=== PATIENT | male | born 1930 | race Caucasian/White ===

== ENCOUNTER 2020-08-16 17:26 | Inpatient (IN) | payer MEDICARE, BC, OTHER ==
[~2020-08-16] VITALS: Ht 172.7 cm; Wt 101.4 kg
[2020-08-16 22:30] VITALS: BP 116/69
[2020-08-16] MEDS ORDERED: ACETAMINOPHEN TAB 650MG DOSE (2X325MG) PO PRN (23:45)
[2020-08-17] VITALS (16 sets, daily range): BP systolic 84–126; BP diastolic 44–71; O2SAT 93–97
[2020-08-17] MEDS ORDERED: zolPIDEM TARTRATE 5 MG TAB PO ONE (00:15)
[2020-08-17] MEDS ORDERED: C 50TAB PO ×2 (00:34→17:00)
[2020-08-17] MEDS ORDERED: [UNRECOGNIZED DRUG - CODE] PO (00:34)
[2020-08-17] MEDS ORDERED: CLOP75TA2 PO (00:34)
[2020-08-17] MEDS ORDERED: ICAPTAB PO ×2 (00:34→17:00)
[2020-08-17] MEDS ORDERED: AMLO2.5T3 PO ×2 (00:34→17:00)
[2020-08-17] MEDS ORDERED: DOCU100C17 PO ×2 (00:34→17:00)
[2020-08-17] MEDS ORDERED: AVOD0.5C PO ×2 (00:34→17:00)
[2020-08-17] MEDS ORDERED: HYDR-4571 PO (00:34)
[2020-08-17] MEDS ORDERED: POTA10TA17 PO (00:34)
[2020-08-17] MEDS ORDERED: GABA600T4 PO ×2 (00:34→17:00)
[2020-08-17] MEDS ORDERED: GLUCTAB6 PO ×2 (00:34→17:00)
[2020-08-17] MEDS ORDERED: ASPI-161 PO ×2 (00:34→17:00)
[2020-08-17] MEDS ORDERED: FURO40TA2 PO ×2 (00:34→17:00)
[2020-08-17] MEDS ORDERED: NITR4TASL SL ×2 (00:34→17:00)
[2020-08-17] MEDS ORDERED: BUSP5TA PO ×2 (00:34→17:00)
[2020-08-17] MEDS ORDERED: SYNT75TA PO (00:34)
[2020-08-17] MEDS ORDERED: VITA100018 PO ×2 (00:34→17:00)
[2020-08-17] MEDS ORDERED: D31000TA2 PO ×2 (00:34→17:00)
[2020-08-17] MEDS ORDERED: ZYLO300T6 PO ×2 (00:34→17:00)
[2020-08-17] MEDS ORDERED: METO25TA4 PO (00:34)
[2020-08-17] MEDS ORDERED: MORP-69 PO ×2 (00:34→17:00)
[2020-08-17] MEDS ORDERED: ZOLP10TA2 PO (00:34)
[2020-08-17] MEDS ORDERED: MIRA1POW3 PO (00:34)
[2020-08-17] MEDS ORDERED: ATOR1TAB21 PO ×3 (00:34→18:42)
[2020-08-17] MEDS ORDERED: BISA10SU20 PR (00:34)
[2020-08-17] MEDS ORDERED: VITMTA PO ×2 (00:34→17:00)
[2020-08-17] MEDS ORDERED: TERA10CA3 PO ×2 (00:34→17:00)
[2020-08-17] MEDS ORDERED: PATIENT COMMENT (00:35)
[2020-08-17 01:06] LABS: HEMATOCRIT 31.1 % (42.0-52.0); MEAN CORPUSCULAR HEMOGLOBIN 33.1 pg (27.0-33.0); MEAN CORPUSCULAR HGB CONC 32.2 g/dl (32.0-36.5); PLATELET COUNT, AUTOMATED 219 10^3/uL (150-450); RED BLOOD COUNT 3.02 10^6/uL (4.30-6.10); WHITE BLOOD COUNT 8.7 10^3/uL (4.0-10.0)
[2020-08-17] MEDS: FUROSEMIDE 40MG/4ML VIAL (J1940) IV SCH ×3 (01:06→16:52)
[2020-08-17 01:08] LABS: RSV AMPLIFICATION NEGATIVE (NEGATIVE)
[2020-08-17 01:10] LABS: CK-MB VALUE MASS 2.3 NG/ML (<3.6); MB/CK RELATIVE INDEX 5.9 (< OR =4); TROPONIN I 1.21 NG/ML (< 0.10)
[2020-08-17 01:12] LABS: ALBUMIN 2.7 GM/DL (3.2-5.2); BILIRUBIN,TOTAL 0.6 MG/DL (0.2-1.0); CREATININE FOR GFR 1.27 MG/DL (0.70-1.30); MAGNESIUM LEVEL 2.1 MG/DL (1.8-2.4); POTASSIUM SERUM 3.8 MEQ/L (3.5-5.1); TOTAL PROTEIN 5.9 GM/DL (6.4-8.2)
--- NOTE | 2020-08-17 01:19 | REPVR ---
PROCEDURE INFORMATION: Exam: XR Chest, 1 View Exam date and time: 08/16/2020 11:44 PM Age: 89 years old Clinical indication: Other: Chf exacerbation TECHNIQUE: Imaging protocol: XR of the chest Views: 1 view. COMPARISON: No relevant prior studies available. FINDINGS: Lungs: Lungs are normally inflated. No evidence of pulmonary edema. Probable atelectasis at the lung bases. Subtle pneumonia not excluded. Pleural space: Blunted costophrenic angles suggest bilateral pleural effusions. No pneumothorax. Heart/Mediastinum: Cardiac silhouette is prominent in size. Bones/joints: Osseous structures show no concerning abnormality. Soft tissues: No asymmetry of the extrathoracic soft tissues. IMPRESSION: Small bilateral pleural effusions and either atelectasis or infiltrate at the lung bases. No evidence of active pulmonary edema Electronically signed by: Bertin Allen On 08/17/2020 01:19:22 AM
[2020-08-17] MEDS ORDERED: NORCO, ANEXSIA 5/325MG TABLET (HYDROcodone/ACETAMINOPHEN) PO PRN (02:00)
[2020-08-17] MEDS ORDERED: zolPIDEM TARTRATE 5 MG TAB PO PRN (02:00)
[2020-08-17 02:15] LABS: THYROID STIMULATING HORMONE 1.91 uIU/ML (0.358-3.740)
--- NOTE | 2020-08-17 02:32 | HPEPDOC ---
[facility] Medical History & Physical Date of Admission Aug 16, 2020 Date of Service: Aug 16, 2020 Attending Physician: RUIZ WOODALL MD History and Physical CHIEF COMPLAINT: transfer from [facility] HISTORY OF PRESENT ILLNESS: Jae John is a very pleasant 89 YO M with history of hypertension, CAD, CHF unspecified who presents as transfer from [facility]. Per transfer notes, in the last 2 days the patient has had shortness of breath and worsening swelling in his legs. He has required in creasing amounts of oxygen supplementation over the past day. On 08/16/2020 his BNP was measured to be over 20,000 (prior BNP in May 2020 was around 2000). A chest x-ray done at [facility] showed CHF with pulmonary vascular congestion and cardiomegaly. He is also found to have bibasilar airspace disease. In addition the patient had an FRANCES with creatinine of 1.36 and BUN 28 (creatinine 0.9-1.1 and BUN 13-15 in May 2020). On 2020 the patient's foreman/pile driving and erection Dr. Dimas recommended the patient be transferred to [facility] for further management of acute on chronic congestive heart failure exacerbation. The patient reports he is having increasing shortness of breath and dyspnea on exertion. He normally gets up and walks to the bathroom without issue but for the past few days he has been having labored breathing and had to stop and rest several times. He has been urinating several times a night. He denies any coughing. He has noticed his legs, left worse than right, with increasing swelling. He denies any recent illnesses, including any upper respiratory infections. He does report some right-sided chest pain several weeks ago which has since resolved. He has been taking all medication as prescribed. PAST MEDICAL HISTORY: Pretension CAD (ND about 40 years ago status post stent) CHF, unspecified Gout Degenerative joint disease Hypothyroidism BPH Chronic right hip pain Chronic back pain Spinal stenosis TIA PAST SURGICAL HISTORY: Cholecystectomy, [place] Multiple stent placement SOCIAL HISTORY: Former smoker, quit greater than 40 years ago Denies alcohol Denies illicit drugs Lives at [facility] FAMILY HISTORY: Reviewed and noncontributory ALLERGIES: Please see below. REVIEW OF SYSTEMS: Constitutional: No Weight Change, No Fever, No Chills, No Night Sweats, No Fatigue, No Malaise ENT/Mouth: No Hearing Changes, No Ear Pain, No Nasal Congestion, No Sinus Pain, No Hoarseness, No sore throat, No Rhinorrhea, No Swallowing Difficulty Eyes: No Eye Pain, No Swelling, No Redness, No Foreign Body, No Discharge, No Vision Changes Cardiovascular: Reports dyspnea on exertion, orthopnea, lower extremity edema Respiratory: No Cough, No Wheezing Gastrointestinal: No Nausea, No Vomiting, No Diarrhea, No Constipation, No Pain, No Heartburn, No Anorexia, No Dysphagia, No Hematochezia, No Melena, No Flatulence, No Jaundice Genitourinary: No Dysuria Musculoskeletal: No Arthralgias, No Myalgias, No Joint Swelling, No Joint Stiffness, No Back Pain, No Neck Pain Skin: No Skin Lesions, No Pruritis Neuro: No Weakness, No Numbness, No Paresthesias, No Loss of Consciousness, No Syncope, No Dizziness, No Headache, No Coordination Changes, No Recent Falls Psych: No Anxiety/Panic, No Depression, No Insomnia, No Personality Changes, No Delusions Heme/Lymph: No Bruising, No Bleeding, No Transfusions History, No Lymphadenopathy Endocrine: No Polyuria, No Polydipsia, No Temperature Intolerance HOME MEDICATIONS: Please see below. PHYSICAL EXAMINATION: VITAL SIGNS: see below GENERAL: Very pleasant, alert and oriented, in no apparent distress, conversant in full sentences. HEENT: PERRL, EOMI, Oral mucous membranes are moist without lesions. NECK: The patient has no noted JVD. No adenopathy is appreciated. No thyromegaly CHEST/LUNGS: There are some rales and scattered wheezing in all lung hollis bilaterally. There is no subcutaneous air appreciated. There is no tenderness to the chest wall. HEART: 3/6 systolic ejection murmur heard best in the right upper sternal border, 3/6 diastolic murmur heard best in the apex. Regular rate and rhythm, Distal pulses are 2+. No carotid bruits appreciated. ABDOMEN: Soft, slightly tender in the lower umbilicus with deep palpation, and nondistended. Bowel sounds are positive. No organomegaly is appreciated. No m asses are appreciated. There are no peritoneal signs. There is no [place] sign. EXTREMITIES: There is 2+ pitting edema up to the knees bilaterally. There is no focal long bone tenderness or deformity. SKIN: The patients skin is warm and dry, without rashes or lesions. PSYCHIATRIC: AAO x 3, normal mood/affect NEUROLOGIC: The patient has some word finding difficulty, and slurred speech. The patient has 5/5 strength to the upper and lower extremities bilaterally. Sensation is intact throughout. Deep tendon reflexes are 2+ in all four extremities. There are no deficits to the cranial nerves. LABORATORY DATA: See below. IMAGING: CXR: FINDINGS: Lungs: Lungs are normally inflated. No evidence of pulmonary edema. Probable atelectasis at the lung bases. Subtle pneumonia not excluded. Pleural space: Blunted costophrenic angles suggest bilateral pleural effusions. No pneumothorax. Heart/Mediastinum: Cardiac silhouette is prominent in size. Bones/joints: Osseous structures show no concerning abnormality. Soft tissues: No asymmetry of the extrathoracic soft tissues. IMPRESSION: Small bilateral pleural effusions and either atelectasis or infiltrate at the lung bases. No evidence of active pulmonary edema MICROBIOLOGY: Please see below. ASSESSMENT: This is a very pleasant 89-year-old male with history of hypertension, CAD, congestive heart failure unspecified who presents as transfer from [facility] found to have elevated BNP, increased oxygen requirement, and worsening lower extremity edema admitted to [facility] for management of suspected congestive heart failure exacerbation. PLAN: 1. Acute on chronic congestive heart failure, unspecified: -notes from [facility] state he was on 60mg Lasix PO in AM and Lasix 40mg IV x 1 dose + 1 dose of Metolazone 5mg with minimal response -BNP 17, 589 (was >20,[address] [facility]), last BNP on 06/09/20 was 2509 -CXR shows pleural effusions -Will start diuresis at this time, 40mg IV Lasix Q8H -Echo ordered and pending -EKG: Sinus rhythm, first degree AV block, frequent PVCs -Strict I/O -2g sodium diet with 1500cc/day fluid restriction -Daily weights 2. Elevated troponins, possibly NSTEMI: -Troponins found to be elevated at 1.21, last known troponins measured at [facility] on 08/12 were 0.96 -No ST changes on EKG -Start ASA, Plavix, Zetia, Atorvastatin, Lovenox 1mg/kg Q12H -Will recheck troponins in 6h -Continuous telemetry -Findings discussed with patient, who elected for conservative medical management, as he does not wish to be transferred for possible cath -ESTEFANY score 5 pts, with 26% risk at 14 days of new or recurrent [place] -ELIS score 181 points: 40% probability of within 6 mos -Patient requested day team to contact his foreman/pile driving and erection, Dr. Cortez, to discuss his case in AM 3. History of CAD ([place] + stent >40 years ago): -Patient is on Plavix (unknown reason). Will continue for reasons explained above -Continue ASA/Statin, added Zetia 4. History of Hypertension: -Continue Amlodipine -Holding beta blockers for now 5. Hypothyroidism: -TSH WNL at 1.910 -Continue home levothyroxine 6. Anemia: hemoglobin found to be 10.0 -MCV 103 -Pending B12/folate 7. History of chronic back pain: -Continue Gabapentin, [place] as needed 8. BPH: -Continue Avodart DVT ppx:on Lovenox DISPO: Pending diuresis, clinical improvement, trending troponins Allergies Coded Allergies: No Known Allergies (Unverified , 08/17/20) A-FIB/CHADSVASC A-FIB History Current/History of A-Fib/PAF?: No Current PO Anticoag Therapy: No GME ATTESTATION GME ATTESTATION My faculty preceptor for this patient encounter was physically present during the encounter and was fully available. All aspects of the patient interview, examination, medical decision making process, and medical care plan development were reviewed and approved by the faculty preceptor. The faculty preceptor is aware and concurs with the plan as stated in the body of this note and will attest to such by his/her cosignature. ATTENDING NOTE TIME OF SERVICE 1155PM is an 89 yr old w a hx of unspecified type of CHF, TIA, Afib, HTN, hypothyroidism and gout who developed hypoxemic respiratory failure while at [facility] that was presumed to be 2/2 acute on chronic CHF; he was transferred to [facility] for a higher level of care. His physical exam was remarkable for generalized palor and BLE edema upto the knees. #Acute hypoxemic respiratory failure possibly 2/2 fluid overload #Acute unspecified type of CHF #NSTEMI (ESTEFANY score = 4= moderate risk) EKG didnt show acute ST changes. Per d/w one of the RNs at [facility] the last troponin on Aug 12 was 0.196. #Chronic CAD #Macrocytic anemia Plan: called to discuss medical management of NSTEMI / telemetry / c/w O2 /continuous pulse ox / f/u VBG / trend trops / f/u EKG / c/ w Lasix / f/u Echo & Mg Rest per H&P RENU TA MD Aug 17, 2020 00:06 RUIZ WOODALL MD Aug 17, 2020 03:49
[2020-08-17] MEDS: EZETIMIBE 10 MG TAB (ZETIA) PO SCH ×2 (03:26→09:31)
[2020-08-17] MEDS: CLOPIDOGREL 75 MG TAB PO SCH ×2 (03:26→09:32)
[2020-08-17] MEDS: ATORVASTATIN 20 MG TAB PO SCH ×2 (03:27→21:12)
[2020-08-17] MEDS: ASPIRIN 81 MG ENTERIC TAB PO SCH ×2 (03:27→09:31)
[2020-08-17] MEDS: ENOXAPARIN 100MG/1ML SYRINGE (J1650 PER 10MG) SC SCH ×2 (03:27→14:09)
[2020-08-17] MEDS ORDERED: LEVOTHYROXINE 75MCG TABLET (0.075MG) PO SCH (06:00)
[2020-08-17 06:23] LABS: VENOUS BASE EXCESS 5.3 (-2.0-2.0); VENOUS HCO3 31.8 MEQ/L (23.0-27.0); VENOUS O2 SATURATION 90.6 % (60.0-80.0); VENOUS PARTIAL PRESSURE CO2 56.9 mmHg (38.0-50.0); VENOUS PARTIAL PRESSURE O2 65.8 mmHg (30.0-50.0); VENOUS PH 7.365 UNITS (7.330-7.430); VENOUS STANDARD HCO3 29.1 MEQ/L; VENOUS TOTAL CO2 33.5 MEQ/L (24.0-28.0)
[2020-08-17 06:32] LABS: HEMATOCRIT 29.7 % (42.0-52.0); HEMOGLOBIN 9.5 g/dl (13.5-17.5); MEAN CORPUSCULAR HEMOGLOBIN 32.9 pg (27.0-33.0); MEAN CORPUSCULAR VOLUME 102.8 fl (80.0-96.0); PLATELET COUNT, AUTOMATED 203 10^3/uL (150-450); RED BLOOD COUNT 2.89 10^6/uL (4.30-6.10); WHITE BLOOD COUNT 7.1 10^3/uL (4.0-10.0)
[2020-08-17 07:09] LABS: BLOOD UREA NITROGEN 39 MG/DL (7-18); CALCIUM LEVEL 9.1 MG/DL (8.8-10.2); CARBON DIOXIDE LEVEL 35 MEQ/L (21-32); CHLORIDE LEVEL 100 MEQ/L (98-107); CK-MB VALUE MASS 2.6 NG/ML (<3.6); CPK CREATINE PHOSPHOKINASE 31 U/L (39-308); CREATININE FOR GFR 1.15 MG/DL (0.70-1.30); GLOMERULAR FILTRATION RATE > 60.0 (>35); GLUCOSE, FASTING 98 MG/DL (70-100); MB/CK RELATIVE INDEX 8.39 (< OR =4); POTASSIUM SERUM 3.3 MEQ/L (3.5-5.1); SODIUM LEVEL 138 MEQ/L (136-145); TROPONIN I 1.25 NG/ML (< 0.10)
--- NOTE | 2020-08-17 08:18 | ECGEPIP ---
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
[2020-08-17] MEDS ORDERED: ENOXAPARIN 40MG/0.4ML SYRINGE (J1650 PER 10MG) SC SCH (09:00)
[2020-08-17] MEDS ORDERED: allopurinoL 300 MG TAB PO SCH (09:00)
[2020-08-17] MEDS: DOCUSATE SODIUM 100MG CAPSULE PO SCH ×2 (09:31→21:00)
[2020-08-17] MEDS: GABAPENTIN 300 MG CAP PO SCH ×3 (09:31→21:12)
[2020-08-17] MEDS: busPIRone 5 MG TAB PO SCH ×2 (11:34→21:12)
[2020-08-17] MEDS ORDERED: POTASSIUM CHLORIDE 10 MEQ SR TABLET PO ONE (12:00)
--- NOTE | 2020-08-17 14:34 | IPNPDOC ---
Text Note Date of Service The patient was seen on 08/17/20. NOTE SUBJECTIVE: -Very pleasant, feels better, no chest pain, palpitations, comfortably sitting up in bed, watching the inauguration. -Per extensive discussion would like to rescind his DNR/DNI status to FULL CODE. Is open to transfer to [place] for potential LHC and advanced studies and therapies. We agreed for me to reach out to Dr. Wang (his automotive sales associate) and I also spoke with Balaji Aly his HCP and plan is now to transfer him to [place] tomorrow morning. OBJECTIVE: VITAL SIGNS: see below GENERAL: Very pleasant, alert and oriented, in no apparent distress, conversant in full sentences. HEENT: PERRL, EOMI, Oral mucous membranes are moist without lesions. NECK: The patient has no noted JVD. No adenopathy is appreciated. No thyromegaly CHEST/LUNGS: There are some rales and scattered wheezing in all lung hollis bilaterally. There is no subcutaneous air appreciated. There is no tenderness to the chest wall. HEART: 3/6 systolic ejection murmur heard best in the right upper sternal border, 3/6 systolic murmur heard best in the apex. Regular rate and rhythm, Distal pulses are 2+. No carotid bruits appreciated. ABDOMEN: Soft, slightly tender in the lower umbilicus with deep palpation, and nondistended. Bowel sounds are positive. No organomegaly is appreciated. No mas ses are appreciated. There are no peritoneal signs. There is no [place] sign. EXTREMITIES: There is 2+ pitting edema up to the knees bilaterally. There is no focal long bone tenderness or deformity. SKIN: The patients skin is warm and dry, without rashes or lesions. PSYCHIATRIC: AAO x 3, normal mood/affect NEUROLOGIC: The patient has some word finding difficulty, and slurred speech. The patient has 5/5 strength to the upper and lower extremities bilaterally. Sensation is intact throughout. Deep tendon reflexes are 2+ in all four extremities. There are no deficits to the cranial nerves. LABORATORY DATA: Reviewed K 3.3 (repleted) Cr 1.15 IMAGING: CXR: FINDINGS: Lungs: Lungs are normally inflated. No evidence of pulmonary edema. Probable atelectasis at the lung bases. Subtle pneumonia not excluded. Pleural space: Blunted costophrenic angles suggest bilateral pleural effusions. No pneumothorax. Heart/Mediastinum: Cardiac silhouette is prominent in size. Bones/joints: Osseous structures show no concerning abnormality. Soft tissues: No asymmetry of the extrathoracic soft tissues. IMPRESSION: Small bilateral pleural effusions and either atelectasis or infiltrate at the lung bases. No evidence of active pulmonary edema MICROBIOLOGY: Please see below. ASSESSMENT: This is a very pleasant 89-year-old male with history of hypertension, CAD, congestive heart failure unspecified who presents as transfer from [facility] found to have elevated BNP, increased oxygen requirement, and worsening lower extremity edema admitted to [facility] for management of suspected congestive heart failure exacerbation. PLAN: 1. Acute on chronic congestive heart failure, unspecified: -notes from [facility] state he was on 60mg Lasix PO in AM and Lasix 40mg IV x 1 dose + 1 dose of Metolazone 5mg with minimal response -BNP 17, 589 (was >20,000 at [facility]), last BNP on 06/09/20 was 2509 -CXR shows pleural effusions -Lasix 40mg IV Lasix Q8H as hemodynamics allow -Echo ordered and read pending -EKG: Sinus rhythm, first degree AV block, frequent PVCs -Strict I/O -2g sodium diet with 1500cc/day fluid restriction -Daily weights -Spoke with his [place] automotive sales associate --> has significant and MR as well as reduced EF 30-45% from prior echo--> plan is to transfer him to [place] tomorrow morning. For now will continue volume optimization. -Patient articulated desire to rescind DNR/DNI and now FULLCODE 2. Elevated troponins, type 2 NSTEMI: -Troponins found to be elevated at 1.21--> 1.25 -No ST changes on EKG -continue ASA, Plavix, Zetia, Atorvastatin -for now will continue Lovenox 1mg/kg Q12H -Will recheck troponins in 6h -Continuous telemetry -ESTEFANY score 5 pts, with 26% risk at 14 days of new or recurrent [place] -ELIS score 181 points: 40% probability of within 6 mos -Spoke with his [place] automotive sales associate --> has significant and MR as well as reduced EF 30-45% from prior echo--> plan is to transfer him to [place] tomorrow morning. For now will continue volume optimization. 3. History of CAD ([place] + stent >40 years ago): -Patient is on Plavix (unknown reason). Will continue for reasons explained above -Continue ASA/Statin, added Zetia 4. History of Hypertension: -Continue Amlodipine -Holding beta blockers for now 5. Hypothyroidism: -TSH WNL at 1.910 -Continue home levothyroxine 6. Anemia: hemoglobin found to be 10.0 -MCV 103 -Pending B12/folate 7. History of chronic back pain: -Continue Gabapentin, [place] as needed 8. BPH: -Continue Avodart DVT ppx:on Lovenox DISPO: Continue diuresis, with plan for [facility] transfer tomorrow AM VS,Kumar, I+O VS, Kumar, I+O Laboratory Tests 08/17/20 00:24 08/17/20 06:08 Vital Signs Date Time Temp Pulse Resp B/P (MAP) Pulse Ox O2 Delivery O2 Flow Rate FiO2 08/17/20 12:00 4.0 08/17/20 09:08 97.9 88 22 119/71 (87) 92 Nasal Cannula I&O- Last 24 Hours up to 6 AM 08/17/20 06:00 Intake Total 60 ml Output Total 1575 ml Balance -1515 ml NAT DE LA VEGA MD Aug 17, 2020 14:34
--- NOTE | 2020-08-17 16:33 | DS.PDOC ---
Discharge Summary General Date of Admission Aug 16, 2020 at 22:37 Date of Discharge 08/18/2020 Attending Physician: NAT DE LA VEGA MD Discharge Summary PROCEDURES PERFORMED DURING STAY: [None]. ADMITTING DIAGNOSES: CHF exacerbation DISCHARGE DIAGNOSIS: HFrEF exacerbation NSTEMI CAD Hypertension CAD (first [place] about 40 years ago status post stents) CHF, history of HFrEF Gout Degenerative joint disease Hypothyroidism BPH Chronic right hip pain Chronic back pain Spinal stenosis TIA Hypoxemic respiratory failure COMPLICATIONS/CHIEF COMPLAINT: CHF. HISTORY OF PRESENT ILLNESS: Jae John is a very pleasant 89 YO M with history of hypertension, CAD, CHF unspecified at presentation who presented as a transfer from [facility]. Per transfer notes, in the 2 days prior to transfer the patient had shortness of breath and worsening swelling in his legs despite daily loop diuretic therapy. He has required increasing amounts of oxygen supplementation over the past day. On 08/16/2020 his BNP was measured to be over 20,000 (prior BNP in May 2020 was around 2000). A chest x-ray done at [facility] showed CHF with pulmonary vascular congestion and cardiomegaly. He is also found to have bibasilar airspace disease. In addition t he patient had an FRANCES with creatinine of 1.36 and BUN 28 (creatinine 0.9-1.1 and BUN 13-15 in May 2020). On 08/16 2020 the patient's marketing effectiveness manager Dr. Santos recommended the patient be transferred to [facility] for further management of acute on chronic congestive heart failure exacerbation, c/w appropriate management for CHF exacerbatiion. HOSPITAL COURSE: He arrived HDS, afebrile on 4L NC. He was started on lasix 40 IV Q8H that he responded to very well but was also c/b episodic hypotension and could not diurese as hemodynamics allowed. His Frances improved with Cr back to 1.15 with a BUN of 38. He however had a troponin leak to 1.24 --> 1.25 with a stable non ischemic EKG in NSR with first degree HB. So he was kept on his plavix, started on full dose lovenox and kept on telemetry. On day 2 morning, he expressed that he really desired to have all interventions and rescinded his DNR/DNI which I confirmed with his HCP and discussed with Dr. Santos who let me know that his EF at baseline was 35-45% and he had significant and MR and he was not sure that his CHF decompensation was precipitated by ischemia but could valvular disease and would require more investigation and potential could end up requiring a C. Given that he wanted full investigations and interventions, we agreed to have be transferred to [place] for full evaluation and management beyond volume optimization. He is therefore now being transferred to [place] cardiology service. DISCHARGE MEDICATIONS: Please see below. ALLERGIES: Please see below. PHYSICAL EXAMINATION ON DISCHARGE: VITAL SIGNS: see below GENERAL: Very pleasant, alert and oriented, in no apparent distress, conversant in full sentences. HEENT: PERRL, EOMI, Oral mucous membranes are moist without lesions. CHEST/LUNGS: There are some rales and scattered wheezing in all lung hollis bilaterally. There is no subcutaneous air appreciated. There is no tenderness to the chest wall. HEART: 3/6 systolic ejection murmur heard best in the right upper sternal border, 3/6 systolic murmur heard best in the apex. Regular rate and rhythm, Distal pulses are 2+. No carotid bruits appreciated. ABDOMEN: Normoactive bowel sounds, soft, obese, NTND EXTREMITIES: There is 2+ pitting edema up to the knees bilaterally. There is no focal long bone tenderness or deformity. SKIN: The patients skin is warm and dry, without rashes or lesions. PSYCHIATRIC: AAO x 3, normal mood/affect NEUROLOGIC: Clear speech. The patient has 5/5 strength to the upper and lower ex tremities bilaterally. Sensation is intact throughout. There are no deficits to the cranial nerves. LABORATORY DATA: Please see below. IMAGING: CXR: FINDINGS: Lungs: Lungs are normally inflated. No evidence of pulmonary edema. Probable atelectasis at the lung bases. Subtle pneumonia not excluded. Pleural space: Blunted costophrenic angles suggest bilateral pleural effusions. No pneumothorax. Heart/Mediastinum: Cardiac silhouette is prominent in size. Bones/joints: Osseous structures show no concerning abnormality. Soft tissues: No asymmetry of the extrathoracic soft tissues. IMPRESSION: Small bilateral pleural effusions and either atelectasis or infiltrate at the lung bases. No evidence of active pulmonary edema PROGNOSIS: Good ACTIVITY: As tolerated DIET: consistent carb, 2g sodium, 1.8L/24h fluids DISCHARGE PLAN: Transfer to [place] [facility] DISPOSITION: Transfer to [place] [facility] DISCHARGE INSTRUCTIONS: Transfer to [place] [facility] ITEMS TO FOLLOWUP ON ON OUTPATIENT: CHF NSTEMI PCP follow up DISCHARGE CONDITION: Stable. TIME SPENT ON DISCHARGE: 51 minutes. Vital Signs/I&Os Vital Signs Date Time Temp Pulse Resp B/P (MAP) Pulse Ox O2 Delivery O2 Flow Rate FiO2 08/17/20 15:58 97.9 91 22 126/61 (82) 93 Nasal Cannula 4.0 I&O- Last 24 Hours up to 6 AM 08/17/20 06:00 Intake Total 60 ml Output Total 1575 ml Balance -1515 ml Laboratory Data Labs 24H Laboratory Tests 2 08/17/20 00:17: Coronavirus (COVID-19)(PCR) NEGATIVE, Influenza Type A (RT-PCR) NEGATIVE, Influenza Type B (RT-PCR) NEGATIVE, Respiratory Syncytial Virus (PCR) NEGATIVE 08/17/20 00:24: Nucleated Red Blood Cells % (auto) 0.0, Anion Gap 5L, Glomerular Filtration Rate 57.0, Calcium Level 9.0, Magnesium Level 2.1, Total Bilirubin 0.6, Aspartate Amino Transf (AST/SGOT) 26, Alanine Aminotransferase (ALT/SGPT) 29, Alkaline Phosphatase 104, Total Creatine Kinase 39, Creatine Kinase MB 2.3, Creatine Kinase MB Relative Index 5.90H, Troponin I 1.21H, PV-Luo-S-Type Natriuretic Peptide 92439B, Total Protein 5.9L, Albumin 2.7L, Albumin/Globulin Ratio 0.8, Thyroid Stimulating Hormone (TSH) 1.910 08/17/20 06:08: Nucleated Red Blood Cells % (auto) 0.0, Anion Gap 3L, Glomerular Filtration Rate > 60.0, Calcium Level 9.1, Total Creatine Kinase 31L, Creatine Kinase MB 2.6, Creatine Kinase MB Relative Index 8.39H, Troponin I 1.25H, Blood Gas Bicarbonate Standard 29.1, Venous Blood pH 7.365, Venous Blood Partial Pressure CO2 56.9H, Venous Blood Partial Pressure O2 65.8H, Venous Blood Total Carbon Dioxide 33.5H, Venous Blood HCO3 31.8H, Venous Blood Oxygen Saturation 90.6H, Venous Blood Base Excess 5.3H 08/17/20 12:21: Troponin I 0.78#H CBC/BMP Laboratory Tests 08/17/20 00:24 08/17/20 06:08 Allergies Coded Allergies: No Known Allergies (Unverified , 08/17/20) NAT DE LA VEGA MD Aug 17, 2020 16:33
[2020-08-17] MEDS ORDERED: LEVO75TA34 PO (17:00)
[2020-08-17] MEDS ORDERED: PLAV1TAB2 PO (17:00)
[2020-08-17] MEDS ORDERED: AMBI10TA PO (17:00)
[2020-08-17] MEDS ORDERED: HYDR-3713 PO (17:00)
[2020-08-17] MEDS ORDERED: BISA10SU PR (17:00)
[2020-08-17] MEDS ORDERED: POTA10TA67 PO (17:00)
[2020-08-17] MEDS ORDERED: [UNRECOGNIZED DRUG - CODE] MT (17:00)
[2020-08-17] MEDS ORDERED: MIRA3350 PO (17:00)
[2020-08-17] MEDS ORDERED: METO1TAB87 PO (17:00)
[2020-08-17] MEDS ORDERED: TERAZOSIN 5 MG CAP PO SCH (21:00)
[2020-08-17] MEDS ORDERED: DUTASTERIDE 0.5 MG CAP (AVODART) PO SCH (21:00)
[2020-08-18] VITALS: BP 100/51
[2020-08-18] MEDS: FUROSEMIDE 40MG/4ML VIAL (J1940) IV SCH (01:40)
[2020-08-18] MEDS: ENOXAPARIN 100MG/1ML SYRINGE (J1650 PER 10MG) SC SCH (03:36)
[2020-08-18 04:00] VITALS: BP 113/62
[2020-08-18 06:43] LABS: HEMATOCRIT 30.1 % (42.0-52.0); HEMOGLOBIN 9.8 g/dl (13.5-17.5); MEAN CORPUSCULAR HEMOGLOBIN 33.4 pg (27.0-33.0); MEAN CORPUSCULAR HGB CONC 32.6 g/dl (32.0-36.5); MEAN CORPUSCULAR VOLUME 102.7 fl (80.0-96.0); PLATELET COUNT, AUTOMATED 213 10^3/uL (150-450); RED BLOOD COUNT 2.93 10^6/uL (4.30-6.10); WHITE BLOOD COUNT 6.3 10^3/uL (4.0-10.0)
[2020-08-18 07:11] LABS: BLOOD UREA NITROGEN 29 MG/DL (7-18); CALCIUM LEVEL 9.1 MG/DL (8.8-10.2); CARBON DIOXIDE LEVEL 36 MEQ/L (21-32); CHLORIDE LEVEL 98 MEQ/L (98-107); CREATININE FOR GFR 0.97 MG/DL (0.70-1.30); FERRITIN 213 NG/ML (26-388); GLOMERULAR FILTRATION RATE > 60.0 (>35); GLUCOSE, FASTING 100 MG/DL (70-100); IRON (FE) 33 UG/DL (65-175); PERCENT SATURATION 17.6 % (19.7-50.0); SODIUM LEVEL 141 MEQ/L (136-145); TOTAL IRON BINDING CAPACITY 187 UG/DL (250-450)
[2020-08-18 11:22] LABS: VITAMIN B12 LEVEL 728 PG/ML (247-911)
[2020-08-18 11:23] LABS: FOLATE 21.7 NG/ML (>5.4)
--- NOTE | 2020-08-19 12:04 | ECHO ---
DATE OF PROCEDURE: 08/17/2020 Age: 89 Gender: Male REFERRING PHYSICIAN: Anne Becker MD PATIENT LOCATION: Room 4215. REASON FOR STUDY: Heart failure. 2D MEASUREMENTS: IVS 1.1 cm LV 6.5 cm LVPW 1.1 cm LA 5.4 cm Aorta 3.0 cm RV 4.4 cm DOPPLER MEASUREMENT Peak velocity across the aortic valve 3.69 m/s Peak velocity across the LVOT 0.9 m/s Peak gradient across the aortic valve 54 mmHg Mean gradient across the aortic valve 35 mmHg Mitral E 1.4 Mitral A 0.8 with a ratio of 1.8 Maximum tricuspid valve velocity 3.5 m/s 2D COMMENTS: 1. Normal left ventricular wall thickness with a mildly enlarged left ventricle and a low normal global left ventricular systolic function. The estimated left ventricular systolic ejection fraction is 50% to 55%. 2. Moderately enlarged left atrium. The right atrium appeared to be mildly enlarged. The right ventricle appeared to be mildly enlarged in limited views. 3. The atrial septum appeared to be normal without evidence of defect or shunt. 4. Normal aortic root. 5. A small pericardial effusion was noted. No evidence of cardiac tamponade. 6. Moderately calcified aortic valve with restricted leaflet motion. Moderately calcified mitral annulus with normal anterior mitral valve leaflet motion. Normal tricuspid valve. The pulmonic valve and proximal pulmonary artery branches were not well visualized. 7. The inferior vena cava was dilated at 2.6 cm, central venous pressure might be elevated. DOPPLER: It detects trace aortic regurgitation, moderate mitral regurgitation, and moderate to severe tricuspid regurgitation. The calculated pulmonary artery systolic pressure varies between 50 to 60 mmHg. Assessment of the left ventricular diastolic function appeared to be normal. IMPRESSION: 1. Low normal global left ventricular systolic function. 2. Aortic valve sclerosis with moderate aortic stenosis and trace aortic regurgitation. 3. Mitral annular calcification with moderate mitral regurgitation and moderately enlarged left atrium. 4. Zlwoobhe-uo-stsdli tricuspid regurgitation with ajmbcfaz-du-zkrumn pulmonary hypertension. The right heart chambers appeared to be mildly enlarged in limited views. 5. There are some features of elevated central venous pressure, the inferior vena cava was mildly enlarged. MTDD
== END 2020-08-18 07:11 | disposition short-term general hospital (02) | DRG 280 ==
LOC: M ED INP 22:37 → M MSPAV 22:55 → M PCU 08-17 09:00
PROVIDERS: ADMIT Internal Medicine; ATTEND Internal Medicine
DX: I21.4 Non-ST elevation (NSTEMI) myocardial infarction (principal); I50.23 Acute on chronic systolic (congestive) heart failure; I11.0 Hypertensive heart disease with heart failure; I25.10 Atherosclerotic heart disease of native coronary artery without angina pectoris; N40.0 Benign prostatic hyperplasia without lower urinary tract symptoms; M10.9 Gout, unspecified; D53.9 Nutritional anemia, unspecified; E03.9 Hypothyroidism, unspecified; Z86.73 Personal history of transient ischemic attack (TIA), and cerebral infarction without residual deficits; Z90.49 Acquired absence of other specified parts of digestive tract; Z87.891 Personal history of nicotine dependence; Z79.899 Other long term (current) drug therapy; Z79.02 Long term (current) use of antithrombotics/antiplatelets; Z11.52 Encounter for screening for COVID-19

== ENCOUNTER 2020-09-02 11:14 | Inpatient (IN) | payer MEDICARE, BC, OTHER ==
[~2020-09-02] VITALS: Ht 177.8 cm; Wt 90.0 kg
[~2020-09-02 11:14] MED LIST: AMBI10TA PO; AMLO2.5T3 PO; ASPI-161 PO; ATOR1TAB21 PO; AVOD0.5C PO; BISA10SU PR; BISA10SU20 PR; BUSP5TA PO; C 50TAB PO; CLOP75TA2 PO; D31000TA2 PO; DOCU100C17 PO; FURO40TA2 PO; GABA600T4 PO; GLUCTAB6 PO; HYDR-3713 PO; HYDR-4571 PO; ICAPTAB PO; LEVO75TA34 PO; METO1TAB87 PO; METO25TA4 PO; MIRA1POW3 PO; MIRA3350 PO; MORP-69 PO; NITR4TASL SL; PATIENT COMMENT; PLAV1TAB2 PO; POTA10TA17 PO; POTA10TA67 PO; SYNT75TA PO; TERA10CA3 PO; VITA100018 PO; VITMTA PO; ZOLP10TA2 PO; ZYLO300T6 PO; [UNRECOGNIZED DRUG - CODE] MT; [UNRECOGNIZED DRUG - CODE] PO
[2020-09-02] MEDS ORDERED: DOBUTamine HCL 500,000 MCG in IV 1 EA IV SCH (12:00)
--- NOTE | 2020-09-02 12:02 | REP ---
INDICATION: DYSPNEA/COUGH. COMPARISON: Comparison study 17 August 2020. TECHNIQUE: Portable upright AP chest radiograph. FINDINGS: Moderate to marked cardiomegaly is observed unchanged from the prior study. Pulmonary vasculature is cephalized and congested. There is no evidence of randal pleural effusion. No focal infiltrate is seen. Monitoring electrodes are noted. There is diffuse osteopenia.. IMPRESSION: CHF pattern with cardiomegaly and vascular congestion and cephalization. No pulmonary edema or pleural effusion seen. No focal infiltrate noted.. <Electronically signed by Greyson Holt > 09/02/20 0504
[2020-09-02 12:15] LABS: VENOUS O2 SATURATION 99.1 % (60.0-80.0); VENOUS PARTIAL PRESSURE CO2 48.1 mmHg (38.0-50.0); VENOUS PARTIAL PRESSURE O2 155.9 mmHg (30.0-50.0); VENOUS PH 7.351 UNITS (7.330-7.430); VENOUS STANDARD HCO3 24.5 MEQ/L; VENOUS TOTAL CO2 27.5 MEQ/L (24.0-28.0)
[2020-09-02 12:20] LABS: HEMATOCRIT 32.6 % (42.0-52.0); HEMOGLOBIN 10.6 g/dl (13.5-17.5); MEAN CORPUSCULAR HEMOGLOBIN 32.8 pg (27.0-33.0); MEAN CORPUSCULAR HGB CONC 32.5 g/dl (32.0-36.5); MEAN CORPUSCULAR VOLUME 100.9 fl (80.0-96.0); PLATELET COUNT, AUTOMATED 177 10^3/uL (150-450); RED BLOOD COUNT 3.23 10^6/uL (4.30-6.10)
[2020-09-02 12:21] LABS: WHITE BLOOD COUNT 9.2 10^3/uL (4.0-10.0)
[2020-09-02 12:30] LABS: INR 1.12; PROTHROMBIN TIME 14.6 SECONDS (12.5-14.3)
[2020-09-02] MEDS ORDERED: DOPamine 400 MG/500 ML BAG IN D5W (800MCG/ML) (J1265) As Ordered ONE (12:33)
[2020-09-02 12:40] LABS: ATYPICAL LYMPH 5 % (0-5); LYMPHOCYTES 4 % (16-44); MONOCYTES 12 % (0-5); NEUTROPHILS 67 % (28-66)
[2020-09-02 12:42] LABS: PLATELET ESTIMATE NORMAL (NORMAL)
[2020-09-02] MEDS ORDERED: DOPamine HCL 400 MG in IV 1 EA IV SCH (12:45)
[2020-09-02] MEDS ORDERED: NS 500 ML IV ONE ×2 (12:45→13:30)
[2020-09-02 12:57] LABS: ALBUMIN 2.7 GM/DL (3.2-5.2); BILIRUBIN,DIRECT 0.3 MG/DL (0.0-0.2); BILIRUBIN,TOTAL 0.7 MG/DL (0.2-1.0); CALCIUM LEVEL 9.2 MG/DL (8.8-10.2); CK-MB VALUE MASS 29.4 NG/ML (<3.6); CREATININE FOR GFR 2.63 MG/DL (0.70-1.30); GLOMERULAR FILTRATION RATE 24.6 (>35); MB/CK RELATIVE INDEX 15.81 (< OR =4); POTASSIUM SERUM 4.5 MEQ/L (3.5-5.1); THYROID STIMULATING HORMONE 3.05 uIU/ML (0.358-3.740); THYROXINE (T4) 6.6 UG/DL (4.5-12.0); TOTAL PROTEIN 5.9 GM/DL (6.4-8.2); TROPONIN I 8.99 NG/ML (< 0.10)
[2020-09-02 13:12] LABS: RSV AMPLIFICATION NEGATIVE (NEGATIVE)
[2020-09-02] MEDS ORDERED: SCOPOLAMINE 1MG TRANSDERMAL PATCH TOP PRN (17:15)
[2020-09-02] MEDS ORDERED: MORPHINE 10MG/0.5ML ORAL CONCENTRATE SOLUTION U/D SL PRN (17:15)
[2020-09-02] MEDS ORDERED: ONDANSETRON 4MG/2ML VIAL IV PRN (17:15)
[2020-09-02] MEDS ORDERED: ACETAMINOPHEN 650 MG SUPP PR PRN (17:15)
[2020-09-02] MEDS ORDERED: FURO40TA2 PO (17:21)
[2020-09-02] MEDS ORDERED: MAGN400T2 PO (17:21)
[2020-09-02] MEDS ORDERED: LOVE1INJ SC (17:21)
[2020-09-02] MEDS ORDERED: METO25TA PO (17:21)
[2020-09-02] MEDS ORDERED: SPIR50TA4 PO (17:21)
[2020-09-02] MEDS ORDERED: GABA-282 PO (17:21)
[2020-09-02] MEDS ORDERED: ATOR1TAB21 PO (17:21)
--- OUTSIDE RECORDS SUMMARY | 2020-09-02 17:39 | CCD | Continuity of Care Document ---
Author Jae Franco Organization Unknown Address [address] [place] [address] Phone [phone] Care Team Providers Care Powerhouse Tender Name Role Phone [facility] AUTM [phone] Problems Active Problems Provider Date Coronary arteriosclerosis Adolfo Santos MD Onset: 009 Hyperlipidemia Adolfo Santos MD Onset: 01/25/2009 Essential hypertension Adolfo Santos MD Onset: 01/25/2009 Social History Type Date Description Comments Sex Unknown Tobacco Use Start: Unknown End: Unknown Patient is a former smoker Allergies, Adverse Reactions, Alerts Description No Known Drug Allergies Medications Active Medications SIG Qnty Indications Ordering Provide r Date Furosemide 40mg Tablets 1 by mouth every day 90tabs Adolfo Santos MD 12/26/2017 Amlodipine Besylate 2.5mg Tablets 1 by mouth every day 90tabs Adolfo Santos MD 12/26/2017 Clopidogrel Bisulfate 75mg Tablets 1 by mouth every day 90tabs Adolfo Santos MD 12/26/2017 Potassium Chloride Megan ER 10Meq Tablets ER 1 by mouth every day 90tabs Adolfo Santos MD 12/26/2017 Allopurinol 300mg Tablets 1 by mouth every day 90tabs Adolfo Santos MD 12/26/2017 Morphine Sulfate 15mg Tablets 1 tablet twice daily needed Unknown Magnesium Oxide 200 MG Daily Unknown 000 Icaps Areds Formula Tablets one by mouth twice a day Unknown Hydrocodone Bitartrate/Acetaminophen 5-325mg Tablets take one tab every 8 hours needed for pain Unknown Naloxone HCL 2mg/0.4 ML Solution Auto-Inject Directed Unknown Levothyroxine Sodium 75mcg Tablets 1 by mouth every day Unknown Gabapentin 600mg Tablets 1 by mouth three times a day Unknown Ambien 10mg Tablets take 1 tablet (10mg) by oral route every day AT bedtime needed Unk nown Glucosamine Chondroitin Complex C apsules 1 by mouth four times a day Unknown Vitamin B-12 500mcg Tablets Sub 1 by mouth every day Unknown Selenium 200mcg Tablets 1 by mouth every day Unknown Multivitamin Adult Tablets 1 by mouth every day Unknown Grape Seed Capsules 1 tab by mouth every day Unknown Terazosin HCL 10mg Capsules 1 by mouth every day Unknown Avodart 0.5mg Capsules 1 by mouth every day Unknown Nitrostat 0.4mg Tablets Sub 1 s.l. every 5 minutes x 3 needed for chest pain if no relief call 911 or md Unknown Aspirin Adult Low Dose 81mg Tablet s DR 1 by mouth every day Unknown Vitamin D High Potency 1000Unit Ca psules 1 by mouth every day Unknown Vitamin C ER 500mg Tablets ER 1 tab PO daily Unknown Lipitor 20mg Tablets 1 by mouth every day Unknown Immunizations Description No Information Available Vital Signs Date Vital Result Comment 06/13/2020 3:02pm Height 67.50 inches 5'7.50" Weight 199.56 lb BMI (Body Mass Index) 30.8 kg/m2 05/12/2020 9:12am Height 67.5 inches 5'7.50" Weight 203.12 lb BMI (Body Mass Index) 31.3 kg/m2 BP Systolic Left Arm 118 mmHg BP Diastolic Left Arm 64 mmHg Heart Rate 76 /min O2 % BldC Oximetry 95 % Results Test Acquired Date Facility Test Result H/L Range Note Cbcadp 05/12/2020 [facility] [address] [address] [phone] WBC. 6.95 x10E3/uL 4.2-12.0 RBC 3.61 x10E6/uL Low 4.4-6.0 1 HGB 12.3 g/dL Low 13.8-18.0 HCT 38.6 % Low 39-52 MCV 106.9 fL High 80-98 MCH 33.9 pg High 27-33 MCHC 31.7 g/dL Low 32-36 RDW 15.0 % 11.2-15.2 PLT 255 x10E3/uL 135-420 MPV 7.4 fL 7.0-12.3 % [place] 68.0 % 41.0-80.0 %Lym 21.7 % 10.0-45.2 %[place] 7.7 % 2.0-13.0 %Eos 2.3 % 0.0-8.0 %Baso 0.3 % 0.0-3.0 Neut 4.7 x10E3/uL 2.0-8.1 Lymp 1.5 x10E3/uL 0.6-3.1 [place] 0.5 x10E3/uL 0.0-1.0 Eos 0.2 x10E3/uL 0.0-0.6 Baso 0.0 x10E3/uL 0.0-0.2 BMP-Male 05/12/2020 [facility] [address] [place], [place] [id number] [phone] Glucose 116 mg/dL High 74-106 2 BUN 29 mg/dL High 6-20 Creatinine 1.1 mg/dL 0.5-1.3 Sodium 140 mmol/L 136-145 Potassium 4.4 mmol/L 3.5-5.3 Chloride 103 mmol/L 98-107 Co2 28 mEq/L 20-31 Anion Gap 9 mmol/L 7-16 eGFR-male 63 mL/m/1.73m - eGFR-Aa male 77 mL/m/1.73m - 3 Calcium 9.5 mg/dL 8.9-10.5 Laboratory test finding 05/12/2020 [facility] [address] [place] [address] [phone] BNP 304.4 pg/mL High 0-100 4 Venipuncture DONE - 5 1 Final result labprinted and transmitted 05.12.2020 12:07pm bab Prelim labprinted 05.12.2020 10:25am bab 1+ Macrocytosis 1+ Ovalocytes Rare Tear Drop Cells 2 Labprint and transmitted at 1133 05/12/20 [place] [employer] (ADA) Recommended Range is 65-99 mg/dL 3 Normal Kidney Function or Mi ld Disease GFR >59 mL/min/1.73m2 Chronic Kidney Disease GFR 15-59 mL/min/1.73m2 Renal Failure GFR <15 mL/min/1.73m2 4 STAT Draw Completed at 0847. 5 STAT Draw Completed at 0847. Procedures Date Code Description Status 06/13/2020 46409 Echocardiography, Tranthoracic R eal-Time Image Documentation Completed 06/13/2020 41576 Echocardiography, Tranthoracic R eal-Time Image Documentation Completed 06/13/2020 86206 Cardiovascular Stress Test Inter pretation & Report Only Completed 06/13/2020 54784 Cardiovascular Stress Test Physi heydi Supervision Only Completed 06/13/2020 38443 Myocardial Perfusion Imaging Tomographic (Spect) Multiple Studies Completed 05/12/2020 19701 Electrocardiogram Complete Compl eted Medical Devices Description No Information Available Encounters Type Date Location Provider Dx Diagnosis Office Visit 06/13/2020 3:15p CMP Cardiology AT [place] Adolfo sands MD I50.23 Acute on chronic systolic (congestive) h eart failure I25.10 Athscl heart disease of [place] coronary artery w/o ang pctrs E78.5 Hyperlipidemia, unspecified I10 Essential (primary) hyperten alek Office Visit 05/12/2020 9:45a CMP Cardiology AT [facility] Tiara squires NP I25.10 Athscl heart disease of [place] coronary artery w/o ang pctrs I35.0 Nonrheumatic aortic (valve) stenosis R06.02 Shortness of breath 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 I50.23 Acute on chronic systolic (c ongestive) heart failure Assessments Date Code Description Provider 06/13/2020 I35.0 Nonrheumatic aortic (valve) sten osis Testing 06/13/2020 I35.0 Nonrheumatic aortic (valve) sten osis Adolfo Santos MD 06/13/2020 R06.02 Shortness of breath Testing 06/13/2020 I50.23 Acute on chronic systolic heart failure Adolfo Santos MD 06/13/2020 I25.10 Atherosclerotic hear t disease of [place] coronary artery without angina pectoris Testing 06/13/2020 I25.10 Atherosclerotic hear t disease of [place] coronary artery without angina pectoris Adolfo Santos MD 06/13/2020 I25.5 Ischemic cardiomyopathy Testing 06/13/2020 E78.5 Hyperlipidemia, unspecified Will maxine Santos MD 06/13/2020 I45.10 Unspecified right bundle-branch block Testing 06/13/2020 I10 Essential (primary) hypertension Adolfo Santos MD 06/13/2020 R94.39 Abnormal result of other cardiov ascular function study Testing 06/13/2020 R06.02 Shortness of breath Adolfo torres MD 06/13/2020 I10 Essential (primary) hypertension Testing 06/13/2020 I25.10 Atherosclerotic hear t disease of [place] coronary artery without angina pectoris Adolfo Santos MD 06/13/2020 E78.00 Pure hypercholesterolemia, unspe cified Testing 06/13/2020 I35.0 Nonrheumatic aortic (valve) sten osis Adolfo Santos MD 06/13/2020 R06.00 Dyspnea, unspecified Testing 06/13/2020 I25.5 Ischemic cardiomyopathy Adolfo Santos MD 06/13/2020 R06.02 Shortness of breath Adolfo torres MD 06/13/2020 I45.10 Unspecified right bundle-branch block Adolfo Santos MD 06/13/2020 I25.10 Atherosclerotic hear t disease of [place] coronary artery without angina pectoris Adolfo Santos MD 06/13/2020 R94.39 Abnormal result of other cardiov ascular function study Adolfo Santos MD 06/13/2020 I25.5 Ischemic cardiomyopathy Adolfo Santos MD 06/13/2020 I10 Essential (primary) hypertension Adolfo Santos MD 06/13/2020 I45.10 Unspecified right bundle-branch block Adolfo Santos MD 06/13/2020 E78.00 Pure hypercholesterolemia, unspe cified Adolfo Santos MD 06/13/2020 R94.39 Abnormal result of other cardiov ascular function study Adolfo Santos MD 06/13/2020 I10 Essential (primary) hypertension Adolfo Santos MD 06/13/2020 E78.00 Pure hypercholesterolemia, unspe cified Adolfo Santos MD 06/13/2020 I35.0 Nonrheumatic aortic (valve) sten anni Santiago MD 06/13/2020 R06.02 Shortness of breath Sharri martinez MD 06/13/2020 I25.10 Atherosclerotic hear t disease of [place] coronary artery without angina pectoris Sharri Santiago MD 06/13/2020 I25.5 Ischemic cardiomyopathy Sharri coleman MD 06/13/2020 I45.10 Unspecified right bundle-branch block Sharri Santiago MD 06/13/2020 R94.39 Abnormal result of other cardiov ascular function study Sharri Santiago MD 06/13/2020 I10 Essential (primary) hypertension Sharri Santiago MD 06/13/2020 E78.00 Pure hypercholesterolemia, unspe cified Sharri Santiago MD 05/12/2020 I25.10 Atherosclerotic hear t disease of [place] coronary artery without angina pectoris Tiara Nolen NP 05/12/2020 I35.0 Nonrheumatic aortic (valve) sten osis Tiara Nolen NP 05/12/2020 I10 Essential (primary) hypertension Adolfo Santos MD 05/12/2020 R06.02 Dyspnea Tiara Nolen NP 05/12/2020 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 failure Tiara Nolen NP 05/12/2020 I50.23 Acute on chronic systolic heart failure Tiara Nolen NP 05/12/2020 I10 Essential (primary[facility] 05/12/2020 I50.9 Heart failure, [facility] 05/12/2020 I10 Essential (primary) [facility] 05/12/2020 I50.9 Heart failure, unspecified [facility] Plan of Treatment Future Appointment(s):* 06/13/2021 1:15 pm - Adolfo Santos MD at [facility] Card[facility] [place] 05/12/2020 - Tiara Nolen NP* I25.10 Atherosclerotic heart disease of [place] coronary artery without angina pectoris* Comments:* He will follow-up in one month with a Lexiscan and echo prior. He will call sooner if questions or concerns. * I35.0 Nonrheumatic aortic (valve) stenosis* Comments:* He will follow-up in one month with a Lexiscan and echo prior. He will call sooner if questions or concerns. * R06.02 Dyspnea* Comments:* He will follow-up in one month with a Lexiscan and echo prior. He will call sooner if questions or concerns. * 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 failure* Comments:* He will follow-up in one month with a Lexiscan and echo prior. He will call sooner if questions or concerns. * I50.23 Acute on chronic systolic heart failure* Comments:* He will follow-up in one month with a Lexiscan and echo prior. He will call sooner if questions or concerns. Functional Status Description No Information Available Mental Status Description No Information Available Referrals Description No Information Available
--- OUTSIDE RECORDS SUMMARY | 2020-09-02 17:39 | CCD | Continuity of Care Document ---
Author Jae Franco Organization Unknown Address [address] [place] [address] Phone [phone] Care Team Providers Care Whittling Room Operator Name Role Phone [facility] AUTM [phone] Problems Active Problems Provider Date Coronary arteriosclerosis [...] 90tabs Adolfo Santos MD 12/26/2017 Potassium Chloride Megna ER 10Meq Tablets ER 1 by mouth [...] Test Result H/L Range Note Cbcadp 05/12/2020 [facility] [address] [address] [phone] WBC. 6.95 x10E3/uL 4.2-12.0 RBC 3.61 x10E6/uL Low 4.4-6.0 1 HGB 12.3 g/dL Low 13.8-18.0 HCT 38.6 % Low 39-52 MCV 106.9 fL High 80-98 MCH 33.9 pg High 27-33 MCHC 31.7 g/dL Low 32-36 RDW 15.0 % 11.2-15.2 PLT 255 x10E3/uL 135-420 MPV 7.4 fL 7.0-12.3 % [place] 68.0 % 41.0-80.0 %Lym 21.7 % 10.0-45.2 %[place] 7.7 % 2.0-13.0 %Eos 2.3 % 0.0-8.0 %Baso 0.3 % 0.0-3.0 Neut 4.7 x10E3/uL 2.0-8.1 Lymp 1.5 x10E3/uL 0.6-3.1 [place] 0.5 x10E3/uL 0.0-1.0 Eos 0.2 x10E3/uL 0.0-0.6 Baso 0.0 x10E3/uL 0.0-0.2 BMP-Male 05/12/2020 [facility] [address] [place], [place] [id number] [phone] Glucose 116 mg/dL High 74-106 2 BUN 29 mg/dL High 6-20 Creatinine 1.1 mg/dL 0.5-1.3 Sodium 140 mmol/L 136-145 Potassium 4.4 mmol/L 3.5-5.3 Chloride 103 mmol/L 98-107 Co2 28 mEq/L 20-31 Anion Gap 9 mmol/L 7-16 eGFR-male 63 mL/m/1.73m - eGFR-Aa male 77 mL/m/1.73m - 3 Calcium 9.5 mg/dL 8.9-10.5 Laboratory test finding 05/12/2020 [facility] [address] [place] [address] [phone] BNP 304.4 pg/mL High 0-100 4 Venipuncture DONE - 5 1 Final result labprinted and transmitted 05.12.2020 12:07pm bab Prelim labprinted 05.12.2020 10:25am bab 1+ Macrocytosis 1+ Ovalocytes Rare Tear Drop Cells 2 Labprint and transmitted at 1133 05/12/20 [place] [employer] (ADA) Recommended Range is 65-99 mg/dL 3 Normal Kidney Function or Mi ld Disease GFR >59 mL/min/1.73m2 Chronic Kidney Disease GFR 15-59 mL/min/1.73m2 Renal Failure GFR <15 mL/min/1.73m2 4 STAT Draw Completed at 0847. 5 STAT Draw Completed at 0847. Procedures Date Code Description Status 06/13/2020 36992 Echocardiography, Tranthoracic R eal-Time Image Documentation Completed 06/13/2020 50377 Echocardiography, Tranthoracic R eal-Time Image Documentation Completed 06/13/2020 52321 Cardiovascular Stress Test Inter pretation & Report Only Completed 06/13/2020 21973 Cardiovascular Stress Test Physi heydi Supervision Only Completed 06/13/2020 02831 Myocardial Perfusion Imaging Tomographic (Spect) Multiple Studies Completed 05/12/2020 27371 Electrocardiogram Complete Compl eted Medical Devices Description No Information Available Encounters Type Date Location Provider Dx Diagnosis Office Visit 06/13/2020 3:15p CMP Cardiology AT [facility] Adolfo sands MD I50.23 Acute on chronic systolic (congestive) h eart failure I25.10 Athscl heart disease of [place] coronary artery w/o ang pctrs E78.5 Hyperlipidemia, unspecified I10 Essential (primary) hyperten alek Office Visit 05/12/2020 9:45a CMP Cardiology AT [place] Tiara squires NP I25.10 Athscl heart disease of [place] coronary artery w/o ang pctrs I35.0 Nonrheumatic [...] 06/13/2020 I25.10 Atherosclerotic hear t disease of [place] coronary artery without angina pectoris Testing 06/13/2020 I25.10 Atherosclerotic hear t disease of [place] coronary artery without angina pectoris Adolfo Santos [...] 06/13/2020 I25.10 Atherosclerotic hear t disease of [place] coronary artery without angina pectoris Adolfo Santos MD 06/13/2020 E78.00 Pure hypercholesterolemia, unspe cified Testing 06/13/2020 I35.0 Nonrheumatic aortic (valve) sten osis Adolfo Santos MD 06/13/2020 R06.00 Dyspnea, unspecified Testing 06/13/2020 I25.5 Ischemic cardiomyopathy Adolfo Santos MD 06/13/2020 R06.02 Shortness of breath Adolfo torres MD 06/13/2020 I45.10 Unspecified right bundle-branch block Adolfo Santos MD 06/13/2020 I25.10 Atherosclerotic hear t disease of [place] coronary artery without angina pectoris Adolfo Santos [...] 06/13/2020 I25.10 Atherosclerotic hear t disease of [place] coronary artery without angina pectoris Sharri Santiago MD 06/13/2020 I25.5 Ischemic cardiomyopathy Sharri coleman MD 06/13/2020 I45.10 Unspecified right bundle-branch block Sharri Santiago MD 06/13/2020 R94.39 Abnormal result of other cardiov ascular function study Sharri Santiago MD 06/13/2020 I10 Essential (primary) hypertension Sharri Santiago MD 06/13/2020 E78.00 Pure hypercholesterolemia, unspe cified Sharri Santiago MD 05/12/2020 I25.10 Atherosclerotic hear t disease of [place] coronary artery without angina pectoris Tiara Nolen NP 05/12/2020 I35.0 Nonrheumatic aortic (valve) sten osis Tiara Nolen NP 05/12/2020 I10 Essential (primary) hypertension Adolfo Santos MD 05/12/2020 R06.02 Dyspnea Tiara Nolen NP 05/12/2020 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 failure Tiara Nolen NP 05/12/2020 I50.23 Acute on chronic systolic heart failure Tiara Nolen NP 05/12/2020 I10 Essential (primary) [facility] 05/12/2020 I50.9 Heart failure, [facility] 05/12/2020 I10 Essential (primary) [facility] 05/12/2020 I50.9 Heart failure, unspecified [facility] Plan of Treatment Future Appointment(s):* 06/13/2021 1:15 pm - Adolfo Santos MD at [facility] [place] 05/12/2020 - Tiara Nolen NP* I25.10 Atherosclerotic heart disease of [place] coronary artery without angina pectoris* Comments:* He [...]
--- OUTSIDE RECORDS SUMMARY | 2020-09-02 17:39 | CCD | Continuity of Care Document ---
Author Author Jae SANTIAGO MD Organization Unknown Address [address] [facility] [address] [place] [address] Phone [phone] Care Team Providers Care Commercial Loan Processor Name Role Phone [facility] AUTM [phone] Problems Active Problems Provider Date Coronary arteriosclerosis [...] Unknown Magnesium Oxide 200 MG Daily Unknown 0 000 Icaps Areds Formula Tablets one by [...] Test Result H/L Range Note Cbcadp 05/12/2020 [facility] [address] [place] [address] [phone] WBC. 6.95 x10E3/uL 4.2-12.0 RBC 3.61 x10E6/uL Low 4.4-6.0 1 HGB 12.3 g/dL Low 13.8-18.0 HCT 38.6 % Low 39-52 MCV 106.9 fL High 80-98 MCH 33.9 pg High 27-33 MCHC 31.7 g/dL Low 32-36 RDW 15.0 % 11.2-15.2 PLT 255 x10E3/uL 135-420 MPV 7.4 fL 7.0-12.3 % Marcella 68.0 % 41.0-80.0 %Lym 21.7 % 10.0-45.2 %Barry 7.7 % 2.0-13.0 %Eos 2.3 % 0.0-8.0 %Baso 0.3 % 0.0-3.0 Neut 4.7 x10E3/uL 2.0-8.1 Lymp 1.5 x10E3/uL 0.6-3.1 Barry 0.5 x10E3/uL 0.0-1.0 Eos 0.2 x10E3/uL 0.0-0.6 Baso 0.0 x10E3/uL 0.0-0.2 BMP-Male 05/12/2020 [facility] [address] [place], [place] [id number] [phone] Glucose 116 mg/dL High 74-106 2 BUN 29 mg/dL High 6-20 Creatinine 1.1 mg/dL 0.5-1.3 Sodium 140 mmol/L 136-145 Potassium 4.4 mmol/L 3.5-5.3 Chloride 103 mmol/L 98-107 Co2 28 mEq/L 20-31 Anion Gap 9 mmol/L 7-16 eGFR-male 63 mL/m/1.73m - eGFR-Aa male 77 mL/m/1.73m - 3 Calcium 9.5 mg/dL 8.9-10.5 Laboratory test finding 05/12/2020 [facility] [address] [place], [place] [address] [phone] BNP 304.4 pg/mL High 0-100 4 Venipuncture DONE - 5 1 Final result labprinted and transmitted 05.12.2020 12:07pm bab Prelim labprinted 05.12.2020 10:25am bab 1+ Macrocytosis 1+ Ovalocytes Rare Tear Drop Cells 2 Labprint and transmitted at 1133 05/12/20 [place] Diabetes [employer] (ADA) Recommended Range is 65-99 mg/dL 3 Normal Kidney Function or Mi ld Disease GFR >59 mL/min/1.73m2 Chronic Kidney Disease GFR 15-59 mL/min/1.73m2 Renal Failure GFR <15 mL/min/1.73m2 4 STAT Draw Completed at 0847. 5 STAT Draw Completed at 0847. Procedures Date Code Description Status 06/13/2020 11362 Echocardiography, Tranthoracic R eal-Time Image Documentation Completed 06/13/2020 91488 Cardiovascular Stress Test Inter pretation & Report Only Completed 06/13/2020 62038 Cardiovascular Stress Test Physi heydi Supervision Only Completed 06/13/2020 68768 Myocardial Perfusion Imaging Tomographic (Spect) Multiple Studies Completed 05/12/2020 20238 Electrocardiogram Complete Compl eted Medical Devices Description No Information Available Encounters Type Date Location Provider Dx Diagnosis Office Visit 06/13/2020 3:15p CMP Cardiology AT [place] Adolfo sands MD I50.23 Acute on chronic systolic (congestive) h eart failure I25.10 Athscl heart disease of [place] coronary artery w/o ang pctrs Office Visit 05/12/2020 9:45a CMP Cardiology AT [place] Tiara squires NP I25.10 Athscl heart disease of [place] coronary artery w/o ang pctrs I35.0 Nonrheumatic aortic (valve) stenosis R06.02 Shortness of breath 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 I50.23 Acute on chronic systolic (c ongestive) heart failure Assessments Date Code Description Provider 06/13/2020 I35.0 Nonrheumatic aortic (valve) sten osis Adolfo Santos MD 06/13/2020 I50.23 Acute on chronic systolic heart failure Adolfo Santos MD 06/13/2020 R06.02 Shortness of breath Adolfo torres MD 06/13/2020 I25.10 Atherosclerotic hear t disease of [place] coronary artery without angina pectoris Adolfo Santos MD 06/13/2020 I25.10 Atherosclerotic hear t disease of [place] coronary artery without angina pectoris Adolfo Santos MD 06/13/2020 I35.0 Nonrheumatic aortic (valve) sten osis Adolfo Santos MD 06/13/2020 I25.5 Ischemic cardiomyopathy Adolfo Santos MD 06/13/2020 R06.02 Shortness of breath Adolfo torres MD 06/13/2020 I45.10 Unspecified right bundle-branch block Adolfo Santos MD 06/13/2020 I25.10 Athscl heart disease of [place] c oronary artery w/o ang pctrs Adolfo Santos MD 06/13/2020 R94.39 Abnormal result [...] MD 06/13/2020 I35.0 Nonrheumatic aortic (valve) sten osis Sharri Santiago MD 06/13/2020 R06.02 Shortness of breath Sharri martinez MD 06/13/2020 I25.10 Athscl heart disease of [place] c oronary artery w/o ang latesha Santiago MD 06/13/2020 I25.5 Ischemic cardiomyopathy Sharri coleman MD 06/13/2020 I45.10 Unspecified right bundle-branch block Sharri Santiago MD 06/13/2020 R94.39 Abnormal result of other cardiov ascular function study Sharri Santiago MD 06/13/2020 I10 Essential (primary) hypertension Sharri Santiago MD 06/13/2020 E78.00 Pure hypercholesterolemia, unspe cified Sharri Santiago MD 05/12/2020 I25.10 Atherosclerotic hear t disease of [place] coronary artery without angina pectoris Tiara Nolen NP 05/12/2020 I35.0 Nonrheumatic aortic (valve) sten osis Tiara Nolen NP 05/12/2020 I10 Essential (primary) hypertension Adolfo Santos MD 05/12/2020 R06.02 Dyspnea Tiara Nolen NP 05/12/2020 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 Tiara Nolen NP 05/12/2020 I50.23 Acute on chronic systolic heart failure Tiara Nolen NP 05/12/2020 I10 Essential (primary) hypertension [facility] 05/12/2020 I50.9 Heart failure, unspecified [facility] 05/12/2020 I10 Essential (primary) hypertension [facility] 05/12/2020 I50.9 Heart failure, unspecified [facility] Plan of Treatment Future Appointment(s):* 06/13/2021 1:15 pm - Adolfo Santos MD at [facility] Cardiology AT [place] 05/12/2020 - Tiara Nolen NP* I25.10 Atherosclerotic heart disease of [place] coronary artery without angina pectoris* Comments:* He [...]
--- OUTSIDE RECORDS SUMMARY | 2020-09-02 17:39 | CCD | Continuity of Care Document ---
Author Author Jae MULLIGAN MD Organization Unknown Address [address] [facility] [address] [place] [address] Phone [phone] Care Team Providers Care Medical Anthropology Director Name Role Phone [facility] AUTM [phone] Problems Active Problems Provider Date Coronary arteriosclerosis Adolfo Mulligan MD Onset: 009 Hyperlipidemia Adolfo Mulligan MD Onset: 01/25/2009 Essential hypertension Adolfo Mulligan MD Onset: 01/25/2009 Social History Type Date Description Comments Sex Unknown Tobacco Use Start: Unknown End: Unknown Patient is a former smoker Allergies, Adverse Reactions, Alerts Description No Known Drug Allergies Medications Active Medications SIG Qnty Indications Ordering Provide r Date Furosemide 40mg Tablets 1 by mouth every day 90tabs Adolfo Mulligan MD 12/26/2017 Amlodipine Besylate 2.5mg Tablets 1 by mouth every day 90tabs Adolfo Mulligan MD 12/26/2017 Clopidogrel Bisulfate 75mg Tablets 1 by mouth every day 90tabs Adolfo Mulligan MD 12/26/2017 Potassium Chloride Megan ER 10Meq Tablets ER 1 by mouth every day 90tabs Adolfo Mulligan MD 12/26/2017 Allopurinol 300mg Tablets 1 by mouth every day 90tabs Adolfo Mulligan MD 12/26/2017 Morphine Sulfate 15mg Tablets 1 [...] Test Result H/L Range Note Cbcadp 05/12/2020 [facility] [address] [place] [address] [phone] WBC. 6.95 x10E3/uL 4.2-12.0 RBC 3.61 x10E6/uL Low 4.4-6.0 1 HGB 12.3 g/dL Low 13.8-18.0 HCT 38.6 % Low 39-52 MCV 106.9 fL High 80-98 MCH 33.9 pg High 27-33 MCHC 31.7 g/dL Low 32-36 RDW 15.0 % 11.2-15.2 PLT 255 x10E3/uL 135-420 MPV 7.4 fL 7.0-12.3 % Marcella 68.0 % 41.0-80.0 %Lym 21.7 % 10.0-45.2 %[place] 7.7 % 2.0-13.0 %Eos 2.3 % 0.0-8.0 %Baso 0.3 % 0.0-3.0 Neut 4.7 x10E3/uL 2.0-8.1 Lymp 1.5 x10E3/uL 0.6-3.1 [place] 0.5 x10E3/uL 0.0-1.0 Eos 0.2 x10E3/uL 0.0-0.6 Baso 0.0 x10E3/uL 0.0-0.2 BMP-Male 05/12/2020 [facility] [address], [place] [address] [phone] Glucose 116 mg/dL High 74-106 2 BUN 29 mg/dL High 6-20 Creatinine 1.1 mg/dL 0.5-1.3 Sodium 140 mmol/L 136-145 Potassium 4.4 mmol/L 3.5-5.3 Chloride 103 mmol/L 98-107 Co2 28 mEq/L 20-31 Anion Gap 9 mmol/L 7-16 eGFR-male 63 mL/m/1.73m - eGFR-Aa male 77 mL/m/1.73m - 3 Calcium 9.5 mg/dL 8.9-10.5 Laboratory test finding 05/12/2020 [facility] [address] [place], [place] [address] [phone] BNP 304.4 pg/mL High 0-100 4 Venipuncture DONE - 5 1 Final result labprinted and transmitted 05.12.2020 12:07pm bab Prelim labprinted 05.12.2020 10:25am bab 1+ Macrocytosis 1+ Ovalocytes Rare Tear Drop Cells 2 Labprint and transmitted at 1133 05/12/20 [place] Diabetes Association (ADA) Recommended Range is 65-99 mg/dL 3 Normal Kidney Function or Mi ld Disease GFR >59 mL/min/1.73m2 Chronic Kidney Disease GFR 15-59 mL/min/1.73m2 Renal Failure GFR <15 mL/min/1.73m2 4 STAT Draw Completed at 0847. 5 STAT Draw Completed at 0847. Procedures Date Code Description Status 06/13/2020 91502 Echocardiography, Tranthoracic R eal-Time Image Documentation Completed 06/13/2020 23626 Cardiovascular Stress Test Inter pretation & Report Only Completed 06/13/2020 17405 Cardiovascular Stress Test Physi heydi Supervision Only Completed 06/13/2020 92376 Myocardial Perfusion Imaging Tomographic (Spect) Multiple Studies Completed 05/12/2020 44585 Electrocardiogram Complete Compl eted Medical Devices Description No Information Available Encounters Type Date Location Provider Dx Diagnosis Office Visit 06/13/2020 3:15p CMP Cardiology AT [place] Adolfo sands MD I50.23 Acute on chronic systolic (congestive) h eart failure I25.10 Athscl heart disease of [place] coronary artery w/o ang pctrs E78.5 Hyperlipidemia, unspecified I10 Essential (primary) hyperten alek Office Visit 05/12/2020 9:45a CMP Cardiology AT [place] Tiara squires NP I25.10 Athscl heart disease of [place] coronary artery w/o ang pctrs I35.0 Nonrheumatic aortic (valve) stenosis R06.02 Shortness of breath 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 I50.23 Acute on chronic systolic (c ongestive) heart failure Assessments Date Code Description Provider 06/13/2020 I35.0 Nonrheumatic aortic (valve) sten osis Adolfo Mulligan MD 06/13/2020 I50.23 Acute on chronic systolic heart failure Adolfo Mulligan MD 06/13/2020 I25.10 Atherosclerotic hear t disease of [place] coronary artery without angina pectoris Adolfo Mulligan MD 06/13/2020 E78.5 Hyperlipidemia, unspecified Will maxine Mulligan MD 06/13/2020 I10 Essential (primary) hypertension Adolfo Mulligan MD 06/13/2020 R06.02 Shortness of breath Adolfo torres MD 06/13/2020 I25.10 Atherosclerotic hear t disease of [place] coronary artery without angina pectoris Adolfo Mulligan MD 06/13/2020 I35.0 Nonrheumatic aortic (valve) sten osis Adolfo Mulligan MD 06/13/2020 I25.5 Ischemic cardiomyopathy Adolfo Mulligan MD 06/13/2020 R06.02 Shortness of breath Adolfo torres MD 06/13/2020 I45.10 Unspecified right bundle-branch block Adolfo Mulligan MD 06/13/2020 I25.10 Atherosclerotic hear t disease of [place] coronary artery without angina pectoris Adolfo Mulligan MD 06/13/2020 R94.39 Abnormal result of other cardiov ascular function study Adolfo Mulligan MD 06/13/2020 I25.5 Ischemic cardiomyopathy Adolfo Mulligan MD 06/13/2020 I10 Essential (primary) hypertension Adolfo Mulligan MD 06/13/2020 I45.10 Unspecified right bundle-branch block Adolfo Mulligan MD 06/13/2020 E78.00 Pure hypercholesterolemia, unspe cified Adolfo Mulligan MD 06/13/2020 R94.39 Abnormal result of other cardiov ascular function study Adolfo Mulligan MD 06/13/2020 I10 Essential (primary) hypertension Adolfo Mulligan MD 06/13/2020 E78.00 Pure hypercholesterolemia, unspe cified Adolfo Mulligan MD 06/13/2020 I35.0 Nonrheumatic aortic (valve) sten anni Santiago MD 06/13/2020 R06.02 Shortness of breath Sharri martinez MD 06/13/2020 I25.10 Atherosclerotic hear t disease of [place] coronary artery without angina pectoris Sharri Santiago MD 06/13/2020 I25.5 Ischemic cardiomyopathy Sharri coleman MD 06/13/2020 I45.10 Unspecified right bundle-branch block Sharri Santiago MD 06/13/2020 R94.39 Abnormal result of other cardiov ascular function study Sharri Santiago MD 06/13/2020 I10 Essential (primary) hypertension Sharri Santiago MD 06/13/2020 E78.00 Pure hypercholesterolemia, unspe cified Sharri Georgeu, MD 05/12/2020 I25.10 Atherosclerotic hear t disease of [place] coronary artery without angina pectoris Tiara Nolen NP 05/12/2020 I35.0 Nonrheumatic aortic (valve) sten osis Tiara Nolen NP 05/12/2020 I10 Essential (primary) hypertension Adolfo Mulligan MD 05/12/2020 R06.02 Dyspnea Tiara Nolen NP 05/12/2020 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 Tiara Nolen NP 05/12/2020 I50.23 Acute on chronic systolic heart failure Tiara Nolen NP 05/12/2020 I10 [facility] 05/12/2020 I50.9 Heart failure, unspecified [facility] 05/12/2020 I10 Essential (primary) hypertension [facility] 05/12/2020 I50.9 Heart failure, unspecified [facility] Plan of Treatment Future Appointment(s):* 06/13/2021 1:15 pm - Adolfo Mulligan MD at [facility] Cardiology AT [place] 05/12/2020 - Tiara Nolen NP* I25.10 Atherosclerotic heart disease of [place] coronary artery without angina pectoris* Comments:* He [...]
--- OUTSIDE RECORDS SUMMARY | 2020-09-02 17:39 | CCD | Continuity of Care Document ---
Author Author Jae MULLIGAN MD Organization Unknown Address [address] [facility] [address] [place] [address] Phone [phone] Care Team Providers Care Circuit Court Judge Name Role Phone [facility] AUTM [phone] Problems Active Problems Provider Date Coronary arteriosclerosis [...] Test Result H/L Range Note Cbcadp 05/12/2020 [facility] [address] [place] [address] [phone] WBC. 6.95 x10E3/uL 4.2-12.0 RBC 3.61 x10E6/uL Low 4.4-6.0 1 HGB 12.3 g/dL Low 13.8-18.0 HCT 38.6 % Low 39-52 MCV 106.9 fL High 80-98 MCH 33.9 pg High 27-33 MCHC 31.7 g/dL Low 32-36 RDW 15.0 % 11.2-15.2 PLT 255 x10E3/uL 135-420 MPV 7.4 fL 7.0-12.3 % Marcella 68.0 % 41.0-80.0 %Lym 21.7 % 10.0-45.2 %[place] 7.7 % 2.0-13.0 %Eos 2.3 % 0.0-8.0 %Baso 0.3 % 0.0-3.0 Neut 4.7 x10E3/uL 2.0-8.1 Lymp 1.5 x10E3/uL 0.6-3.1 [place] 0.5 x10E3/uL 0.0-1.0 Eos 0.2 x10E3/uL 0.0-0.6 Baso 0.0 x10E3/uL 0.0-0.2 BMP-Male 05/12/2020 [facility] [address] [place], [place] [address] [phone] Glucose 116 mg/dL High 74-106 2 BUN 29 mg/dL High 6-20 Creatinine 1.1 mg/dL 0.5-1.3 Sodium 140 mmol/L 136-145 Potassium 4.4 mmol/L 3.5-5.3 Chloride 103 mmol/L 98-107 Co2 28 mEq/L 20-31 Anion Gap 9 mmol/L 7-16 eGFR-male 63 mL/m/1.73m - eGFR-Aa male 77 mL/m/1.73m - 3 Calcium 9.5 mg/dL 8.9-10.5 Laboratory test finding 05/12/2020 [facility] [address] [place], [place] [address] [phone] BNP 304.4 pg/mL High 0-100 4 Venipuncture DONE - 5 1 Final result labprinted and transmitted 05.12.2020 12:07pm bab Prelim labprinted 05.12.2020 10:25am bab 1+ Macrocytosis 1+ Ovalocytes Rare Tear Drop Cells 2 Labprint and transmitted at 1133 05/12/20 kk [place] Diabetes Association (ADA) Recommended Range is 65-99 mg/dL 3 Normal Kidney Function or Mi ld Disease GFR >59 mL/min/1.73m2 Chronic Kidney Disease GFR 15-59 mL/min/1.73m2 Renal Failure GFR <15 mL/min/1.73m2 4 STAT Draw Completed at 0847. 5 STAT Draw Completed at 0847. Procedures Date Code Description Status 06/13/2020 78201 Echocardiography, Tranthoracic R eal-Time Image Documentation Completed 06/13/2020 65289 Echocardiography, Tranthoracic R eal-Time Image Documentation Completed 06/13/2020 30207 Cardiovascular Stress Test Inter pretation & Report Only Completed 06/13/2020 70193 Cardiovascular Stress Test Physi heydi Supervision Only Completed 06/13/2020 09968 Myocardial Perfusion Imaging Tomographic (Spect) Multiple Studies Completed 05/12/2020 64438 Electrocardiogram Complete Compl eted Medical Devices Description No Information Available Encounters Type Date Location Provider Dx Diagnosis Office Visit 06/13/2020 3:15p CMP Cardiology AT [place] Adolfo sands MD I50.23 Acute on chronic systolic (congestive) h eart failure I25.10 Athscl heart disease of [place] coronary artery w/o ang pctrs E78.5 Hyperlipidemia, unspecified I10 Essential (primary) hyperten alek Office Visit 05/12/2020 9:45a CMP Cardiology AT [place] Tiara squires NP I25.10 Athscl heart disease of [place] coronary artery w/o ang pctrs I35.0 Nonrheumatic aortic (valve) stenosis R06.02 Shortness of breath 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 I50.23 Acute on chronic systolic (c ongestive) heart failure Assessments Date Code Description Provider 06/13/2020 I35.0 Nonrheumatic aortic (valve) sten osis Testing 06/13/2020 I35.0 Nonrheumatic aortic (valve) sten osis Adolfo Mulligan MD 06/13/2020 R06.02 Shortness of breath Testing 06/13/2020 I50.23 Acute on chronic systolic heart failure Adolfo Mulligan MD 06/13/2020 I25.10 Atherosclerotic hear t disease of [place] coronary artery without angina pectoris Testing 06/13/2020 I25.10 Atherosclerotic hear t disease of [place] coronary artery without angina pectoris Adolfo Mulligan MD 06/13/2020 I25.5 Ischemic cardiomyopathy Testing 06/13/2020 E78.5 Hyperlipidemia, unspecified Will maxine Mulligan MD 06/13/2020 I45.10 Unspecified right bundle-branch block Testing 06/13/2020 I10 Essential (primary) hypertension Adolfo Mulligan MD 06/13/2020 R94.39 Abnormal result of other cardiov ascular function study Testing 06/13/2020 R06.02 Shortness of breath Adolfo torres MD 06/13/2020 I10 Essential (primary) hypertension Testing 06/13/2020 I25.10 Atherosclerotic hear t disease of [place] coronary artery without angina pectoris Adolfo Mulligan MD 06/13/2020 E78.00 Pure hypercholesterolemia, unspe cified Testing 06/13/2020 I35.0 Nonrheumatic aortic (valve) sten osis Adolfo Mulligan MD 06/13/2020 R06.00 Dyspnea, unspecified Testing 06/13/2020 I25.5 Ischemic cardiomyopathy Adolfo Mulligan MD 06/13/2020 R06.02 Shortness of breath Adolfo torres MD 06/13/2020 I45.10 Unspecified right bundle-branch block Adolfo Mulligan MD 06/13/2020 I25.10 Atherosclerotic hear t disease of [place] coronary artery without angina pectoris Adolfo Mulligan [...] MD 06/13/2020 I35.0 Nonrheumatic aortic (valve) sten osmarquita Santiago MD 06/13/2020 R06.02 Shortness of breath Sharri martinez MD 06/13/2020 I25.10 Atherosclerotic hear t disease of [place] coronary artery without angina pectoris Sharri Santiago MD 06/13/2020 I25.5 Ischemic cardiomyopathy Sharri coleman MD 06/13/2020 I45.10 Unspecified right bundle-branch block Sharri Santiago MD 06/13/2020 R94.39 Abnormal result of other cardiov ascular function study Sharri Santiago MD 06/13/2020 I10 Essential (primary) hypertension Sharri Santiago MD 06/13/2020 E78.00 Pure hypercholesterolemia, unspe cified Sharri Santiago MD 05/12/2020 I25.10 Atherosclerotic hear t disease of [place] coronary artery without angina pectoris Tiara Nolen NP 05/12/2020 I35.0 Nonrheumatic aortic (valve) sten osis Tiara Nolen NP 05/12/2020 I10 Essential (primary) hypertension Adolfo Mulligan MD 05/12/2020 R06.02 Dyspnea Tiara Nolen NP 05/12/2020 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 Tiara Nolen NP 05/12/2020 I50.23 Acute on chronic systolic heart failure Tiara Nolen NP 05/12/2020 I10 Essential (primary) hypertension [facility] 05/12/2020 I50.9 Heart failure, unspecified [facility] 05/12/2020 I10 Essential (primary) hypertension [facility] 05/12/2020 I50.9 Heart failure, unspecified [facility] Plan of Treatment Future Appointment(s):* 06/13/2021 1:15 pm - Adolfo Mulligan MD at [facility] Cardiology AT [place] 05/12/2020 - Tiara Nolen NP* I25.10 Atherosclerotic heart disease of [place] coronary artery without angina pectoris* Comments:* He [...]
--- OUTSIDE RECORDS SUMMARY | 2020-09-02 17:39 | CCD | Continuity of Care Document ---
Author Author Jae MULLIGAN MD Organization Unknown Address [address] [facility] [address] [place] [address] Phone [phone] Care Team Providers Care Mailing Jogger Name Role Phone [facility] AUTM [phone] Problems Active Problems Provider Date Coronary arteriosclerosis [...] 1 by mouth every day 90tabs Adolfo Mulligna MD 12/26/2017 Potassium Chloride Megan ER 10Meq [...] Test Result H/L Range Note Cbcadp 05/12/2020 [facility] [address] [place] [address] [phone] WBC. 6.95 x10E3/uL 4.2-12.0 RBC 3.61 x10E6/uL Low 4.4-6.0 1 HGB 12.3 g/dL Low 13.8-18.0 HCT 38.6 % Low 39-52 MCV 106.9 fL High 80-98 MCH 33.9 pg High 27-33 MCHC 31.7 g/dL Low 32-36 RDW 15.0 % 11.2-15.2 PLT 255 x10E3/uL 135-420 MPV 7.4 fL 7.0-12.3 % [place] 68.0 % 41.0-80.0 %Lym 21.7 % 10.0-45.2 %[place] 7.7 % 2.0-13.0 %Eos 2.3 % 0.0-8.0 %Baso 0.3 % 0.0-3.0 Neut 4.7 x10E3/uL 2.0-8.1 Lymp 1.5 x10E3/uL 0.6-3.1 [place] 0.5 x10E3/uL 0.0-1.0 Eos 0.2 x10E3/uL 0.0-0.6 Baso 0.0 x10E3/uL 0.0-0.2 BMP-Male 05/12/2020 [facility] [address], [place] [id number] [phone] Glucose 116 mg/dL High 74-106 2 BUN 29 mg/dL High 6-20 Creatinine 1.1 mg/dL 0.5-1.3 Sodium 140 mmol/L 136-145 Potassium 4.4 mmol/L 3.5-5.3 Chloride 103 mmol/L 98-107 Co2 28 mEq/L 20-31 Anion Gap 9 mmol/L 7-16 eGFR-male 63 mL/m/1.73m - eGFR-Aa male 77 mL/m/1.73m - 3 Calcium 9.5 mg/dL 8.9-10.5 Laboratory test finding 05/12/2020 [facility] [address] [place], [place] [id number] [phone] BNP 304.4 pg/mL High 0-100 4 Venipuncture DONE - 5 1 Final result labprinted and transmitted 05.12.2020 12:07pm bab Prelim labprinted 05.12.2020 10:25am bab 1+ Macrocytosis 1+ Ovalocytes Rare Tear Drop Cells 2 Labprint and transmitted at 1133 05/12/20 kk [place] [employer] (ADA) Recommended Range is 65-99 mg/dL 3 Normal Kidney Function or Mi ld Disease GFR >59 mL/min/1.73m2 Chronic Kidney Disease GFR 15-59 mL/min/1.73m2 Renal Failure GFR <15 mL/min/1.73m2 4 STAT Draw Completed at 0847. 5 STAT Draw Completed at 0847. Procedures Date Code Description Status 05/12/2020 61091 Electrocardiogram Complete Compl eted Medical Devices Description No Information Available Encounters Type Date Location Provider Dx Diagnosis Office Visit 06/13/2020 3:15p [facility] [place] Adolfo sands MD I50.23 Acute on chronic systolic (congestive) h eart failure I25.10 Athscl heart disease of [place] coronary artery w/o ang pctrs Office Visit 05/12/2020 9:45a [facility] [place] Tiara squires NP I25.10 Athscl heart disease of [place] coronary artery w/o ang pctrs I35.0 Nonrheumatic aortic (valve) stenosis R06.02 Shortness of breath 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 I50.23 Acute on chronic systolic (c ongestive) heart failure Assessments Date Code Description Provider 06/13/2020 I50.23 Acute on chronic systolic heart failure Adolfo Mulligan MD 06/13/2020 I25.10 Atherosclerotic hear t disease of [place] coronary artery without angina pectoris Adolfo Mulligan MD 05/12/2020 I25.10 Atherosclerotic hear t disease of [place] coronary artery without angina pectoris Tiara Nolen [...] Clinical Labs 05/12/2020 I10 Essential (primary) hypertension [facility] Clinical Labs 05/12/2020 I50.9 Heart failure, unspecified [facility] Clinical Labs Plan of Treatment Future Appointment(s):* 06/13/2021 1:15 pm - Adolfo Mulligan MD at [facility] Cardiology AT [place] 05/12/2020 - Tiara Nolen NP* I25.10 Atherosclerotic heart disease of [place] coronary artery without angina pectoris* Comments:* He will follow-up in one month with a Lexiscan and echo prior. He will call sooner if questions or concerns. * I35.0 Nonrheumatic aortic (valve) stenosis* New Xrays:* Echocardiogram, Scheduled: 06/13/20 * Comments:* He will follow-up in one month with a Lexiscan and echo prior. He will call sooner if questions or concerns. * R06.02 Dyspnea* New Xrays:* Echocardiogram, Scheduled: 06/13/20 * Comments:* He will follow-up in one month [...]
--- OUTSIDE RECORDS SUMMARY | 2020-09-02 17:43 | CCD ---
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 Unavailable Unavailable Rosalino MESSINA M.D. Unavailable Unavailable Rosalino MESSINA M.D. Unavailable Unavailable Rosalino MESSINA M.D. Unavailable Unavailable Rosalino MESSINA M.D. Unavailable Unavailable Rosalino MESSINA M.D. Unavailable Unavailable Rosalino MESSINA M.D. Unavailable Unavailable Rosalino MESSINA M.D. Unavailable Unavailable DEVANTE DAVON PA Unavailable Unavailable DEVANTE DAVON PA Unavailable Unavailable DEVANTE DAVON PA Unavailable Unavailable DEVANTE, DAVON PA Unavailable Unavailable DEVANTE, DAVON PA Unavailable Unavailable DEVANTE, DAVON PA Unavailable Unavailable Debbie Mckenzie MD Unavailable Unavailable Debbie Mckenzie MD Unavailable Unavailable Debbie Mckenzie MD Unavailable Unavailable Debbie Mckenzie MD Unavailable Unavailable Debbie Mckenzie MD Unavailable Unavailable Debbie Mckenzie MD Unavailable Unavailable Debbie Mckenzie MD Unavailable Unavailable Debbie Mckenzie MD Unavailable Unavailable Debbie Mckenzie MD Unavailable Unavailable Debbie Mckenzie MD Unavailable Unavailable Debbie Mckenzie MD Unavailable Unavailable Debbie Mckenzie MD Unavailable Unavailable Debbie Mckenzie MD Unavailable Unavailable Debbie Mckenzie MD Unavailable Unavailable Debbie Mckenzie MD Unavailable Unavailable Garcia, Idalia Vivian PA PA Unavailable [phone] Garica, E Vivian PA PA Unavailable [phone] Garcia, E Vivian PA PA Unavailable [phone] Garcia, E Vivian PA PA Unavailable [phone] JL, MARGARET PA Unavailable Unavailable JL, MARGARET PA Unavailable Unavailable JL, MARGARET PA Unavailable Unavailable JL, MARGARET PA Unavailable Unavailable JL, MARGARET PA Unavailable Unavailable JL, MARGARET PA Unavailable Unavailable JL, MARGARET PA Unavailable Unavailable JL, MARGARET PA Unavailable Unavailable JL, MARGARET PA Unavailable Unavailable JL, MARGARET PA Unavailable Unavailable JL, MARGARET PA Unavailable Unavailable JL, MARGARET PA Unavailable Unavailable JL, MARGARET PA Unavailable Unavailable Win Munroe MD Unavailable Unavailable Sorge, Keith Dimas MD Unavailable Unavailable Sorge, Keith Dimas MD Unavailable Unavailable Sorge, C Wing MD Unavailable Unavailable Sorge, Keith Dimas MD Unavailable Unavailable Sorge, Keith Dimas MD Unavailable Unavailable Sorge, Keith Dimas MD Unavailable Unavailable Sorge, Keith Dimas MD Unavailable Unavailable Sorge, C Wing MARRERO Unavailable Unavailable Sorge, C Wing MARRERO Unavailable Unavailable Sorge, C Wing MARRERO Unavailable Unavailable Sorge, Keith Dimas MD Unavailable Unavailable Sorge, C Wing MD Unavailable Unavailable Sorge, Keith Dimas MD Unavailable Unavailable Sorge, C Wing MD Unavailable Unavailable Sorge, C Wing MD Unavailable Unavailable Sorge, C Wing MD Unavailable Unavailable Sorge, C Wing MD Unavailable Unavailable Sorge, C Wing MD Unavailable Unavailable Sorge, C Wing MD Unavailable Unavailable Sorge, C Wing MD Unavailable Unavailable Sorge, C Wing MD Unavailable Unavailable Ross, H Clari JALOUSIE INSTALLER Unavailable [phone] Ross, H Clari JALOUSIE INSTALLER Unavailable [phone] Ross, H Clari JALOUSIE INSTALLER Unavailable [phone] Ross, H Clari JALOUSIE INSTALLER Unavailable [phone] Julito Holland JALOUSIE INSTALLER Unavailable [phone] Julito Holland JALOUSIE INSTALLER Unavailable [phone] Julito Holland JALOUSIE INSTALLER Unavailable [phone] Julito Holland JALOUSIE INSTALLER Unavailable [phone] FLINT, GIO PA Unavailable Unavailable FLINT, GIO PA Unavailable Unavailable FLINT, GIO PA Unavailable Unavailable FLINT, GIO PA Unavailable Unavailable FLINT, GIO PA Unavailable Unavailable FLINT, GIO PA Unavailable Unavailable FLINT, GIO PA Unavailable Unavailable FLINT, GIO PA Unavailable Unavailable FLINT, GIO PA Unavailable Unavailable FLINT, GIO PA Unavailable Unavailable FLINT, GIO PA Unavailable Unavailable FLINT, GIO PA Unavailable Unavailable FLINT, GIO PA Unavailable Unavailable FLINT, GIO PA Unavailable Unavailable FLINT, GIO PA Unavailable Unavailable FLINT, GIO PA Unavailable Unavailable FLINT, GIO PA Unavailable Unavailable FLINT, GIO PA Unavailable Unavailable FLINT, GIO PA Unavailable Unavailable FLINT, GIO PA Unavailable Unavailable FLINT, GIO PA Unavailable Unavailable FLINT, GIO PA Unavailable Unavailable FLINT, GIO PA Unavailable Unavailable FLINT, GIO PA Unavailable Unavailable FLINT, GIO PA Unavailable Unavailable FLINT, GIO PA Unavailable Unavailable FLINT, GIO PA Unavailable Unavailable FLINT, GIO PA Unavailable Unavailable FLINT, GIO PA Unavailable Unavailable FLINT, GIO PA Unavailable Unavailable FLINT, GIO PA Unavailable Unavailable FLINT, GIO PA Unavailable Unavailable FLINT, GIO PA Unavailable Unavailable FLINT, GIO PA Unavailable Unavailable FLINT, GIO PA Unavailable Unavailable FLINT, GIO PA Unavailable Unavailable GUTIÉRREZ, K ORLANDO PA Unavailable Unavailable GUTIÉRREZ, K ORLANDO PA Unavailable Unavailable GUTIÉRREZ, K ORLANDO PA Unavailable Unavailable GUTIÉRREZ, K ORLANDO PA Unavailable Unavailable GUTIÉRREZ, K ORLANDO PA Unavailable Unavailable GUTIÉRREZ, K ORLANDO PA Unavailable Unavailable GUTIÉRREZ, K ORLANDO PA Unavailable Unavailable GUTIÉRREZ, K ORLANDO PA Unavailable Unavailable GUTIÉRREZ, K ORLANDO PA Unavailable Unavailable GUTIÉRREZ, K ORLANDO PA Unavailable Unavailable GUTIÉRREZ, K ORLANDO PA Unavailable Unavailable GUTIÉRREZ, K ORLANDO PA Unavailable Unavailable GUTIÉRREZ, K ORLANDO PA Unavailable Unavailable GUTIÉRREZ, K ORLANDO PA Unavailable Unavailable GUTIÉRREZ, K ORLANDO PA Unavailable Unavailable GUTIÉRREZ, K ORLANDO PA Unavailable Unavailable GUTIÉRREZ, K ORLANDO PA Unavailable Unavailable GUTIÉRREZ, K ORLANDO PA Unavailable Unavailable GUTIÉRREZ, K ORLANDO PA Unavailable Unavailable GUTIÉRREZ, K ORLANDO PA Unavailable Unavailable GUTIÉRREZ, K ORLANDO PA Unavailable Unavailable GUTIÉRREZ, K ORLANDO PA Unavailable Unavailable GUTIÉRREZ, K ORLANDO PA Unavailable Unavailable GUTIÉRREZ, K ORLANDO PA Unavailable Unavailable GUTIÉRREZ, K ORLANDO PA Unavailable Unavailable GUTIÉRREZ, K ORLANDO PA Unavailable Unavailable GUTIÉRREZ, K ORLANDO PA Unavailable Unavailable GUTIÉRREZ, K ORLANDO PA Unavailable Unavailable GUTIÉRREZ, K ORLANDO PA Unavailable Unavailable GUTIÉRREZ, K ORLANDO PA Unavailable Unavailable GUTIÉRREZ, K ORLANDO PA Unavailable Unavailable GUTIÉRREZ, K ORLANDO PA Unavailable Unavailable GUTIÉRREZ, K ORLANDO PA Unavailable Unavailable GUTIÉRREZ, K ORLANDO PA Unavailable Unavailable GUTIÉRREZ, K ORLANDO PA Unavailable Unavailable GUTIÉRREZ, K ORLANDO PA Unavailable Unavailable GUTIÉRREZ, K ORLANDO PA Unavailable Unavailable GUTIÉRREZ, K ORLANDO PA Unavailable Unavailable GUTIÉRREZ, K ORLANDO PA Unavailable Unavailable GUTIÉRREZ, K ORLANDO PA Unavailable Unavailable GUTIÉRREZ, K ORLANDO PA Unavailable Unavailable GUTIÉRREZ, K ORLANDO PA Unavailable Unavailable GUTIÉRREZ, K ORLANDO PA Unavailable Unavailable GUTIÉRREZ, K ORLANDO PA Unavailable Unavailable GUTIÉRREZ, K ORLANDO PA Unavailable Unavailable GUTIÉRREZ, K ORLANDO PA Unavailable Unavailable GUTIÉRREZ, K ORLANDO PA Unavailable Unavailable GUTIÉRREZ, K ORLANDO PA Unavailable Unavailable GUTIÉRREZ, K ORLANDO PA Unavailable Unavailable GUTIÉRREZ, K ORLANDO PA Unavailable Unavailable GUTIÉRREZ, K ORLANDO PA Unavailable Unavailable Win Munroe MD Unavailable [phone] Win Munroe MD Unavailable [phone] Win Munroe MD Unavailable [phone] Win Munroe MD Unavailable [phone] Win Munroe MD Unavailable [phone] Win Munroe MD Unavailable [phone] Rawls, M Ophelia CLINICAL REHABILITATION COORDINATOR Unavailable Rawls, M Ophelia CLINICAL REHABILITATION COORDINATOR Unavailable Rawls, M Ophelia CLINICAL REHABILITATION COORDINATOR Unavailable Rawls, M Ophelia CLINICAL REHABILITATION COORDINATOR Unavailable Rawls, M Ophelia CLINICAL REHABILITATION COORDINATOR Unavailable Rawls, M Ophelia CLINICAL REHABILITATION COORDINATOR Unavailable Rawls, M Ophelia CLINICAL REHABILITATION COORDINATOR Unavailable Rawls, M Ophelia CLINICAL REHABILITATION COORDINATOR Unavailable Amber SANTOS MD Unavailable Unavailable Amber SANTOS MD Unavailable Unavailable Amber SANTOS MD Unavailable Unavailable Amber SANTOS MD Unavailable Unavailable Amber SANTOS MD Unavailable Unavailable Amber SANTOS MD Unavailable Unavailable BERAmber CHRISTY MD Unavailable Unavailable Amber SANTOS MD Unavailable Unavailable BERAmber CHRISTY MD Unavailable Unavailable BERAmber CHRISTY MD Unavailable Unavailable BERKERAmber Olmstead MD Unavailable Unavailable BERKERAmber Olmstead MD Unavailable Unavailable Amber SANTOS MD Unavailable Unavailable BERAmber CHRISTY MD Unavailable Unavailable BERAmber CHRISTY MD Unavailable Unavailable BERKERAmber Olmstead MD Unavailable Unavailable BERKERAmber Olmstead MD Unavailable Unavailable BERKERAmber Olmstead MD Unavailable Unavailable BERKERAmber Olmstead MD Unavailable Unavailable BERAmber CHRISTY MD Unavailable Unavailable BERKERAmber Olmstead MD Unavailable Unavailable BERKERAmber Olmstead MD Unavailable Unavailable BERKERAmber Olmstead MD Unavailable Unavailable BERKERAmber Olmstead MD Unavailable Unavailable BERKERAmber Olmstead MD Unavailable Unavailable BERKERAmber Olmstead MD Unavailable Unavailable BERKERAmber Olmstead MD Unavailable Unavailable Amber SANTOS MD Unavailable Unavailable BERAmber CHRISTY MD Unavailable Unavailable BERAmber CHRISTY MD Unavailable Unavailable BERAmber CHRISTY MD Unavailable Unavailable BERKERAmber Olmstead MD Unavailable Unavailable BERKERAmber Olmstead MD Unavailable Unavailable BERKERYAmber MD Unavailable Unavailable BERKERYAmber MD Unavailable Unavailable BERKERYAmber MD Unavailable Unavailable BERKERYAmber MD Unavailable Unavailable BERKERYAmber MD Unavailable Unavailable BERKERYAmber MD Unavailable Unavailable BERKERYAmber MD Unavailable Unavailable BERKERYAmber MD Unavailable Unavailable BERKERYAmber MD Unavailable Unavailable BERKERY, Amber ZHENG MD Unavailable Unavailable BERKERYAmber MD Unavailable Unavailable BERKERYAmber MD Unavailable Unavailable BERKERYAmber MD Unavailable Unavailable BERKERYAmber MD Unavailable Unavailable BERKERYAmber MD Unavailable Unavailable BERKERYAmber MD Unavailable Unavailable BERKERYAmber MD Unavailable Unavailable BERKERYAmber MD Unavailable Unavailable BERKERYAmber MD Unavailable Unavailable BERKERYAmber MD Unavailable Unavailable BERKERYAmber MD Unavailable Unavailable BERKERYAmber MD Unavailable Unavailable BERKERYAmber MD Unavailable Unavailable BERKERYAmber MD Unavailable Unavailable BERKERYAmber MD Unavailable Unavailable BERKERYAmber MD Unavailable Unavailable BERKERYAmber MD Unavailable Unavailable BERKERYAmber MD Unavailable Unavailable BERKERYAmber MD Unavailable Unavailable BERKERYAmber MD Unavailable Unavailable BERKERYAmber MD Unavailable Unavailable BERKERYAmber MD Unavailable Unavailable BERKERYAmber MD Unavailable Unavailable BERKERYAmber MD Unavailable Unavailable BERKERYAmber MD Unavailable Unavailable BERKERYAmber MD Unavailable Unavailable BERKERYAmber MD Unavailable Unavailable BERKERYAmber MD Unavailable Unavailable BERKERYAmber MD Unavailable Unavailable BERKERYAmber MD Unavailable Unavailable BERKERYAmber MD Unavailable Unavailable BERKERYAmber MD Unavailable Unavailable BERKERYAmber MD Unavailable Unavailable BERKERYAmber MD Unavailable Unavailable BERKERYAmber MD Unavailable Unavailable BERKERYAmber MD Unavailable Unavailable BERKERYAmber MD Unavailable Unavailable BERKERYAmber MD Unavailable Unavailable BERKERYAmber MD Unavailable Unavailable BERKERYAmber MD Unavailable Unavailable BERKERYAmber MD Unavailable Unavailable BERKERYAmber MD Unavailable Unavailable BERKERYAmber MD Unavailable Unavailable BERKERYAmber MD Unavailable Unavailable BERKERYAmber MD Unavailable Unavailable BERKERY, Amber ZHENG MD Unavailable Unavailable BERKERY, Amber ZHENG MD Unavailable Unavailable BERKERY, Amber ZHENG MD Unavailable Unavailable BERKERY, Amber ZHENG MD Unavailable Unavailable BERKERY, Amber ZHENG MD Unavailable Unavailable BERKERY, Amber ZHENG MD Unavailable Unavailable BERKERY, Amber ZHENG MD Unavailable Unavailable BERKERY, Amber ZHENG MD Unavailable Unavailable BERKERY, Amber ZHENG MD Unavailable Unavailable BERKERY, Amber ZHENG MD Unavailable Unavailable Derrek, Tony Couch CLINICAL REHABILITATION COORDINATOR Unavailable Unavailable Derrek, Tony Couch CLINICAL REHABILITATION COORDINATOR Unavailable Unavailable Derrek, Tony Couch CLINICAL REHABILITATION COORDINATOR Unavailable Unavailable Derrek, Tony Couch CLINICAL REHABILITATION COORDINATOR Unavailable Unavailable Derrek, Tony Couch CLINICAL REHABILITATION COORDINATOR Unavailable Unavailable Derrek, Tony Couch CLINICAL REHABILITATION COORDINATOR Unavailable Unavailable Derrek, Tony Couch CLINICAL REHABILITATION COORDINATOR Unavailable Unavailable Derrek, Tony Couch CLINICAL REHABILITATION COORDINATOR Unavailable Unavailable Derrek, Tony Couch CLINICAL REHABILITATION COORDINATOR Unavailable Unavailable Derrek, Tony Couch CLINICAL REHABILITATION COORDINATOR Unavailable Unavailable Derrek, Tony Couch CLINICAL REHABILITATION COORDINATOR Unavailable Unavailable Derrek, Tony Couch CLINICAL REHABILITATION COORDINATOR Unavailable Unavailable Derrek, Tony Couch CLINICAL REHABILITATION COORDINATOR Unavailable Unavailable Derrek, Tony Couch CLINICAL REHABILITATION COORDINATOR Unavailable Unavailable Derrek, Tony Couch CLINICAL REHABILITATION COORDINATOR Unavailable Unavailable Derrek, Tony Couch CLINICAL REHABILITATION COORDINATOR Unavailable Unavailable Derrek, Tony Couch CLINICAL REHABILITATION COORDINATOR Unavailable Unavailable Derrek, Tony Couch CLINICAL REHABILITATION COORDINATOR Unavailable Unavailable Derrek, Tony Couch CLINICAL REHABILITATION COORDINATOR Unavailable Unavailable Derrek, Tony Couch CLINICAL REHABILITATION COORDINATOR Unavailable Unavailable Derrek, Tony Couch CLINICAL REHABILITATION COORDINATOR Unavailable Unavailable Derrek, Tony Couch CLINICAL REHABILITATION COORDINATOR Unavailable Unavailable Derrek, Tony Couch CLINICAL REHABILITATION COORDINATOR Unavailable Unavailable Derrek, Tony Couch CLINICAL REHABILITATION COORDINATOR Unavailable Unavailable Derrek, Tony Couch CLINICAL REHABILITATION COORDINATOR Unavailable Unavailable Derrek, Tony Couch CLINICAL REHABILITATION COORDINATOR Unavailable Unavailable Derrek, Tony Couch CLINICAL REHABILITATION COORDINATOR Unavailable Unavailable Derrek, Tony Couch CLINICAL REHABILITATION COORDINATOR Unavailable Unavailable Derrek, Tony Couch CLINICAL REHABILITATION COORDINATOR Unavailable Unavailable Derrek, Tony Couch CLINICAL REHABILITATION COORDINATOR Unavailable Unavailable Derrek, Tony Couch CLINICAL REHABILITATION COORDINATOR Unavailable Unavailable Derrek, Tony Couch CLINICAL REHABILITATION COORDINATOR Unavailable Unavailable Derrek, Tony Couch CLINICAL REHABILITATION COORDINATOR Unavailable Unavailable Derrek, Tony Couch CLINICAL REHABILITATION COORDINATOR Unavailable Unavailable Derrek, Tony Couch CLINICAL REHABILITATION COORDINATOR Unavailable Unavailable Derrek, Tony Couch CLINICAL REHABILITATION COORDINATOR Unavailable Unavailable Derrek, Tony Couch CLINICAL REHABILITATION COORDINATOR Unavailable Unavailable Kimberly Michaels MD Unavailable Unavailable BROUGHAL, Keith SPAULDING Unavailable Unavailable BROUGHAL, Keith SPAULDING Unavailable Unavailable BROUGHAL, C SANTOS PA Unavailable Unavailable BROUGHAL, C SANTOS PA Unavailable Unavailable BROUGHAL, C SANTOS PA Unavailable Unavailable BROUGHAL, C SANTOS PA Unavailable Unavailable Kimberly Castañeda MD Unavailable Unavailable MaddyKimberly blair MD Unavailable Unavailable MaddyKimberly mendoza MD Unavailable Unavailable ALEX, JHONNY MAYS MD Unavailable Unavailable ALEX, JHONNY MAYS MD Unavailable Unavailable ALEX, JHONNY MAYS MD Unavailable Unavailable ALEX, JHONNY MAYS MD Unavailable Unavailable ALEX, JHONNY MAYS MD Unavailable Unavailable ALEX, JHONNY MAYS MD Unavailable Unavailable ALEX, JHONNY MAYS MD Unavailable Unavailable ALEX, JHONNY MAYS MD Unavailable Unavailable ALEX, JHONNY MAYS MD Unavailable Unavailable ALEX, JHONNY MAYS MD Unavailable Unavailable ALEX, JHONNY MAYS MD Unavailable Unavailable ALEX, JHONNY MAYS MD Unavailable Unavailable ALEX, JHONNY MAYS MD Unavailable Unavailable ALEX, JHONNY MAYS MD Unavailable Unavailable ALEX, JHONNY MAYS MD Unavailable Unavailable ALEX, JHONNY MAYS MD Unavailable Unavailable ALEX, JHONNY MAYS MD Unavailable Unavailable ALEX, JHONNY MAYS MD Unavailable Unavailable ALEX, JHONNY MAYS MD Unavailable Unavailable ALEX, JHONNY MAYS MD Unavailable Unavailable ALEX, JHONNY MAYS MD Unavailable Unavailable ALEX, JHONNY MAYS MD Unavailable Unavailable ALEX, JHONNY MAYS MD Unavailable Unavailable Angie MARRERO, Physician Idalia Mcginnis Unavailable Unavail able Amber SANTOS MD Unavailable Unavailable Amber SANTOS MD Unavailable Unavailable Amber SANTOS MD Unavailable Unavailable Amber SANTOS MD Unavailable Unavailable Amber SANTOS MD Unavailable Unavailable Amber SANTOS MD Unavailable Unavailable Amber SANTOS MD Unavailable Unavailable Amber SANTOS MD Unavailable Unavailable Amber SANTOS MD Unavailable Unavailable Amber SANTOS MD Unavailable Unavailable Amber SANTOS MD Unavailable Unavailable Amber SANTOS MD Unavailable Unavailable Amber SANTOS MD Unavailable Unavailable Amber SANTOS MD Unavailable Unavailable Amber SANTOS MD Unavailable Unavailable Amber SANTOS MD Unavailable Unavailable Amber SANTOS MD Unavailable Unavailable Amber SANTOS MD Unavailable Unavailable Amber SANTOS MD Unavailable Unavailable Amber SANTOS MD Unavailable Unavailable Amber SANTOS MD Unavailable Unavailable Amber SANTOS MD Unavailable Unavailable Amber SANTOS MD Unavailable Unavailable Amber SANTOS MD Unavailable Unavailable BERKERYAmber MD Unavailable Unavailable BERKERYAmber MD Unavailable Unavailable BERKERYAmber MD Unavailable Unavailable BERKERYAmber MD Unavailable Unavailable BERKERYAmber MD Unavailable Unavailable BERKERYAmber MD Unavailable Unavailable BERKERYAmber MD Unavailable Unavailable BERKERYAmber MD Unavailable Unavailable BERKERYAmber MD Unavailable Unavailable BERKERY, Amber ZHENG MD Unavailable Unavailable BERKERYAmber MD Unavailable Unavailable BERKERYAmber MD Unavailable Unavailable BERKERYAmber MD Unavailable Unavailable BERKERYAmber MD Unavailable Unavailable BERKERYAmber MD Unavailable Unavailable BERKERYAmber MD Unavailable Unavailable BERKERYAmber MD Unavailable Unavailable BERKERYAmber MD Unavailable Unavailable BERKERYAmber MD Unavailable Unavailable BERKERYAmber MD Unavailable Unavailable BERKERYAmber MD Unavailable Unavailable BERKERYAmber MD Unavailable Unavailable BERKERYAmber MD Unavailable Unavailable BERKERYAmber MD Unavailable Unavailable BERKERYAmber MD Unavailable Unavailable BERKERYAmber MD Unavailable Unavailable BERKERYAmber MD Unavailable Unavailable BERKERYAmber MD Unavailable Unavailable BERKERYAmber MD Unavailable Unavailable BERKERYAmber MD Unavailable Unavailable BERKERYAmber MD Unavailable Unavailable BERKERYAmber MD Unavailable Unavailable BERKERYAmber MD Unavailable Unavailable BERKERYAmber MD Unavailable Unavailable BERKERYAmber MD Unavailable Unavailable BERKERYAmber MD Unavailable Unavailable BERKERYAmber MD Unavailable Unavailable BERKERYAmber MD Unavailable Unavailable BERKERYAmber MD Unavailable Unavailable BERKERYAmber MD Unavailable Unavailable BERKERYAmber MD Unavailable Unavailable BERKERYAmber MD Unavailable Unavailable BERKERYAmber MD Unavailable Unavailable BERKERYAmber MD Unavailable Unavailable BERKERYAmber MD Unavailable Unavailable BERKERYAmber MD Unavailable Unavailable BERKERYAmber MD Unavailable Unavailable BERKERYAmber MD Unavailable Unavailable BERKERYAmber MD Unavailable Unavailable BERKERYAmber MD Unavailable Unavailable BERKERYAmber MD Unavailable Unavailable BERKERYAmber MD Unavailable Unavailable BERKERYAmber MD Unavailable Unavailable BERKERYAmber MD Unavailable Unavailable BERKERYAmber MD Unavailable Unavailable BERKERY, P ADOLFO MD Unavailable Unavailable BERKERY, P ADOLFO MD Unavailable Unavailable BERKERY, P ADOLFO MD Unavailable Unavailable BERKERY, P ADOLFO MD Unavailable Unavailable BERKERY, P ADOLFO MD Unavailable Unavailable BERKERY, P ADOLFO MD Unavailable Unavailable BERKERY, P ADOLFO MD Unavailable Unavailable BERKERY, P ADOLFO MD Unavailable Unavailable BERKERY, P ADOLFO MD Unavailable Unavailable BERKERY, P ADOLFO MD Unavailable Unavailable BERKERY, P ADOLFO MD Unavailable Unavailable BERKERY, P ADOLFO MD Unavailable Unavailable BERKERY, P ADOLFO MD Unavailable Unavailable BERKERY, P ADOLFO MD Unavailable Unavailable BERKERY, P ADOLFO MD Unavailable Unavailable BERKERY, P ADOLFO MD Unavailable Unavailable BERKERY, P ADOLFO MD Unavailable Unavailable BERKERY, P ADOLFO MD Unavailable Unavailable BERKERY, P ADOLFO MD Unavailable Unavailable Travon, E Gorge DO Unavailable Unavailable Travon, E Gorge DO Unavailable Unavailable Travon, E Gorge DO Unavailable Unavailable Travon, E Gorge DO Unavailable Unavailable Travon, E Gorge DO Unavailable Unavailable Travon, E Gorge DO Unavailable Unavailable Travon, E Gorge DO Unavailable Unavailable Travon, E Gorge DO Unavailable Unavailable Travon, E Gorge DO Unavailable Unavailable Travon, E Gorge DO Unavailable Unavailable Travon, E Gorge DO Unavailable Unavailable Travon, E Gorge DO Unavailable Unavailable Travon, E Gorge DO Unavailable Unavailable Travon, E Gorge DO Unavailable Unavailable Travon, E Gorge DO Unavailable Unavailable Travon, E Gorge DO Unavailable Unavailable Travon, E Gorge DO Unavailable Unavailable Travon, E Gorge DO Unavailable Unavailable Travon, E Gorge DO Unavailable Unavailable Travon, E Gorge DO Unavailable Unavailable Travon, E Gorge DO Unavailable Unavailable Travon, E Gorge DO Unavailable Unavailable Travon, E Gorge DO Unavailable Unavailable Travon, E Gorge DO Unavailable Unavailable Snicer, Kimberly Zhou MD Unavailable Unavailable Snicer, Kimberly Zhou MD Unavailable Unavailable Snicer, Kimberly Zhou MD Unavailable Unavailable Snicer, Kimberly Zhou MD Unavailable Unavailable Snicer, Kimberly Zhou MD Unavailable Unavailable Snicer, Kimberly Zhou MD Unavailable Unavailable Snicer, Kimberly Zhou MD Unavailable Unavailable Snicer, Kimberly Zhou MD Unavailable Unavailable Snicer, Kimberly Zhou MD Unavailable Unavailable Snicer, Kimberly Zhou MD Unavailable Unavailable Snicer, Kimberly Zhou MD Unavailable Unavailable Snicer, Kimberly Zhou MD Unavailable Unavailable Kimberly Michaels MD Unavailable Unavailable Kimberly Michaels MD Unavailable Unavailable Wil BOLANOS, Physician Guadalupe Johnson Unavailable Unavailabl e Bahamonde, E Tiara PHOTOENGRAVING PROOFER APPRENTICE Unavailable Unavailable Bahamonde, E Tiara PHOTOENGRAVING PROOFER APPRENTICE Unavailable Unavailable Bahamonde, E Tiara PHOTOENGRAVING PROOFER APPRENTICE Unavailable Unavailable Bahamonde, E Tiara PHOTOENGRAVING PROOFER APPRENTICE Unavailable Unavailable Bahamonde, E Tiara PHOTOENGRAVING PROOFER APPRENTICE Unavailable Unavailable Bahamonde, E Tiara PHOTOENGRAVING PROOFER APPRENTICE Unavailable Unavailable Bahamonde, E Tiara PHOTOENGRAVING PROOFER APPRENTICE Unavailable Unavailable Bahamonde, E Tiara PHOTOENGRAVING PROOFER APPRENTICE Unavailable Unavailable Bahamonde, E Tiara PHOTOENGRAVING PROOFER APPRENTICE Unavailable Unavailable Bahamonde, E Tiara PHOTOENGRAVING PROOFER APPRENTICE Unavailable Unavailable Bahamonde, E Tiara PHOTOENGRAVING PROOFER APPRENTICE Unavailable Unavailable Bahamonde, E Tiara PHOTOENGRAVING PROOFER APPRENTICE Unavailable Unavailable Bahamonde, E Tiara PHOTOENGRAVING PROOFER APPRENTICE Unavailable Unavailable Bahamonde, E Tiara PHOTOENGRAVING PROOFER APPRENTICE Unavailable Unavailable Bahamonde, E Tiara PHOTOENGRAVING PROOFER APPRENTICE Unavailable Unavailable Bahamonde, E Tiara PHOTOENGRAVING PROOFER APPRENTICE Unavailable Unavailable Bahamonde, E Tiara PHOTOENGRAVING PROOFER APPRENTICE Unavailable Unavailable Bahamonde, E Tiara PHOTOENGRAVING PROOFER APPRENTICE Unavailable Unavailable Bahamonde, E Tiaar PHOTOENGRAVING PROOFER APPRENTICE Unavailable Unavailable Bahamonde, E Tiara PHOTOENGRAVING PROOFER APPRENTICE Unavailable Unavailable Bahamonde, E Tiara PHOTOENGRAVING PROOFER APPRENTICE Unavailable Unavailable DR JANES DE LA O CANH Unavailable Unavailable Jaylyn Canh Unavailable Unavailable Matthew Messina MD Unavailable Unavailable VANWAGNER, GIRISH DO Unavailable Unavailable VANWAGNER, GIRISH DO Unavailable Unavailable VANWAGNER, GIRISH DO Unavailable Unavailable VANWAGNER, GIRISH DO Unavailable Unavailable VANWAGNER, GIRISH DO Unavailable Unavailable VANWAGNER, GIRISH DO Unavailable Unavailable VANWAGNER, GIRISH DO Unavailable Unavailable VANWAGNER, GIRISH DO Unavailable Unavailable VANWAGNER, GIRISH DO Unavailable Unavailable VANWAGNER, GIRISH DO Unavailable Unavailable VANWAGNER, GIRISH DO Unavailable Unavailable VANWAGNER, GIRISH DO Unavailable Unavailable VANWAGNER, GIRISH DO Unavailable Unavailable VANWAGNER, GIRISH DO Unavailable Unavailable VANWAGNER, GIRISH DO Unavailable Unavailable ER, Mendez Augusta Unavailable ER, Mendez Darvin Unavailable ER, Mendez Augusta Unavailable ER, Mendez Augusta Unavailable ER, Mendez Augusta Unavailable ER, Mendez Darvin Unavailable ER, Vanessa Echevarrialand Unavailable Wilbert OH CLINICAL REHABILITATION COORDINATOR Unavailable Unavailable ZEGIL D EMMA CLINICAL REHABILITATION COORDINATOR Unavailable Unavailable ZEGIL, D EMMA CLINICAL REHABILITATION COORDINATOR Unavailable Unavailable Amber URIAS MD Unavailable Unavailable Amber URIAS MD Unavailable Unavailable JAGANATISA, Amber BARGER MD Unavailable Unavailable JAGANATISA, Amber BARGER MD Unavailable Unavailable JAGANATISA, Amber BARGER MD Unavailable Unavailable JAGANATISA, Amber BARGER MD Unavailable Unavailable Malek, Rell Nickerson MD Unavailable [phone] Malek, Rell Nickerson MD Unavailable [phone] Malek, Rell Nickerson MD Unavailable [phone] Malek, Rell Nickerson MD Unavailable [phone] Malek, Rell Nickerson MD Unavailable [phone] Malek, Rell Nickerson MD Unavailable [phone] Malek, Rell Nickerson MD Unavailable [phone] Malek, Rell Nickerson MD Unavailable [phone] Malek, Rell Nickerson MD Unavailable [phone] Malek, Rell Nickerson MD Unavailable [phone] Malek, Rell Nickerson MD Unavailable [phone] Malek, Rell Nickerson MD Unavailable [phone] Malek, Rell Nickerson MD Unavailable [phone] Malek, Rell Nickerson MD Unavailable Unavailable Amber SANTOS MD Unavailable Unavailable Amber SANTOS MD Unavailable Unavailable Amber SANTOS MD Unavailable Unavailable Amber SANTOS MD Unavailable Unavailable Amber SANTOS MD Unavailable Unavailable Amber SANTOS MD Unavailable Unavailable Amber SANTOS MD Unavailable Unavailable Amber SANTOS MD Unavailable Unavailable Amber SANTOS MD Unavailable Unavailable Amber SANTOS MD Unavailable Unavailable Amber SANTOS MD Unavailable Unavailable Amber SANTOS MD Unavailable Unavailable Amber SANTOS MD Unavailable Unavailable Amber SANTOS MD Unavailable Unavailable Amber SANTOS MD Unavailable Unavailable BERKERYAmber MD Unavailable Unavailable BERKERYAmber MD Unavailable Unavailable BERKERYAmber MD Unavailable Unavailable BERKERYAmber MD Unavailable Unavailable BERKERYAmber MD Unavailable Unavailable BERKERYAmber MD Unavailable Unavailable BERKERYAmber MD Unavailable Unavailable BERKERYAmber MD Unavailable Unavailable BERKERYAmber MD Unavailable Unavailable BERKERY, Amber ZHENG MD Unavailable Unavailable BERKERYAmber MD Unavailable Unavailable BERKERYAmber MD Unavailable Unavailable BERKERYAmber MD Unavailable Unavailable BERKERYAmber MD Unavailable Unavailable BERKERYAmber MD Unavailable Unavailable BERKERYAmber MD Unavailable Unavailable BERKERYAmber MD Unavailable Unavailable BERKERYAmber MD Unavailable Unavailable BERKERYAmber MD Unavailable Unavailable BERKERYAmber MD Unavailable Unavailable BERKERYAmber MD Unavailable Unavailable BERKERYAmber MD Unavailable Unavailable BERKERYAmber MD Unavailable Unavailable BERKERYAmber MD Unavailable Unavailable BERKERYAmber MD Unavailable Unavailable BERKERYAmber MD Unavailable Unavailable BERKERYAmber MD Unavailable Unavailable BERKERYAmber MD Unavailable Unavailable BERKERYAmber MD Unavailable Unavailable BERKERYAmber MD Unavailable Unavailable BERKERYAmber MD Unavailable Unavailable BERKERYAmber MD Unavailable Unavailable BERKERYAmber MD Unavailable Unavailable BERKERYAmber MD Unavailable Unavailable BERKERYAmber MD Unavailable Unavailable BERKERYAmber MD Unavailable Unavailable BERKERYAmber MD Unavailable Unavailable BERKERYAmber MD Unavailable Unavailable BERKERYAmber MD Unavailable Unavailable BERKERYAmber MD Unavailable Unavailable BERKERYAmber MD Unavailable Unavailable BERKERYAmber MD Unavailable Unavailable BERKERYAmber MD Unavailable Unavailable BERKERYAmber MD Unavailable Unavailable BERKERYAmber MD Unavailable Unavailable BERKERYAmber MD Unavailable Unavailable BERKERYAmber MD Unavailable Unavailable BERKERYAmber MD Unavailable Unavailable BERKERYAmber MD Unavailable Unavailable BERKERYAmber MD Unavailable Unavailable BERKERYAmber MD Unavailable Unavailable BERKERYAmber MD Unavailable Unavailable BERKERYAmber MD Unavailable Unavailable BERKERYAmber MD Unavailable Unavailable BERKERYAmber MD Unavailable Unavailable BERKERYAmber MD Unavailable Unavailable BERKERY, P ADOLFO MD Unavailable Unavailable BERKERAmber Olmstead MD Unavailable Unavailable BERKERAmber Olmstead MD Unavailable Unavailable BERKERAmber Olmstead MD Unavailable Unavailable BERKERAmber Olmstead MD Unavailable Unavailable BERKERAmber Olmstead MD Unavailable Unavailable BERKERAmber Olmstead MD Unavailable Unavailable BERKERAmber Olmstead MD Unavailable Unavailable BERKERAmber Olmstead MD Unavailable Unavailable BERKERAmber Olmstead MD Unavailable Unavailable BERKERAmber Olmstead MD Unavailable Unavailable BERKERAmber Olmstead MD Unavailable Unavailable BERKERAmber Olmstead MD Unavailable Unavailable BERKERAmber Olmstead MD Unavailable Unavailable BERKERAmber Olmstead MD Unavailable Unavailable BERKERAmber Olmstead MD Unavailable Unavailable BERKERAmber Olmstead MD Unavailable Unavailable BERKERAmber Olmstead MD Unavailable Unavailable BERKERAmber Olmstead MD Unavailable Unavailable BERKERAmber Olmstead MD Unavailable Unavailable KIANKERAmber Olmstead MD Unavailable Unavailable Amber SANTOS MD Unavailable Unavailable BERKERAmber Olmstead MD Unavailable Unavailable BERAmber CHRISTY MD Unavailable Unavailable BERAmber CHRISTY MD Unavailable Unavailable Amber SANTOS MD Unavailable Unavailable Amber SANTOS MD Unavailable Unavailable DR MD CHIP LAUGHLIN Unavailable Unavailable O'ABBY, SANKET OD Unavailable Unavailable O'ABBY, SANKET OD Unavailable Unavailable O'ABBY, SANKET OD Unavailable Unavailable O'ABBY, SANKET OD Unavailable Unavailable O'ABBY, SANKET OD Unavailable Unavailable O'ABBY, SANKET OD Unavailable Unavailable Amber SANTOS MD Unavailable Unavailable Amber SANTOS MD Unavailable Unavailable Amber SANTOS MD Unavailable Unavailable Amber SANTOS MD Unavailable Unavailable BERAmber CHRISTY MD Unavailable Unavailable BERAmber CHRISTY MD Unavailable Unavailable Amber SANTOS MD Unavailable Unavailable Amber SANTOS MD Unavailable Unavailable Amber SANTOS MD Unavailable Unavailable Amber SANTOS MD Unavailable Unavailable Amber SANTOS MD Unavailable Unavailable Amber SANTOS MD Unavailable Unavailable Amber SANTOS MD Unavailable Unavailable Amber SANTOS MD Unavailable Unavailable Amber SANTOS MD Unavailable Unavailable Amber SANTOS MD Unavailable Unavailable Amber SANTOS MD Unavailable Unavailable Amber SANTOS MD Unavailable Unavailable Amber SANTOS MD Unavailable Unavailable Amber SANTOS MD Unavailable Unavailable Amber SANTOS MD Unavailable Unavailable BERKERYAmber MD Unavailable Unavailable BERKERYAmber MD Unavailable Unavailable BERKERYAmber MD Unavailable Unavailable BERKERYAmber MD Unavailable Unavailable BERKERYAmber MD Unavailable Unavailable BERKERYAmber MD Unavailable Unavailable BERKERYAmber MD Unavailable Unavailable BERKERYAmber MD Unavailable Unavailable BERKERYAmber MD Unavailable Unavailable BERKERYAmber MD Unavailable Unavailable BERKERYAmber MD Unavailable Unavailable BERKERYAmber MD Unavailable Unavailable BERKERYAmber MD Unavailable Unavailable BERKERY, Amber ZHENG MD Unavailable Unavailable BERKERYAmber MD Unavailable Unavailable BERKERYAmber MD Unavailable Unavailable BERKERYAmber MD Unavailable Unavailable BERKERYAmber MD Unavailable Unavailable BERKERYAmber MD Unavailable Unavailable BERKERYAmber MD Unavailable Unavailable BERKERYAmber MD Unavailable Unavailable BERKERYAmber MD Unavailable Unavailable BERKERYAmber MD Unavailable Unavailable BERKERYAmber MD Unavailable Unavailable BERKERYAmber MD Unavailable Unavailable BERKERYAmber MD Unavailable Unavailable BERKERYAmber MD Unavailable Unavailable BERKERYAmber MD Unavailable Unavailable BERKERYAmber MD Unavailable Unavailable BERKERYAmber MD Unavailable Unavailable BERKERYAmber MD Unavailable Unavailable BERKERYAmber MD Unavailable Unavailable BERKERYAmber MD Unavailable Unavailable BERKERYAmber MD Unavailable Unavailable BERKERYAmber MD Unavailable Unavailable BERKERYAmber MD Unavailable Unavailable BERKERYAmber MD Unavailable Unavailable BERKERYAmber MD Unavailable Unavailable BERKERYAmber MD Unavailable Unavailable BERKERYAmber MD Unavailable Unavailable BERKERYAmber MD Unavailable Unavailable BERKERYAmber MD Unavailable Unavailable BERKERYAmber MD Unavailable Unavailable BERKERYAmber MD Unavailable Unavailable BERKERYAmber MD Unavailable Unavailable BERKERYAmber MD Unavailable Unavailable BERKERYAmber MD Unavailable Unavailable BERKERYAmber MD Unavailable Unavailable BERKERYAmber MD Unavailable Unavailable BERKERYAmber MD Unavailable Unavailable BERKERYAmber MD Unavailable Unavailable BERKERYAmber MD Unavailable Unavailable BERKERYAmber MD Unavailable Unavailable BERKERYAmber MD Unavailable Unavailable BERKERYAmber MD Unavailable Unavailable BERKERYAmber MD Unavailable Unavailable BERKERY, P ADOLFO MD Unavailable Unavailable Amber SANTOS MD Unavailable Unavailable Amber SANTOS MD Unavailable Unavailable Amber SANTOS MD Unavailable Unavailable Amber SANTOS MD Unavailable Unavailable Amber SANTOS MD Unavailable Unavailable BERAmber CHRISTY MD Unavailable Unavailable Amber SANTOS MD Unavailable Unavailable BERAmber CHRISTY MD Unavailable Unavailable Amber SANTOS MD Unavailable Unavailable Amber SANTOS MD Unavailable Unavailable Amber SANTOS MD Unavailable Unavailable Amber SANTOS MD Unavailable Unavailable Amber SANTOS MD Unavailable Unavailable Amber SANOTS MD Unavailable Unavailable Amber SANTOS MD Unavailable Unavailable Amber SANTOS MD Unavailable Unavailable Amber SANTOS MD Unavailable Unavailable Amber SANTOS MD Unavailable Unavailable Amber SANTOS MD Unavailable Unavailable Amber SANTOS MD Unavailable Unavailable Bahamonde, E Tiara PHOTOENGRAVING PROOFER APPRENTICE Unavailable Unavailable Bahamonde, E Tiara PHOTOENGRAVING PROOFER APPRENTICE Unavailable Unavailable Bahamonde, E Tiara PHOTOENGRAVING PROOFER APPRENTICE Unavailable Unavailable Bahamonde, E Tiara PHOTOENGRAVING PROOFER APPRENTICE Unavailable Unavailable Bahamonde, E Tiara PHOTOENGRAVING PROOFER APPRENTICE Unavailable Unavailable Bahamonde, E Tiara PHOTOENGRAVING PROOFER APPRENTICE Unavailable Unavailable Bahamonde, E Tiara PHOTOENGRAVING PROOFER APPRENTICE Unavailable Unavailable Bahamonde, E Tiara PHOTOENGRAVING PROOFER APPRENTICE Unavailable Unavailable Bahamonde, E Tiara PHOTOENGRAVING PROOFER APPRENTICE Unavailable Unavailable Bahamonde, E Tiara PHOTOENGRAVING PROOFER APPRENTICE Unavailable Unavailable Bahamonde, E Tiara PHOTOENGRAVING PROOFER APPRENTICE Unavailable Unavailable Bahamonde, E Tiara PHOTOENGRAVING PROOFER APPRENTICE Unavailable Unavailable Bahamonde, E Tiara PHOTOENGRAVING PROOFER APPRENTICE Unavailable Unavailable Bahamonde, E Tiara PHOTOENGRAVING PROOFER APPRENTICE Unavailable Unavailable Bahamonde, E Tiara PHOTOENGRAVING PROOFER APPRENTICE Unavailable Unavailable Bahamonde, E Tiara PHOTOENGRAVING PROOFER APPRENTICE Unavailable Unavailable Bahamonde, E Tiara PHOTOENGRAVING PROOFER APPRENTICE Unavailable Unavailable Bahamonde, E Tiara PHOTOENGRAVING PROOFER APPRENTICE Unavailable Unavailable Bahamonde, E Tiara PHOTOENGRAVING PROOFER APPRENTICE Unavailable Unavailable Bahamonde, E Tiara PHOTOENGRAVING PROOFER APPRENTICE Unavailable Unavailable Bahamonde, E Tiara PHOTOENGRAVING PROOFER APPRENTICE Unavailable Unavailable Idalia Cool DO Unavailable Unavailable Idalia Cool DO Unavailable Unavailable Idalia Cool DO Unavailable Unavailable Idalia Cool DO Unavailable Unavailable Idalia Cool DO Unavailable Unavailable Idalia Cool DO Unavailable Unavailable Idalia Cool DO Unavailable Unavailable Idalia Cool DO Unavailable Unavailable Idalia Cool DO Unavailable Unavailable Travon, E Gorge DO Unavailable Unavailable Travon, E Gorge DO Unavailable Unavailable Travon, E Gorge DO Unavailable Unavailable Rtavon, E Gorge DO Unavailable Unavailable Travon, E Gorge DO Unavailable Unavailable Travon, E Gorge DO Unavailable Unavailable Travon, E Gorge DO Unavailable Unavailable Travon, E Gorge DO Unavailable Unavailable Travon, E Gorge DO Unavailable Unavailable Travon, E Gorge DO Unavailable Unavailable Travon, E Gorge DO Unavailable Unavailable Travon, E Gorge DO Unavailable Unavailable Travon, E Gorge DO Unavailable Unavailable Travon, E Gorge DO Unavailable Unavailable Travon, E Gorge DO Unavailable Unavailable Davon Wolf Unavailable Unavailable Re-disclosure Warning The records that you are about to access may contain information from federally-assisted alcohol or drug abuse programs. If such information is present, then the following federally mandated warning applies: This information has been disclosed to you from records protected by federal confidentiality rules (42 CFR part 2). The federal rules prohibit you from making any further disclosure of this information unless further disclosure is expressly permitted by the written consent of the person to whom it pertains or as otherwise permitted by 42 CFR part 2. A general authorization for the release of medical or other information is NOT sufficient for this purpose. The Federal rules restrict any use of the information to criminally investigate or prosecute any alcohol or drug abuse patient.The records that you are about to access may contain highly sensitive health information, the redisclosure of which is protected by Article 27-F of the [facility] Public Health law. If you continue you may have access to information: Regarding HIV / AIDS; Provided by facilities licensed or operated by the [facility] Office of Mental Health; or Provided by the [facility] Office for People With Developmental Disabilities. If such information is present, then the following [facility] mandated warning applies: This information has been disclosed to you from confidential records which are protected by state law. State law prohibits you from making any further disclosure of this information without the specific written consent of the person to whom it pertains, or as otherwise permitted by law. Any unauthorized further disclosure in violation of state law may result in a fine or long-term sentence or both. A general authorization for the release of medical or other information is NOT sufficient authorization for further disc losure. Allergies and Adverse Reactions Type Description Substance Reaction Status Data Source(s ) Miscellaneous allergy No Known Drug Allergies No Known Drug Allergies [facility] Miscellaneous allergy No Known Environmental Allergies No Kn own Environmental Allergies [facility] Miscellaneous allergy No Known Food Allergies No Known Food Allergies [facility] Drug allergy No Known Medication Allergies No Known Medication Allerg [facility] Drug allergy No Known Medication Allergies No Known Medication Allerg [facility] Drug allergy Drug allergy No Known Drug Allergies Unknown Reaction [facility] Encounters Encounter Providers Location Date Indications Data Source(s ) Inpatient Attender: DR RANJIT Gonzalez er: DR RANJIT DE LA OReferrer: DR RANJIT DE LA OConsultant: Wnig Jin MD [id number] 08/29/2020 03:52:00 P M EST - 09/02/2020 10:05:00 AM EST SWING BED [facility] SWING BED Patient discharged. Inpatient Attender: ADOLFO SANTOS MD 08/19/2020 07:43:2 4 AM EST [facility] ( in Healthcare facility) Attender: LEONIDAS SANTOS MDAdmitter: ADOLFO SANTOS MDConsultant: Ranjit De La O 08/18/2020 08 :39:00 AM EST - 08/29/2020 01:22:00 PM [facility] D Attender: ADOLFO SANTOS MD 08:39:00 AM EST - 08/29/2020 01:22:00 PM [facility] Inpatient Attender: ADOLFO SANTOS MDAdmitter: ADOLFO NAJERA MD 08/18/2020 08:39:00 AM EST - 08/29/2020 01:22:00 PM EST CONGESTIVE HEART FAILURE NSTEMI [facility] CONGESTIVE HEART FAILURE NSTEMI Patient discharged. Outpatient Attender: DR RANJIT Gonzalez er: DR RANJIT DE LA OConsultant: Wing Jin MD 08/16/2020 11:41:00 AM EST - 08/16/2020 11:42:00 AM EST SOB [facility] SOB Outpatient Attender: Wing Carlson mitter: Wing Jin MDConsultant: Wing Jin MD 08/12/2020 11:32:00 AM EST - 08/15/2020 11:32:0 0 AM EST [facility] Patient discharged. Outpatient Attender: Wing Jin MDAd mitter: Wing Jin MDConsultant: Wing Jin MD 08/12/2020 10:44:00 AM EST - 08/12/2020 10:44:00 AM EST LA BS [facility] Outpatient Attender: Physician Rahel Adams MD 1 09/15/2019 09:30:00 AM EST [facility] Primary Care Admission cancelled. Disregard status an d admitted date. Outpatient Attender: Physician Rahel Adams MD 1 09/15/2019 09:30:00 AM EST [facility] Primary Care Admission cancelled. Disregard status an d admitted date. Outpatient Attender: DR RANJIT Gonzalez er: DR RANJIT Husultant: Wing Jin MD 07/06/2020 03:00:00 PM EST - 07/28/2020 12:21:00 PM EST Physical therapy [facility] Physical therapy Patient discharged. Inpatient Attender: DR RANJIT Gonzalez er: DR BOSTON TRANReferrer: CHARBEL URIAS MDConsultant: Wing Jin MD [id number] 07/06/2020 11:56:00 AM EST - 08/17/2020 08:03:00 AM EST Need for assistance at home and no other [facility] Need for assistance at home and no other Patient discharged. Preadmit Attender: MATTHEW MESSINA M.D. CPSCAORT-SDCLOC 07/06/2020 11 :00:00 AM EST RIGHT HIP PAIN / TEAR OF GLUTUES MEDUIS TENDON [facility] RIGHT HIP PAIN / TEAR OF GLUTUES MEDUIS TENDON Inpatient Attender: MARGARET CHAVARRIA dmitter: MARGARET PARIKH PAReferrer: DR RANJIT DE LA OConsultant: Wing Jin MD [id number] 07/05/2020 01:56 :00 PM EST - 07/06/2020 01:35:00 PM EST Chronic pain [facility] Chronic pain Patient discharged. Emergency Attender: MARGARET CHAVARRIA dmitter: MARGARET PARIKH PAConsultant: Wing Jin MD [id number] 07/05/2020 09:35:00 AM EST - 07/05/2020 02:00:00 PM EST Pain in right hip [facility] Pain in right hip Patient discharged. Outpatient Attender: DR RANJIT Gonzalez er: DR BOSTON TRANReferrer: DR BOSTON TRANConsultant: Wing Jin MD 07/04/2020 05:05:00 P M EST - 07/04/2020 05:40:00 PM EST Panic attack [facility] Panic attack Patient discharged. Outpatient Attender: SANTOS SPAULDING CPSCAORT-LABCOVWAR 1 09/01/2019 09:10:00 AM EST - 07/01/2020 09:11:00 AM EST PRE-OP COVID TEST [facility] PRE-OP COVID TEST Patient discharged. Emergency Attender: Vanessa Boston * ERAttender: Physician Alex De La Torre DOAdmitter: Physician Alex De La Torre DO 06/16/2020 10:5 6:45 AM EST - 06/16/2020 02:52:00 PM EST [facility] Patient discharged. Outpatient Attender: ADOLFO SANTOS MD [facility] [place] 06/13/2020 02:15:00 PM EST [facility] ([facility] Outpatient Attender: Tiara Nolen NP 06/13/2020 10 :57:00 AM EST [facility] [address] [address] [address] [facility] [address] [address] [address] Inpatient Attender: CHARBEL Butcher DAdmitter: CHARBEL URIAS MDReferrer: DR BOSTON TRANConsultant: Wing Jin MD 06/10/2020 09:31 :00 AM EST - 06/14/2020 03:20:00 PM EST HALF-WAY CARE AWAITING PLACEMENT [facility] HALF-WAY CARE AWAITING PLACEMENT Patient discharged. Outpatient Attender: ORLANDO GUTIÉRREZ PAAd mitter: ORLANDO GUTIÉRREZ PAReferrer: CHARBEL URIAS MDConsultant: Wing Jin MD [id number] 06/09/2020 0 8:16:00 AM EST - 06/10/2020 09:30:00 AM EST Chest pain [facility] Chest pain Patient discharged. Outpatient Attender: Clari ACEVES CPSCAORT-CPSOMP 05/29 01:47:00 PM EST - 2020 01:48:00 PM EST [facility] Patient discharged. Outpatient Attender: Wing Jin MDAd mitter: Wing Jin MDConsultant: Wing Jin MD 06/05/2020 10:34:00 AM EST - 06/05/2020 10:35:0 0 AM EST LABS [facility] LABS Inpatient Attender: DR RANJIT Gonzalez er: DR BOSTON TRANReferrer: CHARBEL URIAS MDConsultant: Wing Jin MD [id number] 06/04/2020 04:51:00 PM EST - 06/06/2020 01:00:00 PM EST Shortness of breath [facility] Shortness of breath Patient discharged. Emergency Attender: EMMA HUANG dmitter: EMMA EPPERSONPConsultant: Wing Jin MD 06/04/2020 04:16:34 PM EST Breathing abnormal [facility] Breathing abnormal Admission cancelled. Disregard status an d admitted date. Emergency Attender: EMMA HUANG dmitter: EMMA EPPERSONPReferrer: EMMA EPPERSONPConsultant: Wing Jin MD 06/04/20 20 12:53:00 PM EST - 06/04/2020 02:20:00 PM EST Pain in left toe [facility] Pain in left toe Patient discharged. Outpatient Attender: GIRISH SCANLON DO CPSCAORT-CPSLAOPT 01:11:00 PM EDT - 05/13/2020 01:12:00 PM EDT [facility] Patient discharged. Outpatient Attender: Tiara Nolen NP [facility] [place] 05/12/2020 09:45:00 AM EDT [facility] ([facility]) Outpatient Attender: DR RANJIT Gonzalez er: DR BOSTON TRANConsultant: Wing Jin MD 008 05/09/2020 01:48:00 PM EDT - 05/09/2020 01:48:00 PM EDT Radiological examination [facility] Radiological examination Outpatient Attender: DR RANJIT Gonzalez er: DR BOSTON TRANReferrer: DR BOSTON TRANDbsultant: Wing Jin MD 05/05/2020 10:33:00 A M EDT - 05/05/2020 10:50:00 AM EDT Flu vaccination [facility] Flu vaccination Patient discharged. Outpatient Attender: MATTHEW DAMONCAKELIN-SDCLOC 020 01:10:00 PM EDT - 05/04/2020 02:57:00 PM EDT RIGHTR HIP PAIN [facility] RIGHTR HIP PAIN Patient discharged. Outpatient Attender: Wing Carlson mitter: Wing Jin MDConsultant: Wing Jin MD 05/04/2020 10:12:00 AM EDT - 05/04/2020 10:12:0 0 AM EDT LABS [facility] LABS Inpatient Attender: DR RANJIT Randle er: Wing Jin MDAdmitter: DR BOSTON TRANReferrer: DR BOSTON TRANConsultant: Wing Jin MD [id number] 05/03/2020 04:38:00 PM EDT - 05/08/2020 12:15:00 PM EDT No other household member able to render [facility] No other household member able to render Patient discharged. Outpatient Attender: DR CHIP Barkley: ORLANDO GUTIÉRREZ PAAdmitter: DR CHIP DAVIDSONeferrer: DR CHIP LOPEZSConsultant: Wing Jin MD [id number] 05/01/2020 10:30:00 PM EDT - 05/03/2020 06:12:00 PM EDT CHES T PAIN, SOB [facility] CHEST PAIN, SOB Patient discharged. Outpatient Attender: Matthew Saldaña er: MATTHEW MESSINA M.D.Referrer: SANTOS SPAULDING CPSCAORT-LABCOVLAW 04/29/2020 10:48:00 AM EDT - 04/29/2020 10:49:00 AM EDT PREOP [facility] PREOP Patient discharged. Outpatient Attender: DR RANJIT Gonzalez er: DR BOSTON TRANReferrer: DR RANJIT Husultant: Wing Jin MD 04/25/2020 02:36:00 P M EDT - 04/25/2020 03:40:00 PM EDT Health check up [facility] Health check up Patient discharged. Outpatient Attender: GIRISH SCANLON DO CPSCAORT-CPSLAOPT 01:41:00 PM EDT - 04/15/2020 01:42:00 PM EDT [facility] Patient discharged. Outpatient Attender: Clari ACEVES CPSCAORT-CPSOMPMC 09/2019 01:46:00 PM EDT - 03/31/2020 01:47:00 PM EDT [facility] Patient discharged. Inpatient Attender: Shari Michaels MD Attender: Shari Michaels MDAttender: Ja Castañeda MDAdmitter: Shari Michaels MDConsultant: Khoa Anglin CLINICAL REHABILITATION COORDINATOR CPSCAORT-MSU2 03/17/2020 09:20:00 PM EDT - 03/20/2020 04:02:00 PM ED T INTRACTABLE HIP PAIN [facility] INTRACTABLE HIP PAIN Patient discharged. Outpatient Attender: GIRISH SCANLON DO CPSCAORT-CPSLAOPT 10:01:00 AM EDT - 03/10/2020 10:02:00 [facility]. Outpatient Attender: MATTHEW JIMENEZ-SDCLOC 020 09:58:00 AM EDT - 02/22/2020 11:09:00 AM EDT RIGHT HIP PAIN [facility] RIGHT HIP PAIN Patient discharged. Outpatient Attender: Matthew Saldaña er: MATTHEW MESSINA M.D.Referrer: SANTOS SPAULDING CPSCAORT-LABPNP 02/17/2020 09:49:00 AM EDT - 02/17/2020 09:50:00 AM EDT COVID 19 PRE-OP [facility] COVID 19 PRE-OP Patient discharged. Outpatient Attender: Clari ACEVES [facility]OMPMC 01/27 11:02:00 AM EDT - 02/16/2020 11:03:00 AM EDT [facility] Patient discharged. Outpatient Attender: GIRISH SCANLON DO CPSCAORT-CPSLAOPT 07:49:00 AM EDT - 02/04/2020 07:50:00 AM EDT [facility] Patient discharged. Outpatient Attender: Clari Holland KETAN CPSCAORT-CPSOMPMC 07/2019 02:27:00 PM EDT - 01/27/2020 02:28:00 PM EDT [facility] Patient discharged. Outpatient Attender: SANKET CIFUENTES OD CPSCAORT-CPSLAOPT 09:59:00 AM EDT - 01/27/2020 10:00:00 AM EDT [facility] Patient discharged. Outpatient Attender: DR RANJIT Gonzalez er: DR BOSTON TRANReferrer: DR BOSTON TRANConsultant: Wing Jin MD 01/26/2020 01:25:00 P M EDT - 01/26/2020 02:10:00 PM EDT Health check up [facility] Health check up Patient discharged. Outpatient Attender: DR RANJIT Gonzalez er: DR BOSTON TRANDbsultant: DR BOSTON TRANConsultant: Wing Jin MD 008 01/12/2020 08:18:00 A M EDT - 01/12/2020 08:18:00 AM EDT Lab test [facility] Lab test Outpatient Attender: DR RANJIT Gonzalez er: DR BOSTON TRANReferrer: DR BOSTON TRANDbsultant: Wing Jin MD 01/11/2020 10:57:00 A M EDT - 01/11/2020 11:30:00 AM EDT Health check up [facility] Health check up Patient discharged. Outpatient Attender: Win Munroe MD CPSCAORT-SDCLOC 12/28 01:21:00 PM EDT - 12/29/2019 02:38:00 PM EDT DEGENERATIVE LUMBAR SPINAL STENOSIS [facility] DEGENERATIVE LUMBAR SPINAL STENOSIS Patient discharged. Outpatient Attender: Win Munroe MDAt tender: Win Munroe MDReferrer: Vivian SPAULDING CPSCAORT-LABPNP 12/26/2019 09:45:00 AM EDT - 12/26/2019 09:46:00 AM EDT PREOP COVID 19 - CHEBES [facility] PREOP COVID 19 - [place]BES Patient discharged. Outpatient Attender: Win Munroe MD [facility]OMPMC 01:45:00 PM EDT - 11/26/2019 01:46:00 PM [facility]T [facility]. Outpatient Attender: DR RANJIT Gonzalez er: DR BOSTON TRANReferrer: DR BOSTON TRANConsultant: Wing Jin MD 11/16/2019 01:29:00 P M EDT - 11/16/2019 02:00:00 PM EDT Current use of medication [facility] Current use of medication Patient discharged. Preadmit Attender: Win Munroe MD CPSCAORT-SDCLOC 10/20/2019 01:15:00 PM EDT DEGENERATIVE DISC DISEASE, LUMBAR [facility] DEGENERATIVE DISC DISEASE, LUMBAR Emergency Attender: Abelardo Carlson mitter: Abelardo Simons MDReferrer: Abelardo Simons MDConsultant: Wing Jin MD 10/17/2019 07:57 :00 AM EDT - 10/17/2019 10:35:00 AM EDT Pain in back [facility] Pain in back Patient discharged. Emergency Attender: Abelardo Simons MDAt tender: Wing Jin MDAdmitter: Abelardo Simons MDReferrer: bAelardo Simons MDConsultant: Wing Jin MD 10/15/2019 07:55:00 AM EDT - 10/15/2019 11:42:00 AM EDT [facility] Patient discharged. Inpatient Attender: DR CHIP LOPEZ SAdmitter: DR CHIP LOPEZSReferrer: DR CHIP LOPEZSConsultant: Wing Jin MD [phone] 05:23:00 PM EDT - 10/08/2019 05:59:00 PM EDT Dizziness [facility] Dizziness Patient discharged. Outpatient 10/05/2019 06:54:00 AM EDT constipat ion, rectal bleed, [facility] constipation, rectal bleed, [facility] Emergency Attender: Gregorio Mckenzie MD Admitter: Gregorio Mckenzie MDReferrer: Gregorio Mckenzie MDConsultant: Wing Jin MD [phone] 09:32:00 PM EST - 10/03/2019 10:30:00 PM EST Dizziness [facility] Dizziness Patient discharged. Emergency Attender: Gregorio Mckenzie MD Admitter: Gregorio Jonah MDReferrer: Gregorio Mckenzie MDConsultant: Wing Jin MD [phone] 07:47:00 AM EST - 10/03/2019 11:05:00 AM EST Rectal bleed [facility] Rectal bleed Patient discharged. Outpatient Attender: Gorge Vazquez mitter: Gorge Cool DOConsultant: Wing Jin MD 008 10/02/2019 01:18:00 PM EST - 10/02/2019 01:18:00 PM EST Lab test [facility] Lab test Outpatient Att[facility]: [facility] 11/2019 11:33:00 AM EST - 10/01/2019 11:34:00 AM EST [facility] Patient discharged. Outpatient Attender: Wing Carlson mitter: Wing Jin MDConsultant: Wing Jin MD 09/28/2019 11:58:00 AM EST Physical therapy [facility] Physical therapy Emergency Attender: Abelardo Carlson mitter: Abelardo Simons MDReferrer: Abelardo Simons MDConsultant: Wing Jin MD 09/20/2019 02:33 :00 PM EST - 09/20/2019 04:20:00 PM EST Hip pain [facility] Hip pain Patient discharged. Outpatient Attender: [facility] Munroe [facility] 02:34:00 PM EST - 09/11/2019 02:35:00 PM EST [facility] Patient discharged. Outpatient Attender: Gorge Vazquez mitter: Gorge STUBBSeferrer: Gorge MCHUGHonsultant: Wing Jin MD 09/03/2019 11:24 :00 AM EST - 09/03/2019 12:00:00 PM EST Pain in back [facility] Pain in back Patient discharged. Outpatient Attender: Win Munroe MD CPSCAORT-SDCL 09/01 01:23:00 PM EST - 09/01/2019 02:40:00 PM EST GREATER TROCHANTERIC PAIN SYNDROME [facility] GREATER TROCHANTERIC PAIN SYNDROME Patient discharged. Outpatient Attender: Gorge Vazquez mitter: Gorge MCHUGHonsultant: Wing Jin MD 08/31/2019 04:28:14 PM EST - 09/26/2019 11:57:00 AM EST Physical therapy [facility] Physical therapy Patient discharged. Outpatient Attender: Gorge Vazquez mitter: Gorge Mcfaddener: Gorge Espinosaultant: Wing Jin MD 08/19/2019 01:14 :00 PM EST - 08/19/2019 02:20:00 PM EST Current use of medication [facility] Current use of medication Patient discharged. Outpatient Attender: Win Munroe MD CPSCAORT-CPSOMP 11:27:00 AM EST - 08/13/2019 11:28:00 AM EST M25.551 [facility] Patient discharged. Outpatient Attender: Gorge Cool DO CPSCAORT-IMAPD 08/10 01:50:00 PM EST - 08/10/2019 01:51:00 PM EST COMPRESSION INJURY OF L1 [facility] COMPRESSION INJURY OF L1 Patient discharged. Outpatient Attender: Gorge Vazquez mitter: Gorge Mcfaddener: Gorge Cool DOConsultant: GIO ELIZONDO PA 08/03/2019 01:53: 00 PM EST - 08/03/2019 03:20:00 PM EST Health check up [facility] Health check up Patient discharged. Outpatient Attender: Gorge Vazquez mitter: Gorge MCHUGHonsultant: GIO SPAULDING 07/30/2019 09:43:08 AM EST - 08/28/2019 04:27:00 PM EST Physical therapy [facility] Physical therapy Patient discharged. Outpatient Attender: Gorge Vazquez mitter: Gorge Espinosaultant: GIO ELIZONDO PA 07/15/2019 01:04:52 PM EST - 07/28/2019 09:41:00 AM EST Physical therapy [facility] Physical therapy Patient discharged. Inpatient Attender: Abelardo Carlson mitter: Abelardo Simons MDReferrer: Abelardo Simons MDConsultant: GIO MIKHAIL SPAULDING [phone] 06/19/2019 11:30: 00 AM EST - 07/09/2019 03:15:00 PM EST Cerebrovascular accident [facility] Cerebrovascular accident Patient discharged. Outpatient Attender: DAVON WOLF PAReferrer: GAIL SANTOS MD CPSCAORT-CARPD 06/12/2019 02:16:00 PM EST - 06/12/2019 02:17:00 PM EST STRO KE [facility] STROKE Patient discharged. Inpatient Attender: DAVON JOHNSON MD Admitter: DAVON JOHNSON MDConsultant: Davon Wolf PAConsultant: DAVON WOLF PAConsultant: Liya Lyles MDConsultant: Liya Lyles MD CPSCAORT-OBSERV 06/09/2019 01:47:00 PM ES T - 06/12/2019 02:00:00 PM EST TIA; STROKE; CVA [facility] TIA; STROKE; CVA Patient discharged. Outpatient Att[facility]: [facility] 07/29/2018 10:01:00 AM EDT - 05/29/2019 10:02:00 AM EDT [facility]. Immunizations Vaccine Date Status Description Data Source(s) Influenza, high dose seasonal 05/05/2020 12:00:00 AM EDT complet ed Influenza, high dose seasonal Influenza, high dose seasonal 05/05/2020 Completed 135 [facility] Pneumococcal conjugate PCV 13 05/05/2020 12:00:00 AM EDT complet ed Pneumococcal conjugate PCV 13 Pneumococcal conjugate PCV 13 05/05/2020 Completed 13 3 [facility] Influenza, high dose seasonal 05/05/2020 12:00:00 AM EDT complet ed Influenza, high dose seasonal Influenza, high dose seasonal 05/05/2020 Completed 135 [facility] Pneumococcal conjugate PCV 13 05/05/2020 12:00:00 AM EDT complet ed Pneumococcal conjugate PCV 13 Pneumococcal conjugate PCV 13 05/05/2020 Completed 13 3 [facility] New in 2011. IIV4 08/03/2019 12:00:00 AM EST completed in fluenza, injectable, quadrivalent, preservative free influenza, injectable, quadrivalent, preservative free 08/03/2019 Completed 150 [facility] New in 2011. IIV4 08/03/2019 12:00:00 AM EST completed in fluenza, injectable, quadrivalent, preservative free influenza, injectable, quadrivalent, preservative free 08/03/2019 Completed 150 [facility] New in 2011. IIV4 08/03/2019 12:00:00 AM EST completed in fluenza, injectable, quadrivalent, preservative free influenza, injectable, quadrivalent, preservative free 08/03/2019 Completed 150 [facility] New in 2011. IIV4 08/03/2019 12:00:00 AM EST completed in fluenza, injectable, quadrivalent, preservative free influenza, injectable, quadrivalent, preservative free 08/03/[address] [facility] in 2011. IIV4 08/03/2019 12:00:00 AM EST completed in fluenza, injectable, quadrivalent, preservative free influenza, injectable, quadrivalent, preservative free 08/03/2019 Completed 150 [facility] New in 2011. IIV4 08/03/2019 12:00:00 AM EST completed in fluenza, injectable, quadrivalent, preservative free influenza, injectable, quadrivalent, preservative free 08/03/2019 Completed 150 [facility] New in 2011. IIV4 08/03/2019 12:00:00 AM EST completed in fluenza, injectable, quadrivalent, preservative free influenza, injectable, quadrivalent, preservative free 08/03/2019 Completed 150 [facility] New in 2011. IIV4 08/03/2019 12:00:00 AM EST completed in fluenza, injectable, quadrivalent, preservative free influenza, injectable, quadrivalent, preservative free 08/03/2019 Completed 150 [facility] Medications Medication Brand Name Start Date Product Form Dose Route Admi nistrative Instructions Pharmacy Instructions Status Indications Reaction Description Data Source(s) gabapentin 600 MG Oral Tablet Gabapentin 600MG Oral Ta blet Gabapentin 600MG Oral Tablet 04/19/2020 12:00:00 AM EDT 1 TABLET BY MOUTH active Gabapentin 600MG Oral Tablet 04/19/2020 Unknown BY MOUTH THREE TIMES A DAY 1 TABLET 310 433 [facility] Morphine Sulfate 15 MG Oral Tablet Morphine Sulfate 15 MG Oral Tablet Morphine Sulfate 15MG Oral Tablet 04/19/2020 12:00:00 AM EDT 1 TABLET BY MOUTH active Morphine Sulfate 15MG Oral Tablet 04/19/2020 Unkno wn BY MOUTH NEEDED BID 1 TABLET [id number] [facility] Evzio 2MG/0.4ML Injection Solution 03/28/2020 12:00:00 AM EDT 1 INJECTION INTRAMUSCULAR active Evzio 2MG/0.4ML Injection Solution 03/28/2020 Unknown INTRAMUSCULAR NEEDED Q2-3 MINUTES 1 INJECTION [id number] [facility] Acetaminophen 325 MG / Hydrocodone Molly trate 5 MG Oral Tablet HYDROcodone bitartrate-acetaminophen 5MG-325MG Oral Tablet HYDROcodone bitartrate- acetaminophen 5MG-325MG Oral Tablet 03/28/2020 12:00:00 AM EDT 1 TABLET BY MOUTH active HYDROcodone bi tartrate-acetaminophen 5MG-325MG Oral Tablet 03/28/2020 Unknown BY MOUTH NEEDED EVERY 6 HR 1 TABLET [id number] [facility] Allopurinol 300 MG Oral Tablet Allopurinol 300MG Oral Tablet Allopurinol 300MG Oral Tablet 03/21/2020 12:00:00 AM EDT 1 TABLET BY MOUTH ac tive Allopurinol 300MG Oral Tablet 03/21/2020 Unknown BY MOUTH DAILY 1 TABLET [id number] [facility] 600 mg 03/20/2020 12:00:00 AM EDT tablet 90 TAKE ONE TABLET BY MOUTH THREE TIMES A DAY TAKE ONE TABLET BY MOUTH THREE TIMES A DAY SOLD: 03/20/2020 [facility] 5-325 mg 03/20/2020 12:00:00 AM EDT tablet 30 TAKE TWO TABLETS BY MOUTH EVERY 4 HOURS NEEDED FOR HIP/BACK PAIN MAXIMUM DAILY DOSE = EIGHT TABLETS TAKE TWO TABLETS BY MOUTH EVERY 4 HOURS NEEDED FOR HIP/BACK PAIN MAXIMUM DAILY DOSE = EIGHT TABLETS SOLD: 03/20/2020 [facility] 15 mg 03/20/2020 12:00:00 AM EDT tablet 60 TAKE ONE TABLET BY MOUTH TWICE A DAY MAXIMUM DAILY DOSE = 2 (UNLESS OTHERWISE DIRECTED BY PAIN CLINIC) TAKE ONE TABLET BY MOUTH TWICE A DAY MAXIMUM DAILY DOSE = 2 (UNLESS OTHERWISE DIRECTED BY PAIN CLINIC) SOLD: 03/20/2020 [facility] Zolpidem tartrate 10 MG Oral Tablet [Ambien] Ambien 10 MG Oral Tablet Ambien 10MG Oral Tablet 03/16/2020 12:00:00 AM EDT 1 TABLET BY MOUTH a ctive Ambien 10MG Oral Tablet 03/16/2020 Unknown BY MOUTH as needed at night 1 TA BLET [id number] [facility] Magnesium Oxide 200MG Oral Tablet 01/11/2020 12:00:00 AM E DT 1 TABLET BY MOUTH active Magnesium Oxide 200MG Oral Table t 01/11/2020 Unknown BY MOUTH DAILY 1 TABLET [facility] pregabalin 50 MG Oral Capsule [Lyrica] Lyrica 50MG Ora l Capsule Lyrica 50MG Oral Capsule 10/08/2019 12:00:00 AM EDT 1 CAPSULE BY MOUTH acti ve Lyrica 50MG Oral Capsule 10/08/2019 Unknown BY MOUTH DAILY 1 CAPSULE [id number] [facility] Escitalopram 5 MG Oral Tablet [Lexapro] Lexapro 5MG Or al Tablet Lexapro 5MG Oral Tablet 10/08/2019 12:00:00 AM EDT 1 TABLET BY MOUTH active Lexapro 5MG Oral Tablet 10/08/2019 Unknown BY MOUTH DAILY 1 TABLET [id number] [facility] pregabalin 50 MG Oral Capsule [Lyrica] Lyrica 50MG Ora l Capsule Lyrica 50MG Oral Capsule 10/08/2019 12:00:00 AM EDT 1 CAPSULE BY MOUTH acti ve Lyrica 50MG Oral Capsule 10/08/2019 Unknown BY MOUTH DAILY 1 CAPSULE [id number] [facility] tramadol hydrochloride 50 MG Oral Tablet traMADol HCl 50MG Oral Tablet traMADol HCl 50MG Oral Tablet 10/07/2019 12:00:00 AM EDT 50 MILLIGRAM BY MOUTH active traMADol HCl 50MG Oral Tablet 10/07/2019 Unknown BY MOUTH NEEDED EVERY 8HR 50 MILLIGRAM [id number] [facility] Nitroglycerin 0.4 MG Sublingual Tablet Nitroglycerin 0 .4MG Sublingual Tablet Nitroglycerin 0.4MG Sublingual Tablet 10/07/2019 12:00:00 AM EDT 0.4 MILLIGRAMS SUBLINGUAL active Nitroglycerin 0.4M G Sublingual Tablet 10/07/2019 Unknown SUBLINGUAL 0.4 MILLIGRAMS [id number] [facility] Lidocaine 5% Topical application Patch, Extended Release 10/07/2019 12:00:00 AM EDT 1 U TOPICAL active Lidocain e 5% Topical application Patch, Extended Release 10/07/2019 Unknown TOPICAL NEEDED DAILY 1 PATCH [id number] 1 [facility] Nitroglycerin 0.4 MG Sublingual Tablet Nitroglycerin 0 .4MG Sublingual Tablet Nitroglycerin 0.4MG Sublingual Tablet 10/07/2019 12:00:00 AM EDT 0.4 MILLIGRAMS SUBLINGUAL active Nitroglycerin 0.4M G Sublingual Tablet 10/07/2019 Unknown SUBLINGUAL 0.4 MILLIGRAMS [id number] [facility] Lidocaine 5% Topical application Patch, Extended Release 10/07/2019 12:00:00 AM EDT 1 U TOPICAL active Lidocain e 5% Topical application Patch, Extended Release 10/07/2019 Unknown TOPICAL NEEDED DAILY 1 PATCH [id number] 1 [facility] Nitroglycerin 0.4 MG Sublingual Tablet Nitroglycerin 0 .4MG Sublingual Tablet Nitroglycerin 0.4MG Sublingual Tablet 10/07/2019 12:00:00 AM EDT 0.4 MILLIGRAMS SUBLINGUAL active Nitroglycerin 0.4M G Sublingual Tablet 10/07/2019 Unknown SUBLINGUAL 0.4 MILLIGRAMS [id number] [facility] Metamucil Oral Powder for Suspension 10/03/2019 12:00:00 A M EST 2 TEASPOON BY MOUTH active Metamucil Oral Powder for Suspe nsion 10/03/2019 Unknown BY MOUTH DAILY [address] [facility] Metamucil Oral Powder for Suspension 10/03/2019 12:00:00 A M EST 2 TEASPOON BY MOUTH active Metamucil Oral Powder for Suspe nsion 10/03/2019 Unknown BY MOUTH DAILY [address] [facility] gabapentin 400 MG Oral Capsule Gabapentin 400MG Oral C apsule Gabapentin 400MG Oral Capsule 09/03/2019 12:00:00 AM EST 1 CAPSULE BY MOUTH active Gabapentin 400MG Oral Capsule 09/03/2019 Unknown BY MOUTH THREE TIMES A DAY 1 CAPSULE [id number] [facility] Acetaminophen 300 MG / Codeine Phosphate 30 MG Oral Tablet [Tylenol with Codeine] Tylenol with Codeine No. 3 300MG-30MG Oral Tablet Tylenol with Codeine No. 3 300MG-30MG Oral Tablet 09/03/2019 12:00:00 AM EST 1 TABLET BY M OUT active Tylenol with Codeine No. 3 300MG-30MG Ora l Tablet 09/03/2019 Unknown BY MOUTH NEEDED EVERY 12HR 1 TABLET 117420 [facility] gabapentin 400 MG Oral Capsule Gabapentin 400MG Oral C apsule Gabapentin 400MG Oral Capsule 09/03/2019 12:00:00 AM EST 1 CAPSULE BY MOUTH active Gabapentin 400MG Oral Capsule 09/03/2019 Unknown BY MOUTH THREE TIMES A DAY 1 CAPSULE [id number] [facility] gabapentin 400 MG Oral Capsule Gabapentin 400MG Oral C apsule Gabapentin 400MG Oral Capsule 09/03/2019 12:00:00 AM EST 1 CAPSULE BY MOUTH active Gabapentin 400MG Oral Capsule 09/03/2019 Unknown BY MOUTH THREE TIMES A DAY 1 CAPSULE [id number] [facility] gabapentin 400 MG Oral Capsule Gabapentin 400MG Oral C apsule Gabapentin 400MG Oral Capsule 09/03/2019 12:00:00 AM EST 1 CAPSULE BY MOUTH active Gabapentin 400MG Oral Capsule 09/03/2019 Unknown BY MOUTH THREE TIMES A DAY 1 CAPSULE [id number] [facility] Diclofenac Sodium 50 MG Delayed Release Oral Tablet Diclofenac Sodium 50MG Oral Tablet, Enteric Coated Diclofenac Sodium 50MG Oral Tablet, Enteric Coated 08/24/2019 12:00:00 AM EST 1 TABLET BY MOUTH active Diclofenac Sodium 50MG Oral Tablet, Enteric Coated 08/24/2019 Unknown BY MOUTH NEEDED EVERY 12HR 1 TABLET 002435 [facility] Zolpidem tartrate 10 MG Oral Tablet [Ambien] Ambien 10 MG Oral Tablet Ambien 10MG Oral Tablet 08/19/2019 12:00:00 AM EST 1 TABLET BY MOUTH a ctive Ambien 10MG Oral Tablet 08/19/2019 Unknown BY MOUTH AT BEDTIME 1 TABLET 8548 75 [facility] Zolpidem tartrate 10 MG Oral Tablet [Ambien] Ambien 10 MG Oral Tablet Ambien 10MG Oral Tablet 08/19/2019 12:00:00 AM EST 1 TABLET BY MOUTH a ctive Ambien 10MG Oral Tablet 08/19/2019 Unknown BY MOUTH AT BEDTIME 1 TABLET 8548 75 [facility] Zolpidem tartrate 10 MG Oral Tablet [Ambien] Ambien 10 MG Oral Tablet Ambien 10MG Oral Tablet 08/19/2019 12:00:00 AM EST 1 TABLET BY MOUTH a ctive Ambien 10MG Oral Tablet 08/19/2019 Unknown BY MOUTH AT BEDTIME 1 TABLET 8548 75 [facility] Ramipril 2.5 MG Oral Capsule Ramipril 2.5MG Oral Capsu le Ramipril 2.5MG Oral Capsule 08/19/2019 12:00:00 AM EST 2.5 MILLIGRAMS ORAL ac tive Ramipril 2.5MG Oral Capsule 08/19/2019 Unknown ORAL DAILY 2.5 MILLIGR AMS 945663 [facility] Zolpidem tartrate 10 MG Oral Tablet [Ambien] Ambien 10 MG Oral Tablet Ambien 10MG Oral Tablet 08/19/2019 12:00:00 AM EST 1 TABLET BY MOUTH a ctive Ambien 10MG Oral Tablet 08/19/2019 Unknown BY MOUTH AT BEDTIME 1 TABLET 8548 75 [facility] Potassium Chloride 10 MEQ Extended Relea se Oral Capsule Potassium Chloride 10MEQ Oral Capsule, Extended Release Potassium Chloride 10MEQ Oral Capsule, E xtended Release 08/17/2019 12:00:00 AM EST 10 meq ORAL active Potassium Chloride 10MEQ Oral Capsule, Extended Release 08/17/2019 Unknown ORAL DAILY 10 MEQ 010904 [facility] Furosemide 40 MG Oral Tablet Furosemide 40MG Oral Tabl et Furosemide 40MG Oral Tablet 08/17/2019 12:00:00 AM EST 1 TABLET BY MOUTH active Furosemide 40MG Oral Tablet 08/17/2019 Unknown BY MOUTH DAILY 1 TABLET 777313 [facility] atorvastatin 20 MG Oral Tablet Atorvastatin Calcium 20 MG Oral Tablet Atorvastatin Calcium 20MG Oral Tablet 08/17/2019 12:00:00 AM EST 1 TABLET BY MOUTH active Atorvastatin Calcium 20MG Oral T ablet 08/17/2019 Unknown BY MOUTH 1 TABLET 928422 [facility] atorvastatin 20 MG Oral Tablet [Lipitor] Lipitor 20MG Oral Tablet Lipitor 20MG Oral Tablet 08/17/2019 12:00:00 AM EST 20 MILLIGRAMS ORAL active Lipitor 20MG Oral Tablet 08/17/2019 Unknown ORAL AT BEDTIME 20 MILLIGRA MS [id number] [facility] atorvastatin 20 MG Oral Tablet Atorvastatin Calcium 20 MG Oral Tablet Atorvastatin Calcium 20MG Oral Tablet 08/17/2019 12:00:00 AM EST 1 TABLET BY MOUTH active Atorvastatin Calcium 20MG Oral T ablet 08/17/2019 Unknown BY MOUTH 1 TABLET 953204 [facility] Allopurinol 300 MG Oral Tablet Allopurinol 300MG Oral Tablet Allopurinol 300MG Oral Tablet 08/17/2019 12:00:00 AM EST 1 TABLET BY MOUTH ac tive Allopurinol 300MG Oral Tablet 08/17/2019 Unknown BY MOUTH DAILY 1 TABLET 859039 [facility] atorvastatin 20 MG Oral Tablet [Lipitor] Lipitor 20MG Oral Tablet Lipitor 20MG Oral Tablet 08/17/2019 12:00:00 AM EST 20 MILLIGRAMS ORAL active Lipitor 20MG Oral Tablet 08/17/2019 Unknown ORAL AT BEDTIME 20 MILLIGRA MS [id number] [facility] Levothyroxine Sodium 0.1 MG Oral Tablet Levothyroxine 100MCG Oral Tablet Levothyroxine 100MCG Oral Tablet 08/17/2019 12:00:00 AM EST 1 TABLE T BY MOUTH active Levothyroxine 100MCG Oral Tablet 020 Unknown BY MOUTH DAILY 1 TABLET 763362 [facility] Potassium Chloride 10 MEQ Extended Relea se Oral Capsule Potassium Chloride 10MEQ Oral Capsule, Extended Release Potassium Chloride 10MEQ Oral Capsule, E xtended Release 08/17/2019 12:00:00 AM EST 10 meq ORAL active Potassium Chloride 10MEQ Oral Capsule, Extended Release 08/17/2019 Unknown ORAL DAILY 10 MEQ 574880 [facility] p[facility] Levothyroxine Sodium 0.1 MG Oral Tablet Levothyroxine 100MCG Oral Tablet Levothyroxine 100MCG Oral Tablet 08/17/2019 12:00:00 AM EST 1 TABLE T BY MOUTH active Levothyroxine 100MCG Oral Tablet 020 Unknown BY MOUTH DAILY 1 TABLET 948718 [facility] atorvastatin 20 MG Oral Tablet [Lipitor] Lipitor 20MG Oral Tablet Lipitor 20MG Oral Tablet 08/17/2019 12:00:00 AM EST 20 MILLIGRAMS ORAL active Lipitor 20MG Oral Tablet 08/17/2019 Unknown ORAL AT BEDTIME 20 MILLIGRA MS 977432 [facility] All[facility] 300 MG Oral Tablet Allopurinol 300MG Oral Tablet Allopurinol 300MG Oral Tablet 08/17/2019 12:00:00 AM EST 1 TABLET BY MOUTH ac tive Allopurinol 300MG Oral Tablet 08/17/2019 Unknown BY MOUTH DAILY 1 TABLET 348162 [facility] atorvastatin 20 MG Oral Tablet Atorvastatin Calcium 20 MG Oral Tablet Atorvastatin Calcium 20MG Oral Tablet 08/17/2019 12:00:00 AM EST 1 TABLET BY MOUTH active Atorvastatin Calcium 20MG Oral T ablet 08/17/2019 Unknown BY MOUTH 1 TABLET 407680 [facility] Furosemide 40 MG Oral Tablet Furosemide 40MG Oral Tabl et Furosemide 40MG Oral Tablet 08/17/2019 12:00:00 AM EST 1 TABLET BY MOUTH active Furosemide 40MG Oral Tablet 08/17/2019 Unknown BY MOUTH DAILY 1 TABLET 162104 [facility] atorvastatin 20 MG Oral Tablet Atorvastatin Calcium 20 MG Oral Tablet Atorvastatin Calcium 20MG Oral Tablet 08/17/2019 12:00:00 AM EST 1 TABLET BY MOUTH active Atorvastatin Calcium 20MG Oral T ablet 08/17/2019 Unknown BY MOUTH 1 TABLET 425810 [facility] Allopurinol 300 MG Oral Tablet Allopurinol 300MG Oral Tablet Allopurinol 300MG Oral Tablet 08/17/2019 12:00:00 AM EST 1 TABLET BY MOUTH ac tive Allopurinol 300MG Oral Tablet 08/17/2019 Unknown BY MOUTH DAILY 1 TABLET [facility] Levothyroxine Sodium 0.1 MG Oral Tablet Levothyroxine 100MCG Oral Tablet Levothyroxine 100MCG Oral Tablet 08/17/2019 12:00:00 AM EST 1 TABLE T BY MOUTH active Levothyroxine 100MCG Oral Tablet 020 Unknown BY MOUTH DAILY 1 TABLET [id number] [facility] Levothyroxine Sodium 0.1 MG Oral Tablet Levothyroxine 100MCG Oral Tablet Levothyroxine 100MCG Oral Tablet 08/17/2019 12:00:00 AM EST 1 TABLE T BY MOUTH active Levothyroxine 100MCG Oral Tablet 020 Unknown BY MOUTH DAILY 1 TABLET [id number] [facility] Furosemide 40 MG Oral Tablet Furosemide 40MG Oral Tabl et Furosemide 40MG Oral Tablet 08/17/2019 12:00:00 AM EST 1 TABLET BY MOUTH active Furosemide 40MG Oral Tablet 08/17/2019 Unknown BY MOUTH DAILY 1 TABLET [id number] [facility] Potassium Chloride 10 MEQ Extended Relea se Oral Capsule Potassium Chloride 10MEQ Oral Capsule, Extended Release Potassium Chloride 10MEQ Oral Capsule, E xtended Release 08/17/2019 12:00:00 AM EST 10 meq ORAL active Potassium Chloride 10MEQ Oral Capsule, Extended Release 08/17/2019 Unknown ORAL DAILY 10 MEQ [id number] [facility] pital Levothyroxine Sodium 0.1 MG Oral Tablet Levothyroxine 100MCG Oral Tablet Levothyroxine 100MCG Oral Tablet 08/17/2019 12:00:00 AM EST 1 TABLE T BY MOUTH active Levothyroxine 100MCG Oral Tablet 020 Unknown BY MOUTH DAILY 1 TABLET [id number] [facility] Allopurinol 300 MG Oral Tablet Allopurinol 300MG Oral Tablet Allopurinol 300MG Oral Tablet 08/17/2019 12:00:00 AM EST 1 TABLET BY MOUTH ac tive Allopurinol 300MG Oral Tablet 08/17/2019 Unknown BY MOUTH DAILY 1 TABLET [id number] [facility] Potassium Chloride 10 MEQ Extended Relea se Oral Capsule Potassium Chloride 10MEQ Oral Capsule, Extended Release Potassium Chloride 10MEQ Oral Capsule, E xtended Release 08/17/2019 12:00:00 AM EST 10 meq ORAL active Potassium Chloride 10MEQ Oral Capsule, Extended Release 08/17/2019 Unknown ORAL DAILY 10 MEQ [id number] [facility] pital atorvastatin 20 MG Oral Tablet [Lipitor] Lipitor 20MG Oral Tablet Lipitor 20MG Oral Tablet 08/17/2019 12:00:00 AM EST 20 MILLIGRAMS ORAL active Lipitor 20MG Oral Tablet 08/17/2019 Unknown ORAL AT BEDTIME 20 MILLIGRA MS [id number] [facility] Furosemide 40 MG Oral Tablet Furosemide 40MG Oral Tabl et Furosemide 40MG Oral Tablet 08/17/2019 12:00:00 AM EST 1 TABLET BY MOUTH active Furosemide 40MG Oral Tablet 08/17/2019 Unknown BY MOUTH DAILY 1 TABLET [id number] [facility] Potassium Chloride 10 MEQ Extended Relea se Oral Capsule Potassium Chloride 10MEQ Oral Capsule, Extended Release Potassium Chloride 10MEQ Oral Capsule, E xtended Release 08/17/2019 12:00:00 AM EST 10 meq ORAL active Potassium Chloride 10MEQ Oral Capsule, Extended Release 08/17/2019 Unknown ORAL DAILY 10 MEQ [id number] [facility] pital Furosemide 40 MG Oral Tablet Furosemide 40MG Oral Tabl et Furosemide 40MG Oral Tablet 08/17/2019 12:00:00 AM EST 1 TABLET BY MOUTH active Furosemide 40MG Oral Tablet 08/17/2019 Unknown BY MOUTH DAILY 1 TABLET [id number] [facility] Lidocaine Hydrochloride 0.05 MG/MG Trans dermal Patch [Lidoderm] Lidoderm 5% Topical application Patch, Extended Release Lidoderm 5% Topical application Patch, Extended Release 08/05/2019 12:00:00 AM EST 1 U TOPICAL active Lidoderm 5% Topical application Patch, Extended Release 08/05/19 20 Unknown TOPICAL NEEDED EVERY 12HR 1 PATCH [id number] [facility] ZTlido 1.8% Topical application Patch, Extended Release 08/05/2019 12:00:00 AM EST 1 U TOPICAL active ZTlido 1 .8% Topical application Patch, Extended Release 08/05/2019 Unknown TOPICAL NEEDED EVERY 12HR 1 PATCH [id number] [facility] gabapentin 400 MG Oral Capsule Gabapentin 400MG Oral C apsule Gabapentin 400MG Oral Capsule 08/03/2019 12:00:00 AM EST 1 CAPSULE BY MOUTH active Gabapentin 400MG Oral Capsule 08/03/2019 Unknown BY MOUTH THREE TIMES A DAY 1 CAPSULE [id number] [facility] pital Fexofenadine hydrochloride 60 MG Oral Tablet Fexofenad ine 60MG Oral Tablet Fexofenadine 60MG Oral Tablet 07/09/2019 12:00:00 AM EST 90 MILLIGRAM S ORAL active Fexofenadine 60MG Oral Tablet 07/09/2019 Unknown ORAL DAILY 90 MILLIGRAMS [id number] [facility] Meclizine Hydrochloride 25 MG Oral Tablet Meclizine HC l 25MG Oral Tablet Meclizine HCl 25MG Oral Tablet 07/09/2019 12:00:00 AM EST 25 MIL LIGRAM BY MOUTH active Meclizine HCl 25MG Oral Tablet 1 09/09/2018 Unknown BY MOUTH PRNTID 25 MILLIGRAM [id number] [facility] Terazosin 10 MG Oral Capsule Terazosin HCl 10MG Oral C apsule Terazosin HCl 10MG Oral Capsule 07/09/2019 12:00:00 AM EST 10 MILLIGRAMS ORAL active Terazosin HCl 10MG Oral Capsule 07/09/2019 Unknown ORAL AT BEDTIM E 10 MILLIGRAMS [id number] [facility] Ramipril 2.5 MG Oral Capsule Ramipril 2.5MG Oral Capsu le Ramipril 2.5MG Oral Capsule 07/09/2019 12:00:00 AM EST 2.5 MILLIGRAMS ORAL ac tive Ramipril 2.5MG Oral Capsule 07/09/2019 Unknown ORAL DAILY 2.5 MILLIGR AMS [id number] [facility] Fexofenadine hydrochloride 60 MG Oral Tablet Fexofenad ine 60MG Oral Tablet Fexofenadine 60MG Oral Tablet 07/09/2019 12:00:00 AM EST 90 MILLIGRAM S ORAL active Fexofenadine 60MG Oral Tablet 07/09/2019 Unknown ORAL DAILY 90 MILLIGRAMS [id number] [facility] Terazosin 10 MG Oral Capsule Terazosin HCl 10MG Oral C apsule Terazosin HCl 10MG Oral Capsule 07/09/2019 12:00:00 AM EST 10 MILLIGRAMS ORAL active Terazosin HCl 10MG Oral Capsule 07/09/2019 Unknown ORAL AT BEDTIM E 10 MILLIGRAMS [id number] [facility] ICaps Areds Oral Capsule, Liquid Filled 07/09/2019 12:00:0 0 AM EST 1 EACH ORAL active ICaps Areds Oral Capsule, Liquid Filled 07/09/2019 Unknown ORAL TWICE A DAY 1 unit(s) [facility] sennosides, RETIREMENT 8.6 MG Oral Tablet Senna Concentrate 8 .6MG Oral Tablet Senna Concentrate 8.6MG Oral Tablet 07/09/2019 12:00:00 AM EST 8.6 MIL LIGRAM BY MOUTH active Senna Concentrate 8.6MG Oral Tab let 07/09/2019 Unknown BY MOUTH AT BEDTIME 8.6 MILLIGRAM [id number] [facility] Terazosin 10 MG Oral Capsule Terazosin HCl 10MG Oral C apsule Terazosin HCl 10MG Oral Capsule 07/09/2019 12:00:00 AM EST 10 MILLIGRAMS ORAL active Terazosin HCl 10MG Oral Capsule 07/09/2019 Unknown ORAL AT BEDTIM E 10 MILLIGRAMS [id number] [facility] pital Meclizine Hydrochloride 25 MG Oral Tablet Meclizine HC l 25MG Oral Tablet Meclizine HCl 25MG Oral Tablet 07/09/2019 12:00:00 AM EST 25 MIL LIGRAM BY MOUTH active Meclizine HCl 25MG Oral Tablet 1 09/09/2018 Unknown BY MOUTH PRNTID 25 MILLIGRAM [id number] [facility] Meclizine Hydrochloride 25 MG Oral Tablet Meclizine HC l 25MG Oral Tablet Meclizine HCl 25MG Oral Tablet 07/09/2019 12:00:00 AM EST 25 MIL LIGRAM BY MOUTH active Meclizine HCl 25MG Oral Tablet 1 09/09/2018 Unknown BY MOUTH PRNTID 25 MILLIGRAM [id number] [facility] sennosides, RETIREMENT 8.6 MG Oral Tablet Senna Concentrate 8 .6MG Oral Tablet Senna Concentrate 8.6MG Oral Tablet 07/09/2019 12:00:00 AM EST 8.6 MIL LIGRAM BY MOUTH active Senna Concentrate 8.6MG Oral Tab let 07/09/2019 Unknown BY MOUTH AT BEDTIME 8.6 MILLIGRAM [id number] [facility] ICaps Areds Oral Capsule, Liquid Filled 07/09/2019 12:00:0 0 AM EST 1 EACH ORAL active ICaps Areds Oral Capsule, Liquid Filled 07/09/2019 Unknown ORAL TWICE A DAY 1 unit(s) [facility] Levothyroxine Sodium 0.075 MG Oral Tablet Levothyroxin e 75MCG Oral Tablet Levothyroxine 75MCG Oral Tablet 07/09/2019 12:00:00 AM EST 75 ug O RAL active Levothyroxine 75MCG Oral Tablet 07/09/2019 Unknown ORAL DAILY 75 MCG [id number] [facility], Liquid Filled 07/09/2019 12:00:0 0 AM EST 1 EACH ORAL active ICaps Areds Oral Capsule, Liquid Filled 07/09/2019 Unknown ORAL TWICE A DAY 1 unit(s) [facility] Terazosin 10 MG Oral Capsule Terazosin HCl 10MG Oral C apsule Terazosin HCl 10MG Oral Capsule 07/09/2019 12:00:00 AM EST 10 MILLIGRAMS ORAL active Terazosin HCl 10MG Oral Capsule 07/09/2019 Unknown ORAL AT BEDTIM E 10 MILLIGRAMS [id number] [facility] Meclizine Hydrochloride 25 MG Oral Tablet Meclizine HC l 25MG Oral Tablet Meclizine HCl 25MG Oral Tablet 07/09/2019 12:00:00 AM EST 25 MIL LIGRAM BY MOUTH active Meclizine HCl 25MG Oral Tablet 1 09/09/2018 Unknown BY MOUTH PRNTID 25 MILLIGRAM [id number] [facility] ICaps Areds Oral Capsule, Liquid Filled 07/09/2019 12:00:0 0 AM EST 1 EACH ORAL active ICaps Areds Oral Capsule, Liquid Filled 07/09/2019 Unknown ORAL TWICE A DAY 1 unit(s) [facility] Terazosin 10 MG Oral Capsule Terazosin HCl 10MG Oral C apsule Terazosin HCl 10MG Oral Capsule 07/09/2019 12:00:00 AM EST 10 MILLIGRAMS ORAL active Terazosin HCl 10MG Oral Capsule 07/09/2019 Unknown ORAL AT BEDTIM E 10 MILLIGRAMS [id number] [facility] MG Oral Capsule Terazosin HCl 10MG Oral C apsule Terazosin HCl 10MG Oral Capsule 07/09/2019 12:00:00 AM EST 10 MILLIGRAMS ORAL active Terazosin HCl 10MG Oral Capsule 07/09/2019 Unknown ORAL AT BEDTIM E 10 MILLIGRAMS [id number] [facility], Liquid Filled 07/09/2019 12:00:0 0 AM EST 1 EACH ORAL active ICaps Areds Oral Capsule, Liquid Filled 07/09/2019 Unknown ORAL TWICE A DAY 1 unit(s) [facility] Zolpidem tartrate 10 MG Oral Tablet [Ambien] Ambien 10 MG Oral Tablet Ambien 10MG Oral Tablet 07/09/2019 12:00:00 AM EST 1 TABLET BY MOUTH a ctive Ambien 10MG Oral Tablet 07/09/2019 Unknown BY MOUTH AT BEDTIME 1 TABLET [id number] [facility] ICaps Areds Oral Capsule, Liquid Filled 07/09/2019 12:00:0 0 AM EST 1 EACH ORAL active ICaps Areds Oral Capsule, Liquid Filled 07/09/2019 Unknown ORAL TWICE A DAY 1 unit(s) [facility] Insurance Providers Payer name Policy type / Coverage type Policy ID Covered constitution party ID Covered constitution party's relationship to varela Policy Varela Plan Information BCBS EMPIRE JUSTIN DIV [id number] SP [id number] [facility] [id number] SP [id number] MEDICARE [id number] SP [id number] BCBS EMPIRE JUSTIN DIV [id number] SP [id number] [facility] [id number] SP [id number] BCBS EMPIRE JUSTIN DIV [id number] SP [id number] EMPIRE BLUE CROSS BLUE SHIELD-IP [id number] unde fined [id number] MEDICARE -SWING BED [id number] undefined [id number] [employer] O [id number] S [id number] MEDICARE C [id number] S [id number] MEDICARE-IP [id number] undefined [id number] [employer] EMPIRE [id number] Retired [id number] MEDICARE [id number] Retired [id number] MEDICARE-OP [id number] undefined [id number] EMPIRE BLUE CROSS BLUE SHIELD-OP [id number] unde fined [id number] EXCELLUS BLUE CROSS BLUE SHIELD HEA [id number] S [id number] MEDICARE MCA [id number] S [id number] MEDICARE MCA [id number] S [id number] MEDICARE -RECURRING [id number] undefined [id number] BLUE CROSS -RECURRING [id number] undefined [id number] SELF PAY ONLY [id number] SP [id number] COMM [id number] Self [id number] MCARE [id number] Self [id number] MEDICARE-CLINIC [id number] undefined [id number] [facility] [id number] und efined [id number] COMM [id number] Self [id number] MCARE [id number] Self [id number] COMM [id number] Self [id number] MCARE [id number] Self [id number] MEDICARE [id number] 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 Problem 08/25/2020 1 2:00:00 AM [facility] I2510 Atherosclerotic heart diseas e of [place] coronary artery without angina pectoris Atherosclerotic heart disease of [place] coronary artery without angina pectoris Diagnosis 08/16/2020 11:41:00 AM [facility] R079 Chest pain, unspecified Chest pain, unspecified Diagno sis 08/16/2020 11:41:00 AM [facility] R0602 Shortness of breath Shortness of breath Diagnosis 0 08/16/2020 11:41:00 AM [facility] M6281 Muscle weakness (generalized) Muscle weakness (general ized) Diagnosis 07/06/2020 03:00:00 PM [facility] R54 Age-related physical debility Age-related physical mayra ility Diagnosis 07/06/2020 03:00:00 PM [facility] Z5189 Encounter for other specified aftercare Encounter for other specified aftercare Diagnosis 07/06/2020 03:00:00 PM [facility] [id number] Chronic gout, unspecified, without tophu s (tophi) Chronic gout, unspecified, without tophus (tophi) Diagnosis 07/05/2020 01:56:[address] [facility] N400 Benign prostatic hyperplasia without low er urinary tract symptoms Benign prostatic hyperplasia without lower urinary tract symptoms Diagnosis 07/05/2020 01:56:00 PM [facility] E039 Hypothyroidism, unspecified Hypothyroidism, unspecifie d Diagnosis 07/05/2020 01:56:00 PM [facility] E785 Hyperlipidemia, unspecified Hyperlipidemia, unspecifie d Diagnosis 07/05/2020 01:56:00 PM [facility] I10 Essential (primary) hypertension Essential (primary) h ypertension Diagnosis 07/05/2020 01:56:00 PM [facility] 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 Old myocardial infarction Di agnosis 07/05/2020 01:56:00 PM [facility] M4807 Spinal stenosis, lumbosacral region Spinal steno sis, lumbosacral region Diagnosis 07/05/2020 01:56:00 PM [facility] G8929 Other chronic pain Other chronic pain Diagnosis 02/2020 01:56:00 PM [facility] [id number] Other osteoporosis with curr ent pathological fracture, vertebra(e), sequela Other osteoporosis with current patholog ical fracture, vertebra(e), sequela Diagnosis 07/05/2020 01:56:00 PM [facility] G87767 Pain in right hip Pain in right hip Diagnosis 07/05/2020 01:56:00 PM [facility] F410 Panic disorder [episodic paroxysmal anxi ety] Panic disorder [episodic paroxysmal anxiety] Diagnosis 07/05/2020 09:35:00 AM [facility] 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 Diagnosis 07/05/2020 09:35:00 AM [facility] M5441 Lumbago with sciatica, right side Lumbago with s ciatica, right side Diagnosis 07/05/2020 09:35:00 AM [facility] Z711 Person with feared health complaint in w aries no diagnosis is made Person with feared health complaint in whom no diagnosis is made Diagnosis 07/04/2020 05:05:00 PM [facility] Z602 Problems related to living alone Problems relate d to living alone Diagnosis 06/10/2020 09:31:00 AM [facility] F411 Generalized anxiety disorder Generalized anxiety disor vel Diagnosis 06/10/2020 09:31:00 AM [facility] Z751 Person awaiting admission to adequate fa cility elsewhere Person awaiting admission to adequate facility elsewhere Diagnosis 06/10/2020 09:31:00 AM [facility] I509 Heart failure, unspecified Heart failure, unspecified Diagnosis 06/09/2020 08:16:00 AM [facility] R0600 Dyspnea, unspecified Dyspnea, unspecified Diagnosis 06/09/2020 08:16:00 AM [facility] Z91.14 Patient's other noncompliance with medic ation regimen PATIENT'S OTHER NONCOMPLIANCE WITH MEDICATION REGIMEN Diagnosis 2020 01:47:00 PM [facility] M70.61 Trochanteric bursitis, right hip TROCHANTERIC BU RSITIS, RIGHT HIP Diagnosis 2020 01:47:00 PM [facility] M25.551 Pain in right hip PAIN IN RIGHT HIP Diagnosis 06/07 01:47:00 PM [facility] M48.061 Spinal stenosis, lumbar region without n eurogenic claudication SPINAL STENOSIS, LUMBAR REGION WITHOUT NEUROGENIC NIA Diagnosis 06/07 01:47:00 PM [facility] C85386 Pain in right toe(s) Pain in right toe(s) Diagnosis 06/04/2020 12:53:00 PM [facility] Z96.1 Presence of intraocular lens PRESENCE OF INTRAOCULAR L ENS Diagnosis 05/13/2020 01:11:00 PM EDT [facility] H01.001 Unspecified blepharitis right upper eyel id UNSPECIFIED BLEPHARITIS RIGHT UPPER EYELID Diagnosis 05/13/2020 01:11:00 PM EDT [facility] H43.813 Vitreous degeneration, bilateral VITREOUS DEGENE RATION, BILATERAL Diagnosis 05/13/2020 01:11:00 PM EDT [facility] H16.223 Keratoconjunctivitis sicca, not specifie d as Sjogren's, bilateral KERATOCONJUNCT SICCA, NOT SPECIFIED SJOGREN'S, BILATERAL Diagnosis 05/13/2020 01:11:00 PM EDT [facility] 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, left eye, with active choroidal neovascularization EXDTVE AGE-REL MCLR DEGN, LEFT EYE, WITH ACTV CHRDL NEOVAS Diagnosis 05/13/2020 01:11:00 PM EDT [facility] H35.3212 Exudative age-related macula r degeneration, right eye, with inactive choroidal neovascularization EXDTVE AGE-REL MCLR DEGN, RIGHT EYE, WIT H INACT CHRDL NEOVAS Diagnosis 05/13/2020 01:11:00 PM EDT [facility] R600 Localized edema Localized edema Diagnosis 05/09/2020 01:4 8:00 PM EDT [facility] K30424 Pain in left lower leg Pain in left lower leg Diagnosi s 05/09/2020 01:48:00 PM EDT [facility] Z23 Encounter for immunization Encounter for immunization Diagnosis 05/05/2020 10:33:00 AM EDT [facility] G57.01 Lesion of sciatic nerve, right lower sol[place] b LESION OF SCIATIC NERVE, RIGHT LOWER LIMB Diagnosis 05/04/2020 01:10:00 PM EDT [facility] Z750 Medical services not available in home M edical services not available in home Diagnosis 05/03/2020 04:38:00 PM EDT [facility] I249 I249 Diagnosis 04/30/2020 07:40:00 PM ED T [facility] R609 Edema, unspecified Edema, unspecified Diagnosis 0 07:40:00 PM EDT [facility] E876 Hypokalemia Hypokalemia Diagnosis 04/30/2020 07:40:00 PM EDT [facility] [id number] Pathological fracture, other site, se[place] Pathological fracture, other site, sequela Diagnosis 04/30/2020 07:40:00 PM EDT [facility] I249 Acute ischemic heart disease, unspecifie d Acute ischemic heart disease, unspecified Diagnosis 04/30/2020 07:40:00 PM EDT [facility] R2681 Unsteadiness on feet Unsteadiness on feet Diagnosis 04/25/2020 02:36:00 PM EDT [facility] M545 Low back pain Low back pain Diagnosis 04/25/2020 02:36:00 PM EDT [facility] [id number] 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891 Personal history of nicotine dependence PERSONAL HISTORY OF NICOTINE DEPENDENCE Diagnosis 03/17/2020 09:20:00 PM EDT [facility] 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, lumbar region INTERVERTEBRAL DISC DISORDERS W RADICULOPATHY, LUMBAR REGION Diagnosis 03/17/2020 09:20:00 PM EDT [facility] X58.XXXD Exposure to other specified factors, sub sequent encounter EXPOSURE TO OTHER SPECIFIED FACTORS, SUBSEQUENT ENCOUNTER Diagnosis 03/17/20 20 09:20:00 PM EDT [facility] S32.010D Wedge compression fracture o f first lumbar vertebra, subsequent encounter for fracture with routine healing WEDGE COMPRSN FX FIRST LUM VERT, SUBS FOR FX W ROUTN HEAL Diagnosis 03/17/2020 09:20:00 PM EDT [facility] E78.5 Hyperlipidemia, unspecified HYPERLIPIDEMIA, UNSPECIFIE D Diagnosis 03/17/2020 09:20:00 PM [facility] G47.00 Insomnia, unspecified INSOMNIA, UNSPECIFIED Diagnosis 03/17/2020 09:20:00 PM [facility] I10 Essential (primary) hypertension ESSENTIAL (PRIMARY) H YPERTENSION Diagnosis 03/17/2020 09:20:00 PM [facility] E83.42 Hypomagnesemia HYPOMAGNESEMIA Diagnosis 03/17/2020 09:20: 00 PM [facility] M10.9 Gout, unspecified GOUT, UNSPECIFIED Diagnosis 03/17/2020 09:20:00 PM [facility] E03.9 Hypothyroidism, unspecified HYPOTHYROIDISM, UNSPECIFIE D Diagnosis 03/17/2020 09:20:00 PM [facility] N40.0 Benign prostatic hyperplasia without low er urinary tract symptoms BENIGN PROSTATIC HYPERPLASIA WITHOUT LOWER URINRY TRACT SYMP Diagnosis 03/17/2020 09:20:00 PM [facility] G89.29 Other chronic pain OTHER CHRONIC PAIN Diagnosis 09:20:00 PM [facility] M76.01 Gluteal tendinitis, right hip GLUTEAL TENDINITIS, RIGH T HIP Diagnosis 02/22/2020 09:58:00 AM [facility] H35.3223 Exudative age-related macula r degeneration, left eye, with inactive scar EXUDATIVE AGE-REL MCLR DEGN, LEFT EYE, WITH INACTIVE SCAR Di agnosis 01/27/2020 09:59:00 AM [facility] G4700 Insomnia, unspecified Insomnia, unspecified Diagnosis 01/26/2020 01:25:00 PM [facility] R739 Hyperglycemia, unspecified Hyperglycemia, unspecified Diagnosis 01/12/2020 08:18:00 AM [facility] E8342 Hypomagnesemia Hypomagnesemia Diagnosis 01/12/2020 08:18: 00 AM [facility] [id number] Collapsed vertebra, not else where classified, lumbar region, sequela of fracture Collapsed vertebra, not elsewhere classi fied, lumbar region, sequela of fracture Diagnosis 01/11/2020 10:57:00 AM EDT [facility] M5416 Radiculopathy, lumbar region Radiculopathy, lumbar reg ion Diagnosis 01/11/2020 10:57:00 AM EDT [facility] M47.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, joey mbar region OTHER SPONDYLOSIS WITH RADICULOPATHY, LUMBAR REGION Diagnosis 12/29/2019 01:21:00 PM EDT [facility] Z01.818 Encounter for other preprocedural examin ation ENCOUNTER FOR OTHER PREPROCEDURAL EXAMINATION Diagnosis 12/26/2019 09:45:00 AM EDT [facility] M549 Dorsalgia, unspecified Dorsalgia, unspecified Diagnosi s 11/16/2019 01:29:00 PM EDT [facility] M5442 Lumbago with sciatica, left side Lumbago with sc iatica, left side Diagnosis 10/17/2019 07:57:00 AM EDT [facility] constipation, rectal bleed, VTach constipation, rectal bleed, VTach Diagnosis 10/05/2019 06:54:00 AM EDT [facility] [id number] Adverse effect of other opioids, initial encounter Adverse effect of other opioids, initial encounter Diagnosis 10/03/2019 10:31:00 PM [facility] K5903 Drug induced constipation Drug induced constipation Di agnosis 10/03/2019 10:31:00 PM [facility] I499 Cardiac arrhythmia, unspecified Cardiac arrhythmia, un specified Diagnosis 10/03/2019 10:31:00 PM [facility] K625 Hemorrhage of anus and rectum Hemorrhage of anus and r ectum Diagnosis 10/03/2019 10:31:00 PM [facility] K5900 Constipation, unspecified Constipation, unspecified Di agnosis 10/03/2019 09:32:00 PM [facility] R42 Dizziness and giddiness Dizziness and giddiness Diagno sis 10/03/2019 09:32:00 PM [facility] K649 Unspecified hemorrhoids Unspecified hemorrhoids Diagno sis 10/03/2019 07:47:00 AM [facility] R197 Diarrhea, unspecified Diarrhea, unspecified Diagnosis 10/02/2019 01:18:00 PM [facility] Z79.891 [facility] (current) use of opiate analge sic [employer] (CURRENT) USE OF OPIATE ANALGESIC Diagnosis 10/01/2019 11:33:00 AM [facility] S32.000S Wedge compression fracture of unspecifie d lumbar vertebra, sequela WEDGE COMPRESSION FRACTURE OF UNSP LUMBAR VERTEBRA, SEQUELA Diagnosis 10/01/2019 11:33:00 AM [facility] Z51.81 Encounter for therapeutic drug level mon itoring ENCOUNTER FOR THERAPEUTIC DRUG LEVEL MONITORING Diagnosis 09/11/2019 02:34:00 PM [facility] Y99.9 Unspecified external cause status UNSPECIFIED EX TERNAL CAUSE STATUS Diagnosis 08/13/2019 11:27:00 AM [facility] Y93.9 Activity, unspecified ACTIVITY, UNSPECIFIED Diagnosis 08/13/2019 11:27:00 AM [facility] M48.07 Spinal stenosis, lumbosacral region SPINAL STENO SIS, LUMBOSACRAL REGION Diagnosis 08/10/2019 01:50:00 PM [facility] S32.010A Wedge compression fracture o f first lumbar vertebra, initial encounter for closed fracture WEDGE COMPRESSION FRACTURE OF FIRST LUMBAR VERTEBRA, I NIT Diagnosis 08/10/2019 01:50:00 PM [facility] [id number] Pain in left hip Pain in left hip Diagnosis 08/03/2019 01 :53:00 PM [facility] Surgeries/Procedures Procedure Description Date Indications Data Source(s) Myocardial Perfusion Imaging Tomographic (Spect) Multiple [facility] 06/13/2020 12:00:00 AM EST [facility] Cardiovascular Stress Test Physician Supervision Only 06/13/2020 12:00:00 AM EST [facility] ([facility]) Cardiovascular Stress Test Interpretation & Report Only 06/13/2020 12:00:00 AM EST [facility] ([facility]) Echocardiography, Tranthoracic Real-Time Image Documentation 06/13/2020 12:00:00 AM EST [facility] ([facility]) Echocardiography, Tranthoracic Real-Time Image Documentation 06/13/2020 12:00:00 AM EST [facility] ([facility]) [facility] outpatient clinic visit for assessment and ma merle of a patient Hospital Outpatient Clinic Visit 2020 12:00:00 AM EST [facility] COMPUTERIZED OPHTHALMIC IMAGING RETINA CPTR OPHTH DX IMG POS T SEGMT 05/13/2020 12:00:00 AM [facility] Electrocardiogram Complete 05/12/2020 12:00:00 AM [facility] ([facility]) Low osmolar contrast material, 300-399 mg/ml iodine co ncentration, per ml Locm 300-399mg/ml iodine,1ml Long 05/04/2020 12:00:00 AM [facility] Unclassified drugs 05/04/2020 12:00:00 AM [facility] Injection, methylprednisolone acetate, 40 mg 0 12:00:00 AM [facility] INJECTION SINGLE TENDON ORIGIN/INSERTION INJ TENDON ORIGIN/I NSERTION 05/04/2020 12:00:00 AM [facility] ARTHROCENTESIS ASPIR&/INJECTION MAJOR JT/BURSA DRAIN/INJ TIM NT/BURSA W/O US 05/04/2020 12:00:00 AM [facility] Introduction of Anti-inflammatory into Joints, Percuta neous Approach INTRODUCTION OF ANTI-INFLAMMATORY INTO JOINTS, PERC APPROACH 05/04/2020 12:00:00 AM [facility] Introduction of Anesthetic Agent into Joints, Percutan eous Approach INTRODUCTION OF ANESTHETIC AGENT INTO JOINTS, PERC APPROACH 05/04/2020 12:00:00 AM [facility] INTRAVITREAL NJX PHARMACOLOGIC AGT SPX INJECTION EYE DRUG 0 04/15/2020 12:00:00 AM [facility] Injection, bevacizumab, 0.25 mg 04/15/2020 12:00:00 AM [facility] CT HEAD/BRAIN W/O CONTRAST MATERIAL CT HEAD/BRAIN W/O DYE 12:00:00 AM [facility] URNLS DIP STICK/TABLET RGNT AUTO W/O MICROSCOPY URINALYSIS A UTO W/O SCOPE 03/19/2020 12:00:00 AM [facility] THER PROPH/DX NJX EA SEQL IV PUSH SBST/DRUG FAC TX/PRO/DX IN J SAME DRUG 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 03/19/2020 12:00:00 AM [facility] BASIC METABOLIC PANEL CALCIUM TOTAL METABOLIC PANEL TOTAL CA 03/18/2020 12:00:00 AM [facility] Injection, hydromorphone, up to 4 mg 03/18/2020 12:00: 00 AM [facility] THERAPEUTIC INJECTION IV PUSH EACH NEW DRUG TX/PRO/DX INJ NE W DRUG ADDON 03/18/2020 12:00:00 AM [facility] [address] X-RAY EXAM HIP UNI 2-3 VIEWS 03/17/2020 12:00:00 AM ED [facility] ECG ROUTINE ECG W/LEAST 12 LDS TRCG ONLY W/O I&R ELECTROCARD IOGRAM TRACING 03/17/2020 12:00:00 AM [facility] BLOOD COUNT COMPLETE AUTO&AUTO DIFRNTL WBC COUNT COMPLETE CB C W/AUTO DIFF WBC 03/17/2020 12:00:00 AM [facility] TROPONIN QUANTITATIVE ASSAY OF TROPONIN QUANT 03/17/2020 12:00:00 A M [facility] C-REACTIVE PROTEIN C-REACTIVE PROTEIN 03/17/2020 12:00:00 AM [facility] COMPREHENSIVE METABOLIC PANEL COMPREHEN METABOLIC PANEL 02/27 12:00:00 AM [facility] Injection, acetaminophen, 10 mg 03/17/2020 12:00:00 AM [facility] Non-covered item or service NON-COVERED ITEM OR SERVICE 02/27 12:00:00 AM [facility] Injection, morphine sulfate, up to 10 mg 03/17/2020 12 :00:00 AM [facility] Injection, ketorolac tromethamine, per 15 mg 0 12:00:00 AM [facility] Injection, enoxaparin sodium, 10 mg 03/17/2020 12:00:0 0 AM [facility] COLLECTION VENOUS BLOOD VENIPUNCTURE ROUTINE VENIPUNCTURE 12:00:00 AM [facility] THER PROPH/DX NJX IV PUSH SINGLE/1ST SBST/DRUG THER/PROPH/DI AG INJ IV PUSH 03/17/2020 12:00:00 AM [facility] EMERGENCY DEPT VISIT HIGH SEVERITY&THREAT FUNCJ EMERGENCY DE PT VISIT 03/17/2020 12:00:00 AM [facility] THERAPEUTIC PROPHYLACTIC/DX INJECTION SUBQ/IM THER/PROPH/MEG G INJ SC/IM 03/17/2020 12:00:00 AM [facility] observation service, per hour 03/17/2020 12:0 0:00 AM [facility] Fluoroscopy of Right Hip FLUOROSCOPY OF RIGHT HIP 02/22/2020 12:00: 00 AM [facility] Injection, lidocaine hcl for intravenous infusion, 10 mg 12/29/2019 12:00:00 AM [facility] Injection, fentanyl citrate, 0.1 mg 12/29/2019 12:00:0 0 AM [facility] Injection, midazolam hydrochloride, per 1 mg 0 12:00:00 AM [facility] Injection, methylprednisolone acetate, 80 mg 0 12:00:00 AM [facility] [address] NJX INTERLAMINAR LMBR/SAC 12/29/2019 12:00:00 AM [facility] Fluoroscopy of Spinal Cord FLUOROSCOPY OF SPINAL CORD 2019 12:00:00 AM [facility] Introduction of Anesthetic Agent into Spinal Canal, Pe rcutaneous Approach INTRODUCTION OF ANESTHETIC INTO SPINAL CANAL, PERC APPROACH 12/29/2019 12:00:00 AM [facility] Introduction of Anti-inflammatory into Spinal Canal, P ercutaneous Approach INTRODUCTION OF ANTI-INFLAM INTO SPINAL CANAL, PERC APPROACH 12/29/2019 12:00:00 AM [facility] Home Management Treatment using Assistiv e, Adaptive, Supportive or Protective Equipment Home Management Treatment using Assistiv e, Adaptive, Supportive or Protective Equipment 10/04/2019 12:00:00 AM [facility] Injection, ropivacaine hydrochloride, 1 mg 09/01/2019 12:00:00 AM [facility] Injection, gadobenate dimeglumine (multihance), per ml 08/10/2019 12:00:00 AM [facility] MRI SPINAL CANAL LUMBAR W/O &W/CONTR MATRL MRI LUMBAR SPINE W/O & W/DYE 08/10/2019 12:00:00 AM EST [facility] Results ID Date Data Source [id number] 09/02/2020 10:50:52 AM EST [facility] Name Value Range Interpretation Code Description Data Bridget rce(s) Supporting Document(s) Provider Note [facility] BJCNEu8pAdVFDvvjhA6ZDWMqNL2fzwd8YZxkJ2ErGOGpdkYlMTWuT6tvEGOQWXJQGSWfbE6dKSQySxrL vYm uNBWvWGSFbAcXaJeZsU0ypgiv7uLJ2YWVhUybwDE2ZvNt3CQIzD7DtFBDbRXHfl1WbIm7+HxY2evPdbR k3tB9MO2QEBQiQ78qcCe4tSCNlhRwegMJy4eQOxohZs6VomjsOLWZdOPOONSyRQELUH01NRDLEWuDCQT lqpr6rz6QwMq8kRtgQ42/ZrfmxtVVb+2f7/Wsug9AE cKVvg4e6sifQyKnmxtHVZPsQeQLG2bp24aMRyzGYnKdGU3hHEYtEGq3QTjI77vBNfhFkSS+S06CNBiux 6wjWc8+Haydee+8Kltf5Z3/Haiecvf6/1koDoVCuxYbWhJwYrHMiiPa10wIUmDIgwQIsf1CZCKXYl7lQq3 [file] e1YAht0mVz6giCp9+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/Ku95xrQUHRdBBcePD5899Nbv/z/dC+7ltn5h5jPZkgVfOysab4KRcqlbVLjC [file] 4+GrA0IVA7hHHzHoezOlHiQNgaWGFGEin= ID Date Data Source [id number] 09/02/2020 06:50:00 AM EST [facility] Name Value Range Interpretation Code Description Data Bridget rce(s) Supporting Document(s) BASIC METABOLIC PANEL [facility] BASIC METABOLIC PANEL Sodium [Moles/volume] in Serum or Plasma 136 mEq/L 136 - 145 [facility] Potassium [Moles/volume] in Serum or Plasma 4.3 mEq/L 3.5 - 5.1 [facility] Chloride [Moles/volume] in Serum or Plasma 95 mEq/L 98 - 107 Belo w low normal [facility] Carbon dioxide, total [Moles/volume] in Serum or Plasma 28.9 mEq /L 21.0 - 32.0 [facility] Glucose [Mass/volume] in Serum or Plasma 99 mg/dL 70 - 100 [facility] Urea nitrogen [Mass/volume] in Serum or Plasma 74 mg/dL 7 - 18 Above upper panic limits [facility] READ BACK YES [facility] CREATININE SERUM 2.59 mg/dL 0.70 - 1.30 Above high normal [facility] AGE 89 yrs [facility] HEIGHT 65.00 INCHES [facility] eGFR NON-AFR AMR 24 [facility] eGFR AFR AMR 29 [facility] BUN/CREAT 29 6 - 25 Above high normal [facility] Calcium [Mass/volume] in Serum or Plasma 8.3 mg/dL 8.8 - 10.2 Below low normal [facility] ANION GAP 12 7 - 15 [facility] Estimated GFR reference r andi: > 60 mL/min/1.73m >18 years: Calculated using IDMS traceable MDRD Study Equation <18 years: Calculated using IDMS traceable Bedside Rodriguez Equation ID Date Data Source [id number] 09/02/2020 06:50:00 AM EST [facility] Name Value Range Interpretation Code Description Data Bridget rce(s) Supporting Document(s) LIVER PROFILE [facility] pital HEPATIC PANEL Protein [Mass/volume] in Serum or Plasma 5.7 g/dL 6.0 - 8.3 Below low normal [facility] Albumin [Mass/volume] in Serum or Plasma 2.6 g/dL 3.8 - 5.4 Below low normal [facility] GLOBULIN 3.1 g/dL 2.0 - 4.0 [facility] A/G RATIO 0.8 0.8 - 2.0 [facility] Bilirubin.total [Mass/volume] in Serum or Plasma 0.9 mg/dL 0.2 - 1.0 [facility] Bilirubin.direct [Mass/volume] in Serum or Plasma 0.3 mg/dL 0.0 - 0.2 Above high normal [facility] INDIRECT BILI 0.6 mg/dL 0.0 - 1.1 [facility] pital ALK PHOSPHATASE 72 U/L 40 - 129 [facility] ospital Aspartate aminotransferase [Enzymatic ac tivity/volume] in Serum or Plasma by With P-5'-P 25 IU/L 7 - 37 [facility] Alanine aminotransferase [Enzymatic acti vity/volume] in Serum or Plasma by With P-5'-P 17 IU/L 12 [facility] ID Date Data Source [id number] 09/01/2020 01:33:04 PM EST [facility] Name Value Range Interpretation Code Description Data Bridget rce(s) Supporting Document(s) Provider Note [facility] pital MEGOGj6uApTQQqwjyO6IQVItAU4egay9AMxaO5CcSMOurwIrVOMcP7ofTQWWDMOOESCahU7lOHSoBnfA vYm hOPTmLMJWjTuApPdQeQ9fqihq1zIV1BUDrGbkhCV8SjLo0STLdK1XsZSQbLJKup8YfHd3+NsB7ikQprL o0lO9LZ0EZCNfV57vsZx0eZCRtqRkngSZt9bNFfqiGb5GyvwhPLJLhGESWORsSKBADO22KXXSDPfAGMB zqbv5yx4QxNk3tMtkC82/ZrfmxtVVb+2f7/Voct9MW iASbn7y9vftAfAsbbcMJGCkWyVCS5lz47aWVneMFkQqDO3pNQHuJGd6OUgW91dNXilNvDU+Q96RHRbeu 6wjWc8+Haydee+7Oyro2Q5/Haiecvf6/5pqEgJXmhXsIkKfQnCQqeXk79gLIkYNaoPGlr6KJFHHMk3dAf6 [file] r7HEww0gWb6yjYn4+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/Sn31anOTNLyZTxyTO4447Khy/z/dC+7tix2j3xUXcrEaCimtz4IBqyimHDjF [file] NQolJUVPRgo= ID Date Data Source [id number] 09/01/2020 07:10:00 AM EST [facility] Name Value Range Interpretation Code Description Data Bridget rce(s) Supporting Document(s) URINALYSIS ROUTINE wMICROSCOPIC [facility] URINALYSIS REFERENCE RANGES SOURCE Clean Catch [facility] COLOR Yellow Colorless-Moraima [facility] CLARITY SL CLOUD Normal: Clear Abnormal (applies to non-numeric results) [facility] LEUK EST 1+ Negative - Trace Abnormal (applies to non-numer ic results) [facility] NITRITE Negative Normal: Negative [facility] UROBILINOGEN Negative Negative - Trace [facility] PROTEIN Negative Negative - Trace [facility] pH 5.5 5.0 - 8.0 [facility] BLOOD Negative Negative - Trace [facility] SPEC GRAVITY 1.020 1.000 - 1.030 [facility] KETONE Negative Negative - Trace [facility] BILIRUBIN Negative Normal: Negative [facility] GLUCOSE Negative Normal: Negative [facility] MICROSCOPIC See Below [facility] WBC >100 None Seen - 5/hpf Abnormal (applies to non-nume reji results) [facility] { URINE CULTURE INDICATED. RES ULTS TO FOLLOW. RBC 5 - 10 None Seen - 5/hpf Abnormal (applies to non-nume reji results) [facility] EPITHELIAL See Below NORMAL: None Seen [facility] SQUAMOUS EPI FEW/hpf NORMAL: None Seen [facility] TRANS EPI NONE SEEN NORMAL: None Seen [facility] RENAL EPI NONE SEEN NORMAL: None Seen [facility] BACTERIA 1+/hpf NORMAL: None Seen Abnormal (applies to non-nume reji results) [facility] MUCOUS NONE SEEN NORMAL: None Seen [facility] CASTS Not Indicated [facility]ital CRYSTALS Not Indicated [facility] pital ID Date Data Source [id number] 09/01/2020 06:50:00 AM EST [facility] Name Value Range Interpretation Code Description Data Bridget rce(s) Supporting Document(s) Magnesium [Mass/volume] in Serum or Plasma 2.0 mg/dL 1.8 - 2.4 [facility] ID Date Data Source [id number] 09/01/2020 06:50:00 AM EST [facility] Name Value Range Interpretation Code Description Data Bridget rce(s) Supporting Document(s) Phosphate [Mass/volume] in Serum or Plasma 4.6 mg/dL 2.5 - 4.9 [facility] ID Date Data Source [id number] 09/01/2020 06:50:00 AM EST [facility] Name Value Range Interpretation Code Description Data Bridget rce(s) Supporting Document(s) Natriuretic peptide B [Mass/volume] in Serum or Plasma 8458 PG/M L 0 - 450 Above high normal [facility] Testing methodology changed t o chemiluminscent immunoassay based on Vidable technology. Effective 03/04/18. ID Date Data Source [id number] 09/01/2020 06:50:00 AM EST [facility] Name Value Range Interpretation Code Description Data Bridget e(s) Supporting Document(s) BASIC METABOLIC PANEL [facility] BASIC METABOLIC PANEL Sodium [Moles/volume] in Serum or Plasma 135 mEq/L 136 - 145 Below low normal [facility] Potassium [Moles/volume] in Serum or Plasma 4.4 mEq/L 3.5 - 5.1 [facility] Chloride [Moles/volume] in Serum or Plasma 93 mEq/L 98 - 107 [place] w low normal [facility] Carbon dioxide, total [Moles/volume] in Serum or Plasma 28.8 mEq /L 21.0 - 32.0 [facility] Glucose [Mass/volume] in Serum or Plasma 117 mg/dL 70 - 100 Above high normal [facility] Urea nitrogen [Mass/volume] in Serum or Plasma 58 mg/dL 7 - 18 Above upper panic limits [facility]: [facility] READ BACK YES [facility] CREATININE SERUM 2.17 mg/dL 0.70 - 1.30 Above high normal [facility] AGE 89 yrs [facility] HEIGHT 65.00 INCHES [facility] ital eGFR NON-AFR AMR 29 [facility] eGFR AFR AMR 35 [facility] ital BUN/CREAT 27 6 - 25 Above high normal [facility] Calcium [Mass/volume] in Serum or Plasma 9.4 mg/dL 8.8 - 10.2 [facility] ANION GAP 13 7 - 15 [facility] Estimated GFR reference r andi: > 60 mL/min/1.73m >18 years: Calculated using IDMS traceable MDRD Study Equation <18 years: Calculated using IDMS traceable Bedside Rodriguez Equation ID Date Data Source [id number] 09/01/2020 06:50:00 AM EST [facility] Name Value Range Interpretation Code Description Data Bridget rce(s) Supporting Document(s) CBC [facility] COMPLETE BLO[facility] COUNT Leukocytes [#/volume] in Blood by Automated count 9.5 K/uL 4.0 - 10 .0 [facility] Erythrocytes [#/volume] in Blood by Automated count 3.31 M/uL 4.30 - 6.10 Below low normal [facility] Hemoglobin [Mass/volume] in Blood 11.1 g/dL 13.5 - 17.5 Below low no rmal [facility] Hematocrit [Volume Fraction] of Blood by Automated count 33.1 % 39.0 - 50.0 Below low normal [facility] Erythrocyte mean corpuscular volume [Entitic volume] b y Automated count 100.0 fL 80.0 - 96.0 Above high normal [facility] Erythrocyte mean corpuscular hemoglobin [Entitic mass] by Automated count 33.5 pg 26.0 - 34.0 [facility] Erythrocyte mean corpuscular hemoglobin concentration [Mass/volume] by Automated count 33.5 g/dL 32.0 - 36.0 [facility] Erythrocyte distribution width [Ratio] by Automated count 14.5 % 11.6 - 14.8 [facility] Platelets [#/volume] in Blood by Automated count 222 K/uL 150 - 450 [facility] Platelet mean volume [Entitic volume] in Blood by Automated count 9.9 fL 7.1 - 10.4 [facility] Neutrophils [#/volume] in Blood by Automated count 7.56 K/uL 1.70 - 7.70 [facility] Lymphocytes [#/volume] in Blood by Automated count 0.29 K/uL 1.50 - 6.00 Below low normal [facility] Monocytes [#/volume] in Blood by Automated count 1.62 K/uL 0.00 - 1.00 Above high normal [facility] Eosinophils [#/volume] in Blood by Automated count 0.01 K/uL 0.00 - 0.30 [facility] Basophils [#/volume] in Blood by Automated count 0.02 K/uL 0.00 - 0. 10 [facility] 0.03 Urinalysis macro (dipstick) panel - Urine 0.000 10^3/uL 0.000 - 0.012 [facility] Neutrophils/100 leukocytes in Blood by Automated count 79.4 % 42.2 - 75.2 Above high normal [facility] Lymphocytes/100 leukocytes in Blood by Automated count 3.0 % 15.0 - 41.0 Below low normal [facility] Monocytes/100 leukocytes in Blood by Automated count 17.0 % 0.0 - 12.0 Above high normal [facility] Eosinophils/100 leukocytes in Blood by Automated count 0.1 % 0.0 - 7.0 [facility] 0.20.30 NRBC 0.0 % [facility] MANUAL DIFF NOT INDICATED [facility] RBC MORPH NOT INDICATED [facility] pital ID Date Data Source [id number] 09/01/2020 01:47:40 AM EST [facility] Name Value Range Interpretation Code Description Data Bridget rce(s) Supporting Document(s) Provider Note [facility] pital OQCDUd8nElUMWmpqoL2MSMNiDJ5hvcd6LUueO9TjKPSxmzNaVBGxK3fcFIBZQAKFMQIsgB5lSKSeXxjG vYm xLSGxLSXYgCoRaHyFtM3zgjhh1bDY7YTNuQifySS8WcKt9SJVgQ9UuOCRsBGQjn0KjLw8+VeI0qcFcdX i7yV3KJ6HOLNbA31qdIl7kBFSvyCixeGUy7iEFtyfDg9UgqdsZNDHxVCHWUZcOYWFWZ01ZMAYVPfCKNO cmsu0yn9ZfOq1tBtmT05/ZrfmxtVVb+2f7/Kuwz2UG fQQoc7u0wvpRmJsxylTDKMcKhRDM7vu79uFCotOEoOxPI1eLQBsHFz5OZyG20gXPboLaJD+U28UYQaqj 6wjWc8+Haydee+2Qwnz8P0/Haiecvf6/7ioQgFDzfIlIwVvBfGAcjIi97iBUjPCnrBEeu6GMVKRPf5iXu0 [file] t8SUli2eUe4siPh5+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/Eb34qvLPZNnMUoxOS6132Upq/z/dC+6iav1d4uXIoeYgIbnnm9FHrcavPTrU [file] Rg5Yy3NfsiT5lzAfJuP7ZEYzCvUjSF4QRn== ID Date Data Source [id number] 08/31/2020 06:27:58 PM EST [facility] Name Value Range Interpretation Code Description Data Bridget rce(s) Supporting Document(s) Provider Note [facility] TFFTEw7sWwCLUyfmwV4IFMYiIK8rgbw9SMawA5JySNYgijKlBUCrG3hrZVRXRQLGDMVxsF2dNDDzXrjQ vYm cICXvGUSVeCbGjNfDiE3tkrcj4nHI0FPKhDaytNA2KgOp2GJIvZ3VwBVYjDHNoz6EiRu3+AeS1ryZwzT z7nC5SQ7AGGAjL22dnVk9eBEJraTlvcEWr8sWLrzgOz0RvakcZQKKeWFNPAXuNMEIBN95JMRAIMcMJXT pnie8xe7OkPo0oEgoB91/ZrfmxtVVb+2f7/Nrqw1RQ sJHug6o3jvsQyLxuowHANIrKzQYP7xd17dLAkmICwZxJX6bELAbPKa9SKzU05tINioScLG+E95WPUxzr 6wjWc8+Haydee+4Qbme6O5/Haiecvf6/6ugCjLJcgHmVtHrHyPBixZs34bMVbSZegXUtd2RUCUYGo7eYq2 [file] v3UKiy3fZl9knNr1+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/Dz89zgRBVFnNVqjPR6251Vut/z/dC+1dbm8h9iWXgjXvPdjwl5WRxvwkOZiA [file] X1ENZnUAoZXMTLKdY8B3IxOX1eHmEnY2IjbqXjZwNJFp9Rg6IifcT1mcKfDlU3NjJfIzKaQO7HCe== ID Date Data Source [id number] 08/31/2020 04:38:00 PM EST [facility] Value Range Interpretation Code Description Data Bridget rce(s) Supporting Document(s) Amylase [Enzymatic activity/volume] in Serum or Plasma 55 IU/L 25 - 115 [facility] ID Date Data Source [id number] 08/31/2020 04:38:00 PM EST [facility] Value Range Interpretation Code Description Data Bridget rce(s) Supporting Document(s) Lipase [Enzymatic activity/volume] in Serum or Plasma 56 IU/L 73 - 393 Below low normal [facility] ID Date Data Source [id number] 08/31/2020 04:38:00 PM EST [facility] Name Value Range Interpretation Code Description Data Bridget rce(s) Supporting Document(s) Troponin I.cardiac [Mass/volume] in Serum or Plasma 0.020 ng/mL 0. 017 - 0.060 [facility] \\BLDo\\TROPONIN I I NTERPRETATION:\\BLDx\\ < 0.06 ng/mL NOT SUSPICIOUS FOR AN AMI 0.06 - 0.59 ng/mL MAIER ZONE FOR AN AMI, SERIAL MONITORING RECOMMENDED 0.6 - 1.5 ng/mL SUSPICIOUS FOR AN AMI Reference range updated for new chemiluminescent immunoassay method based on Vidable technology. Effective 03/10/18. ID Date Data Source [id number] 08/31/2020 04:38:00 PM EST [facility] Name Value Range Interpretation Code Description Data Bridget rce(s) Supporting Document(s) Natriuretic peptide B [Mass/volume] in Serum or Plasma 4207 PG/M L 0 - 450 Above high normal [facility] Testing methodology changed t o chemiluminscent immunoassay based on Vidable technology. Effective 03/04/18. ID Date Data Source [id number] 08/31/2020 04:38:00 PM EST [facility] Name Value Range Interpretation Code Description Data Bridget rce(s) Supporting Document(s) LIVER PROFILE [facility] pital HEPATIC PANEL Protein [Mass/volume] in Serum or Plasma 6.8 g/dL 6.0 - 8.3 [facility] Albumin [Mass/volume] in Serum or Plasma 3.1 g/dL 3.8 - 5.4 Below low normal [facility] GLOBULIN 3.7 g/dL 2.0 - 4.0 [facility] A/G RATIO 0.8 0.8 - 2.0 [facility] Bilirubin.total [Mass/volume] in Serum or Plasma 1.1 mg/dL 0.2 - 1.0 Above high normal [facility] Bilirubin.direct [Mass/volume] in Serum or Plasma 0.3 mg/dL 0.0 - 0.2 Above high normal [facility] INDIRECT BILI 0.8 mg/dL 0.0 - 1.1 [facility] pital ALK PHOSPHATASE 88 U/L 40 - 129 [facility] ospital Aspartate aminotransferase [Enzymatic ac tivity/volume] in Serum or Plasma by With P-5'-P 17 IU/L 7 - 37 [facility] Alanine aminotransferase [Enzymatic acti vity/volume] in Serum or Plasma by With P-5'-P 15 IU/L 12 - 78 [facility] ID Date Data Source [id number] 08/31/2020 04:38:00 PM EST [facility] Name Value Range Interpretation Code Description Data Bridget rce(s) Supporting Document(s) BASIC METABOLIC PANEL [facility] BASIC METABOLIC PANEL Sodium [Moles/volume] in Serum or Plasma 132 mEq/L 136 - 145 Below low normal [facility] Potassium [Moles/volume] in Serum or Plasma 4.4 mEq/L 3.5 - 5.1 [facility] Chloride [Moles/volume] in Serum or Plasma 92 mEq/L 98 - 107 [place] w low normal [facility] Carbon dioxide, total [Moles/volume] in Serum or Plasma 31.4 mEq /L 21.0 - 32.0 [facility] Glucose [Mass/volume] in Serum or Plasma 107 mg/dL 70 - 100 Above high normal [facility] Urea nitrogen [Mass/volume] in Serum or Plasma 46 mg/dL 7 - 18 Above high normal [facility] CREATININE SERUM 1.88 mg/dL 0.70 - 1.30 Above high normal [facility] AGE 89 yrs [facility] l HEIGHT 65.00 INCHES [facility] ital eGFR NON-AFR AMR 34 [facility] eGFR AFR AMR 41 [facility] ital BUN/CREAT 24 6 - 25 [facility] Calcium [Mass/volume] in Serum or Plasma 10.1 mg/dL 8.8 - 10.2 [facility] ANION GAP 9 7 - 15 [facility] Estimated GFR reference r andi: > 60 mL/min/1.73m >18 years: Calculated using IDMS traceable MDRD Study Equation <18 years: Calculated using IDMS traceable Bedside Rodriguez Equation ID Date Data Source [id number] 08/31/2020 04:38:00 PM EST [facility] Name Value Range Interpretation Code Description Data Bridget rce(s) Supporting Document(s) [facility]LO[facility] Leukocytes [#/volume] in Blood by Automated count 11.9 K/uL 4.0 - 10.0 Above high normal [facility] Erythrocytes [#/volume] in Blood by Automated count 3.46 M/uL 4.30 - 6.10 Below low normal [facility] Hemoglobin [Mass/volume] in Blood 11.7 g/dL 13.5 - 17.5 Below low no rmal [facility] Hematocrit [Volume Fraction] of Blood by Automated count 34.9 % 39.0 - 50.0 Below low normal [facility] Erythrocyte mean corpuscular volume [Entitic volume] b y Automated count 100.9 fL 80.0 - 96.0 Above high normal [facility] Erythrocyte mean corpuscular hemoglobin [Entitic mass] by Automated count 33.8 pg 26.0 - 34.0 [facility] Erythrocyte mean corpuscular hemoglobin concentration [Mass/volume] by Automated count 33.5 g/dL 32.0 - 36.0 [facility] Erythrocyte distribution width [Ratio] by Automated count 14.3 % 11.6 - 14.8 [facility] Platelets [#/volume] in Blood by Automated count 238 K/uL 150 - 450 [facility] Platelet mean volume [Entitic volume] in Blood by Automated count 9.2 fL 7.1 - 10.4 [facility] Neutrophils [#/volume] in Blood by Automated count 10.34 K/uL 1.70 - 7.70 Above high normal [facility] Lymphocytes [#/volume] in Blood by Automated count 0.49 K/uL 1.50 - 6.00 Below low normal [facility] Monocytes [#/volume] in Blood by Automated count 0.89 K/uL 0.00 - 1. 00 [facility] Eosinophils [#/volume] in Blood by Automated count 0.08 K/uL 0.00 - 0.30 [facility] Basophils [#/volume] in Blood by Automated count 0.04 K/uL 0.00 - 0. 10 [facility] 0.02 Urinalysis macro (dipstick) panel - Urine 0.000 10^3/uL 0.000 - 0.012 [facility] Neutrophils/100 leukocytes in Blood by Automated count 87.2 % 42.2 - 75.2 Above high normal [facility] Lymphocytes/100 leukocytes in Blood by Automated count 4.1 % 15.0 - 41.0 Below low normal [facility] Monocytes/100 leukocytes in Blood by Automated count 7.5 % 0.0 - 12.0 [facility] Eosinophils/100 leukocytes in Blood by Automated count 0.7 % 0.0 - 7.0 [facility] 0.30.20 NRBC 0.0 % [facility] MANUAL DIFF NOT INDICATED [facility] RBC MORPH NOT INDICATED [facility] ID Date Data Source [id number] 08/31/2020 04:36:00 PM EST [facility] Name Value Range Interpretation Code Description Data Bridget rce(s) Supporting Document(s) SARS RAPID AG [facility] SARS RAPID Ag [facility] [id number] NEGATIVE NORMAL: NEGATIVE [facility] REPORT TO DEPARTMENT OF HEAL TH \\BLDo\\IF CLINICALLY INDICATED, IT IS RECOMMENDED THAT NEGATIVE SARS Ag TESTS BE CONFIRMED BY PCR.\\BLDx\\ LIMITATIONS: 1. Positive test results do not rule out co-infections with other pathogens, or differentiate between SARS-CoV and SARS-CoV-2. If differentiation is needed, consult with local public health dept. 2. Negative test results are not intended to rule in other non-SARS viral or bacterial infections. 3. Negative results, from patients with symptom onset beyond five days, should be treated as presumptive and confirmation with a molecular assay, if necessary for patient management may be performed. 4. This test has not been FDA cleared or approved; the test has been authorized by the FDA under an Emergency Use Authorization (EUA) for use by laboratories certified by CLIA that meet the requirements to perform moderate, high or waived complexity tests, This test is authorized for use at the Point of Care (POC), i.e., in patient care settings under a CLIA Certificate of Waiver, Certificate of Compliance, or Certificate of Accredidation. 5. This test has been authorized only for the detection of proteins from SARS-Co-2, not for any other viruses or pathogens. 6. This test is only authorized for the duration of the declaration that circumstances exist justifying the authorization of emergency use of in vitro diagnostic tests for detection and/or diagnosis of COVID-19 under Section 564(b)(1) of the Act, 21 U.S.C. ? 360bbb-3(b unless the authorization is terminated or revoked sooner. ID Date Data Source [id number] 08/30/2020 06:19:57 PM EST [facility] Name Value Range Interpretation Code Description Data Bridget rce(s) Supporting Document(s) Progress Note [facility] pital SAZNCc7jWkJGJdpfvN1LYXSqIV3wvjh9DPxuV9CpEZDwlbViASVnN7pxOZTEYJDAGAYybA6bAHKtSanK vYm qSZTiEJQXgEhFlXqPsM5gmulr9nAD1XHFbIoqhAH1IhSi4FUXuB1SaJVGzPQOeo7RwCg0+JtD3gfUjvU o0eR6ZJ0SHWKwA27ctGt2kFLQslDltyHAi6cWMzyyHh1LhbfsQEWYeOWVZSOpEVIXJA14MTHQWBlQVAA ixtp4vj4BcTg9oGhtR82/ZrfmxtVVb+2f7/Ylme3ZF qTJed4h8heuNiDonhhHPORtStHHF9oh57sZDwnSZxLjSI2wVJCnRVe1NVfQ83oRLqiDnGF+F46LPIgno 6wjWc8+Haydee+5Ahbk8M7/Haiecvf6/9ejKoTKktDaFlEvIhNFqtHa65mZKwGWzhHFwh7LTAWYEl3mBw8 [file] g9XCme6eZf0ekUt0+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/Ug34hiZYRQeSNqsRF4331Azv/z/dC+3tiq6j3lQZlxIrDktwq6YYsfgrWWsG [file] MDAwMDAxNDUgMDAwMDAgbiAKMDAwMDAwMjcwMiAwMD BuUSKpHWdiZTPrHDCoXaDuZZUsGYJmME5tItRnDOIfIWU2SKBbKJZpDPNqpiCIDALgWTAlHwmmMWQqRU ZmYNYbGRflYTAnJZFmQej4MKSpQJKoJI4xEwXgIEIpJrF2HzQnHFPhPBKabmKKHQJnTLMzSxstDDPgZU ChCTGtLFzhPMAjUVAhNHhmYSYxGCYrRQ5xJjMeUATy RTX4NIrlZTGiTFZtviETYJQcUCAcXUK3LBLpIWUjQZQcPLufWVFpNKRqBritHHQdDZCtFX2eEpBfKRZv JqN0OwmgSDQoNJXwhcGGOTUoLWBhNKFrXKOyKOUiJWWrCIhmRWBbMHQkMSvqSUWlKXAoOV6eMqVwPFDn VvLaAQyzSDOoHSDzmgCATTGjATLyZVV7SVMpFUPhJG IiTWphDPUgHIZ3PvCfNWFdPZZfLC9iIdMyYFBoMfoiSoYyIRXoYIZubwHMNQTlOYIqKRVfOPIoLEBhQC RgQAijQMFuYWA3SbE7TOXmREBcDD7fOlJmHKQxTyIkAFhaOCIkKMXhhjINTDVcPUFhCnU3FRHpLGTuRY MqAFmpPBXcKOBfZaYmEYDmMPZzQE5eShYhZSOkJsDj UMEiOKLdAEQgavEVXNCzVMUtOwO6MmXuLIIzIBEeMIqmWOZvLVXjQaCoEGKtNYIhBV3yDxGfJUFmBsY8 JjPnRVJcDFYgwbNYbIShqIuvbse2OYzwHU7Gu159RDKtZIBJAnLeR3qaPu6oLFRkLYIZHTWpPNVbRauZ NMAZPcC2WdV0E2EROWq0TXKIG5HURTR4NEwtEeY6PN 8xDQJ0PXISGwUbFvjxCRZjJqc7IVU0YcCPLMu6ECMYAOhYZk8KDGFvW0i5CNSrCmg+PgpzdGFydHhyZW SLYyFzQaPVKFMOW4IR ID Date Data Source [id number] 08/30/2020 09:08:00 AM EST [facility] Name Value Range Interpretation Code Description Data Bridget rce(s) Supporting Document(s) BASIC METABOLIC PANEL [facility] BASIC METABOLIC PANEL Sodium [Moles/volume] in Serum or Plasma 135 mEq/L 136 - 145 Below low normal [facility] Potassium [Moles/volume] in Serum or Plasma 3.7 mEq/L 3.5 - 5.1 [facility] Chloride [Moles/volume] in Serum or Plasma 93 mEq/L 98 - 107 [place] w low normal [facility] Carbon dioxide, total [Moles/volume] in Serum or Plasma 33.6 mEq /L 21.0 - 32.0 Above high normal [facility] Glucose [Mass/volume] in Serum or Plasma 129 mg/dL 70 - 100 Above high normal [facility] Urea nitrogen [Mass/volume] in Serum or Plasma 32 mg/dL 7 - 18 Above high normal [facility] CREATININE SERUM 1.48 mg/dL 0.70 - 1.30 Above high normal [facility] AGE 89 yrs [facility] HEIGHT 65.00 INCHES [facility] ital eGFR NON-AFR AMR 45 [facility] eGFR AFR AMR 54 [facility] ital BUN/CREAT 22 6 - 25 [facility] Calcium [Mass/volume] in Serum or Plasma 9.4 mg/dL 8.8 - 10.2 [facility] ANION GAP 8 7 - 15 [facility] Estimated GFR reference r andi: > 60 mL/min/1.73m >18 years: Calculated using IDMS traceable MDRD Study Equation <18 years: Calculated using IDMS traceable Bedside Rodriguez Equation ID Date Data Source [id number] 08/30/2020 09:08:00 AM EST [facility] Name Value Range Interpretation Code Description Data Bridget rce(s) Supporting Document(s) CBC [facility] COMPLETE BLOOD COUNT Leukocytes [#/volume] in Blood by Automated count 9.2 K/uL 4.0 - 10 .0 [facility] Erythrocytes [#/volume] in Blood by Automated count 3.26 M/uL 4.30 - 6.10 Below low normal [facility] Hemoglobin [Mass/volume] in Blood 10.9 g/dL 13.5 - 17.5 Below low no rmal [facility] Hematocrit [Volume Fraction] of Blood by Automated count 33.1 % 39.0 - 50.0 Below low normal [facility] Erythrocyte mean corpuscular volume [Entitic volume] b y Automated count 101.5 fL 80.0 - 96.0 Above high normal [facility] Erythrocyte mean corpuscular hemoglobin [Entitic mass] by Automated count 33.4 pg 26.0 - 34.0 [facility] Erythrocyte mean corpuscular hemoglobin concentration [Mass/volume] by Automated count 32.9 g/dL 32.0 - 36.0 [facility] Erythrocyte distribution width [Ratio] by Automated count 14.2 % 11.6 - 14.8 [facility] Platelets [#/volume] in Blood by Automated count 213 K/uL 150 - 450 [facility] Platelet mean volume [Entitic volume] in Blood by Automated count 9.3 fL 7.1 - 10.4 [facility] Neutrophils [#/volume] in Blood by Automated count 6.82 K/uL 1.70 - 7.70 [facility] Lymphocytes [#/volume] in Blood by Automated count 1.14 K/uL 1.50 - 6.00 Below low normal [facility] Monocytes [#/volume] in Blood by Automated count 0.94 K/uL 0.00 - 1. 00 [facility] Eosinophils [#/volume] in Blood by Automated count 0.18 K/uL 0.00 - 0.30 [facility] Basophils [#/volume] in Blood by Automated count 0.04 K/uL 0.00 - 0. 10 [facility] 0.03 Urinalysis macro (dipstick) panel - Urine 0.000 10^3/uL 0.000 - 0.012 [facility] Neutrophils/100 leukocytes in Blood by Automated count 74.5 % 42. 2 - 75.2 [facility] Lymphocytes/100 leukocytes in Blood by Automated count 12.5 % 15.0 - 41.0 Below low normal [facility] Monocytes/100 leukocytes in Blood by Automated count 10.3 % 0.0 - 12.0 [facility] Eosinophils/100 leukocytes in Blood by Automated count 2.0 % 0.0 - 7.0 [facility] 0.40.30 NRBC 0.0 % [facility] MANUAL DIFF NOT INDICATED [facility] RBC MORPH NOT INDICATED [facility] pital ID Date Data Source [id number] 08/29/2020 07:31:05 PM EST [facility] Name Value Range Interpretation Code Description Data Bridget rce(s) Supporting Document(s) Admission Note [facility] spital BWONEu9ySmTBTbgqmP4ZVUJwQS5wlmg9AEopI2OeRBSrouDxYAGnI5taRLSKPXUFWGRofN5hBEOsYnxH vYm eVSHmSHPKpJoQdNeDnI1frafi4gMA7MOWfRccgGR6AvCj4OXEqZ3IiVOQsAOKgu1VcLf8+QsU2ufRipY f8fZ9LV0PZXUgX28maCm7qFDGhsDyzsQLb2xKGgczJs0HftfvUPSSlALJSUQaEJGUAQ22OWEYHUyRRBZ vfdw8jj6XgGt5oMapA25/ZrfmxtVVb+2f7/Yklr1HQ cVDdl3w5sthVgUrkfhHTZDuLrJCE6ds97fNLcsVKfPyCV9iLTCrGOe3NQpI72oUBbwEvTH+F12JSQdid 6wjWc8+Haydee+7Ttdq9T4/Haiecvf6/8bxXpFKenVgXuLjHaRKzfBe93lDUbQNlsZYbp2UKIEGOd6dBj6 [file] g6BVnb1hIr0qyPo1+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 ID Date Data Source [id number] 08/29/2020 11:23:04 AM EST [facility] Name Value Range Interpretation Code Description Data Bridget rce(s) Supporting Document(s) SPECIMEN DESCRIPTION Lab [facility] INFLUENZA A (NEG) [facility] INFLUENZA B (NEG) [facility] RSV (NEG) [facility] COMMENT [facility] THE U.S. FDA HAS MADE THIS TEST AVAILABL EUNDER AN EMERGENCY USE AUTHORIZATION(EUA) FOR THE DETECTION AND/OR DIAGNOSISOF THE VIRUS THAT CAUSES COVID-19.[facility]FORMED [facility] [address] [facility] [address] COVID19 RESULT (NDET) [facility] THIS ASSAY AMPLIFIES AND DETECTSTHE TARG ET RNA USING REAL-TIME PCR.TESTING PERFORMED ON [employer] GENEXPERTNEGATIVE 2019_NCOV RT-PCR RESULTS DONOT PRECLUDE 2019_NCOV INFECTION ANDSHOULD NOT BE USED THE SOLE BASISFOR PATIENT MANAGEMENT DECISIONS. 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 He has known ischemic cardiomyopathy andvalvular heart disease. He has an EF of approximately 35 percent. He hashad severe mitral regurgitation and low-flow, low-gradient aortic stenosis.He was placed on intravenous diuretics. Initially, his N-terminal proBNPwas 13,190, fell to 6250. He developed acute kidney injury with diuresis. BUN rising from 1.24 to 1.43. Still had some small residual effusions. Hewas catheterized while he was here and had a tight stenosis in thecircumflex which was stented. He has had previous stenting of thecircumflex and right coronary arteries. He has had in 11/2001,posterolateral wall RI, had stenting of the second marginal with a 3 x 13Velocity stent; 12/2001, stenting of the right with a 3.5 x 13; 2002,in-stent restenosis in the circumflex, treated with brachytherapy and acutting balloon angioplasty for the stenting. He has had a mean gradientof 32 across the aortic valve with longer cycles and post PVC a little bithigher. He was found to have a 95 percent stenosis in the circumflexproximal to the previously placed stent. He received a 3.5 x 12 Synergystent. He had disease approaching 50 percent in the LAD and a 60 percentin the distal LAD. There was a 50 percent lesion in the second marginal. The patient had congestive failure here requiring high doses of diuretictherapy. We were going to do a VIKRAM. By the day of procedure, he was inpulmonary edema requiring IV nitroglycerin and diuresis with metolazone,Lasix and spironolactone. On long cycles, he had a peak velocity of 4.1meter per second, peak gradient of 69, mean of 39. Post PVC on a longcycle got the velocity up to 4.5 meters per second, peak gradient of 82,mean of 53. He has mildly severe mitral valve regurgitation, mild TR and aPAP of 45. His EF is about 35 percent. Multisegment dysfunction of theinferior posterolateral carrasquillo. He is going to be [facility] coming [facility] to seewhether he is a consideration for TAVR. I realize he may require mitralE-clip at a later date. At age 89, he has been fairly adamant that he doesnot want to be considered for conventional surgery.He will be discharged on furosemide 40 mg b.i.d.; Zaroxolyn 2.5 mg Saturdayand Saturday, i.e., two days of the week; spirolactone 50 mg daily, vitamin D1000 units a day, terazosin 10 mg q.h.s., atorvastatin 20 mg a day, Ocuvite1 tablet b.i.d., magnesium oxide 200 mg a day, levothyroxine 75 mcg a day,vitamin B12 500 mcg a day, ascorbic acid 50 mg a day, aspirin 81 mg a day,clopidogrel 75 mg a day, allopurinol 300 mg a day, Avodart 0.5 mg a day,lidocaine patch once each day, gabapentin 600 mg b.i.d., melatonin 3 mg atnight p.r.n. for insomnia, lorazepam 1 mg at night p.r.n. for sleep. Hehas chronic pain in the back and pelvis which he has been maintained onhydrocodone/acetaminophen 5/325 daily 8 hours p.r.n. He also has qndqpkxu63 mg extended release, takes 1 tablet every 12 hours p.r.n.The patient was fairly adamant that [place] and he is going to be presented to the valve committee. We gave himthe option remaining in the hospital with a transfer to [facility] the procedure could be performed. Right now, he said he is just notprepared mentally to go through the procedure. [place] If he changes his mind, we can takehim back and transfer at a sooner date.DISCHARGE DIAGNOSES:1. Ischemic cardiomyopathy with acute upon chronic exacerbation of congestive heart failure due to systolic function and associated valvular heart disease including low-flow, low- gradient severe , mildly severe mitral valve regurgitation.2. CAD, status post recent stenting of the body of the circumflex with a 3.5 Synergy drug-eluting stent. He has a history of stenting of the circumflex and RCA as outlined.3. Hypothyroidism, on replacement therapy.4. Hyperlipidemia.5. Hypertension.6. Chronic kidney disease stage III with acute rise in creatinine due to diuretic therapy.7. History of hyperuricemia and gout.8. Chronic opioid dependency for chronic pain.Prognosis is most guarded.DICTATED BY: Adolfo Santos MDDictated: 08/29/2020 9:43DT: 08/29/2020 9:51Job #: [id number] NOTE: [facility] computer generated reports are notconfirmed or authenticated unless they are signed by the providerElectronically Authenticated by:ADOLFO SANTOS MD On 09/01/2020 05:18 PM EST Name Value Range Interpretation Code Description Data Bridget rce(s) Supporting Document(s) ID Date Data Source [id number] 08/29/2020 05:22:00 PM [facility]: 08/29/2020XAMINATION:Ches t Radiograph. One view. CLINICAL INFORMATION:CONGESTIVE HEART FAILURE COMPARISON:08/28/2020 FINDINGS: Lungs and pleura: Increased prominence of the interstitial lung markings and pulmonary vasculature. There are subtle patchy bilateral airspace opacities which demonstrate a perihilar and gravity dependent distribution.. No definite pleural effusion. No pneumothorax. Heart and mediastinum: Atherosclerotic calcifications are seen in the aorta. Moderate cardiomegaly. Other: Degenerative changes affect the visualized spine. No acute osseous abnormality. IMPRESSION:1.Moderate cardiomegaly.2.Findings suggestive of vascular congestion and interstitial pulmonary edema3.Subtle patchy bibasilar and perihilar airspace opacities may represent mild alveolar edema.4.No definite pleural effusion. Professional interpretation performed at [facility] .End of diagnostic report for accession: [id number] Interpreted: Emma Lam MDTranscribed: 08/29/2020 05:20 PMSigned: 08/29/2020 05:22 PM Emma Lam MD [facility] # [id number] BILL # [id number] Name Value Range Interpretation Code Description Data Bridget rce(s) Supporting Document(s) ID Date Data Source [id number] 08/29/2020 07:26:19 AM EST [facility] Name Value Range Interpretation Code Description Data Bridget rce(s) Supporting Document(s) SODIUM 135 mmol/L (136-145) L [facility] POTASSIUM 4.4 mmol/L (3.6-5.2) [facility] CHLORIDE 92 mmol/L (100-108) L [facility] CO2 35 mmol/L (22-31) H [facility] ANION GAP 8 mmol/L (7-16) [facility] UREA NITROGEN 26 mg/dL (7-24) H [facility] CREATININE 1.43 mg/dL (0.80-1.30) H [facility] BUN/CREAT RATIO 18.2 RATIO (10.0-20.0) [facility] GLUCOSE 87 mg/dL (70-99) [facility] CALCIUM 9.3 mg/dL (8.4-10.2) [facility] GFR 47 ml/min/1.73m2 (>59) L [facility] GFR ( AMER) 56 ml/min/1.73m2 (>59) L [facility] GFR INTERPRETATION [facility] --NORMAL KIDNEY FUNCTION OR MILD DISEASE - GFR >OR= 60CHRONIC KIDNEY DISEASE - GFR 15 - 59RENAL FAILURE - GFR <15 Est. GFR calculation based on the MDRDstudy equation, which assumes a steadystate for creatinine. Est. GFR should notbe used for medication dosing. ID Date Data Source [id number] 08/28/2020 08:29:02 AM EST [facility] Name Value Range Interpretation Code Description Data Bridget rce(s) Supporting Document(s) SODIUM 135 mmol/L (136-145) L [facility] POTASSIUM 4.2 mmol/L (3.6-5.2) [facility] CHLORIDE 93 mmol/L (100-108) L [facility] CO2 36 mmol/L (22-31) H [facility] ANION GAP 6 mmol/L (7-16) L [facility] UREA NITROGEN 18 mg/dL (7-24) [facility] CREATININE 1.24 mg/dL (0.80-1.30) [facility] BUN/CREAT RATIO 14.5 RATIO (10.0-20.0) [facility] GLUCOSE 79 mg/dL (70-99) [facility] CALCIUM 9.1 mg/dL (8.4-10.2) [facility] GFR 55 ml/min/1.73m2 (>59) L [facility] GFR ( AMER) >60 ml/min/1.73m2 (>59) [facility] GFR INTERPRETATION [facility] --NORMAL KIDNEY FUNCTION OR MILD DISEASE - GFR >OR= 60CHRONIC KIDNEY DISEASE - GFR 15 - 59RENAL FAILURE - GFR <15 Est. GFR calculation based on the MDRDstudy equation, which assumes a steadystate for creatinine. Est. GFR should notbe used for medication dosing. ID Date Data Source [id number] 08/28/2020 10:31:00 AM EST [facility] DATE OF EXAM: 08/28/2020XAM: Chest 1V I NDICATION: PLEURAL EFFUSION TECHNIQUE: Single AP view of the chest was obtained. COMPARISON: Chest x-ray dated 08/24/2020. FINDINGS: Cardiomediastinal contours are unchanged. Aortic atherosclerosis. Unchanged substantial vascular congestion, diffuse increased interstitial prominence and small bilateral pleural effusions suggestive of acute CHF. Bibasilar opacities related to edema, atelectasis, and/or pneumonia are also similar to prior. Slight improved aeration in the lung bases. Bones are demineralized. IMPRESSION: Slight improved aeration in the lung bases; otherwise, no significant change of diffuse increased interstitial prominence and pulmonary effusions suggestive of acute CHF but superimposed pneumonia particularly in the left lower lobe may be present. Professional interpretation performed at [facility] .End of diagnostic report for accession: [id number] Interpreted: Myra Ash MDTranscribed: 08/28/2020 1 0:24 AMSigned: 08/28/2020 10:31 AM Myra Ash MD [facility] # [id number] BILL # [id number] Name Value Range Interpretation Code Description Data Bridget rce(s) Supporting Document(s) ID Date Data Source [id number] 08/27/2020 07:50:18 AM EST [facility] Name Value Range Interpretation Code Description Data [facility](s) Supporting Document(s) SODIUM 137 mmol/L (136-145) [facility] POTASSIUM 4.3 mmol/L (3.6-5.2) [facility] CHLORIDE 95 mmol/L (100-108) L [facility] CO2 35 mmol/L (22-31) H [facility] ANION GAP 7 mmol/L (7-16) [facility] UREA NITROGEN 16 mg/dL (7-24) [facility] CREATININE 1.08 mg/dL (0.80-1.30) [facility] BUN/CREAT RATIO 14.8 RATIO (10.0-20.0) [facility] GLUCOSE 88 mg/dL (70-99) [facility] CALCIUM 8.6 mg/dL (8.4-10.2) [facility] GFR >60 ml/min/1.73m2 (>59) [facility] GFR ( AMER) >60 ml/min/1.73m2 (>59) [facility] GFR INTERPRETATION [facility] --NORMAL KIDNEY FUNCTION OR MILD DISEASE - GFR >OR= 60CHRONIC KIDNEY DISEASE - GFR 15 - 59RENAL FAILURE - GFR <15 Est. GFR calculation based on the MDRDstudy equation, which assumes a steadystate for creatinine. Est. GFR should notbe used for medication dosing. ID Date Data Source [id number] 08/26/2020 09:17:00 AM [facility]: 08/26/2020XAM:Chest 1V Po rtable CLINICAL INDICATION: CONGESTIVE HEART FAILURE TECHNIQUE: Single chest x-ray. COMPARISON: Chest x-ray dated 08/23/2020. FINDINGS: Small bilateral pleural effusions.Persistent increased interstitial markings.Mildly improved airspace disease.Limited evaluation of the cardiac silhouette.Unremarkable osseous structures. IMPRESSION: 1. Improving pulmonary edema with persistent pulmonary vascular congestion and bilateral pleural effusions. Professional interpretation performed at [facility] .End of diagnostic report for accession: [id number] Interpreted: Emma Holley MDTranscribed: 08/26/2020 09:16 AMSigned: 08/26/2020 09:17 AM Emma Holley MD [facility] # [id number] BILL # [id number] Name Value Range Interpretation Code Description Data Bridget rce(s) Supporting Document(s) ID Date Data Source [id number] 08/26/2020 12:03:21 PM EST [facility] Name Value Range Interpretation Code Description Data Bridget rce(s) Supporting Document(s) IRON,TOTAL @ 44 ug/dL (35-150) [facility] [place] UIBC @ 160 ug/dL (130-375) [facility] TIBC @ 204 ug/dL (250-450) L [facility] % SATURATION 22 % (12-50) [facility] [place] ID Date Data Source [id number] 08/26/2020 12:03:21 PM EST [facility] Name Value Range Interpretation Code Description Data Bridget rce(s) Supporting Document(s) FERRITIN @ 145 ng/mL (26-388) [facility] ID Date Data Source [id number] 08/26/2020 12:03:21 PM EST [facility] Name Value Range Interpretation Code Description Data Bridget rce(s) Supporting Document(s) VITAMIN B12 @ 901 pg/mL (193-986) [facility] ID Date Data Source [id number] 08/26/2020 08:14:55 AM EST [facility] Name Value Range Interpretation Code Description Data Bridget rce(s) Supporting Document(s) NT PRO BNP 6250 pg/mL (0-450) H [facility] ID Date Data Source [id number] 08/26/2020 08:14:55 AM EST [facility] Name Value Range Interpretation Code Description Data Bridget rce(s) Supporting Document(s) SODIUM 137 mmol/L (136-145) [facility] POTASSIUM 3.3 mmol/L (3.6-5.2) L [facility] CHLORIDE 94 mmol/L (100-108) L [facility] CO2 37 mmol/L (22-31) H [facility] ANION GAP 6 mmol/L (7-16) L [facility] UREA NITROGEN 19 mg/dL (7-24) [facility] CREATININE 1.07 mg/dL (0.80-1.30) [facility] BUN/CREAT RATIO 17.8 RATIO (10.0-20.0) [facility] GLUCOSE 112 mg/dL (70-99) H [facility] CALCIUM 8.8 mg/dL (8.4-10.2) [facility] GFR >60 ml/min/1.73m2 (>59) [facility] GFR ( AMER) >60 ml/min/1.73m2 (>59) [facility] GFR INTERPRETATION [facility] --NORMAL KIDNEY FUNCTION OR MILD DISEASE - GFR >OR= 60CHRONIC KIDNEY DISEASE - GFR 15 - 59RENAL FAILURE - GFR <15 Est. GFR calculation based on the MDRDstudy equation, which assumes a steadystate for creatinine. Est. GFR should notbe used for medication dosing. ID Date Data Source [id number] 08/25/2020 05:30:00 PM EST [facility] Name Value Range Interpretation Code Description Data Bridget [facility](s) Supporting Document(s) SARS coronavirus 2 RNA [Presence] in Res piratory specimen by ALIX with probe detection NOT DETECTED [facility] This lab was reported by [facility] [employer] [facility]. ID Date Data Source [id number] 08/25/2020 10:59:34 PM EST [facility] Name Value Range Interpretation Code Description Data Bridget rce(s) Supporting Document(s) SPECIMEN DESCRIPTION [facility] COVID19 RESULT (NDET) [facility] THIS ASSAY AMPLIFIES AND DETECTSTHE TARG ET RNA USING REAL-TIME PCR.TESTING PERFORMED ON Bi[employer] GENEXPERTNEGATIVE 2019_NCOV RT-PCR RESULTS DONOT PRECLUDE 2019_NCOV INFECTION ANDSHOULD NOT BE USED THE SOLE BASISFOR PATIENT MANAGEMENT DECISIONS. COMMENT [facility] APPROVED B Y THE [place]OH. THE [place] FOODAND DRUG ADMINISTRATION HAS NOT APPROVEDTHIS TEST. NEGATIVE RESULTS DO NOT RTLGJPHFUOWL-SPO-6 INFECTION AND SHOULD NOT BEUSED THE SOLE BASIS FOR CLINICALDIAGNOSIS OR PATIENT MANAGEMENT DECISIONS. FIRST TEST [facility] [employer] [facility] SYMPTOMATIC [facility] [place] DATE OF SYMPT ONSET [facility] HOSP[facility] [place] [facility] CONGREGATE CARE SET [facility] ID Date Data Source [id number] 08/25/2020 07:12:03 AM EST [facility] Name Value Range Interpretation Code Description Data Bridget rce(s) Supporting Document(s) SODIUM 138 mmol/L (136-145) [facility] POTASSIUM 3.8 mmol/L (3.6-5.2) [facility] CHLORIDE 94 mmol/L (100-108) L [facility] CO2 37 mmol/L (22-31) H [facility] ANION GAP 7 mmol/L (7-16) [facility] UREA NITROGEN 20 mg/dL (7-24) [facility] CREATININE 1.05 mg/dL (0.80-1.30) [facility] BUN/CREAT RATIO 19.0 RATIO (10.0-20.0) [facility] GLUCOSE 87 mg/dL (70-99) [facility] CALCIUM 9.0 mg/dL (8.4-10.2) [facility] GFR >60 ml/min/1.73m2 (>59) [facility] GFR ( AMER) >60 ml/min/1.73m2 (>59) [facility] GFR INTERPRETATION [facility] --NORMAL KIDNEY FUNCTION OR MILD DISEASE - GFR >OR= 60CHRONIC KIDNEY DISEASE - GFR 15 - 59RENAL FAILURE - GFR <15 Est. GFR calculation based on the MDRDstudy equation, which assumes a steadystate for creatinine. Est. GFR should notbe used for medication dosing. ID Date Data Source [id number] 08/24/2020 07:42:15 AM EST [facility] Name Value Range Interpretation Code Description Data Bridget rce(s) Supporting Document(s) SODIUM 138 mmol/L (136-145) [facility] POTASSIUM 4.2 mmol/L (3.6-5.2) [facility] CHLORIDE 96 mmol/L (100-108) L [facility] CO2 38 mmol/L (22-31) H [facility] ANION GAP 4 mmol/L (7-16) L [facility] UREA NITROGEN 19 mg/dL (7-24) [facility] CREATININE 1.02 mg/dL (0.80-1.30) [facility] BUN/CREAT RATIO 18.6 RATIO (10.0-20.0) [facility] GLUCOSE 93 mg/dL (70-99) [facility] CALCIUM 8.7 mg/dL (8.4-10.2) [facility] GFR >60 ml/min/1.73m2 (>59) [facility] GFR ( AMER) >60 ml/min/1.73m2 (>59) [facility] GFR INTERPRETATION [facility] --NORMAL KIDNEY FUNCTION OR MILD DISEASE - GFR >OR= 60CHRONIC KIDNEY DISEASE - GFR 15 - 59RENAL FAILURE - GFR <15 Est. GFR calculation based on the MDRDstudy equation, which assumes a steadystate for creatinine. Est. GFR should notbe used for medication dosing. ID Date Data Source [id number] 08/24/2020 07:05:59 AM EST [facility] Name Value Range Interpretation Code Description Data Bridget rce(s) Supporting Document(s) WBC 5.6 10*3/uL (4.1-11.0) [facility] [place] RBC 2.90 10*6/uL (4.60-6.10) L [facility] HGB 10.0 g/dL (13.5-18.0) L [facility] HCT 29.3 % (41.0-53.0) L [facility] MCV 100.8 fL (80.0-95.0) H [facility] MCH 34.4 pg (27.0-32.0) H [facility] MCHC 34.1 g/dL (32.0-36.0) [facility] RDW 13.9 % (10.5-14.5) [facility] PLT 191 10*3/uL (150-450) [facility] MPV 7.5 fL (7.1-10.7) [facility] ID Date Data Source [id number] 08/23/2020 09:20:00 AM EST [facility] DATE OF EXAM: 08/23/2020XAMINATION:Ches t Radiograph. One view. CLINICAL INFORMATION:CONGESTIVE HEART FAILURE COMPARISON:08/18/2020 FINDINGS: Lungs and pleura: Prominence in interstitial lung markings as well as more confluent and patchy airspace opacities at the lung bases. Small left pleural effusion. The right costophrenic angle is incompletely included on the ehjny-ww-utyy. The presence of a small right pleural effusion is difficult to exclude given the examination limitations. Heart and mediastinum: Moderate cardiomegaly. Atherosclerotic calcifications are identified within the aortic arch. Other: Degenerative changes affect the visualized spine. No acute osseous abnormality. IMPRESSION:1.Prominent interstitial lung markings as well as more confluent airspace opacities within the lung bases. Suggestive of pulmonary edema. The presence of superimposed pneumonia is not entirely excluded.2.Small left pleural effusion. The right costophrenic angle is incompletely included on the f giva-rs-vruc. The presence of a trace/small right pleural effusion is difficult to exclude given the examination limitations.3.Moderate cardiomegaly. Professional interpretation performed at [facility] [phone].End of diagnostic report for accession: [id number] Interpreted: Emma Lam MDTranscribed: 08/23/2020 09:16 AMSigned: 08/23/2020 09:20 AM Emma Lam MD -- N: [id number] [facility] # [id number] [facility] # [id number] Name Value Range Interpretation Code Description Data Bridget [facility](s) Supporting Document(s) ID Date Data Source [id number] 08/23/2020 09:28:01 AM EST [facility] Name Value Range Interpretation Code Description Data Bridget [facility](s) Supporting Document(s) CHOLESTEROL @ 109 mg/dL (0-200) [facility] TRIGLYCERIDE @ 48 mg/dL (30-200) [facility] HDL CHOLESTEROL @ 60 mg/dL (>40) [facility] PER NCEP ATP III GUIDELINES:RESULTS LOWE R THAN 40 MG/DL ARE SUGGESTIVEOF INCREASED RISK FOR CORONARY ARTERYDISEASE. RESULTS > OR = TO 60 MG/DL ARECONSIDERED A NEGATIVE RISK FACTOR. CHOL/HDL RATIO 1.8 RATIO [facility] INTERPRETATION OF CHOL-HDL RATIO CHD RISK FEMALE MALEVERY HIGH >8.3 >14.3HIGH 5.6- 8.3 6.7- 14.3AVERAGE 3.7- 5.6 4.0- 6.7BELOW AVERAGE 2.5- 3.7 2.7- 4.0PROTECTED <2.5 <2.7 LDL CHOL (CALC) 39 mg/dL (<130) [facility] PER NCEP ATP III GUIDELINES: OPTIMAL < 100 NEAR OPTIMAL 100 - 129BORDERLINE HIGH 130 - 159 HIGH 160 - 189 VERY HIGH > 189 ID Date Data Source [id number] 08/23/2020 08:41:14 AM EST [facility] Name Value Range Interpretation Code Description Data Bridget rce(s) Supporting Document(s) TROPONIN I 0.31 ng/mL (<0.05) H [facility] Less than 0.05: Myocardial injury unlike lyGreater than or equal to 0.05: Highly suggestive of myocardial injuryCorrelation with rise and/or fall ofserial troponins, clinical symptomsand ECG changes is necessary. ID Date Data Source [id number] 08/23/2020 06:56:39 AM EST [facility] Name Value Range Interpretation Code Description Data Bridget rce(s) Supporting Document(s) SODIUM 140 mmol/L (136-145) [facility] POTASSIUM 4.2 mmol/L (3.6-5.2) [facility] CHLORIDE 100 mmol/L (100-108) [facility] CO2 36 mmol/L (22-31) H [facility] ANION GAP 4 mmol/L (7-16) L [facility] UREA NITROGEN 15 mg/dL (7-24) [facility] CREATININE 0.79 mg/dL (0.80-1.30) L [facility] BUN/CREAT RATIO 19.0 RATIO (10.0-20.0) [facility] GLUCOSE 83 mg/dL (70-99) [facility] CALCIUM 9.1 mg/dL (8.4-10.2) [facility] TOTAL PROTEIN 5.3 g/dL (6.4-8.2) L [facility] ALBUMIN 2.6 g/dL (3.2-4.5) L [facility] GLOBULIN 2.7 g/dL (2.7-4.3) [facility] ALB/GLOB RATIO 1.0 RATIO [facility] ALKALINE PHOSPHATASE 81 U/L (45-117) [facility] BILIRUBIN,TOTAL 0.5 mg/dL (0.0-1.0) [facility] PLEASE NOTE:Total bilirubin results may be falselyelevated in patients taking Eltrombopag. AST (SGOT) 17 U/L (11-39) [facility] ALT (SGPT) 20 U/L (12-78) [facility] GFR >60 ml/min/1.73m2 (>59) [facility] GFR ( AMER) >60 ml/min/1.73m2 (>59) [facility] GFR INTERPRETATION [facility] --NORMAL KIDNEY FUNCTION OR MILD DISEASE - GFR >OR= 60CHRONIC KIDNEY DISEASE - GFR 15 - 59RENAL FAILURE - GFR <15 Est. GFR calculation based on the MDRDstudy equation, which assumes a steadystate for creatinine. Est. GFR should notbe used for medication dosing. ID Date Data Source [id number] 08/23/2020 06:26:28 AM EST [facility] Name Value Range Interpretation Code Description Data Bridget rce(s) Supporting Document(s) WBC 6.7 10*3/uL (4.1-11.0) [facility] [place] RBC 3.14 10*6/uL (4.60-6.10) L [facility] HGB 10.5 g/dL (13.5-18.0) L [facility] HCT 31.8 % (41.0-53.0) L [facility] MCV 101.2 fL (80.0-95.0) H [facility] MCH 33.4 pg (27.0-32.0) H [facility] MCHC 33.0 g/dL (32.0-36.0) [facility] RDW 14.0 % (10.5-14.5) [facility] PLT 199 10*3/uL (150-450) [facility] MPV 7.4 fL (7.1-10.7) [facility] ID Date Data Source [id number] 08/22/2020 07:51:35 AM EST [facility] Name Value Range Interpretation Code Description Data Bridget rce(s) Supporting Document(s) MUSE EKG PDF encoded [facility] RGRPJu1pRfGUUrSdg9NiVvBaPHAvTI8vmou5G6Q8yUYjF6RmsCIld0faO0QxG8SyYDLgUBHHTA4HxQWw jb2 [file] IQ/V46uqBVHfnWOcVT0dTNdm/XinJBEKjtZN6t1ueiTCx+NUEW11z9Zw7Bn2fFankQlJc8ero+Gz/actuary clerk [file] I0nx1WxekvVdhVgRALKIG+BYbh/pjA8wAmHBjwx/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 [file] CjEwMzQzNAolJUVPRg== ID Date Data Source [id number] 08/22/2020 07:51:35 AM EST [facility] Name Value Range Interpretation Code Description Data Bridget rce(s) Supporting Document(s) MUSE EKG PDF encoded [facility] NVYQEe0tZgTMWpXjv9PdWeKcIOLgHL1gqay0V0M8dDYmZ4UcjSDva2dzP0WiV0IcBMTlLBILSO8JwRCn jb2 [file] zLHSPHMBmZiZn45iH2GACMrEnEfJGJPXMG0jbr4U7x 8Xwkz3MqaSzJaGYDiAjCxFhVy6LnseBkjJeB4uj3mu1G+ZhzoBiJzBwnoPo4RTGISjmao9mbWvpFwWks 41K8TEBbwSl56q8G1a/jiuy41vwflm2vC0/Y+Ox2Aw0aN+s9DK5mRR1PZaSIWB4rlsEDLpWB7eoZzy7I HBt8MySyZDsDnYJMYBOj+DhyNcINSOoSKTW6ZA6N1Y WgiIv5ZbMNYxitfrEuygn6xIPR5sEXyF1RuOzB7RASJLqSwH79yW9GMEHVtbxDAaGZZ2J7hnKqduqi6d khb5+vSN2xmu8fiiEMLGH3W6p9tvmOc8BE41bZgHqm9TrOU4dwgOToaGPUDu7nhiM63ge9PMu8BEmjj0 zjtXCjD9fMfN43Pyjqwar9aIX+lpLSOh/LRwChnGiU Bp3hbkEKoTax4WKIEYFHTQFwoBZHMmty074g3cWvLPXBOhevxQihlJFkH2btcbvht34ddWfhQ0/xRj8W 1igBqYWnxecvqdgaa6Yvl0DhsKuM7LLG2vampnrIoDNgcX39H2nuF7tKT2yjOiRwt8SXEXcxXrFKE34a Mmd9bY9HoFmCBZ9E7nwhXm86nc3HVfXtNIRma3YSgt PxYAIUI5McF+rnafYtiX3jCnXNml0Bp3JuIsCdgzQ02L3T6NCOdWlk08/g/Bec/2CzR6a37NmU838Jmy ITJSd+MIJfZhVPO8S+yRPiszQCX1wNf/Vgzk5S1sB8UXxsyhvU5jYgKPNQEWopFq/HyomDBY2KIQKblb w3xBqfRiM/iRW4Y7V3ND3l2wY6a2hCsIMCFUGkytX0 /gggBzoUK3/hr3KeJJGA+TvbS+C5RE1Oh+PgcF04/RqD4pU6J4mT18eufR4Xu9Sl/G8J5VgcX8hbMqGq 2iwdds9GGOIKofX/5Fo4f9WGtMAvI3cPfKweJ2+lL2k9jEgd3lhDNhM//et//Gfw35oiu10g//O///3f /uu//v3f//2f//Pv//jli48wys1n6//3r+vjcsv/91 /XxWXKw/8JkD/dfZV//Kyy/CkFYyYkIf06nsd37xW/rV+Ep1tf6nnuT/MyU6M9Xar/0w5k9cdpb3/Ftx /fi28/xamjX0GDX/AD/N40konX/+HPd8qMT9D/CYtTBl/AF/AVfAV/gb/A3/Aqeye53fSGi7YWi2AhWJ /Av+3NLtuUD/hn+Yo4PMCadFgy2q1S2s08o6N6x8Ki nUfQwTVt9T6m02F4F8k54U8V3i53t0S1+7b3nCr/8f+2Frf8a+/sUauSP44zFI3131/Na9UHpJV/wP+1 357yqePZ8pE20E/t/PXxp1bAJvDE/Ht9vQLQw4A/tdc6k++vaV2Dwc/8E/h+k2UVfqlTieV/25tdtikv 7Xc9o46eeiMgX5/Ad/Ad/AA/wL/trXnmJ9/95uFb/r VBg356UUwj5ymeCwQNS/AF/F37RdveY83tS/Y7rncihAfl0uak9c2w4Suwn27P4edz4pg30Sh72Ia1A/ na6pnLbw2Y4/hKLV4z3qM3zfdrjO3SU90cvFgZxLwJgX5D05B3Uf//Inz+iwjwA/wh4b42bqNwkRO/DD 9ve+ufTfy/KeAL+He+Ol22KS/wF/gb/A2+gW/gO/gO jdTk9Vu1Cd5F/wz/PA/G4Dj9Ls1WkJf24q9beV/u17nAg3393Bz7Ca2lVcg0BN9BD/KlpTBj16y5jS53 ba3nlFCSI/LGvO3DmhFQ+coL/AX+Of8o0Ly6Lc0yYtk7UV8Mb+An+Af8Gc/YMhWMuynP9x8P8Mdhhgd+ ArMeBTC2Lq5Me3R/wTfwDXz/finElE0y+aqiBsisvw l4WcSzXyFbpLebcP7X9aMFauLPZ5tpOu2Led8N3ojvz+Akb70cqw+G8b7474/1/Zdlad7Y6/fKV/0trn sN03JV1tc0K8L78yw+Ius53nls3AZlo/D8D31nllzn+V8L3C40solq8Inzi8xlRT/VN1rz/2tCT9VOap EucRp6VC/Ax/ct+arrPw/KL47dZ76nnq+R4i7AA138 73Lfx35x8u00xjzQ8r0mF/qNnvZF2jiA/RTlW7564U/s9mR64DY8vBSz7Uq6Cg1Lo0R/18s09YyGL/+v zTg6nWq+awLXB/mhz9L7wpypzRcPdnZ17y9/1/H/hth3zmBV1KGbt9TTru28Yb/3s541yJA1/3h9NT7+ gy6TrhHg6OPq5l1v+erKPNdNo+A783KhlC/5196o// TKV5F1/a+0hobpD5pa+v/OA0bvtz8w80of3gIPWA12hnj/8f9e+pb/7yw8k4v1f+8db725+XmBh4w2S2 5aPQ/95WnVmiHHo3YtCP/50ojC2A/+4jm362sqng/eZ1X9v/kwauuobUKK3xdUXkmly8qe0y+6Y/Qe/H pj/OyCf+QtR1k96LUsuC2faoj4g/zjlwbpyldafXLl Q2fg1MAOwFVUCdhBB63Jv2whG/i/7/eZ2wxy2se422QqgBccqIt0cANmg34Cu0N7/JYHO7g9wnXg3+/i Hpb6p9d/Rb408hrRlNkMG7+Xf+Oz8b1fvfswAO+VIq7kK+vyjH/RLhn3Xg/m5+PbV91ZwVMv6Izb/67k p7d93WCaUYUVnxJi5Ce6+tV/3YuxfLh8wx/2XteKKY Pv4M/0vQ9rkxg5J/Un+TmKj0dUKu3+/cYmQsCJ1DM7TF0P4GmY7pGlbj+Pqb0Qr6dzrkxplS/BH/l5SY IxjFwv2TQlgzTygO6JN8+rvVMJQcCPA40HYu50fwRx69louHFkAopNy97tCC96y+Cu0mPJfZ5Sv179bk ckmpxw1bm+la/b6jvwGP85tkd6bgztL94cg/ed639v 48/+5ibT4RysqTH2B80lWZ284Fuzdw+/RxZFvrfDfW2ZS/g4q4VOByFM1BT1PN/7M6Kla0WR5zeinkN9 6a/eMvgKvqKehXoW+Zs7Pl0lfbUhnNFqJbi89vw1r+bH9E/pr94y+Qz9HlstL9ftR5kye+av8my1bvA2 4kz4mx8+Y0rtJ1gxt5d7z++ua/gJV1U9Tawo9t7TAy PgB/nxM8143ZK2+Kvi2balb1o56DQzFS6x8/NCc3rPFpKs+ZcCkbP95p5ll/3+8g3+vgBCk8o+qrKD7+ AH+JivPFH/1Ffny1XTgx+Yn+RY6OOrIEd6QY/dFDU5fmS+Bh/cAAh7fejtdGc/wA/wE/zbXq/yzo3oEm 9Se87f3VYth2R4zgT7G2+rnhIIX1M+JtbfxPdNfN/E gcUN35JcPcyxgGmUwT/vzrz0Vrk6dfG38EJ+vw0L6dF2jDcjABYM/6z4jhf2y8SvX0ndU31MeaKN9mY8 tQ6+L+NftTArXSzfZB35FTh6i2+/S756y+AL+LSAd82u2MzQy+P8782e2xzW+9ngG/sfcnax71n/I0/u K3NoxKP/I0/uJ8E/4M//dxTwxogVT4rq0MBdQBqn4x GaWAg3b+SrLm/wN/vWywQw9Gt1W44Lbut2O+b/3ZLgH/Dn/906/+8u+vfJTf02d9qywtaL1jgkcqfLf1 y/nTvg9H1AcUczN9g0A5E5JQpqrpwC6L/sPh/fDpnQbjMq7Rq9Y/Abraham/ca+XmX/iqNDs5E2+A7+AF+gJ /gJ/pyz5iuB8Gejs4bU3+1ob/dHL57JlDOBZt/+4W9 A46zk0vhrSbkond+13X6Ob7GxecV36Y+8a92yK38Y8bbzt+ba987tfhvkxhK/sbYpHScen8f9UTPxxbI Erwy7n6KaQXz9duXvq5otLrCgvGK0fT/9k3ci650zyjh5Hox/W2Siv/Di1z9F5i0K8BH/ek3fi9+yz89 Sb/BP9ryCQFZCwE38Ph3U/6uv/o28jevvw5/8tUqPc G0FrufWXoTa/kF8sXrX/X7X/kq+qv9Yyvjgr2Pd2q+JuU3xmweLN/6qQqTg94uC+rfAhlIxk9L/cZ1DP jF/5cpEDawFijxeRXvW9JeJz2Fyte98/f7H9R/7Ctf+nk4SDbsZIrGg0aCmd8fOfBrao/lK9vKJ8B1BP 1jkCm6x8/yQn9rXXaOGBoLd+4Wley72rk1q44sWt3y hPv2kjk37/aGjOUrbpKb1kaIw2kS20/Slim/vwHqUo9/JFwqKbqMa6ik9JlWV8Ru+3on/N/H/5gbfwDfw CrP38z1wF1n+Zarate/r4z5uzqk+yH1V4glt0kc7TA4Z5KK/P75rO1E/wd/gG/gG/fey53fz9I9vWm/Mzwfz 28N3eMNGjNt/IIptCInHKb9C5Uo60H5Fv94VX7o8uY /gz/yN6szhx+9+3I6uMmtBTMqhKx7vzZ2gck/z7irf/WBfk7j+gH/m+tdoRY45o128jxy9G6ws63/y7H +q6r6COjVd5Z0512405a80nrqv6gbytuMc2s39Ybhhsti10v/43mssx82kRnb/3eFvUCc3a2vGX/3GNd fmCpyXbmZh3K/5+c6r10y/9f/XSv8rX/2GdtmmbOAb +G30JCTC+AF+op4E/+pz+n2I2aV3arMd5Sz5in8TD2VV3P/mh6j5S63+2rd4BI0w0auV/qq+e+mvajyU /nrJSxfx7nI9frNaI76ayg+k3Gxi1Lr7czzcPj+ryjPOS3/1lue/wW4Ggx2O/Wtlf/WWwd/gb/Bt/vfS L5GOmycQT/ac/8owf0s864Luia4dA/PsD4yEz1CaZ6 vN/Xa303IP0etE8Aq6Vb0rb78tIYISdJkzMyN64plmE/xtKhKNmg3vUzRHR0744J2U+itzAV/BV/AX+A o0Bl9X26Ug+j1hQ36m/djnmM/6zhyl07TudiDctn1+30p/RO21YMo6Mt8Vq+Ld2Wi4f05ZteHTR5BOtU /ku4D8a341x1b+fR8Vq6x+bcoH/UQcJ0hew7a213yd /7Wc/j8m5I7yg01PnN6gfVcN+nebDkz6K7Jyz8ufRPdDr7O8H7DqMggY+g+eO/KVnTnvtvOAj/8X8pVB afLEL6bO/aCdsVcxyFcG+wtuVwmmIapl08D1I0i36X6YR6uVuUL7ADMr/Bl9nT+jr/Nn/l9/BNcr+Ar+ An+Pr9Ub4C77/Zn2+uPgO/wSjvXd6Du0S/zZ/7rM/O zygC/gC/gKvoK/wF/gb/A3+DM/p2b40HzezXzDSy9GTDNXU19T8UArhy1G8+jrHPZXDvsrh/1Gy54akz YZzfVlrv682lX/2l3+8l3h1XK/niudW13ppOVWJuyfqbt4P500tzN+eOUEr/AFF281eIpdr7Uknk0Xuh orn/iVr/IjOb8TG9x2PuxcQMtHi/LVPZS+5Z++wtct /+w3fg+/ZXttM/ldL28TF/edP83Vy/4tI53R3/nxZ4Auh7/e3Si6z1/y1er+/MlXq/bd/xXipuW1J/3G U/155aus/+RUO8BzzPejZ6Cumunsa+gv0wuhQ41w+h69zM434L41kh059oQ11tq+9bcRxmiEe3U5cZo8 XVe+Kn2FX/mq9BW+HfVf+76lbjnwkX1Js0nOkg5+5S qea074vFd4N72j9q9Lkbz1EThhnRI+5apFKtdXx64fl79pgiRX4Jc09Dg6Bsm4WD/67a9VkjmYXgo5r9 E/u42+js713O65m879v43exzosG3p04PRy3MGxNsBnv/agq58jBfkX+6xH7gr+Ah/zlWO+8v87UsMj5c HUg/Q33fiJS+9tV6hyhC15MGc7D/THzmOl6MiXqXwE +EfsMpii22U1LCvl0tpUp9Cv+/IqCtR5WI/Mil7VmpOjlJYghE850O76wj+xF/W2b7/lsm9/y+AL+AL+ 1O27ig0h8+s1RVmxI/zLpokGtv9mJshbkKci+Ze5Rzufa2YGb/2GZ+L62g8W/+D6sd/wM/Hxsl5xJprg 6new1FZi0/aTQCRim2nY+hn/FL/yVc+9Z/xT/Ix/ip /y17j//uOvueJ0a0/3M/t9v/LVVwb/gD/+IaEHa4i3W/ta44lAqTjrpmoHDoVl1l5enmamWOhZm6G19Z 18R/0C6ibsY2uqF060+AlHQtQUmfDHj9Q3gRFR1IH2LdC1l4qjTBiwbPpaw4gBE43f5j+4itJfddm+cR hm8waHoPhdV9mbqR1QG9Lxa0z6n/Zcb5YoNps/b+jz /Y+m467GYdfFFXK/4WxTjB7MN19o+Sp0/DkAFFbHVN77NYsNJ0HW0Yo9Z9QI58SnqkGx0urGK/gC/ti3 K06BT156SEf1tdC40bhw91/eIPcK87S85R+cQ5H49ntA/4A/62/sWX9jP+AL+LM/bu27k0N0HIB+qr7X xvct/dVbnu+75X1sjkmdeuE2e1kt21e270/sBB/fd+ P32gfPkDcduECi81LhJPkzp+JlKMzxlDv1Tm0f3U8W4Xinwf1qBbewXTJqYZUusnM4FnN/IbnrwAW5Xw yTIY5Vm+hzwsd+I/cSG0Kw1/3w2R+Fk52mFK+Fz34/uMoxXpQSKV1NO/Ad/Nn/BuSrcPy/uP7E4cT2XY /eW6ukWWTtNjgQzjKCsdB8SVLTf5OmH/giDU9ACDiY zoWlnag2E/D/Zz6hfA4t+H8D/2/g/y12L7ItGUjwA7ZfEZfNu0R74A+MXOCPfiNyg2/g4/9N/L/p4Af4 ljdM42N4TWUfk7rjA+bng/aO1glx5J9U6ilZ/AU+5quD+duk3X89xI+G8phsTbO0UEsHKVb7Zqhnece7 D+Fo6g1y8yqVHnVAUsGwafw4KL7qcfJL/YAJlq6g36 7QvNaV7o/t4o8+Power Originator/Id8Par90c+HPenbC/yufgfWa/pJO1jEghu6BIkDrqzJ1cc6tROkb65wo9zd3279 jnXvmq/Gvurooan0n7J4haP5m6J705w4/R/Gu/kcW/1en4zcGqG9ur+8Cp5WaT/uSrVfJV/uSr1p/kT7 8xq9r5lCtop9H/+DrOpb7NpimHXLj6a07fg+WVr+LK 81nng/VFHybcilfNdxAa5teyhx/KZiOvfKVd/7Du4Tw33n4e8Hc88SyAphGzGb/Yb+YBb7iTjgb9O2nv s59qc17lpyu02npFrH/JNfYbucZ+C834bxZKE2+s5wzjG4A+IP38okyLX8+Ra+g6dpYjetqVt9vcB4ny 63KN/Rhz3cwkxHj85zyOa1CDY00SCwstS6U40Hvm9I mjT1xU35wj/uYe+9jcgusVfAV/3iBzGdkVoV1B2ybrtE0sY/auv709L+YOXB+4PvHcxHMP+OOPk/AfTP gPpo0+Vq7laJNcdD0mfxI+Bn+Db+Ab+VTXWjczGbVN8rtu1N+Y8B9M+J1d6Ntyu75A4R2x9BpB43XX+W OqeFXzJte9O5eb+023py4TC/sP5QQnMX/2O54feyO8 bDByc2E+9hvpB/oIH6vVlW5DoMSnSlqXSFyHqAIyX2/tLtuUF/gL/Nteqzpve+8eOUu+qn8/5nw/w8F3 0Q83u97o/CKGa0sGEV76rtY/9dEfalkBqnw5HH/AV/Gsz6gQK/1VzUWlv+ryBn+Db+Ab+A6+gx/gB/gJ fuI9J/0O0rha0QB0c1C/Matheus/5l1IGW36X1Kl+J8/oN/ [file] X7eyZf9cNoDcHCLMR8Lpy8MvANZtIQPYUt4+RpD3OJX4aAViXgv9JCb1QdvqVWDHLv== ID Date Data Source [id number] 08/22/2020 07:30:58 AM EST [facility] Name Value Range Interpretation Code Description Data Bridget rce(s) Supporting Document(s) SODIUM 141 mmol/L (136-145) [facility] POTASSIUM 3.7 mmol/L (3.6-5.2) [facility] CHLORIDE 99 mmol/L (100-108) L [facility] CO2 36 mmol/L (22-31) H [facility] ANION GAP 6 mmol/L (7-16) L [facility] UREA NITROGEN 16 mg/dL (7-24) [facility] CREATININE 0.84 mg/dL (0.80-1.30) [facility] BUN/CREAT RATIO 19.0 RATIO (10.0-20.0) [facility] GLUCOSE 92 mg/dL (70-99) [facility] CALCIUM 9.0 mg/dL (8.4-10.2) [facility] GFR >60 ml/min/1.73m2 (>59) [facility] GFR ( AMER) >60 ml/min/1.73m2 (>59) [facility] GFR INTERPRETATION [facility] --NORMAL KIDNEY FUNCTION OR MILD DISEASE - GFR >OR= 60CHRONIC KIDNEY DISEASE - GFR 15 - 59RENAL FAILURE - GFR <15 Est. GFR calculation based on the MDRDstudy equation, which assumes a steadystate for creatinine. Est. GFR should notbe used for medication dosing. ID Date Data Source [id number] 08/21/2020 02:20:00 PM EST [facility] Name Value Range Interpretation Code Description Data Bridget rce(s) Supporting Document(s) SARS coronavirus 2 RNA [Presence] in Res piratory specimen by ALIX with probe detection NOT DETECTED [facility] This lab was reported by [facility]. ID Date Data Source [id number] 08/21/2020 06:57:38 PM EST [facility] Name Value Range Interpretation Code Description Data Bridget rce(s) Supporting Document(s) SPECIMEN DESCRIPTION [facility] COVID19 RESULT (NDET) [facility] THIS ASSAY AMPLIFIES AND DETECTSTHE TARG ET RNA USING REAL-TIME PCR.TESTING PERFORMED ON Bi[employer] GENEXPERTNEGATIVE 2019_NCOV RT-PCR RESULTS DONOT PRECLUDE 2019_NCOV INFECTION ANDSHOULD NOT BE USED THE SOLE BASISFOR PATIENT MANAGEMENT DECISIONS. COMMENT [facility] APPROVED B Y THE [place]. THE [place] FOODAND DRUG ADMINISTRATION HAS NOT APPROVEDTHIS TEST. NEGATIVE RESULTS DO NOT [id number] INFECTION AND SHOULD NOT BEUSED THE SOLE BASIS FOR CLINICALDIAGNOSIS OR PATIENT MANAGEMENT DECISIONS. FIRST TEST [facility]CARE [facility] [place] DATE OF SYMPT ONSET [facility] ICU [facility] CONGREGATE CARE SET [facility] ID Date Data Source [id number] 08/21/2020 08:06:42 AM EST [facility] Name Value Range Interpretation Code Description Data Bridget rce(s) Supporting Document(s) SODIUM 141 mmol/L (136-145) [facility] POTASSIUM 3.7 mmol/L (3.6-5.2) [facility] CHLORIDE 98 mmol/L (100-108) L [facility] CO2 39 mmol/L (22-31) H [facility] ANION GAP 4 mmol/L (7-16) L [facility] UREA NITROGEN 25 mg/dL (7-24) H [facility] CREATININE 1.05 mg/dL (0.80-1.30) [facility] BUN/CREAT RATIO 23.8 RATIO (10.0-20.0) H [facility] GLUCOSE 110 mg/dL (70-99) H [facility] CALCIUM 8.8 mg/dL (8.4-10.2) [facility] GFR >60 ml/min/1.73m2 (>59) [facility] GFR ( AMER) >60 ml/min/1.73m2 (>59) [facility] GFR INTERPRETATION [facility] --NORMAL KIDNEY FUNCTION OR MILD DISEASE - GFR >OR= 60CHRONIC KIDNEY DISEASE - GFR 15 - 59RENAL FAILURE - GFR <15 Est. GFR calculation based on the MDRDstudy equation, which assumes a steadystate for creatinine. Est. GFR should notbe used for medication dosing. ID Date Data Source [id number] 08/20/2020 09:50:32 AM EST [facility] Name Value Range Interpretation Code Description Data Bridget rce(s) Supporting Document(s) SODIUM 142 mmol/L (136-145) [facility] POTASSIUM 3.4 mmol/L (3.6-5.2) L [facility] CHLORIDE 97 mmol/L (100-108) L [facility] CO2 39 mmol/L (22-31) H [facility] ANION GAP 6 mmol/L (7-16) L [facility] UREA NITROGEN 23 mg/dL (7-24) [facility] CREATININE 0.98 mg/dL (0.80-1.30) [facility] BUN/CREAT RATIO 23.5 RATIO (10.0-20.0) H [facility] GLUCOSE 89 mg/dL (70-99) [facility] CALCIUM 8.3 mg/dL (8.4-10.2) L [facility] GFR >60 ml/min/1.73m2 (>59) [facility] GFR ( AMER) >60 ml/min/1.73m2 (>59) [facility] GFR INTERPRETATION [facility] --NORMAL KIDNEY FUNCTION OR MILD DISEASE - GFR >OR= 60CHRONIC KIDNEY DISEASE - GFR 15 - 59RENAL FAILURE - GFR <15 Est. GFR calculation based on the MDRDstudy equation, which assumes a steadystate for creatinine. Est. GFR should notbe used for medication dosing. ID Date Data Source [id number] 08/19/2020 09:07:01 AM EST [facility] Name Value Range Interpretation Code Description Data Bridget rce(s) Supporting Document(s) TSH,ULTRASENSITIVE @ 0.899 mIU/L (0.360-4.170) [facility] PERFORMED AT [address] [address] ID Date Data Source [id number] 08/19/2020 09:07:01 AM EST [facility] Name Value Range Interpretation Code Description Data Bridget rce(s) Supporting Document(s) SODIUM 142 mmol/L (136-145) [facility] POTASSIUM 2.5 mmol/L (3.6-5.2) LL [facility] RESULT(S) CALLED TO AND READ BACK BYJUST IN ON 4NIR AT 0905 ON 08/19/20 [place] [address] CHLORIDE 95 mmol/L (100-108) L [facility] CO2 40 mmol/L (22-31) H [facility] ANION GAP 7 mmol/L (7-16) [facility] UREA NITROGEN 25 mg/dL (7-24) H [facility] CREATININE 0.98 mg/dL (0.80-1.30) [facility] BUN/CREAT RATIO 25.5 RATIO (10.0-20.0) H [facility] GLUCOSE 88 mg/dL (70-99) [facility] CALCIUM 9.1 mg/dL (8.4-10.2) [facility] TOTAL PROTEIN 5.4 g/dL (6.4-8.2) L [facility] ALBUMIN 2.5 g/dL (3.2-4.5) L [facility] GLOBULIN 2.9 g/dL (2.7-4.3) [facility] ALB/GLOB RATIO 0.9 RATIO [facility] ALKALINE PHOSPHATASE 91 U/L (45-117) [facility] BILIRUBIN,TOTAL 0.5 mg/dL (0.0-1.0) [facility] PLEASE NOTE:Total bilirubin results may be falselyelevated in patients taking Eltrombopag. AST (SGOT) 16 U/L (11-39) [facility] ALT (SGPT) 20 U/L (12-78) [facility] GFR >60 ml/min/1.73m2 (>59) [facility] GFR ( AMER) >60 ml/min/1.73m2 (>59) [facility] GFR INTERPRETATION [facility] --NORMAL KIDNEY FUNCTION OR MILD DISEASE - GFR >OR= 60CHRONIC KIDNEY DISEASE - GFR 15 - 59RENAL FAILURE - GFR <15 Est. GFR calculation based on the MDRDstudy equation, which assumes a steadystate for creatinine. Est. GFR should notbe used for medication dosing. ID Date Data Source [id number] 08/19/2020 09:07:01 AM EST [facility] Name Value Range Interpretation Code Description Data Bridget rce(s) Supporting Document(s) NT PRO BNP 74209 pg/mL (0-450) H [facility]EN[facility] ID Date Data Source [id number] 08/19/2020 07:43:24 AM EST [facility] Name Value Range Interpretation Code Description Data Bridget rce(s) Supporting Document(s) WBC 5.6 10*3/uL (4.1-11.0) [facility] RBC 3.07 10*6/uL (4.60-6.10) L [facility] HGB 10.5 g/dL (13.5-18.0) L [facility] HCT 31.0 % (41.0-53.0) L [facility] MCV 100.9 fL (80.0-95.0) H [facility] MCH 34.1 pg (27.0-32.0) H [facility] MCHC 33.8 g/dL (32.0-36.0) [facility] RDW 14.0 % (10.5-14.5) [facility] PLT 234 10*3/uL (150-450) [facility] MPV 7.8 fL (7.1-10.7) [facility] NEUT % 67.0 % (35.0-75.0) [facility] LYMPH % 15.8 % (16.0-52.0) L [facility] MONO % 14.1 % (0.0-8.0) H [facility] EOS % 2.7 % (0.0-5.0) [facility] BASO % 0.4 % (0.0-4.0) [facility] NEUT # 3.7 10*3/uL (1.8-7.7) [facility] LYMPH # 0.9 10*3/uL (1.2-4.8) L [facility] MONO # 0.8 10*3/uL (0.0-0.8) [facility] Eosinophils [#/volume] in Blood by Automated count 0.1 10*3/uL (0.0-0 .5) [facility] BASO # 0.0 10*3/uL (0.0-0.2) [facility] ID Date Data Source [id number] 08/18/2020 03:29:00 PM EST [facility] DATE OF EXAM: 1CAROTID DUPLEX U LTRASOUND INDICATION: Cerebrovascular accident COMPARISON: None TECHNIQUE: Duplex imaging with Doppler and spectral analysis were used to study the carotid vessels in the neck. FINDINGS: Doppler investigation yields the following values: MIGUE: 82.5 cm/sec peak systolic, 15.1cm/sec end diastolicRCCA: 91.2cm/sec peak systolic, 12.2 cm/sec end diastolicICA/CCA Ratios: 0.90 LICA: 52.8 cm/sec peak systolic, 18.9 cm/sec end diastolicLCCA: 80.3 cm/sec peak systolic, 13.6 cm/sec end diastolicICA/CCA Ratios: 0.66 The external carotids and vertebral arteries demonstrate antegrade flow. Doppler spectral analysis demonstrates normal waveforms. Velocity measurements have been correlated to angiographic stenosis calculation based on distal internal carotid diameter as defined by the Society of Radiologists in Ultrasound, Consensus Conference. Radiology 2003; 229; 340-346. IMPRESSION: Less than 50% stenosis bilaterally Professional interpretation performed by [facility] Medical Imaging at [facility] End of diagnostic report for accession: [id number] Interpreted: Anoop Henderson MDTranscribed: 08/18/2020 03:29 PMSigned: 08/18/2020 03:29 PM Anoop Henderson MD [facility] # [id number] [facility] # [id number] Name Value Range Interpretation Code Description Data Bridget rce(s) Supporting Document(s) ID Date Data Source [id number] 08/18/2020 11:23:00 AM EST [facility] DATE OF EXAM: 08/18/2020HEST RADIOGRAPH S, 2 VIEWS INDICATION: CHF COMPARISON: 07/18/2006. TECHNIQUE: PA and lateral views of the chest were obtained. FINDINGS: Lungs/Pleura: Edema. Moderate right and small left effusions. No pneumothorax. Cardiomediastinal contours: Unchanged enlargement of the cardiac silhouette. Tortuous thoracic aorta. Soft tissues/upper abdomen: Within normal limits. Bones: Degenerative changes of the spine and shoulders. Diffuse osseous demineralization. IMPRESSION: Edema with moderate right and small left effusions. Professional interpretation performed at [facility] .End of diagnostic report for accession: [id number] Interpreted: Kerline Alejo MDTranscribed: 08/18/2020 11:22 AMSigned: 08/18/2020 11:23 AM Kerline Alejo MD [facility] # [id number] BILL # [id number] Name Value Range Interpretation Code Description Data Bridget rce(s) Supporting Document(s) ID Date Data Source [id number] 08/23/2020 05:01:00 PM EST [facility] [place], [place] [address]PATIENT NAME: MAGDA RODRIGUEZDATE OF : 2REPORT: ADMISSION NOTEPATIENT NUMBER: [id number] STATUS: IPMEDICAL RECORD NUMBER: [id number] OF ADMISSION: 1ROOM: 00ADDENDUMMrMia Rodriguez has had multiple areas of stroke in the past. [facility] care ofDr. Nguyen. He did have an MRA of the neck on 06/09/19. He hadpatent carotids without hemodynamically significant stenosis. We will getthe results of the MRI of the brain that was done in [facility]05[facility]. Further recommendations will follow. However, he will need theTEE prior to consideration for TAVR.DICTATED BY: Adolfo Santos MDDictated: 08/18/2020 9:50DT: 08/18/2020 9:59Job #: [id number]: [facility] computer generated reports are notconfirmed or authenticated unless they are signed by the providerElectronically Authenticated by:ADOLFO SANTOS MD On 08/23/2020 05:01 PM EST Name Value Range Interpretation Code Description Data Bridget rce(s) Supporting Document(s) ID Date Data Source [id number] 08/23/2020 05:01:00 PM EST [facility] [id number] [place], [place] [address] NAME: MAGDA RODRIGUEZDATE OF : 2REPORT: ADMISSION NOTEPATIENT NUMBER: [id number] STATUS: IPMEDICAL RECORD NUMBER: [id number] OF ADMISSION: 08/18/2020OOM: 00Marcio is an 89-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 He has had valvular heart disease and coronary artery disease havingsuffered inferior posterior wall myocardial infarction in November of 2001. CKrose to 1040 with CK-MB of 100. He was found to have a posterior wallmotion abnormality and was catheterized. He had total occlusion of thesecond posterolateral branch of the circ with some weak antegradeintracoronary recanalization which was stented with a 3.0 x 13 BX velocitystent. The distal portion of a PL subbranch remained occluded at thatjunction. He has had a 50% calcific plaquing in the LAD and diagonalsystem and a focal 70% stenosis in the RCA. In December of the same year hehad a 3.5 x 13 BX velocity placed in the right coronary artery. In December he had in-stent restenosis of the circumflex and LAD. Intracoronarybrachytherapy was done after cutting balloon and additional 3.5 x 12 stentwas placed distal to the mid segment stent in the right. He had a 50%distal that was left alone. He had 99% in-stent restenosis treated with acutting balloon and brachytherapy. At that junction his EF was 45%. Overthe years he developed progressive valvular heart disease with severeaortic valvular stenosis. Last echo 06/13/2020 showed an EF that wasestimated to be 40-45%. The same day he had a nuclear study that said theEF was 35%. He had evidence of a scar in the distribution of the RCA andcircumflex without reversibility. He had a peak gradient of 50, mean of32. Peak aortic velocity 3.55 on longer cycles, it was up to 4 meters persecond. Valve area is 1.06 cm2, dimensionless index 0.25. He had moderatemitral valve regurgitation. He had inferior and posterolateral wall motionabnormalities.He had been maintained on clopidogrel 75 a day, aspirin 81 mg a day,Lipitor 20, allopurinol 300, potassium 10 mEq, levothyroxine 75 mcg a day,gabapentin 600 t.i.d., terazosin 10 mg a day, Avodart 0.5, amlodipine 2.5b.i.d., furosemide was increased to 60 mg a day. He declined considerationfor valvular heart surgery. He had been a DNR and then he changed his mindwhen he was up in the [facility] with congestive heart failure. Previously he had been in [facility] in April. At one point intime he weighed up to 274 pounds. He was able to bring his weight down Danae believe 199. When he was in [place] in April his N-terminal proBNPwas 3445 and he had a troponin leak up to 0.48. He does have an underlyingright bundle- branch block, hypothyroidism on replacement. Risk factors ofhyperlipidemia, hypertension, remote history of tobacco use as he did at one point in time and his weight down to 199. When he was up [facility] he was diuresed 32 pounds of fluid. His N-terminalproBNP up in [place] was now 20,942. His BUN was 38 and creatinine was1.36 upon admission. White count was 9, hemoglobin 10, hematocrit of 33.7,MCV was elevated at 106, platelet count was normal. He does have a historyof TIA, no focal residual neurological deficits. He has a history ofhyperuricemia and gout and the BPH.On examination he has V- waves up in the neck to about 10 cm. He hasdiminished breath sounds consistent with effusions and fluid bilaterally. He has a 3/6 holosystolic murmur of MR, a 2-3/6 late peaking murmur ofaortic valvular stenosis at the aortic interspace. No murmur of AI. Chestx-rays from the office have shown small bilateral effusions withatelectasis or infiltrate. Liver is not enlarged. He does havehyperpigmentation and moderate edema of the lower extremities. [place] rhythm with PACs, incomplete right bundlebranch block pattern, first-degree AV block with DC interval of 215, lowvoltage in the limb leads, poor R-wave progression V1-V3.On transfer he was on allopurinol 300 mg a day, amlodipine 2.5 a day,ascorbic acid, aspirin, atorvastatin 20, vitamin B12 1000 mcg a day,Colace, furosemide 60 mg a day, Vicodin 5/325, metoprolol 50 b.i.d.,morphine 50 mg b.i.d., gabapentin 600 t.i.d., terazosin 10, MiraLax,potassium, and vitamin D.At the current time we will begin therapy with Entresto 24:26 one tablet aday. He will be on Lasix 40 mg IV push t.i.d., spirolactone 25 mg a day. We will see how he diureses with that. We may give him a one-time dose of2.5 mg of Zaroxolyn today. I am going to hold on re- echoing him maybe Mulugeta. We will diurese him and see what type of shape he is in. I talked to him about open heart surgery at his age with comorbid conditions, thehigh risk of complications and he is not sure from a quality of lifestandpoint whether he wants to consider that. He has had a history ofprevious TIA. He is very interested in considering the possibility of aTAVR and/or mitral valve clip. He would need coronary angiographybeforehand to see if he needs additional stenting, but the nuclear stresstest suggested scar in the distribution of the right circ withoutreversible ischemia. 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 Probably sonogram his carotids while he is here. He may require a VIKRAM beforehand. I will discuss the issues with Kriss and Selena re transcatheter therapy. Prognosis is guarded. [place] he decided to make himself a full code. I will revisit those issueswith him but currently will abide by his wishes that were expressed [place].PRINCIPAL PROBLEMS UPON ADMISSION:1. Supply demand rise in troponin.2. Severe aortic valvular stenosis.3. Moderately severe mitral valve regurgitation.4. Ischemic cardiomyopathy, EF 35.5. Previous stenting of the circumflex and right with subsequent brachytherapy 2001/2002 respectively.6. Hypertension.7. Chronic heart failure due to systolic heart failure with a recent acute exacerbation.8. Venous insufficiency lower extremity.9. Hyperlipidemia.10. Moderately severe mitral valve regurgitation. Currently I am going to put the amlodipine on hold. For now will continue the beta- isaac though it may need a dose reduction.11. Pleural effusions secondary to heart failure.12. BPH.13. Remote history of tobacco use.14. Right bundle first-degree AV block. High risk for need for pacemaker insertion, TAVR is pursued.15. History of morbid obesity, weight 276, currently less than 200 pounds.DICTATED BY: KYLEE Kabaictated: 08/18/2020 9:46DT: 08/18/2020 9:55Job #: [id number]:NOTE: [facility] computer generated reports are notconfirmed or authenticated unless they are signed by the providerElectronically Authenticated by:ADOLFO SANTOS MD On 08/23/2020 05:01 PM EST Name Value Range Interpretation Code Description Data Bridget rce(s) Supporting Document(s) ID Date Data Source [id number] 08/17/2020 02:43:15 [place] [address] TELEPHONE RADIOLOGY DEPARTMENT Name: [facility] #: [id number] : 1930 Ordering Physician: ADONAY Sex: M Date: 08/16/20 Admission Type: I/P X-ray Number: [id number] Unsigned Transcriptions are preliminary reports and do not represent a Medical or Legal Document XRAY CHEST 2 VIEW PA - LATERA [id number] COMPLETE:08/16/20 14:02 LEI 97970 (REASON FOR CHEST: SHORTNESS OF BREATH Comparison study on 06/09/2020. FINDINGS: Examination of the chest 2 views submitted for evaluation. Pulmonary vascular congestion. Basilar opacities. Cardiomegaly. Atherosclerotic changes along the aorta. Degenerative changes bilateral shoulders. IMPRESSION: CHF with pulmonary vascular congestion and cardiomegaly. Basilar airspace disease. Electronically Reviewed and Signed By JESSICA HE 08/17/20 14:43 Dictating Initials: BE Transcribed Date: 08/16/20 15:23 Transcribe Initials: LI Name Value Range Interpretation Code Description Data Bridget rce(s) Supporting Document(s) ID Date Data Source [id number] 08/17/2020 02:43:09 [place] [address] TELEPHONE RADIOLOGY DEPARTMENT Name: [facility] #: [id number] : 1930 Ordering Physician: JAYLYN BOSTON Sex: M Date: 08/15/20 Admission Type: I/P X-ray Number: [id number] Unsigned Transcriptions are preliminary reports and do not represent a Medical or Legal Document XRAY CHEST 2 VIEW PA - [place] [id number] COMPLETE:08/15/20 11:15 [facility] [id number] (REASON FOR CHEST: SHORTNESS OF BREATH Comparison study on 06/09/2020. FINDINGS: Examination of the chest 2 views submitted for evaluation. There are increased right lung opacities. Possible consolidation right lower lung. Stable cardiomegaly. Mild pulmonary vascular congestion. Atherosclerotic changes along the aorta. IMPRESSION: Worsening airspace disease right lung. Possible consolidation right lower lung. Pulmonary vascular congestion. Stable cardiomegaly. Electronically Reviewed and Signed By JESSICA HE 08/17/20 14:43 Dictating Initials: BE Transcribed Date: 08/15/20 14:11 Transcribe Initials: LI Name Value Range Interpretation Code Description Data Bridget rce(s) Supporting Document(s) ID Date Data Source [id number] 08/17/2020 12:17:00 AM EST [facility] Name Value Range Interpretation Code Description Data Bridget rce(s) Supporting Document(s) SARS coronavirus 2 RNA [Presence] in Res piratory specimen by ALIX with probe detection NEGATIVE [facility] This lab was ordered by [facility] a nd reported by [facility]. ID Date Data Source [id number] 08/16/2020 06:26:17 PM EST [facility] Name Value Range Interpretation Code Description Data Bridget rce(s) Supporting Document(s) Discharge Note [facility] spital CJERVc1tWxHSKiadbE8EJLMcHP6wspq3SMchQ5EvTCYvnzQkZTFxA0fsYPLCNYHRVTMceI0aSCXqGlbJ vYm vVMCsBVFCeXmQhBvMsG4fjpgp9sUW4PDIdSshfJU0GgOd1XWKxO2OxLJRaZQQxc0OdBo7+AxW6vmSokY m5cT2EN5ZKHByI35jkSi7jTQHplUrgnRFa1eGBxhwWj6WscocCUIPnRITBDYjFUBUSC61CHQHKTePMLZ trxe5pg0DsHt6xZwfF04/ZrfmxtVVb+2f7/Uiks8RQ hOBdz4u9bwrVwHhwcqKOTZaVpEQY0hn33eDWxvQRbEgAZ7lZMAcOJt2OWuF91dMHlgDoFV+C45PEYfvl 6wjWc8+Haydee+0Ajtg1I7/Haiecvf6/2fjLcTTviYiZaLxPySPmjAv19qCWtEJiaEKrv5QMLIAAp0bNh6 [file] i0LPgm6sLs1anIk3+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/Em54yjNDCNdKDwhSD2536Spu/z/dC+4tlv6c4nLQkqGuLwzzg5XKmsykDDjI [file] sMAlcYr+KN/12lH0Oe5to27xD/Haresh/2mOKjWcakcKiwJYcRK8OMU7ri8CkBsUoVSYfs6SzLvElWDHEAY 9vj2YdKcVwFQHns5IqLec8MyBqC8Dkv285llQkwzMnSWIsFszbRL8TwGVoLO0CAVumItLsB33kOWwfAz 54YHqzKJLpSbPzYMi0Fz6KDQIkK2IygPIepGRzJFOj XAWeUzK4IYRwTyZtR3EuDDVpJp18BNvmAMPrCvByUNx0Lx8KLAMnRYUtbOKagXGvHSDdNMXfPhT7ZQRd NrCkI4UvuwObiEXgGAVjSiqvQO0Mw956HA91djObITNrQKARVk5XNV3tq9MwMnJkIVEoe8CeVlg3BqLx L2D7tEOtP5PmjgNZXJHiZ2FulDxrLRAoLXmsZBIZWW TgCtDqCDExttGkP8MpaUTmELGblHXYLSGpHB4sk4LeaourN2rxhzEib8pAoqJcETetRpd+PgplbmRvYm lEFwJpAWEoAvjHXHgHELUhWZfgLVScVe6qdYhcVV6IuFG5iFPjTY8OlQMiEApyET7NVKJtLn6qiXFuAG TdpaO8mZItHAIyvKNQNFNtKF3vz6MzisawW6vuorNh g6aZpsOpTZtbTkm+RudfhyFtUaiSMdYkRFJnEorYEAjUJNVnBZhwNIWrZx5sfDfgWO7JjAW5fLMnXX3E gYXsQGdnHV2XJUUmQw5hhMYgKVngBYZhAg8oNV5CDGOcEJ7qp3FiicudR1pczlGmw7cZbkZxSUnwPbm+ XfecupAuSllWKJOwVN6axlq8ROIoFPwzHFFfTQJlRE LVL0GnnH23UPTHT5arXQFrEfZ2MLIuXqKcXRZaAUSkNxQtZBOPVIK7VTHgZpRpWYGmPVEcGSDgCMZIUH 0vMa4DNL6ka1PmFiWwILEqUwiFLOdFAZKcPHnoAJWzV1Y8UChtTmztSN6GHSyputKhXEQmSdfqYC4LLA 7uGXk6IGAwj74rd69hTfLjD29vaBBcJEZfUVmuCWOO UnEmB1YfI4YECVEvqINnSKXhPSDZQo8+GwZhRA7orsgaRPPsc0FnKgb5GfViS0DavxDkNIxFDFRkVgef ZuUqFYUISkNzL0WzUNP9STPiEaljZV3GSPVaSHZjRRUZPe9FPQAaLBTdQ4UlhQOcT4URAhMiTQ6tV0MB AY2TuPHrTLJuL3SgxJKcCeJnL9uMRaaxM0VhFNgcU0 dhIZXiVeYbMQYfI1ywUdWbNRStSFBfXl3UIRSyK84yl9CDeFSmCFG4ABVsYWQzKKLqpVMDSmW2QWBsHv A+Pgo+XyysyzMkYipPQJKbFUQxIguFHYupU887gHMeFnHpOHdmE6LiS5DmKl5bARX4NHEoNaZvCFTrP6 QgNiA+Pz5tGf3RRW0ad5OkKldiRXDBUNRoRfndBMYp QRVlJMVrGWR8HHJ3YQLcEbQfOYXvCrniHQWdFTZjQOKeyrACOQDxCJCqZqE8BTDzJSWiFDWnPAklSWPg XXD2HdJrAXAyNFRrKU3qRfUpQYGdZRLiDBLyFMIgCCEfrwPQAFElDPFlDOA6CZWhFMBiNNOoZPlmAHLg YHYnUtItKHVgMFBnGT3eUgCvJTRmGAF8YuJkAJWmKV ApdlCQGPXkAKRmZpb7MOHmXARmOKZoELsjWBIuTPBeGdY1WMTsYUMiSW1gQcPpKTXrNjHxDOmkHBQzQN ChhvFDEHGcZFZpLiF6GPQfCLOaUFRzVElqUTDkKSTkYuQ0OWXxGUYoOS2fUeXjQCUhQFH2YCVdQRKiIX PvnfQKZRCjHPDvHqh4WAEeFSBjCMPaDKauQZUkIKNt YxF1FXPiWPScWP2lTeAcOSJzYtNcQMJuEADyFXWoqcAWLVVeHTLrQpZlCJVtXPFuTBNmPQyqABPjVBZ7 XMVlQAIaZWFeYU1bJhGxMXCkNpEaFPJbNYNkDOJwroARIMCqAIGyMVSbKiNhBDIxRMRiITvbHQZgCYF4 QHN0ZDBqTJFfIP6zNfVpBDQxVgVwEZEoHWVkGKXicj HXYUDxAYUkRMA1EmNnYERxQZTjZCwcRELdOKBtZffgBMJhNPHzYN3bOuRaGFShOqi8VqUkAGSoKULylq JRXPDsXMKkRCK3VRZbYLGbGHBtWEhzFPRvJHM5BYGxFUMeOOQaWF5bEbOgKISaMhT8RwHdUOIyHICmhn VRSPDmTNQnXFZzJNGyBZRsURNlQSmxNAJlRYL1VLw1 JXUeZGRzJN9bGdPkUFOzCdCwElLbQNHoOSAomkIUXFHcDKNkDqR6RePsVCBlAFQzFVmeBAVbQDE5HlC0 MNZyRRYmCI1jBfXnHYSkWyS3UtYpVRXvVRLnkkXNWYDmIYKsEfh5TaQtZGXxUPGpELz5etIqmCRuRok4 LvMdY5Uxd1GdKcAcNAGAYGLvRR1gckQ1NHKuSohwBF 6ZQOGdDPu5GzL1TmABRYDjQpA7WwD4YMI9LEWSX5MQQKE4JUUUVcI2JiseIjf4FEMgBNP4AWnyXwf0Ce zZI1DhOsY3FuOiOdN+SXvvFW8PsFzvSUP4Tj3+AtS7WSO0cZEuYqdjBeU1HQcaOUEQHwn= ID Date Data Source [id number] 08/16/2020 05:10:22 PM EST [facility] Name Value Range Interpretation Code Description Data Bridget rce(s) Supporting Document(s) Provider Note [facility] pital KSJGRg3cEeEDEcksqP5TGSUsLC7gjlo0RDygW5LfDDBfkhClFBQpK5rvOXREQDDQKSOogX5rEXIgUpsA vYm oDNAnDJHIiNpUkEdFhG3gsylo3cHF9APPfYslxQF0EoCc7TGAzB9EyMBIcIKKbj9FlUg9+GnX4toQopE r2qI1SB2MSTGvM22mdJf6uSGDchJtrnEZh5iARdbyNi6IzwpuKHEJkLNOJKMoDMBSOP49QJNSSRdHWEA egus7ck5DoHn0yGkiC10/ZrfmxtVVb+2f7/Lodu1RY aLJfv1t7ofmLsSdhupJZZQkHhGTO0tw30fRDrhAKeUoDA4nMHJwXNq2KUmN98fQNjlTsTH+D59FPMgir 6wjWc8+Haydee+9Uecf2I8/Haiecvf6/0hzAvFFlcNoCrAmVuPCowTh00iEJlNKvlYFtj7DYTNRAs5qBp0 [file] v2LYdu5yVw0vwTs8+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/Dr46bfJZCJqCIeoOD8479Nxz/z/dC+7vpt1o1hTLqzUxZcwgn5JCtucjVAhU [file] ZSAyMQo+HvogqGGfoUlwVIIFWpGyOHKNBTEFR1YB ID Date Data Source [id number] 08/16/2020 04:35:00 PM EST [facility] Name Value Range Interpretation Code Description Data Bridget rce(s) Supporting Document(s) RESP PROFILE RP2.1 NASAL PCR C [facility] \\BLDo\\RESPIRATORY PROFILE NASAL PHARYNGEAL BY PCR\\BLDx\\ \\BLDo\\DETECTED _NONE \\BLDx\\ 08/16/20.1726.[facility]. \\BLDo\\EQUIVOCAL _NONE \\BLDx\\ 08/16/20.1725.[facility]. VIRUSES ADENOVIRUS NOT DETECTED NORMAL: NOT DETECTED [facility] CORONAVIRUS 229E NOT DETECTED NORMAL: NOT DETECTED [facility] CORONAVIRUS HKU1 NOT DETECTED NORMAL: NOT DETECTED [facility] CORONAVIRUS NL63 NOT DETECTED NORMAL: NOT DETECTED [facility] CORONAVIRUS OC43 NOT DETECTED NORMAL: NOT DETECTED [facility] 18441-7 NOT DETECTED NORMAL: NOT DETECTED [facility] REPORT TO DEPARTMENT OF HEAL TH HUMAN METAPNEUMO NOT DETECTED NORMAL: NOT DETECTED [facility] HUMAN RHINO/ENTERO NOT DETECTED NORMAL: NOT DETECTED [facility] NOT DETECTEDNOT DETECTEDNOT DETECTEDNOT DETECTED PARAINFLUENZA V3 NOT DETECTED NORMAL: NOT DETECTED [facility] NOT DETECTED RSV NOT DETECTED NORMAL: NOT DETECTED [facility] BACTERIANOT DET ECTEDNOT DETECTEDNOT DETECTEDNOT DETECTED TESTING PERFORMED USING THE [employer] RP2.1 MULTIPLEXED NUCLEIC ACID TEST. THIS TEST HAS NOT BEEN FDA CLEARED OR APPROVED; THIS TEST HAS BEEN AUTHORIZED BY FDA UNDER AN EUA FOR USE BY AUTHORIZED LABORATORIES; THIS TEST HAS BEEN AUTHORIZED ONLY FOR THE DETECTION AND DIFFERENTATION OF NUCLEI ACID OF SARS-CoV-2 FROM MULTIPLE RESPIRATORY VIRAL AND BACTERIAL ORGANIMS; AND THIS TEST IS ONLY AUTHORIZED FOR THE DURATION OF THE DECLARATION THAT CIRCUMSTANCES EXIST JUSTIFYING THE AUTHORIZATION OF EMERGENCY USE OF IN VITRO DIAGNOSTIC TESTS FOR THE DETECTION AND/OR DIAGNOSIS OF COVID-19 UNDER SECTION 564(b)(1) OF THE ACT, 21 U.S.C. 360bbb-3(b) (1), UNLESS THE AUTHORIZATION IS TERMINATED OR REVOKED SOONER. ID Date Data Source [id number] 08/16/2020 01:40:00 PM EST [facility] Name Value Range Interpretation Code Description Data Bridget rce(s) Supporting Document(s) Natriuretic peptide B [Mass/volume] in Serum [place] Plasma [address] PG/ ML 0 - 450 Above high normal [facility] Testing methodology changed t o chemiluminscent immunoassay based on Vidable technology. Effective 03/04/18. ID Date Data Source [id number] 08/16/2020 01:40:00 PM EST [facility] Name Value Range Interpretation Code Description Data Bridget rce(s) Supporting Document(s) BASIC METABOLIC PANEL [facility] BASIC METABOLIC PANEL Sodium [Moles/volume] in Serum or Plasma 140 mEq/L 136 - 145 [facility] Potassium [Moles/volume] in Serum or Plasma 4.1 mEq/L 3.5 - 5.1 [facility] Chloride [Moles/volume] in Serum or Plasma 102 mEq/L 98 - 107 [facility] Carbon dioxide, total [Moles/volume] in Serum or Plasma 31.9 mEq /L 21.0 - 32.0 [facility] Glucose [Mass/volume] in Serum or Plasma 164 mg/dL 70 - 100 Above high normal [facility] Urea nitrogen [Mass/volume] in Serum or Plasma 38 mg/dL 7 - 18 Above high normal [facility] CREATININE SERUM 1.36 mg/dL 0.70 - 1.30 Above high normal [facility]GE 89 [facility] HE[facility] 69.00 INCHES [facility] ital eGFR NON-AFR AMR 49 [facility] eGFR AFR AMR 60 [facility] ital BUN/CREAT 28 6 - 25 Above high normal [facility] Calcium [Mass/volume] in Serum or Plasma 9.8 mg/dL 8.8 - 10.2 [facility] ANION GAP 6 7 - 15 Below low normal [facility] Estimated GFR reference r andi: > 60 mL/min/1.73m >18 years: Calculated using IDMS traceable MDRD Study Equation <18 years: Calculated using IDMS traceable Bedside Rodriguez Equation ID Date Data Source [id number] 08/16/2020 01:40:00 PM EST [facility] Name Value Range Interpretation Code Description Data Bridget rce(s) Supporting Document(s) CBC [facility] COMPLETE BLOOD COUNT Leukocytes [#/volume] in Blood by Automated count 9.2 K/uL 4.0 - 10 .0 [facility] Erythrocytes [#/volume] in Blood by Automated count 3.16 M/uL 4.30 - 6.10 Below low normal [facility] Hemoglobin [Mass/volume] in Blood 10.7 g/dL 13.5 - 17.5 Below low no rmal [facility] Hematocrit [Volume Fraction] of Blood by Automated count 33.7 % 39.0 - 50.0 Below low normal [facility] Erythrocyte mean corpuscular volume [Entitic volume] b y Automated count 106.6 fL 80.0 - 96.0 Above high normal [facility] Erythrocyte mean corpuscular hemoglobin [Entitic mass] by Automated count 33.9 pg 26.0 - 34.0 [facility] Erythrocyte mean corpuscular hemoglobin concentration [Mass/volume] by Automated count 31.8 g/dL 32.0 - 36.0 Below low normal [facility] [place] Erythrocyte distribution width [Ratio] by Automated count 13.7 % 11.6 - 14.8 [facility] Platelets [#/volume] in Blood by Automated count 217 K/uL 150 - 450 [facility] Platelet mean volume [Entitic volume] in Blood by Automated count 9.9 fL 7.1 - 10.4 [facility] Neutrophils [#/volume] in Blood by Automated count 7.93 K/uL 1.70 - 7.70 Above high normal [facility] Lymphocytes [#/volume] in Blood by Automated count 0.49 K/uL 1.50 - 6.00 Below low normal [facility] Monocytes [#/volume] in Blood by Automated count 0.73 K/uL 0.00 - 1. 00 [facility] Eosinophils [#/volume] in Blood by Automated count 0.03 K/uL 0.00 - 0.30 [facility] Basophils [#/volume] in Blood by Automated count 0.02 K/uL 0.00 - 0. 10 [facility] 0.02 Urinalysis macro (dipstick) panel - Urine 0.000 10^3/uL 0.000 - 0.012 [facility] Neutrophils/100 leukocytes in Blood by Automated count 86.1 % 42.2 - 75.2 Above high normal [facility] Lymphocytes/100 leukocytes in Blood by Automated count 5.3 % 15.0 - 41.0 Below low normal [facility] Monocytes/100 leukocytes in Blood by Automated count 7.9 % 0.0 - 12.0 [facility] Eosinophils/100 leukocytes in Blood by Automated count 0.3 % 0.0 - 7.0 [facility] 0.20.20 NRBC 0.0 % [facility] MANUAL DIFF NOT INDICATED [facility] ospital RBC MORPH NOT INDICATED [facility] pital ID Date Data Source [id number] 08/15/2020 09:44:00 AM EST [facility] Name Value Range Interpretation Code Description Data Bridget rce(s) Supporting Document(s) Provider Note [facility] pital GIROWv7jSfSHRankuP2OIKFkQC7fdpf9ZOfdJ9VeWWKxvoYcEZAlH2xlQKWXODKGFNKexM6qZFMuGvoF vYm sHJOtGEZLbHsYxWaOiJ4tqyib7kBO6ENIlIuvpWO0ExPw9ZREwH3LwWKFcVKHih4VgPn9+BwT7tcUvfF i1fL7IB6ZCUKuC59gvOz0sANIpfBtckVCs5qNThebWk2MxqhsRDGBhJBTGZVnFBNRHM06KUCZWSpHQYH dyto3gw2KgUx4oJszN48/ZrfmxtVVb+2f7/Bivg0AL pYUbu9y1oubYfMrxpgOIQRsDtHNE7jx52aTTjmRCfUwTG9tOHHrJLo6JKsR31lZUydIeBM+M63PACvnq 6wjWc8+Haydee+3Mccj7X9/Haiecvf6/4xcWzFGxuGkQeTwKtEQhsFh18jTJeDUxpPVjh8MQPNTEc7vEk8 [file] a6YVsd2eUh3knRy4+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/Dq85jzPZMDmGUhcIE5662Dim/z/dC+9efe7h7zAZgoVwNvzqx8VJnswaVCdL [file] IDIxCj4+IvE1NSX9eCCkYattNaDrQGbfRAHSCkz= ID Date Data Source [id number] 08/12/2020 05:57:24 PM EST [facility] Name Value Range Interpretation Code Description Data Bridget rce(s) Supporting Document(s) Provider Note [facility] pital IXFHPv4tQaBVTxnffS8FFTWqRK1hjue8WPkfM4NdHIUpchFdFCZlO1rtTZHPIEQLHRXvbF6dPNPcPefW vYm iSDUlEOKMnYlYhPhKzL9oapfc5oBN5HNFdUsryEN5JrRq1JBCwF1CkRUXtTLLon8JdIm8+SfP5arQqaM v7cQ7NJ5LXCHaV80mbSa0hSRVcdVeepCRs2yJWgvmId4QvhdbHFEEaOXGHTHbYUFMND93CWRDCNhGFVD pdkk8bf3NaYd6zStfK07/ZrfmxtVVb+2f7/Hdbv5DT mMSzk8m7flqIdQihtkQWQOmIxDLO1ze22cAEwfRUtSaYV5lGDUiLUl9ORdI78oWQgwVaIK+A58EVOfhz 6wjWc8+Haydee+4Twnm6D5/Haiecvf6/5osLqOJzuVaYhTeLaLStjJt03qGIsQWpyITci9XHLOUKx9bMj3 [file] g4VYnc8wVs7rvAp1+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/Lc76vjIZSOuCEmcSX9200Xtv/z/dC+3nmy8r9uALtsRhHyyrc2NWuzcpSWsN [file] W2RAG4bOOzZvktIdN5DYytYHRRZjj= ID Date Data Source [id number] 08/12/2020 12:25:00 PM EST [facility] Name Value Range Interpretation Code Description Data Bridget rce(s) Supporting Document(s) Troponin I.cardiac [Mass/volume] in Serum or Plasma 0.196 ng/mL 0.017 - 0.060 Above high normal [facility] CALLED TO: Sukhjinder RUFF @ 1300 [facility] { READ BACK: YES \\BLDo\\TROPONIN I INTERPRETATION:\\BLDx\\ < 0.06 ng/mL NOT SUSPICIOUS FOR AN AMI 0.06 - 0.59 ng/mL MAIER ZONE FOR AN AMI, SERIAL MONITORING RECOMMENDED 0.6 - 1.5 ng/mL SUSPICIOUS FOR AN AMI Reference range updated for new chemiluminescent immunoassay method based on Vidable technology. Effective 03/10/18. ID Date Data Source [id number] 07/29/2020 06:22:03 PM [facility] Name Value Range Interpretation Code Description Data Bridget rce(s) Supporting Document(s) Progress Note [facility] LSAJKy4zApHNCvdjgM2MPZPwPY4ybhg4VMyyR7GwUVQlbfAfMPMcJ7heDEMLBJREKFJyyC5vRSAyDjyW vYm yHPIyNRBAsGeFyKaYbY9ecfio5uOK6PFDrHpvxYR9YkVz2QUXdA0SkUQNdJOVjz6EkCl0+GiE4fxNvpG q5wJ8LY0APAYwE09miJs6cFVPkzSchaWMj2mHWbmcMh6DipceXXYSjIMXERCeKTOLFX24XIZMGHcGBPF nfkz6qx0SdKy5hQicU17/ZrfmxtVVb+2f7/Mhmy3NV oFPyl5i8qykTyXyuhmMWENhAjICZ5ns80dZWcsDElNcNA2cJXQsNWq2YPeN16uSGjoTeAG+E50ERGeil 6wjWc8+Haydee+9Crfs9U3/Haiecvf6/2qqXzKBljAwFbShBgJCcbQf26nRMxIHkwINih0IQFJXDq4hGr7 [file] c8VDyr9iZt6caGk8+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/Ht86nuOBKAhWUzjNP7907Tsh/z/dC+7tam7r0dHIcgQzVqsgi1EFymtkTKsE [file] MDAgbiAKMDAwMDAwMjcwMiAwMDAwMCBuIAowMDAwMD PeKbKvFADrRXHaCV8kGmPcOIZpYGM2NHXyKIIeTJDcjjOVTHGgTFFtEqynBGKnVHPhDIGuVGteDZTeXS OtZcO0VVRpJYFnCB1bGqJeCEKuSyc1YEubSBImOBZmnvCOHYHhXKSfFxszLNAbYVOeZIQlMLlzMFWfHH QiXAbjBINvRIFaQH8fMdNzOXRsVES8AYusTNRrQWEj opUNNZYiQSJpGRQ4EZHjWBWsSHKpJBsjHYYgAHZdAtflSYJqHVSnRP5hQvLdSBOgGbN3SZzfWBPpILPp yfQJRQThJZWnRMMyBqZxZDLfMGFoVNjqJMJxYGHcHKRiBFJkVUQtBA5pIoKaFHMcMbShVFWoBFDcWPHx lyWPEBGaOSRvJnmxEaBmLKBvUYKuTYbtCJLxTZM4RB L7UIQjRDArUS8fCdYlZYRqMyU9DWOpWTCcQPYbnuNUCBSlRYEzFaCiIPSxRXQbAOQgCAgwJKDfYRQ8Lf CtFRLkFFAqOD3eOaEbSDLsCtxaQjBgUUBhFTEkhnFQaALleGevlwa1CGhjSY4Kp960MKOrLJKUZiZoJ8 pcJu5pSBSaMVVBDRLqIFFqPllEUKe0JcIHODPHVNP3 TYKELcK1UBXIBSI1AnGZNYwADB3zKYREJpyuYxW1PURhDdMaY1YDDRn8OeYDEcCxRrVdCUM1Gq0CTBBy E9f3RMTmBvx+RnumqGOjkNuhBDISEnq7JzSKXODZB6NE ID Date Data Source [id number] 07/26/2020 03:59:15 PM EST [facility] Name Value Range Interpretation Code Description Data Bridget rce(s) Supporting Document(s) Provider Note [facility] TFRQKy6dHtVPZrrsxQ5UOIWtZZ5lqwz4YWcyP7TuSOXqpqKwDYZmH4neDPBCNUZOIFDemE5vFWSfEhiC vYm oKUHnYTFDdIsNcNuQrP2jqnjs4zXB2GEIaTlfiSU8DgYv9PZOlQ4QgLMJaAMBbb6FbMf7+CfX6pgAplF r0uV7IQ9VRJEqX20waAi5wRTDpcVtktSFn5dOSncfNp2JjjuoZICXgTDJWGKmEXHASE54ELJFXXjXOAX phus8lp6BwJz6iFclK71/ZrfmxtVVb+2f7/Tiro8CG yMQoa2t0rzjThXutaeVHPJdYbYFR5cc68qFHnkWUnDyLT3sMGZdJFa8CVsX79cWTrfLwKJ+J20NIFwla 6wjWc8+Haydee+7Yjmh2X5/Haiecvf6/1ogVmPIltTlSrZdErPZvsKb19xOWrFYrcEZpi9VEOYAFg7sJa7 [file] b7PPht1xFr0unKr5+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/Eq36mxAYTHnMIpbEV6551Gkc/z/dC+1xjh4w0bJShkRyEkczp0DOcizrTRmL [file] AwMDAgbiAKMDAwMDAyMzAwMCAwMDAwMCBuIAowMDAw WIBvHRP5MWPpDELcSE6cBdGdLXMaTGLmAPEoXUXiVNGyegLEZQTcCHWcCjfhJrZyCYUbBLUhBSmwRZRr GLStHhIpTMRbLBEpHP6wBgPtLOWmOLJ8NDIhMPLsJGAuicOBENYnXIYrGalnOVRpTYPpFPTrIFtxIILt ECCeIeWkGXNsXIMlTL9uOzTsGDWpQeNqGCJjLELrXN ClaxFYUYKaBLOkJitrUACrUZUwMDYiNQsgNYZoWQGhWQujBKSzDJTyNM3cPiPoLGQtRJZ0DWhpGYRiMU KzpoINPZNpUAFwGXC7EXWlROBsMLJvNSavDCLgCVDhVqblZFZaCZMyNJ4kJyPgPHIwLiQtASGjMRPzHF AgbiAKMDAwMDAyMjUwMyAwMDAwMCBuIAowMDAwMDIy NbPbWSWeYQUcIM6uCvKqZYKmMlS7KrFkWRVbTOOclpFWcMIylShfuux8BVvfGW9Ff561VJUnKPVADdJb W1yeYp2oYXJvEUFOINFzBYYiDpreDJGIBmK8Ncm8ErDCYBC0ZVDaVfZ2Csz3JzY0UTJVAE6iSNX1R4Tx VjtMWFNGRIYxPlVICqS0UoQ3IGu0Kti9C4K6Bh7YWV PiR9v6XQJxJAh+UomkfXYiwCxkTPLMSkYdHinOSJRIH5CR ID Date Data Source [id number] 07/24/2020 04:50:00 PM EST [facility] Name Value Range Interpretation Code Description Data Bridget rce(s) Supporting Document(s) CULTURE THROAT [facility] CULTURE THROAT CULTURE CULTURE SOURCE: [facility]bbie [facility] ospital HEMOLYSIS _NEGATIVE 07/25/20.1236.[facility]. CATALASE _N/A 07/25/20.1236.[facility]. FINAL REPORT: _NO_BETA-HEMOLYTIC_STREP._ISOLATED___ 07/25/20.1236.[facility]. COMMENTS ID & SENSI NOT INDICATED [facility] spital 07/26/20.1058.[facility].COMPLETENOT INDICATED ID Date Data Source [id number] 07/24/2020 04:50:00 PM EST [facility] Name Value Range Interpretation Code Description Data Bridget rce(s) Supporting Document(s) STREP A DIRECT ANTIGEN SCR [facility] STREP A ANTIGEN BY RAPID CHROMATOGRAPHIC IMMUNOASSAY STREP GRP A NEGATIVE NORMAL: NEGATIVE [facility] { THROAT CULTURE IS INDICATED. CONFIRMATORY TESTING TO FOLLOW. ID Date Data Source [id number] 07/06/2020 05:28:18 PM EST [facility] Name Value Range Interpretation Code Description Data Bridget rce(s) Supporting Document(s) Admission Note [facility] HVVLAt5qQtNRTwvkaN8GDCByPD0eroj8BJdyH2EnZKYsonYiXOYoI1peDENRCPKNLYCmuD5gUSXbNjpN vYm gNPYvNYAHxCeFvLcLaL9kkdub4lLQ8UWHaHybmZD7KfGc5PMNoM8HjNGIcVVIcx4YaZl3+LtS8kpVovF k2kV8YW2QHOQjE33khBt7eGCGheWxcuSUs4lRAmcyJv5FqhpqKIFXwXXXUDOpJESGSP13JNEFHQuDHKW tzou6et5HeNe6xDkdI51/ZrfmxtVVb+2f7/Hhwi1LH rQVah3e6vwbLoAyfahREQUnTrIMO9hg77yTQjlAOxEjTB5rZNEvJWg6ZLeH64wZDlnWdXE+N27RVWxcl 6wjWc8+Haydee+5Yexx4X5/Haiecvf6/9fhIaTBcuDpTfGoUbFXfbBe09xRZqLPbfWXmk4XNXHWRu2dWd6 [file] r4WZnx0xSd4ubTj3+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/Oi68boLDJKfENnrUM7742Skt/z/dC+1ehc1b9tIIfxHlUlwml3EJqxnoENvI [file] == ID Date Data Source [id number] 07/06/2020 07:00:00 AM EST [facility] Name Value Range Interpretation Code Description Data Bridget rce(s) Supporting Document(s) [facility] l COMPLETE BLOOD COUNT Leukocytes [#/volume] in Blood by Automated count 4.7 K/uL 4.0 - 10 .0 [facility] Erythrocytes [#/volume] in Blood by Automated count 3.42 M/uL 4.30 - 6.10 Below low normal [facility] Hemoglobin [Mass/volume] in Blood 11.7 g/dL 13.5 - 17.5 Below low no rmal [facility] Hematocrit [Volume Fraction] of Blood by Automated count 35.7 % 39.0 - 50.0 Below low normal [facility] Erythrocyte mean corpuscular volume [Entitic volume] b y Automated count 104.4 fL 80.0 - 96.0 Above high normal [facility] Erythrocyte mean corpuscular hemoglobin [Entitic mass] by Automated count 34.2 pg 26.0 - 34.0 Above high normal [facility] Erythrocyte mean corpuscular hemoglobin concentration [Mass/volume] by Automated count 32.8 g/dL 32.0 - 36.0 [facility] Erythrocyte distribution width [Ratio] by Automated count 13.2 % 11.6 - 14.8 [facility] Platelets [#/volume] in Blood by Automated count 154 K/uL 150 - 450 [facility] Platelet mean volume [Entitic volume] in Blood by Automated count 9.7 fL 7.1 - 10.4 [facility] Neutrophils [#/volume] in Blood by Automated count 4.03 K/uL 1.70 - 7.70 [facility] Lymphocytes [#/volume] in Blood by Automated count 0.52 K/uL 1.50 - 6.00 Below low normal [facility] Monocytes [#/volume] in Blood by Automated count 0.12 K/uL 0.00 - 1. 00 [facility] Eosinophils [#/volume] in Blood by Automated count 0.00 K/uL 0.00 - 0.30 [facility] Basophils [#/volume] in Blood by Automated count 0.01 K/uL 0.00 - 0. 10 [facility] 0.06 Urinalysis macro (dipstick) panel - Urine 0.000 10^3/uL 0.000 - 0.012 [facility] Neutrophils/100 leukocytes in Blood by Automated count 85.0 % 42.2 - 75.2 Above high normal [facility] Lymphocytes/100 leukocytes in Blood by Automated count 11.0 % 15.0 - 41.0 Below low normal [facility] Monocytes/100 leukocytes in Blood by Automated count 2.5 % 0.0 - 12.0 [facility] Eosinophils/100 leukocytes in Blood by Automated count 0.0 % 0.0 - 7.0 [facility] 0.21.30 NRBC 0.0 % [facility]UAL DIFF NOT INDICATED [facility] ospital RBC MORPH NOT INDICATED [facility] pital ID Date Data Source [id number] 07/06/2020 07:00:00 AM EST [facility] Name Value Range Interpretation Code Description Data Bridget rce(s) Supporting Document(s) BASIC METABOLIC PANEL [facility] BASIC METABOLIC PANEL Sodium [Moles/volume] in Serum or Plasma 143 mEq/L 136 - 145 [facility] Potassium [Moles/volume] in Serum or Plasma 3.8 mEq/L 3.5 - 5.1 [facility] Chloride [Moles/volume] in Serum or Plasma 107 mEq/L 98 - 107 [facility] Carbon dioxide, total [Moles/volume] in Serum or Plasma 30.5 mEq /L 21.0 - 32.0 [facility] Glucose [Mass/volume] in Serum or Plasma 127 mg/dL 70 - 100 Above high normal [facility] Urea nitrogen [Mass/volume] in Serum or Plasma 17 mg/dL 7 - 18 [facility] CREATININE SERUM 0.97 mg/dL 0.70 - 1.30 [facility] AGE 89 yrs [facility] l eGFR NON-AFR AMR >60 [facility] eGFR AFR AMR >60 [facility] BUN/CREAT 18 6 - 25 [facility] Calcium [Mass/volume] in Serum or Plasma 9.5 mg/dL 8.8 - 10.2 [facility] ANION GAP 6 7 - 15 Below low normal [facility] Estimated GFR reference r andi: > 60 mL/min/1.73m >18 years: Calculated using IDMS traceable MDRD Study Equation <18 years: Calculated using IDMS traceable Bedside Rodriguez Equation ID Date Data Source [id number] 07/05/2020 05:58:16 PM EST [facility] Name Value Range Interpretation Code Description Data Bridget rce(s) Supporting Document(s) Admission Note [facility] spital XPKZXj7iVoUARbvcuY9RKQHsDY9goyq9JOofI5EaMLVglcOxDEVxT1kwQIALXTXIWKIvvZ4fOKNuTyaV vYm oWBMmXOKQdLqSfAbIbJ4rgqnk9jOO6OHJfEpwjOO5FlWd1WKYuR2GrAPZpJGGiu9UoGm9+KmE9ilNneF f2bZ3XD8ZUSTqF82koRz4hRUHamWjlwRJo0xGVggzKl4VexgoNCAEaODUHOQhJXROKT38AATWXLkUSVL otdb4se8YuDe3iGumV37/ZrfmxtVVb+2f7/Dizu1YV lSIbz9m2iyvEgGhaszRYCJnLnKEX2ar11fAEblQQjFqTA1pLEKfWUy0JUaX41jZOjfTjWR+I78QRUgua 6wjWc8+Haydee+6Radz6R5/Haiecvf6/0wdXbRWewXiNrKmHcYRplGj84uMBdYVgiJXnw9MHQQUHz2pGg4 [file] j2ESux7sZu5hkBn6+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/Uq43hjXEOVsWAfxUD7512Doy/z/dC+5hpz0c5nYEjjRxGztgl3CEpgcmOFxO [file] MDAwMjcwMiAwMDAwMCBuIAowMDAwMDAyNzIyIDAwMD TbWC5iRvTjIYHvIXT0CUYvAYOtUONcotKFXGSlZUDqKojbANYaHCVrENRlEVqoVJTuVAImKjQzFJNaZY EvQU4rMdYpAROvFaksOCVwMMLsKJZoeoMDIREfBOYdLradBRPfUDEcOPTmAFjqWKRtZBAwJUhjGGEyFZ XsMP6eUtBtMMNuHZD6KAveDZSzDAOxgfSGLCAkOCMx TKT6EPCxRIUqJAExQPvsUTEsOLPdMxliMFNaUBLgQQ5tUgKxLRGsIdYxLKYyXVTzMVRftbGSMOAfQMSa GIB5QYRsLNIbJCUiMUqlFTVwYQIrRMPkUIYcUPOzMW8eKpPhTSHkLjBgPPuxJUPiZQVpazCOFHWwIICc DTUeYTRtVZKkWSEeEDsyEMYjVCN4FRbvDEYsWUUkSS 1yDzQmKHUwEqnhYMSkJGEpYOKjvlLWYSVkUPVxPXPxNaDjPWYmNMZuTKdcRIGiGUS1GOM4CMIcQRWdCK 2cUmWfCEOvKky9LpIkUMWeRPWjjiJKvGCosRoslzf8FXyfGS9Cb413GNDhBROAFjScW9lkMv3nOUIxSH RPSREwPAWzRid9SWrMYZBBIZaGQZt7ESIUIVEzBRY2 ASC0FORXBAVMOc9xNGBUEQAoOWM6Z7OQMtF1IJLEGHHoXBLcItjWMmDVQKYIHw6DJGMsD9w1AWPfNrk+ SnbhnXCucRkkETNNMtadZkPMXOWKX9DV ID Date Data Source [id number] 07/05/2020 11:40:00 AM EST [facility] Name Value Range Interpretation Code Description Data Bridget rce(s) Supporting Document(s) RESP PROFILE RP2.[address] [facility] \\BLDo\\RESPIRATORY PROFILE NASAL PHARYNGEAL BY PCR\\BLDx\\ \\BLDo\\DETECTED _NONE \\BLDx\\ 07/05/20.1310.KJV. \\BLDo\\EQUIVOCAL _NONE \\BLDx\\ 07/05/20.1310.KJV. VIRUSES ADENOVIRUS NOT DETECTED NORMAL: NOT DETECTED [facility] CORONAVIRUS 229E NOT DETECTED NORMAL: NOT DETECTED [facility] CORONAVIRUS HKU1 NOT DETECTED NORMAL: NOT DETECTED [facility] CORONAVIRUS NL63 NOT DETECTED NORMAL: NOT DETECTED [facility] CORONAVIRUS OC43 NOT DETECTED NORMAL: NOT DETECTED [facility] 02064-3 NOT DETECTED NORMAL: NOT DETECTED [facility] REPORT TO DEPARTMENT OF [facility] TH HUMAN METAPNEUMO NOT DETECTED NORMAL: NOT DETECTED [facility] HUMAN RHINO/ENTERO NOT DETECTED NORMAL: NOT DETECTED [facility] NOT DETECTEDNOT DETECTEDNOT DETECTEDNOT DETECTED PARAINFLUENZA V3 NOT DETECTED NORMAL: NOT DETECTED [facility] NOT DETECTED RSV NOT DETECTED NORMAL: NOT DETECTED [facility] BACTERIANOT DET ECTEDNOT DETECTEDNOT DETECTEDNOT DETECTED TESTING PERFORMED USING THE [employer] RP2.1 MULTIPLEXED NUCLEIC ACID TEST. THIS TEST HAS NOT BEEN FDA CLEARED OR APPROVED; THIS TEST HAS BEEN AUTHORIZED BY FDA UNDER AN EUA FOR USE BY AUTHORIZED LABORATORIES; THIS TEST HAS BEEN AUTHORIZED ONLY FOR THE DETECTION AND DIFFERENTATION OF NUCLEI ACID OF SARS-CoV-2 FROM MULTIPLE RESPIRATORY VIRAL AND BACTERIAL ORGANIMS; AND THIS TEST IS ONLY AUTHORIZED FOR THE DURATION OF THE DECLARATION THAT CIRCUMSTANCES EXIST JUSTIFYING THE AUTHORIZATION OF EMERGENCY USE OF IN VITRO DIAGNOSTIC TESTS FOR THE DETECTION AND/OR DIAGNOSIS OF COVID-19 UNDER SECTION 564(b)(1) OF THE ACT, 21 U.S.C. 360bbb-3(b) (1), UNLESS THE AUTHORIZATION IS TERMINATED OR REVOKED SOONER. ID Date Data Source [id number] 07/02/2020 02:44:00 PM EST [facility] Name Value Range Interpretation Code Description Data Bridget rce(s) Supporting Document(s) LSARS-CoV-2 RNA INHOUSE [facility] This lab was ordered by [facility] rachel and reported by [facility]. ID Date Data Source [id number] 07/12/2020 07:50:00 AM [facility] THIS IS A STATE REPORTABLE COMMUNICABLE DISEASE. Testing was performed using the [employer] COVID-19 MDx Assay. This test has been authorized by FDA under an (Emergency Use Authorization) EUA for use by authorized laboratories for individuals who are suspected of COVID-19 by their healthcare provider. This test is only authorized for the duration of the declaration that circumstances exist justifying the authorization of emergency use of in vitro diagnostic tests for detection and/or diagnosis of SARS-CoV-2. Methodology: Endpoint RT-PCR. Fact sheets for this EUA assay can be found at the following links: Providers: https://www.fda.gov/media/657850/download Patients : https://www.fda.gov/media/201184/download THIS IS A [facility] REPORTABLE COMMUNICABLE DISEASE Negative results do not preclude SARS-CoV-2 infection and should not be used as the sole basis for patient management decisions. Negative results must be combined with clinical observations,patient history, and epidemiological information. Name Value Range Interpretation Code Description Data Bridget rce(s) Supporting Document(s) ID Date Data Source [id number] 06/16/2020 02:35:00 PM EST [facility] Name Value Range Interpretation Code Description Data Bridget rce(s) Supporting Document(s) ED Clinical Summary [facility] [id number]2MGKVrGv1arE2M tCn icK+VEDPElYUxHFQ5vw4OjBVNnXnUiBY7pyhiqEHHgn4AoLri4E4JgnXGvdw1TwHW0EPRjM05zPP0VYZ 5ndGggNzA+BaD5kjZoaJy1yADO9Tvw1o/OFTQoVNLTQyKyUgFaLTIWHzHVT6SJYFOFVHqHENeraLYzFe 2AxPRUBSOF/UDXJ69ZGJ5BQF6QWgF4rr0NIrYzPYV7 kfElrAifwnTlRjwUNJGhPT4ozbg4GE2BbCl9LIZdYdobaPEUJGFoETMgBVIzB0UaGZBwVk5ngYEaMR2B pUyq4HZCHM8RnZdhbsQwpWYiKZ7UFE7vo6GwLpLxLSNcQanKUQimBvnbkICqV4QoHDJyTCCex4PqH8rh juf0hAF0VU0+x1PoHFAgDprtXqrdPbELw9s2BNV3ZG fF61AN2CQGTROXWqCiMre7u2PLW1H4YhAKgOausMAL6FTkdU4bapNxAMkEzykJJFdSlScBekatsoGriP DyWF2DYY8st8QkZtZfLGIpIarGYOuiIDFwYK8nZEXwWHQgKf5jXK2BBT3katT5MMFmUq9VjNMjX5NmsI Zpu8zoL4U8uVgtSWIoQLIdPAVoBFCbSAMbCKQgSGHa Uxpok7LzPLLuCyYsGW7yMJYmWEXzQVNERw1QAZ8lb3OuAnqtVBYvTjvYLAsnQ1ypx3qnSQRlDLWdW2B6 tTAlTYHlYOQhU835bsFvLo7HHJrDRRVhQI25BJ1+VaUtYU7wudu3UPRtz4UzXwe6L1MjcI15WWAtYmyl j4XbWUHeVEKPH2bvb6NbUILgONCLQa3SAE8td3RqBc VdWAZig1WtOmisQHDDZnBpXWWzOMMmLZRFFGggeaJlYdyMBTDiFPOmFwkTAUxxYumctVNpR8BpRXLeYI Qwp4XqK0colpn9nCEpHBo3A22kPh2+s7NdYJTrXgzfeTG4PDZZHzeOfGo0OSGDauCZj7zUBjrPdPuAJj lfLZKGjBGKLmLJDNTGSQQgXHCr9OEjC4TeEgnCSBHd [file] AKMDAwMDAwMDAxNSAwMDAwMCBuIAowMDAwMDAwMTAz HRRrGCCuDR0aCzXuCSDiDFVqFfarOQMyKOBcquLGGCYqICIfJFCkMMDnPDRjWDYpRTtzQWNzODWxXrrn BPSpFFQdSM3gLbLkIBKtJGL2RjIaIMMiOKQbluTIJKZyDCAySDy7NmUyJERxYNQrZYpzQJRvIVYaYyC4 UUNqRSCzMN6zAyBfRAGgUDF9YFPtJCTjUGTlglBPMJ CzZZOpXPwzRaNyPIUrEKCvXZzpCNDnXFV8OTWjWNWmIWGrIZ9vPbVbMKTxUsZ4JFJpSKFdUTNwksPSLK RgWSPyLYp0TxRzCMHcMYHrONbfTDSwISZaPqakFFWzRFWlPR5yEiPxUVArNOR0QwAqZAQhMPOjsqVBVY BcTHDnCOU7CiWfPVIaYACrYUzdJMAlYBN5SrpnZSLn EKDoTC3jNrCmCMZjMZn5OPRkVJYoQTHedjEURZXyXUAiMBW9StJvLHJvUTPwZDycPPMhWLMfFPlgOBIe BITjOI1yAlUbNWOrVCFjNmAmOOCaZWKmklDRFLNuRAGbYiF3RHToJJSaEGPrNDbvDXTfURC1TYn6PUJq SYLbAW0aCmTqIOEqUVF4BvMeLLHmDDEgghOXPDVdBB GpLVL0GqPcFUFeEPJtCCqyRPJoGVK8NCMfIXOmZVErWU2oEiXeCGCtPKoeMyNrQDUpHVJlklQKVGIlUM EiQbC8UdJgEZWnUGTuMUflVAUtWWXyBNpcIMZoQCTpGM7jOuGtHBVrBuAlBybjNCLwKDJhqgFHRATcML IdDrW3UPFmRIEhNEVeJLgsSLOoOZSsLKLvRRQkJHLv FG7uZoSiGYNxPsPdFtnbYCJpXPBvlcFSRYZlJIBdHdPkUtKiCGAaNUUiTNifQABxEVGoSeS0UNDtLRZs OQ9eQyAlFHYsIgFaUXCcDXFfQQFabtPHHSPaUWYkLeL8USJtJBHcABVfMTezYXIxFZPwLTF0QLUhNEDi YW2eQwGiNNAtYtE6SFLiWINbDIXxflWAZTHnLSKmWs YwAvQhWMHcTGWaBUyqHBHfXACfTVT1HNGnRQOjKE0pRbHkYKAvBdC8ZKbzIVEwBKLwmuRMMHInAHYfXz V5YCZlECInSLIbPJzcQAZqNDHuFcbvDCDjHWWtPJ9zBwTlYJZeMsK0DnneIRStPPNdazJOCOUxSYRhXw c7KrFhGGAmQLHmIHyyUZVoYHStZGZ1TNQtOMFxFM7b MqRyFWArQyP5OIIrYDVmAQKbewLJNRIpBNUtPqluULFnNUSmGAFcMPcmETYcHWHfDSz4CGHlECYwPB4z ZzTkBZBdRiSlXdFjWMMxIAZsyvVWLCNtZXXzXcF3RoMkUAXoQIRgLYzcRTVwNNHfLNHbFWJkSPFoRO9e CjAwMDAwMjMxNjggMDAwMDAgbiAKMDAwMDAyMzIxNi EhUVRhVMRfOXjpLFDvCKPuFcY1KRImKJDrXB2hCyNiAOWtBvIfOMHuKNWyAHZlnuXFDFHsOFBsHjM6QE AwCABdZZLrPEbeUIHjTZRnZMN8GXLrPXWsMT6qBlQoEXLvNjY1TMJaHFBrMJWxxjEOGPAlFITaSzRzAs XpGIQhCOKlEWzbDILzDSTnENTsGREbFUBzIL3rFhLm VRYuKmP4FAozXKDiQHZdhvODKKWmCZOfMyL9ZRYjZBGfBGPwSNfwBEOyDVJpOvacYISjCOBxRQ1uKgVr UCHlEwG4AOMoSPReVFByktXOHDJgABYiFmn0WSGoJBBlZRFdRDwlMUKaMZOiLYZ4JQKaZNKoIZ4hXrAv YUOxEpT6APOiQRLzFWLdkvEEHDRhQUQfKcjvDdLuCR AvRQVjRDkdMPGpRSKoLPxiSRSyBKMaOW0jSmWsSHMgWyRoFuymNVTaICFpmvBMRDWjTIVoAFF5HQVgJH GkKLCjDVbvXASoKRE2IUGfPMYjOWPgBR8zHrPoBRWpCmGuLdCwSCIgNPOwbuNCXXMsYVHfZHMcSlMnYW IlMZZyQEnsOFSkODQ7NwV9XCByDTCfSI6gOxKeSFKh LkLnPADyFPJeVBIqqrABCLDqSCQbYUS3HFTyBGXbOQAmEHvrAHEzBME9EJH6HMRnROLvTH7eKfRmIJDl IgB3SXEpFYGhUDVwenIZLOWwZYYhHOZkLaKcKPWxDBZlKAcyRXYkERL6PXH1QDNdBNEhMR3nJhGtFUPf FyK0NDWyLZVfUOBcemJCBLNwTYRrYOE3FrVkQBCvBK AgNPtgJPIfKGV1NlljLSDbZEXnBQ2uBjEhGOMbUxI2VmyvEDRzRKAvuzQFITNmWEJeUEo2TjFdIDOaOT CfIAalOSEhSXX2CWBoZOVbOGMrFJ6aQdKaDUXiWaX5XIUlOADkWIKoatKDLVOcWDLjSWlbGIQgJCXwWL HqCAniSZUaAAL2IRq3QXSfXUAzVN5bQbQwFLGlEvTq HvCkRFOdPEDqxuBLPFGfMIUgWDW7QgXxWNGtSWChNEucBEElVVA7KKUwQOKdUHItID1qSpTgATIuEcKg RkagKBIqIWPxcgMQJDIvLFMlNACnJAElAHVjBKDuCOmcFMEfBXV9UfFfNCUbCDSvDW1hNnRgFAIpJoHc MSVmWJKhYVShjcPIWIXyKVJyVPT6NZZyHCXaKAFkSM bhBIQbWTE1FMQ2ESGrEXCqKC2zEuYfOTAxBmA0UDUxALEmIWSmjuVCUBTeDPFpYKPoNDHiOXLdQDFfAQ tcGSTgNQA8BAD7LZVnJSImMF3gBxIvSVFeMbD8MXHcGSGtVMLsroRQGBFpGTLpXYJ2ODXbFEOaKJJuBR loKJSiMMM7Ruu0SEXvXGJmXU9pHmSaKFBsUdY9PAnj MSCkSNKwgwSKVPHmSVVuQQc5FMVkHKVuOZRkNAuaZXLrHMK6GWJtLLQpGFSkCX6wWaRxMZKbLpF1WLFe NERuYBYmmfNEKXQuGFJrSPw9DDDgTQHzIPThZZmsWUAoPHQ6HXm9UARhZULqYY9rIvVcUXKbDwGbFclx FDJeQIFbhaGBUOHoVCOeJtT5YxByPWYqPJCpGSauQT AmFXO6ZJQ1SLXfWKJoUU5cTbAnIFLxMqUxOOXwKIZlEMEetuJLKPIsGWZhLuLuUJChUHWhFEQvYHarVK SrEJG3Qlh1RDPeSCTkSL4bJyNtLSSxJhJgVfhiILJhJIKphcKORXJvNWLsSoG6DWDzQWAhWVUkGAzyAE FuIEG7MZTeEGIkEZPmCX9rGuTmHHVlWrY3DvFaSLRn CNIzhpYBUNLqAAGjHdCxFOQtOFNwRDCcWVtwBENnKLE4QSS9HVYzZIPlVT8wEoQeOVTlLdO5VOJcYEId ANNbnzAEJPJdHZPiWjS8LgJkDMUoMSRwHUpoGWNpPBB9VtJzGKSdPYIzXT1cSuLqKHNgVlB4SkKfEDIc MDAgbiAKMDAwMDAyNjgwOSAwMDAwMCBuIAowMDAwMD S1SGN7RBQbHVIsSD8oAvUoMMGuUqQ2XAImCNTtBWVabsYURQHrKLOfMtj3XCTxHSGaLFUlXCvoRMWuHU P3URVlNOIjGEHaIT4uNgSfZOAaQbtuZAUbHDAfTJKiebBXKZPxCULgDyJgPBOtESNqONClVLdmCEDgVB A1BJH3VDAtUBUxTB2hOvXlPEAlWvtgMCwmFPUmSRVs ndRKBRKwYOLcCaV2YvTeJPTiDMHvNKyzMXMpYAB8Yla0TIPvFXOpCF0rMnTnZJRiEmioRWKiRSUdYYEc dgFHSZXhHVPwGme3YXLpZUUtCBKhXJv9muKpyZZoYzm2T5grTe8aTHUxECCtVe3HFTBnVPR6S0D6D5Pp BCO1VpN7PFzyQ8T1U7C1J1ImTgN1WDMxXcq8ORN4JC qhD5W2ACK9P5ErJryqDOKgO6MrQZAfFhUvAF7gD4Ehn2EfSkNzLUKgS6t4OGCiCSN+PgpzdGFydHhyZW VFIoQ1DeMCRRBTY0LK ID Date Data Source [id number] 06/16/2020 01:11:00 PM [facility]: [id number] Computed TomographyACCESSION EXAM DATE/TIME PROCEDURE ORDERING PROVIDER [id number] 06/16/2020 12:52 CT Abdomen Pelvis Alex De La Torre DO Modified EST IV OnlyReason For Exam(CT Abdomen Pelvis IV Only) Intestinal ObstructionAddendumADDENDUMWet reading called to Alex De La Torre DO at 06/16/2020 1:38 PM. Final Dictated: Jarret MARRERO, Brian 06/16/20 13:37Signed: Jarret MARRERO, Brian 06/16/20 13:39Transcribed by: ESReportPROCEDURE: Computed Tomography Abdomen and Pelvis With ContrastCLINICAL HISTORY: Intestinal ObstructionSCRIPT INFORMATION: iv onlyCOMPARISON: None.TECHNIQUE:Computed Tomography of the abdomen and pelvis was performed with intravenous administration of contrast. Oral contrast was not given.FINDINGS:LUNG BASES:The visualized portions of the lung bases, heart and pericardium are grossly unremarkable.LIVER:Multiple scattered cysts are seen throughout both lobes of the liver with largest in the left lobe measuring up to 3.1 x 2.7 cm.There is no enhancing mass identified and the portal vein is patent.BILIARY SYSTEM:There is no biliary ductal dilatation. The patient is status post cholecystectomy.SPLEEN/PANCREAS:The spleen is grossly unremarkable.The pancreas is grossly unremarkable.ADRENALS/KIDNEYS:The adrenals are unremarkable.Bilateral renal cysts noted with largest on the right in the lower pole measuring up to 9.3 x 8.5 cm. The largest on the left is seen in the upper pole measuring up to 4.9 x 4.4 cm.VASCULATURE:The abdominal aorta is normal in course and caliber. Diffuse aortic vascular calcifications.BOWEL:There is no evidence for small bowel obstruction.There is no evidence for free intraperitoneal air.Extensive colonic diverticulosis noted especially along the sigmoid colon. No evidence of diverticulitis. The appendix is not identified.LYMPH NODES/FLUID:There is no suspicious lymphadenopathy.There is no abdominal ascites.BODY WALL:There is a midline abdominal wall mesh noted.BLADDER/GENITALS:The urinary bladder is nondistended.No pelvic mass or abnormal fluid collection.BONES:There is severe compression deformity of the L1 vertebral body with mild retropulsion of the posterior fracture fragment by approximately 4 mm this results in moderate to severe central canal stenosis. Diffuse sclerosis is noted involving the anterior and posterior fracture fragments. Pathologic fracture cannot be excluded. There is also mild loss of vertebral body height of the L2 vertebral body with mild diffuse sclerosis. Moderate L3 vertebral body compression deformity seen with large superior endplate Schmorl's node.IMPRESSION:1. Sigmoid colonic diverticulosis without evidence of diverticulitis. No evidence of bowel obstruction.2. Severe L1 vertebral body compression deformity with mild retropulsion resulting in moderate to severe central canal stenosis. Sclerotic changes of the L1 and L2 vertebrae which may reflect chronic changes. However, pathologic fracture is not excluded.Thank you for allowing [facility] to participate in the evaluation of this patient. Final Dictated: Brian Wheat MD 06/16/20 12:53Signed: Brian Wheat MD 06/16/20 13:11Transcribed by: Sasha last revised on 06/16/2020 13:39 EST by Brian Wheat MD Name Value Range Interpretation Code Description Data Bridget rce(s) Supporting Document(s) ID Date Data Source [id number] 06/16/2020 12:12:00 PM [facility] Name Value Range Interpretation Code Description Data Bridget rce(s) Supporting Document(s) INR 1.1 ratio 0.8-1.2 NO [facility] No anticoagulant, normal 0.8 to 1.2 Oral anticoagulant:Standard dose 2.0 to 3.0High dose 2.5 to 3.5 PT 12.4 second(s) 10.2-12.9 [facility] ID Date Data Source [id number] 06/16/2020 12:09:00 PM [facility] Added by Discern Rule GLB_ADD_GFR_CMP Name Value Range Interpretation Code Description Data Bridget rce(s) Supporting Document(s) eGFR-AA >90 mL/min/1.73m2 >=60 [facility] The MDRD 4-Variable IDMS traceable Equat ion for non- individuals is used to calculate the estimated glomerular filtration rate (GFR). To estimate the GFR for Americans, multiply the provided GFR result by 1.16. The MDRD 4-Variable IDMS traceable Equation is validated in individuals 18 years of age or older. It is less accurate in patients with extremes of muscle mass, restriction of dietary protein, ingestion of creatine, extra-renal metabolism of creatinine, or treatment with medications that affect renal tubular creatinine secretion.GFR Categories in Chronic Kidney Disease (CKD)GFR Category: GFR (mL/min/1.73 m2): Interpretation: G1 90 or greater Normal or high*G2 60-89 Mild decrease*G3a 45-59 Mild to moderate ilvrdjadX6y 30-44 Moderate to severe decreaseG4 15-29 Severe decreaseG5 14 or less Kidney failure eGFR-ALIX >90 mL/min/1.73m2 >=60 [facility] The MDRD 4-Variable IDMS traceable Equat ion for non- individuals is used to calculate the estimated glomerular filtration rate (GFR). To estimate the GFR for Americans, multiply the provided GFR result by 1.16. The MDRD 4-Variable IDMS traceable Equation is validated in individuals 18 years of age or older. It is less accurate in patients with extremes of muscle mass, restriction of dietary protein, ingestion of creatine, extra-renal metabolism of creatinine, or treatment with medications that affect renal tubular creatinine secretion.GFR Categories in Chronic Kidney Disease (CKD)GFR Category: GFR (mL/min/1.73 m2): Interpretation: G1 90 or greater Normal or high*G2 60-89 Mild decrease*G3a 45-59 Mild to moderate qcdcvczcD0c 30-44 Moderate to severe decreaseG4 15-29 Severe decreaseG5 14 or less Kidney failure ID Date Data Source [id number] 06/16/2020 12:09:00 PM [facility] Name Value Range Interpretation Code Description Data Bridget rce(s) Supporting Document(s) Glucose Lvl 102 mg/dL 74-106 [facility] BUN 16.7 mg/dL 9.0-20.0 [facility] Creatinine 0.77 mg/dL 0.66-1.25 [facility] Sodium Lvl 137 mmol/L 137-146 [facility] Potassium Lvl 4.5 mmol/L 3.5-5.1 [facility] Chloride 104 mmol/L 98-107 [facility] CO2 29 mmol/L 22-33 [facility] AGAP 9 mmol/L 8-16 [facility] Calcium Lvl 9.2 8.5-10.5 [facility] Total Protein 6.6 g/dL 5.9-8.3 [facility] Albumin Lvl 3.6 g/dL 3.3-5.1 [facility] Glob 3.0 g/dL NA [facility] A/G Ratio 1.2 ratio 0.7-1.8 [facility] Bili Total 1.4 mg/dL 0.2-1.3 [facility] Alk Phos 87 IU/L 38-126 [facility] AST 50 IU/L 17-59 [facility] ALT 19 IU/L <=50 [facility] ID Date Data Source [id number] 06/16/2020 12:09:00 PM EST [facility] UA Microscopic added by Discern yo Perez to an Abnormal Macroscopic Result. Name Value Range Interpretation Code Description Data Bridget rce(s) Supporting Document(s) UA WBC 0-5 [facility] UA RBC 0-3 [facility] UA Bacteria None Seen [facility] UA Epithelial None Seen [facility] UA Mucous None Seen [facility] ID Date Data Source [id number] 06/16/2020 12:01:00 PM EST [facility] Name Value Range Interpretation Code Description Data Bridget rce(s) Supporting Document(s) UA Color Yellow [facility] UA Appear Clear [facility] UA pH 4.5-8.0 [facility] UA Spec Grav 1.005-1.030 [facility] UA Glucose Negative [facility] UA Ketones Negative [facility] UA Urobilinogen Negative [facility] UA Bili Negative [facility] UA Blood Negative [facility] UA Protein Negative AB [facility] UA Nitrite Negative [facility] UA Leuk Est Negative NO [facility] ID Date Data Source [id number] 06/16/2020 12:01:00 PM [facility] Name Value Range Interpretation Code Description Data Bridget rce(s) Supporting Document(s) Neut Auto 78.7 % NA [facility] Lymph Auto 11.4 % NA [facility] George Auto 9.0 % NA [facility] Eos Auto 0.5 % [facility] Baso Auto 0.2 % [facility] Neut Absolute 6.4 x10(3)/mcL 1.8-8.8 NO [facility] Lymph Absolute 0.9 x10(3)/mcL 0.3-5.5 NO [facility] George Absolute 0.7 x10(3)/mcL 0.1-1.6 NO [facility] Eos Absolute 0.0 x10(3)/mcL 0.0-0.7 NO [facility] Baso Absolute 0.0 x10(3)/mcL 0.0-0.1 NO [facility] Imm Gran % 0.2 % [facility] Imm Gran # 0.02 x10(3)/mcL 0.00-0.03 [facility] ID Date Data Source [id number] 06/16/2020 12:01:00 PM [facility] Name Value Range Interpretation Code Description Data Bridget rce(s) Supporting Document(s) WBC 8.2 x10(3)/mcL 4.5-11.0 [facility] RBC 3.9 x10(6)/mcL 4.7-6.1 [facility] Hgb 12.8 g/dL 13.5-17.5 [facility] Hct 40.8 % 41.0-53.0 [facility] MCV 104 fL 80-100 [facility] MCH 32.7 pg 26.0-34.0 [facility] MCHC 31.4 g/dL 31.0-37.0 [facility] RDW 13.7 % 11.4-14.5 NO [facility] Platelet 232 x10(3)/mcL 130-400 [facility] MPV 9.6 fL 8.6-12.4 NO [facility] ID Date Data Source [id number] 06/16/2020 11:44:00 AM EST [facility] Name Value Range Interpretation Code Description Data Bridget rce(s) Supporting Document(s) ED Note-Physician [facility] DELNHe6fFrIYCiSnv4PFPPXpCY2klev9WX2HvMM5aXGpZ9S5kEFqS3Y3lJDvZz1onH9ABDFuOo0nuF3L tCn [file] [id number]+VxG7GRM0tDJbCwjbNIVoCGmsPABYZex= ID Date Data Source [id number] 06/16/2020 05:19:00 PM [facility] Basic Information Initial ED Provider Co ntact Date: 06/16/20 Initial ED Provider Contact Time: 11:10 Chief Complaint PATIENT ARRIVED BY PRIVATE VEHICLE WITH A FRIEMD WHO HE LIVES WITH. HAS HAD ABD PAIN FOR 5 DAYS AND STATES HE HAS NOT HAD A BM IN 5 DAYS. DENIES ANY OTHER PROBLEMS AT THIS TIME.History of Present Illness An 89-year-old male presents to the ED with a 5 day history of crampy lower abdominal pain and constipation. He states that his last formed bowel movement was 5 days ago. Patient states that he tried an enema this morning which has not relieved his constipation or abdominal pain. Patient admits to taking pain medications for hip pain daily including codeine per patient. No fevers, chills, night sweats or vomiting. Complains of mild nausea. Of note, he does have a history of 3 small bowel obstructions treated conservatively with NG tube, most recently 5 years ago. He denies any urinary symptoms at this time.Review of Systems Review of Systems Constitutional: Denies fever, chills or weakness. ENT: Denies sore throat or ear pain. Eyes: Denies vision changes or pain. Cardiovascular: Denies chest pain or palpitations. Respiratory: Denies any shortness of breath or cough. Denies congestion. GI: See HPI. : Denies dysuria or flank pain or hematuria. Denies frequency. Musculoskeletal: Denies joint pain. Denies neck pain or back pain. Neurologic: Denies headache or focal weakness. Denies numbness or tingling. Integument: Denies rashes.Physical Exam Vitals and Measurements T: 98 F (Oral) HR: 81 (Monitored) RR: 18 BP: 145/89 SpO2: 98% HT: 178 cm WT: 94.9 kg (Dosing) BMI: 29.95 BMI: 29.95 General Appearance: Awake, alert. Does not appear to be in any acute distress. Pleasant and conversant. Patient answers questions and follows commands appropriately. HEENT: No facial asymmetry. Extraocular muscles are intact. PERRL. Anicteric. Neck: Supple. No midline cervical tenderness. No submandibular adenopathy. No thyr omegaly. Cardiac: Regular S1-S2. Non-tachycardic. 3/6 systolic murmur Respiratory: Lungs are clear to auscultation bilaterally. No wheezes or rales are appreciated. No rhonchi present. Abdomen: Soft. Nondistended. There is diffuse tenderness to palpation without rebound or guarding. Musculoskeletal: No CVA tenderness. Extremities: No lower extremity calf tenderness bilaterally. Mild asymmetry left greater than right (chronic). Positive edema present. Neurologic exam: Grossly nonfocal. Speech is clear and fluent.Medical Decision Making 89-year-old male patient presenting with above complaint. Will obtain labs, UA for further evaluation. Will obtain CT scan to rule out possibility of recurrent SBO. Lab and imaging results noted. No SBO. Discussed with radiologist compression fractures in the lumbar region with retropulsion of fragments. Discussed with Dr. Wheat, who thinks things may be more chronic than acute. 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 He specifically denies any weakness or pain in his lower extremities at this point. He has had some radicular type pain in the past but none currently. He specifically denies any recent trauma. No bowel or bladder concerns. 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 I have recommended ehup-fzy-wbaqbxv medications for his constipation. Patient was referred to Dr. Prieto. Lab and imaging results were reviewed with patient. Appropriate precautions and red flag warnings were reviewed. Patient verbalized understanding and agreement with this plan of care. The patient was stable at the time of discharge.Reexamination/Reevaluation Stable. No significant interval change.Impression/Plan Diagnosis: 1. Abdominal pain, R10.9 2. Lumbar compression fractures Disposition HomeMedication Reconciliation Unchanged allopurinol (allopurinol 300 mg oral tablet)1 tab Oral once a day (at bedtime). amlodipine (Norvasc 2.5 mg oral tablet)1 tab Oral once a day. ascorbic acid (Vitamin C 500 mg oral tablet)1 tab Oral once a day. aspirin (aspirin 81 mg oral tablet)1 tab Oral once a day. atorvaSTATin (Lipitor 20 mg oral tablet)1 tab Oral once a day (at bedtime). cholecalciferol (Vitamin D3 1000 intl units oral tablet)1 tab Oral once a day. chondroitin/glucosamine/methylsulfonylmethane (chondroitin/glucosamine/methylsulfonylmethane with Hyaluronic Acid oral tablet)4 tab Oral once a day. clopidogrel (Plavix 75 mg oral tablet)1 tab Oral once a day. cyanocobalamin (Vitamin B-12)1,000 Microgram Oral once a day. dutasteride (Avodart 0.5 mg oral capsule)1 cap Oral once a day (at bedtime). gdwrswiwmcsm30 Milligram Oral once a day. furosemide (furosemide 40 mg oral tablet)1 tab Oral once a day. gabapentin (gabapentin 400 mg oral capsule)1 cap Oral 3 times a day. levothyroxine (levothyroxine 75 mcg (0.075 mg) oral tablet)1 tab Oral once a day. 30 minutes prior to breakfast. lidocaine topical (lidocaine 5% topical film)1 patch(es) Topical once a day. Refills: 0. melatonin (melatonin 10 mg oral capsule)1 cap Oral once a day (at bedtime) as needed as needed for insomnia. multivitamin1 tab Oral once a day. multivitamin with minerals (ICaps MV oral tablet)Oral once a day. 0100 and 1300. nitroGLYCERIN (Nitrostat 0.4 mg sublingual tablet)1 tab Sublingual every 5 minutes as needed for chest pain. potassium chloride (potassium chloride 10 mEq oral tablet, extended release)1 tab Oral once a day. ramipril (ramipril 2.5 mg oral capsule)1 cap Oral once a day. terazosin (terazosin 10 mg oral capsule)1 cap Oral once a day (at bedtime). tramadol (tramadol 50 mg oral tablet)1 tab Oral every 4 hours as needed for pain. 1-2 tabs. zolpidem (Ambien 10 mg oral tablet)1 tab Oral once a day (at bedtime) as needed for sleep.Problem List/Past Medical History Ongoing No qualifying data Historical No qualifying dataAllergies No Known Medication AllergiesSocial History Blood Management (DO NOT USE- Historical Use Only) Accepts blood Tobacco Unknown if ever smoked, Household tobacco concerns: No.Robert Nelson [address] [place] [address] [id number] [facility] [id number] signed by Alex De La Torre DO 06/16/2020 17:19 EST Name Value Range Interpretation Code Description Data Bridget rce(s) Supporting Document(s) ID Date Data Source [id number] 06/14/2020 02:25:03 PM EST [facility] Name Value Range Interpretation Code Description Data Bridget rce(s) Supporting Document(s) Discharge Note [facility] YZCGRv4yIsEOEwdjjE4OUJOkVN0yvoc2ZHzgG8QiXXWerdCwTMMsY7cwHJQEOMLATWRueB7kKCEbAymM vYm gQQWeQBDOiSgMyUfLeY1hsuop2oJO8QNInCuaoPM1FpOn8CYKaA3QtHHVwYFQjj6IdVo5+ZuZ3gcGsfR a2yV0BA1ZQHKaB70msYo7mQHJtkOyhiTPu8yTEzujGz9ZgqhyFCLUzALSYCEaMTIJRJ53EWIIILqMSBR xthy5ei7TqNa8tHewC43/ZrfmxtVVb+2f7/Rolo9NV iAXiy8p4jgiCeVatflQJAVwCbJBA6jh36kDNnqKCcDyGN7dOIIhGCf7YHeZ01eZZchZyGQ+I99UQDaxg 6wjWc8+Haydee+3Nlnm2Y9/Haiecvf6/7vfUjPIjaTeLpHuFxSBmaXl88oULwJXfpDXgx5VMUSQCi1nJr4 [file] p6GRsx8sWj5koDs0+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/Zb11frOODFaIIisQE4369Lei/z/dC+8tjr4g7xJKdrDuHwcoc5RZqjtcWMtE [file] AyNAo+LvhdzUBufRdoSADYAcS0ZXJPYZOGD2LJ ID Date Data Source [id number] 06/11/2020 05:04:22 PM EST [facility] Name Value Range Interpretation Code Description Data Bridget rce(s) Supporting Document(s) Provider Note [facility] pital AIKFHd4bCeBZXmeteZ0YERUwCV5asax7CCqzT9LwZIQxfmQdQGOpM5iqFDAWSIIETFYmzO2bAMVjQimY vYm fNMCoAXINsYzVcUkMkM0iqxmp9xWZ6EHMlZsyjLH0SkJx2RHBgJ4OiZMVtBFLok4DmSy6+KtU8rlCcaX t0lQ4UC6PEXMqS78inZz3qQMOrgIwsmCEi7fFQcmwHp7VqsevDVIQuYNLQRCjADLHJW56QBMKZYzUYRB vmpu6fg2GoAq9rOckU77/ZrfmxtVVb+2f7/Yfhq0YN hSZpt9z7chpYsFdvpsVECJcQhJKA7qr73sZFbrOZjIlWT9cNSDoVLo1SYlF57qYVdfHeZM+J34DAPvzd 6wjWc8+Haydee+7Jqlm0S4/Haiecvf6/5qpGyLGcwQuKgAvZuANfvYh36oTImVLmhWSiq5QUHXXOh4kCz0 [file] m5EBxz9yXb9omGx2+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/Sx39fmPXJCrKOgvTA6733Gec/z/dC+1tui6m7gTOqoZhCnhga3EQogzwIIgQ [file] DcGeI8JcjhJbIqBXIc7Lu0VxsiC3ciCwFrJnCYFtEuFcOD2KNk== ID Date Data Source [id number] 06/10/2020 02:40:16 [place] [address] TELEPHONE RADIOLOGY DEPARTMENT Name: [facility] #: [id number] : 1930 Ordering Physician: BROCK CABRALES Sex: M Date: 06/09/20 Admission Type: O/P X-ray Number: [id number] Unsigned Transcriptions are preliminary reports and do not represent a Medical or Legal Document XRAY CHEST 2 VIEW [place] [id number] COMPLETE:06/09/20 10:13 LEI (REASON FOR CHEST: DYSPNEA Comparison: 05/04/2020 and 04/30/2020. FINDINGS: Two views of the chest submitted for evaluation. Chronic interstitial changes. Blunted left costophrenic angle. Mild cardiomegaly. Stable degenerative changes mid thoracic spine. Unchanged mild pulmonary congestion. IMPRESSION: No significant change. Mild CHF. Left effusion. Electronically Reviewed and Signed By JESSICA HE 06/10/20 14:40 Dictating Initials: BE Transcribed Date: 06/10/20 08:30 Transcribe Initials: [facility]BS Name Value Range Interpretation Code Description Data Bridget rce(s) Supporting Document(s) ID Date Data Source [id number] 06/10/2020 10:02:41 AM EST [facility] Name Value Range Interpretation Code Description Data Bridget rce(s) Supporting Document(s) Progress Note [facility] PHDAUz4cOhRZAszkjN4TRJUfMB5kxjb4YOmzR2OaWWUuufXjCNLpA1vkSCDVZYNGLIXnaB2xOCJxCytK vYm mKYCwHPBAaPkSsGkUsW5bmvxl2uQE6DUAvVcnnNV3RcCy4XKZnY3EoTWPeWBBqk0LrRm2+CgA6ygWeeL r4nZ6JU4GLTVyC95itSg0iGEAcxWhtoGYo1iTTromAd8RjyfbMSPVkNORSZHvGBJDQT39KVGLARqBIBS ekjr0og1HgUs1oLzaV13/ZrfmxtVVb+2f7/Uffc3PL wISgs6u0admDuSwhhfKAHFjZoPZJ6pp74aGJliKCgDiII3kLUJtPKo5YGjI07hVNmzSnYD+V63MZItno 6wjWc8+Haydee+1Xrmt7W0/Haiecvf6/5atEaOXjcDrScWnLyTOxfXb83vVHyCPudGUyc5RKOKDLf2fYb7 [file] y4DZzl5uUj9bxWj5+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/Jq09iuRSKTqSIeyGD5968Rtm/z/dC+2ttv4h0aHSwmLuRbeyi8PFhyszRMeY [file] Cap9M8uHIIKY7/Manager Women+jr2mplhVsqro3nFwF76aoj7wJ [file] MDIgMDAwMDAgbiAKMDAwMDAwMjcyMiAwMDAwMCBuIA nwJLLuCONwThN8VLRrKIKjSK2xNqEnURHbCQV0DBimIVItUNSxpsXSYNYlWLYqRTs9XOJsICIvMLKnSM yqFTHkMFG6IZcoBLUjKNRvJX4wScWjFJBjPJY6FipqLQViGXXvhxHNRLRdRZJpGrz2CQMpFWVzEXNfAT zsRXXgBONtSLr6KOWxXSCdJQ2dEwDqTYAuRyLdBClv EQKzTPHplxBATSBzCQMdZUD0POEvCGEpVXUbELtrOOEiVMQuSZJuUVJuKCMmWL1iSsCwRFFbFnLpVMXb LOXnNDTkupNAYNGbDEBoDnZ5RnCwCPSqEEKtVGltNQCiQNP0VlR3GCNeBNBwBN9kPnTfDPWaIkY1RKGf MDAwMDAgbiAKMDAwMDAyNDUzNyAwMDAwMCBuIAowMD UeKPA1ZIh0JPRvRALvUQ0kHzApVMOdCdK7IDhnAIXuHITqskQNVVEsGXCqOou1QUFgBGXtYCNmEYfsRS InXDF4KGM9EQHuAHMkSP2vOnXcWVbxJLBQFVqWSRWeOw9owFRzGNYdVynwWP7YpsRbUONrFWUVMsEfZ2 dHEOe2AsOUKBFdTOMaUpHPHbT8EIocIuQOGYIsP9Ls RDcxRUY+TEeQYOV9JYJGZzNrXsKXGKYYNNAUA7G7DlQ3RVGRDhEYFo6bKqZgQ1EcgwTbFjsZOb3Ic1Pp cgM1alRgCxT0SAR6RaKaKE8LXu== ID Date Data Source [id number] 06/09/2020 05:12:00 PM EST [facility] Name Value Range Interpretation Code Description Data Bridget rce(s) Supporting Document(s) Admission Note [facility] WXLMOu3yAmYBXukacH5JCEStFK4ekqp1IJriM3BoMBPyyqQrDBYdX1dhREUNWVYGDGMznR0oJUNoYnvV vYm yGXTiUMKUrWkEzJfSdC0sokog6mRQ2JQIoHhovEK7DmOw0HWMmK7AkTVGqNNOky3JbVv0+VbW7gvMejU u6vP9PA8PUPYgO92czVg1oHYOutSgbdVWh2eWTrdoHu7ObnqmRMKNhGSLUVXbVQNUJI46OEVECPyZMKZ ukqz4xr5ZlTn5pNqmV99/ZrfmxtVVb+2f7/Rkzt4BE sUYmw5u9yxmOwBwvzjWOZVfDpFQO1iy13cHXtlODsCaVN8fSLTyWPb9FBtG96gTPooMrJH+D79IKMqwn 6wjWc8+Haydee+6Fwjn9M5/Haiecvf6/4apHwSAmyYuCqRrHvTJkqBm44dDZkTNqjSQbp6VQKDLEx5aSj2 [file] m1YCtl1wIe8ynIm7+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/Pp93jpCIHEuLBksKY2026Bjd/z/dC+3kca1s5oHRgyGqVeknm6BFaowgVYoY [file] MgMDAwMDAgbiAKMDAwMDAyNDEzMyAwMDAwMCBuIAow LSBlVLZfOES4QCTdUVYjKO5zMqTwKCBdPpBiNJWiZYYbHDMtpoNQTHSvQTVeSeR5UYXaLUQgDIOuJGql TUTpJMK4XoX0GJApVILtFU6eAfPkTIDcSrAaGFbpKUJzTOPjyxZERMAgDIEkGWNoCrMgZWTpCHShMQwn AEUeAIO8SGnzANSsUZLwUG7tQpKsIMLiKtryGCBxNR RrAKLvqqAPCLLkGXUgNVFoLUIdNTNdOFVzJSvpLNUjKYQ9FkD2TWUoXIKyBR5gIrRgCXMfTok6OVWdLU NqIZOmlrVMtBDgnObupbz0FFppHS1Ak267FGCmYCFENqQoO7mjBs8rZZGpOHORWKQpAQSgOfguTSZLSb I5WrK6RhJIADTdIXZlABAaR5DoHZK6HdVtMU5zGYWi QuT2BlO1BrtqXODkPoF8QnZBRrN6QZBmBJbHApZ3Tr3ZDERdO3v2ANBnSDa+PgpzdGFydHhyZWYKMjkz XHBOKGPQL1DS ID Date Data Source [id number] 06/09/2020 03:55:48 PM EST [facility] [facility] Name Value Range Interpretation Code Description Data Bridget rce(s) Supporting Document(s) ER Note [facility] GBZECn6dBeJASlwsuF6VDLYiYJ6xmko8CZowV2BoRWRpndVaZMJaR8xnVVSLSKCKORYstH8sTZHhHwcW vYm zDUPkIJDFeFqVvWkVlC3kggkz5wXT5HCKdOrrvKN4VmSc3SALuB9TkGIBaAHYai4DfSz7+PiZ1ahOtgC x7yQ6TX9RAXQmX32iyRk9cJYYggLcqjWHp7dEQzzxOk0AwqhsEJHVmUFHZSZoCYUHFH65GCRMXGlYRUM pwqx8yx8CvWl5vBiwP60/ZrfmxtVVb+2f7/Sson9FW nUAaa3r0hwmLxVvdxmMOTClIqBSU6gh03bFMnlXPmOmQH5xLYGzRPi9WMyR53rWUzoCnNG+L63MWZkss 6wjWc8+Haydee+0Buff6V9/Haiecvf6/6okTvMTamNqTgLaXsTZuqGb37fYNbUIywEJmj1PZXUYCd7oEo0 [file] r7JXoa3tXn4uuOm4+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/Yn59ajNYVVeAWygHS8131Xvh/z/dC+5yiv1j5dDZgqXiMnegr4UGwxbxGCsR [file] XWQYVaXPKGAEVgJ9IQSVUAN3UEV3E2S9PLL1JvM6BA QKK2Y2EkDxQqP1UFD+KWjnWN9KtOksJQTpKy2+SxU2DWW3aZNfVxp0Rjy1WFrbETHUYhs= ID Date Data Source [id number] 06/09/2020 01:00:00 PM EST [facility] Name Value Range Interpretation Code Description Data Bridget rce(s) Supporting Document(s) Troponin I.cardiac [Mass/volume] in Serum or Plasma 0.031 ng/mL 0. 017 - 0.060 [facility] \\BLDo\\TROPONIN I I NTERPRETATION:\\BLDx\\ < 0.06 ng/mL NOT SUSPICIOUS FOR AN AMI 0.06 - 0.59 ng/mL MAIER ZONE FOR AN AMI, SERIAL MONITORING RECOMMENDED 0.6 - 1.5 ng/mL SUSPICIOUS FOR AN AMI Reference range updated for new chemiluminescent immunoassay method based on Vidable technology. Effective 03/10/18. ID Date Data Source [id number] 06/09/2020 09:40:00 AM EST [facility] Name Value Range Interpretation Code Description Data Bridget rce(s) Supporting Document(s) URINALYSIS ROUTINE wMICRO RFLX TO CX [facility] URINALYSIS W/REFLEX CULTURE REFERENCE RANGES SOURCE Random [facility] COLOR Yellow Colorless-Moraima [facility] CLARITY Clear Normal: Clear [facility] pital LEUK EST Negative Negative - Trace [facility] NITRITE Negative Normal: Negative [facility] UROBILINOGEN Negative Negative - Trace [facility] PROTEIN TRACE Negative - Trace [facility] pH 8.0 5.0 - 8.0 [facility] BLOOD Negative Negative - Trace [facility] SPEC GRAVITY 1.015 1.000 - 1.030 [facility] KETONE Negative Negative - Trace [facility] BILIRUBIN Negative Normal: Negative [facility] GLUCOSE Negative Normal: Negative [facility] MICROSCOPIC See Below [facility] [place] WBC NONE SEEN None Seen - 5/hpf [facility] RBC 0 - 1 None Seen - 5/hpf [facility] EPITHELIAL None Seen NORMAL: None Seen [facility] BACTERIA NONE SEEN NORMAL: None Seen [facility] MUCOUS NONE SEEN NORMAL: None Seen [facility] CASTS Not Indicated [facility] pital CRYSTALS See Below [facility] AMORPH URATE NONE SEEN NORMAL: None Seen [facility] AMORPH PHOS 1+/hpf NORMAL: None Seen Abnormal (applies to no n-numeric results) [facility] TRIPLE PHOS NONE SEEN NORMAL: None Seen [facility] CALCIUM OX NONE SEEN NORMAL: None Seen [facility] CULTURE INDICATED? NO Normal: No [facility] ID Date Data Source [id number] 06/09/2020 08:45:00 AM EST [facility] Name Value Range Interpretation Code Description Data Bridget rce(s) Supporting Document(s) Natriuretic peptide B [Mass/volume] in Serum or Plasma 2509 PG/M L 0 - 450 Above high normal [facility] Testing methodology changed t o chemiluminscent immunoassay based on Vidable technology. Effective 03/04/18. ID Date Data Source [id number] 06/09/2020 08:45:00 AM EST [facility] Name Value Range Interpretation Code Description Data Bridget rce(s) Supporting Document(s) Troponin I.cardiac [Mass/volume] in Serum or Plasma 0.026 ng/mL 0. 017 - 0.060 [facility] \\BLDo\\TROPONIN I I NTERPRETATION:\\BLDx\\ < 0.06 ng/mL NOT SUSPICIOUS FOR AN AMI 0.06 - 0.59 ng/mL MAIER ZONE FOR AN AMI, SERIAL MONITORING RECOMMENDED 0.6 - 1.5 ng/mL SUSPICIOUS FOR AN AMI Reference range updated for new chemiluminescent immunoassay method based on Vidable technology. Effective 03/10/18. ID Date Data Source [id number] 06/09/2020 08:45:00 AM EST [facility] Name Value Range Interpretation Code Description Data Bridget rce(s) Supporting Document(s) COMPREHENSIVE CHEM PROFILE [facility] COMPREHENSIVE METABOLIC PANEL Sodium [Moles/volume] in Serum or Plasma 142 mEq/L 136 - 145 [facility] Potassium [Moles/volume] in Serum or Plasma 3.9 mEq/L 3.5 - 5.1 [facility] Chloride [Moles/volume] in Serum or Plasma 106 mEq/L 98 - 107 [facility] Carbon dioxide, total [Moles/volume] in Serum or Plasma 27.4 mEq /L 21.0 - 32.0 [facility] Glucose [Mass/volume] in Serum or Plasma 114 mg/dL 70 - 100 Above high normal [facility] Urea nitrogen [Mass/volume] in Serum or Plasma 15 mg/dL 7 - 18 [facility] CREATININE SERUM 1.03 mg/dL 0.70 - 1.30 [facility] AGE 89 yrs [facility] HEIGHT 6969.00 [facility] eGFR NON-AFR AMR >60 [facility] eGFR AFR AMR >60 [facility] ital BUN/CREAT 15 6 - 25 [facility] Protein [Mass/volume] in Serum or Plasma 6.5 g/dL 6.0 - 8.3 [facility] Albumin [Mass/volume] in Serum or Plasma 3.1 g/dL 3.8 - 5.4 Below low normal [facility] GLOBULIN 3.4 g/dL 2.0 - 4.0 [facility] A/G RATIO 0.9 0.8 - 2.0 [facility] Calcium [Mass/volume] in Serum or Plasma 9.2 mg/dL 8.8 - 10.2 [facility] Bilirubin.total [Mass/volume] in Serum or Plasma 0.8 mg/dL 0.2 - 1.0 [facility] Bilirubin.direct [Mass/volume] in Serum or Plasma 0.2 mg/dL 0.0 - 0. 2 [facility] INDIRECT BILI 0.6 mg/dL 0.0 - 1.1 [facility] pital ALK PHOSPHATASE 109 U/L 40 - 129 [facility] ospital Aspartate aminotransferase [Enzymatic ac tivity/volume] in Serum or Plasma by With P-5'-P 21 IU/L 7 - 37 [facility] Alanine aminotransferase [Enzymatic acti vity/volume] in Serum or Plasma by With P-5'-P 22 IU/L 12 - 78 [facility] ANION GAP 9 7 - 15 [facility] Estimated GFR referenc e range: >60ml/min/1.73m >18 years: Calculated using IDMS traceable Study Equation <18 years: Calculated using IDMS tracable Bedside Schartz Equation ID Date Data Source [id number] 06/09/2020 08:45:00 AM EST [facility] Name Value Range Interpretation Code Description Data Bridget rce(s) Supporting Document(s) CBC [facility] COMPLETE BLOOD COUNT Leukocytes [#/volume] in Blood by Automated count 5.8 K/uL 4.0 - 10 .0 [facility] Erythrocytes [#/volume] in Blood by Automated count 3.46 M/uL 4.30 - 6.10 Below low normal [facility] Hemoglobin [Mass/volume] in Blood 11.9 g/dL 13.5 - 17.5 Below low no rmal [facility] Hematocrit [Volume Fraction] of Blood by Automated count 36.6 % 39.0 - 50.0 Below low normal [facility] Erythrocyte mean corpuscular volume [Entitic volume] b y Automated count 105.8 fL 80.0 - 96.0 Above high normal [facility] Erythrocyte mean corpuscular hemoglobin [Entitic mass] by Automated count 34.4 pg 26.0 - 34.0 Above high normal [facility] Erythrocyte mean corpuscular hemoglobin concentration [Mass/volume] by Automated count 32.5 g/dL 32.0 - 36.0 [facility] Erythrocyte distribution width [Ratio] by Automated count 14.1 % 11.6 - 14.8 [facility] Platelets [#/volume] in Blood by Automated count 180 K/uL 150 - 450 [facility] Platelet mean volume [Entitic volume] in Blood by Automated count 9.1 fL 7.1 - 10.4 [facility] Neutrophils [#/volume] in Blood by Automated count 4.54 K/uL 1.70 - 7.70 [facility] Lymphocytes [#/volume] in Blood by Automated count 0.67 K/uL 1.50 - 6.00 Below low normal [facility] Monocytes [#/volume] in Blood by Automated count 0.50 K/uL 0.00 - 1. 00 [facility] Eosinophils [#/volume] in Blood by Automated count 0.08 K/uL 0.00 - 0.30 [facility] Basophils [#/volume] in Blood by Automated count 0.02 K/uL 0.00 - 0. 10 [facility] 0.02 Urinalysis macro (dipstick) panel - Urine 0.000 10^3/uL 0.000 - 0.012 [facility] Neutrophils/100 leukocytes in Blood by Automated count 77.9 % 42.2 - 75.2 Above high normal [facility] Lymphocytes/100 leukocytes in Blood by Automated count 11.5 % 15.0 - 41.0 Below low normal [facility] Monocytes/100 leukocytes in Blood by Automated count 8.6 % 0.0 - 12.0 [facility] Eosinophils/100 leukocytes in Blood by Automated count 1.4 % 0.0 - 7.0 [facility] 0.30.30 NRBC 0.0 % [facility] MANUAL DIFF NOT INDICATED [facility] RBC MORPH NOT INDICATED [facility] p[facility] ID Date Data Source [id number] 06/06/2020 09:29:00 AM EST [facility] Name Value Range Interpretation Code Description Data Bridget rce(s) Supporting Document(s) Discharge Note [facility] spital LDPZQp6gAnLTIhbziV6OHBZvKZ8dean5KIquX0XyKRSnkuCtOTYmR7ueAUDDJQJBCGTlqZ8eAJBjYzxD vYm eGINoDREExLsJuPuKaE0dmumi1xMP9WQKgZrnrRM5OfYq1HEUqK9HsMJSqBSZzq0LkYq3+VqB6ncNmzT n3eW3AD8YBULvF18uiOx4oVBVdqEpfoHNz9qPBksxIv0KnxnjGDZZmBZQTGJzUGYNZL77MMSCMPnRVCS gpjm2cz8MxNo6wJuiQ64/ZrfmxtVVb+2f7/Qobr6ER uMCnc1p1fxhDzYtejpSWWOzInISF2kb80sZDibBWoBgXU6vHGWoESl2NBmO73zPRztUuJB+H69RZLfum 6wjWc8+Haydee+1Jtfb1M5/Haiecvf6/4nrSqHCukOrQcEfAbSNcaVf39sUIzPBjpCRgj8OTBZWYy2cUq9 [file] y1JYqc8xKz2bbKd6+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/Ur15icLWZZcDRplTE1933Ptv/z/dC+3izb8f7hNPxxHpTfmiz8ANmqthODfV [file] biAKMDAwMDAwMzcwOSAwMDAwMCBuIAowMDAwMDIyMT O6HMKdBDCrZW4jHtYjAVUpBtq8GHNdXHQnBWPvvbUZUOQwZCTqWicnUMDdONRkHFIzLYraNIRnNEBkDD psPSPzYVTbLJ0hUqBhUAGsWZQ4VZzmUTFbDEZczlUFURPaKMOcPQH1YYPpTTHcNMVsLTiiGBHdCTZaBp axPCHcTBFfXO1bZcZeMFShPuKgAEIlIEOkBPFhcxGM ISTiCSSeGAf0WGSbGBLdNMOaZTgfJNRtYECzCuN0MPDnLJPxBS9eImJvXAGeHzU1ZqhhKYMwUZNsyrUW NGZwLJWcAqt4VNRnRVLiLOHrREgqZGRpBCO1SGZiGEYjCLWtHH4zJsMfVAWiOny4QxseEHIyXCFzxeVH QVAiQHEjWpx3NATtNNEvITLiLTyuICRdOSN2DJP3WK SrYSXfES2vElOjMJIiMcuwNcovGSWmKRDvtwTHhFVgcXqbjtu7GCjlHI8Nb723TPFnKYQKWcJrB8vfCx 1sVQDqZRVQNEAkFJUvBqmIMZAyPQXmFqvOYwUTXBTbCUYuWZJ3RcHHQWdBAMCHGG9dAOH9TwTJSlEZHF ErIsG2PzWeLoSMPrAVVjNCS4W3IST2Cu3WDDEkZ1 n4UASmSsl+RpkvfZSkhMzzHIKHHgz3DMuZYUMNK3BM ID Date Data Source [id number] 06/05/2020 08:25:00 AM EST [facility] Name Value Range Interpretation Code Description Data Bridget rce(s) Supporting Document(s) CBC [facility] COMPLETE BLOOD COUNT Leukocytes [#/volume] in Blood by Automated count 7.3 K/uL 4.0 - 10 .0 [facility] Erythrocytes [#/volume] in Blood by Automated count 3.43 M/uL 4.30 - 6.10 Below low normal [facility] Hemoglobin [Mass/volume] in Blood 11.8 g/dL 13.5 - 17.5 Below low no rmal [facility] Hematocrit [Volume Fraction] of Blood by Automated count 36.3 % 39.0 - 50.0 Below low normal [facility] Erythrocyte mean corpuscular volume [Entitic volume] b y Automated count 105.8 fL 80.0 - 96.0 Above high normal [facility] Erythrocyte mean corpuscular hemoglobin [Entitic mass] by Automated count 34.4 pg 26.0 - 34.0 Above high normal [facility] Erythrocyte mean corpuscular hemoglobin concentration [Mass/volume] by Automated count 32.5 g/dL 32.0 - 36.0 [facility] Erythrocyte distribution width [Ratio] by Automated count 14.3 % 11.6 - 14.8 [facility] Platelets [#/volume] in Blood by Automated count 179 K/uL 150 - 450 [facility] Platelet mean volume [Entitic volume] in Blood by Automated count 9.6 fL 7.1 - 10.4 [facility] Neutrophils [#/volume] in Blood by Automated count 5.78 K/uL 1.70 - 7.70 [facility] Lymphocytes [#/volume] in Blood by Automated count 0.74 K/uL 1.50 - 6.00 Below low normal [facility] Monocytes [#/volume] in Blood by Automated count 0.60 K/uL 0.00 - 1. 00 [facility] Eosinophils [#/volume] in Blood by Automated count 0.14 K/uL 0.00 - 0.30 [facility] Basophils [#/volume] in Blood by Automated count 0.01 K/uL 0.00 - 0. 10 [facility] 0.02 Urinalysis macro (dipstick) panel - Urine 0.000 10^3/uL 0.000 - 0.012 [facility] Neutrophils/100 leukocytes in Blood by Automated count 79.3 % 42.2 - 75.2 Above high normal [facility] Lymphocytes/100 leukocytes in Blood by Automated count 10.2 % 15.0 - 41.0 Below low normal [facility] Monocytes/100 leukocytes in Blood by Automated count 8.2 % 0.0 - 12.0 [facility] Eosinophils/100 leukocytes in Blood by Automated count 1.9 % 0.0 - 7.0 [facility] 0.10.30 NRBC 0.0 % [facility] MANUAL DIFF NOT INDICATED [facility] ospital RBC MORPH NOT INDICATED [facility] pital ID Date Data Source [id number] 06/05/2020 08:25:00 AM EST [facility] Name Value Range Interpretation Code Description Data Bridget rce(s) Supporting Document(s) BASIC METABOLIC PANEL [facility] BASIC METABOLIC PANEL Sodium [Moles/volume] in Serum or Plasma 143 mEq/L 136 - 145 [facility] Potassium [Moles/volume] in Serum or Plasma 3.7 mEq/L 3.5 - 5.1 [facility] Chloride [Moles/volume] in Serum or Plasma 106 mEq/L 98 - 107 [facility] Carbon dioxide, total [Moles/volume] in Serum or Plasma 29.0 mEq /L 21.0 - 32.0 [facility] Glucose [Mass/volume] in Serum or Plasma 128 mg/dL 70 - 100 Above high normal [facility] Urea nitrogen [Mass/volume] in Serum or Plasma 13 mg/dL 7 - 18 [facility] CREATININE SERUM 0.99 mg/dL 0.70 - 1.30 [facility] AGE 89 yrs [facility] eGFR NON-AFR AMR >60 [facility] eGFR AFR AMR >60 [facility] BUN/CREAT 13 6 - 25 [facility] Calcium [Mass/volume] in Serum or Plasma 9.0 mg/dL 8.8 - 10.2 [facility] ANION GAP 8 7 - 15 [facility] Estimated GFR reference r andi: > 60 mL/min/1.73m >18 years: Calculated using IDMS traceable MDRD Study Equation <18 years: Calculated using IDMS traceable Bedside Rodriguez Equation ID Date Data Source [id number] 06/04/2020 07:11:34 PM EST [facility] Name Value Range Interpretation Code Description Data Birdget rce(s) Supporting Document(s) Admission Note Fortino rufftal GXGZBs9cIyFLRtsnhG3RAMHmTI7tphf3QIdrC5EhMHWplqQuIOAfP6ktQJWCEZFXOXAhnY7qHAKrAfsN vYm jXXBhQZIQbKmOuRcRvP7egkas8qOY1VWDgKkyhYX4TtJy4IEWoO9SeATHpZLXdz6XrEk2+CtR0bfBeaK k7iE4BX3ULBIvB46yaUb2wVOWvvMuaiNRb5aDEzzsYd4VkzyfWASIjLQVVVAlEPXKYK18GJORYRjPXBC yfqe2qu2TzCu6rSaiY56/ZrfmxtVVb+2f7/Dzqf1FQ bXTto5j7xzoKlCyymwPPSMgKxBLP4ea31yALkfREaYqHH2dORBqIKy8YGqQ61iLNtsWxYT+F17TCYldh 6wjWc8+Haydee+2Gysa1P1/Haiecvf6/9xsZdFFmgWaYtUhAwQCxbLh04lHAjWZycDVtn0YXNCYPo3vXf5 [file] c0MZox8eXf8vrFi7+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/Bh99fuVIPIkAJmmHR1992Jyc/z/dC+4kzz4y1kXQkkIkBhzic6LHvyinVTuU [file] gxNTAgMDAwMDAgbiAKMDAwMDAwMzcyOCAwMDAwBu GRxyUTWsPKFyROxpVXDlRACbYW8oYyMkJWUxZTX7DIwfAJYoVALekkGRUHHaWXOeICM9FMJjRITcNLZx MKcpIFRrUWYbRcxkUHVmRERoUB2yMtUoTLXbPdKaKoKkFLGySLSrymNRMVBfQVBvGHtvAYGvBBZfWABh IAtcMTIwWIRbBxs8LEZrTLKqQQ9kTjQiWEGyDtX1CJ LtIMEuOZHcxxDGEDKvELQuMaP8TNYzHNTaVOOaFTpwLBPkVQD9EPJbNZNzPJFbSR1mFtNtCVXfBsfhAo CkUBUtDYMpouGIFSOeKYFeIqQ3NoIuYVXhGPFzDDjdRZWcFYX6ASGdEITuEOEfMP9kSwFcBZWvHdl3Wf GqCSQcKATlzcSVdNYjfUjsmfb3VLpcTR2Tu106WUHk JLEOVqXxB8zsJt8cBMMlNIHKSUMyRQLqWvwoOVMhBszoLaEHCiFGZgW6ZhQqMsJvNLRjDsFEGUBAGg3i JXL9VUC5JbZ2LGLOYoCWQTgSPTPURNOUSDJ8MPF4EFOoEr9IVWCuK0p1TKAwLaq+PgpzdGFydHhyZWYK ZcxjGXTEFCQOW7ZG ID Date Data Source [id number] 06/04/2020 01:50:57 PM EST [facility] Name Value Range Interpretation Code Description Data Bridget rce(s) Supporting Document(s) ER Note [facility] UVMXOn4pRxDWYsvqeX7DSQWqNN7pwan1AEmpM1SoQNNkkxSkIINhW9qpBHLAGPFHZJRoxQ2yWHQlYguM vYm gWKIiWQJKvBiMmKkEdU3fkbkx5qYV8KXUdYcpjCR7ReUq7ILFbJ2ZxFODmAXFai0VaWj5+YoT1fjYivJ a0dF2OA5NVPSqE03jjDx6jSYQbmVppwKOn9fLGvqgAr6TmvsaOBWViGXFBDDoJBKCAT13WNBLPMdVYAV viqm1as8LgJs5iSpvG61/ZrfmxtVVb+2f7/Ypvo3UB kEFce5g8nuaZdQtjvcFCCBpSmOIC1zk81gTKifTGyEbCA3fXNBzMHa4ZKwQ09wJZgfEzLT+C61KSZtbb 6wjWc8+Haydee+5Qxpm5U7/Haiecvf6/5xoWqPXduAvTzMpXxMIpwUq38lUPvFZvaTTdy5NCETJFl5xLl5 [file] p1QMhx4cOq5cjQd2+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/Lp82ngFNSMuHYgnXA0820Pvw/z/dC+3kbh7a7eTKmrFrPcpbc5BWdhjlDBbL [file] krH4yvMcAiG4EKN3UpHqOD5CUy== ID Date Data Source [id number] 05/12/2020 10:18:42 [place] [address] TELEPHONE [facility] DEPARTMENT Name: JENNIFER MAN [facility] #: [id number] : 1930 Ordering Physician: JAYLYN BOSTON Sex: M Date: 05/09/20 Admission Type: O/P X-ray Number: [id number] Unsigned Transcriptions are preliminary reports and do not represent a Medical or Legal Document US DOPPLER EXTREM VEINS LEFT [id number] COMPLETE:05/09/20 15:54 BBS (REASON FOR VASCULAR: SWOLLEN EXTREMITY US EXTREMITY [id number] COMPLETE:05/09/20 14:22 BBS (REASON FOR VASCULAR: SWOLLEN EXTREMITY FINDINGS: Examination of the left lower extremity. The deep venous system was studied using duplex and color Doppler flow demonstrating normal venous compressibility and flow augmentation. There is no focal widening. IMPRESSION: No ultra-sonographic evidence for deep venous thrombosis. Electronically Reviewed and Signed By ROSALIO NELSON MD, MD 05/12/20 10:18 Dictating Initials: [place] Transcribed Date: 05/09/20 17:51 Transcribe Initials: LI Name Value Range Interpretation Code Description Data Bridget rce(s) Supporting Document(s) ID Date Data Source [id number] 05/12/2020 10:18:38 AM EDT [facility] [address] [place] [address] TELEPHONE RADIOLOGY DEPARTMENT Name: [facility] #: [id number] : 1930 Ordering Physician: JAYLYN BOSTON Sex: M Date: 05/09/20 Admission Type: O/P X-ray Number: [id number] Unsigned Transcriptions are preliminary reports and do not represent a Medical or Legal Document US DOPPLER EXTREM VEINS LEFT [id number] COMPLETE:05/09/20 15:54 BBS [id number] (REASON FOR VASCULAR: SWOLLEN EXTREMITY US EXTREMITY [id number] COMPLETE:05/09/20 14:22 BBS (REASON FOR VASCULAR: SWOLLEN EXTREMITY FINDINGS: Examination of the left lower extremity. The deep venous system was studied using duplex and color Doppler flow demonstrating normal venous compressibility and flow augmentation. There is no focal widening. IMPRESSION: No ultra-sonographic evidence for deep venous thrombosis. Electronically Reviewed and Signed By ROSALIO NELSON MD, MD 05/12/20 10:18 Dictating Initials: [place] Transcribed Date: 05/09/20 17:51 Transcribe Initials: LI Name Value Range Interpretation Code Description Data Bridget rce(s) Supporting Document(s) ID Date Data Source [id number] 05/12/2020 10:14:30 AM EDT [facility] [address] [place] [address] TELEPHONE RADIOLOGY DEPARTMENT Name: [facility] #: [id number] : 1930 Ordering Physician: JAYLYN BOSTON Sex: M Date: 05/04/20 Admission Type: I/P X-ray Number: [id number] Unsigned Transcriptions are preliminary reports and do not represent a Medical or Legal Document XRAY CHEST 2 VIEW PA - LATERA [id number] COMPLETE:05/04/20 10:14 LEI (REASON FOR CHEST: SHORTNESS OF BREATH FINDINGS: There is a small left pleural effusion noted that is new compared to 05/13/2019. 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 No other significant findings. IMPRESSION: Mild CFH. Small left effusion. Electronically Reviewed and Signed By Yara CEJA MD, MD 05/12/20 10:14 Dictating Initials: GMM Transcribed Date: 05/05/20 12:02 Transcribe Initials: DEMARIO Name Value Range Interpretation Code Description Data Bridget rce(s) Supporting Document(s) ID Date Data Source [id number] 05/12/2020 08:47:00 AM EDT [facility] Name Value Range Interpretation Code Description Data Bridget rce(s) Supporting Document(s) Natriuretic peptide B [Mass/volume] in Serum or Plasma 304.4 pg/ mL 0-100 Above high normal [facility] ([facility]) STAT Draw Completed at 0847. Venipuncture Laboratory test result [facility] ([facility]) STAT Draw Completed at 0847. ID Date Data Source [id number] 05/12/2020 08:47:00 AM EDT [facility] ([facility]) Name Value Range Interpretation Code Description Data Bridget rce(s) Supporting Document(s) Glucose [Mass/volume] in Serum or Plasma 116 mg/dL 74-106 Above high normal [facility] ([facility]) Labprint and transmitted at 1133 0 kk [place] [employer] (ADA) Recommended Range is 65-99 mg/dL Urea nitrogen [Moles/volume] in Serum or Plasma 29 mg/dL 6-20 Above high normal [facility] ([facility]) Sodium [Moles/volume] in Serum or Plasma 140 mmol/L 136-145 [facility] ([facility]) Creatinine [Mass/volume] in Serum or Plasma 1.1 mg/dL 0.5-1.3 [facility] ([facility]) Potassium [Moles/volume] in Serum or Plasma 4.4 mmol/L 3.5-5.3 [facility] ([facility]) Carbon dioxide, total [Moles/volume] in Serum or Plasma 28 meq/L 20 -31 [facility] ([facility]) Anion Gap 9 mmol/L 7-16 [facility] Chloride [Moles/volume] in Serum or Plasma 103 mmol/L 98-107 [facility] ([facility]) eGFR-Aa male 77 mL/m/1.73m [facility] <content>Normal Kidney Function or Mild Disease GFR >59 mL/min/1.73m2</content>
<content>Chronic Kidney Disease GFR 15-59 mL/min/1.73m2</content>
<content>Renal Failure GFR <15 mL/min/1.73m2</content>
<content></content> Calcium [Mass/volume] in Serum or Plasma 9.5 mg/dL 8.9-10.5 [facility] ([facility]) eGFR-male 63 mL/m/1.73m [facility] ([facility]) ID Date Data Source [id number] 05/12/2020 08:47:00 AM EDT [facility] ([facility]) Name Value Range Interpretation Code Description Data Bridget rce(s) Supporting Document(s) WBC. 6.95 x10E3/uL 4.2-12.0 [facility] ([facility]) Erythrocytes [#/volume] in Blood by Automated count 3.61 x10E6/u L 4.4-6.0 Below low normal [facility] ([facility]) Final result labprinted and transmitted 05.12.2020 12:07pm bab Prelim labprinted 05.12.2020 10:25am bab 1+ Macrocytosis 1+ Ovalocytes Rare Tear Drop Cells Hemoglobin [Mass/volume] in Blood 12.3 g/dL 13.8-18.0 Below low nor mal [facility] ([facility]) Hematocrit [Volume Fraction] of Blood by Automated count 38.6 % 39-52 Below low normal [facility] ([facility]) MCV 106.9 fL 80-98 Above high normal [facility] ([facility]) MCH 33.9 pg 27-33 Above high normal [facility] ([facility]) MCHC 31.7 g/dL 32-36 Below low normal [facility] ([facility]) RDW 15.0 % 11.2-15.2 [facility] ([facility]) Platelets [#/volume] in Blood by Automated count 255 x10E3/uL 135-420 [facility] ([facility]) MPV 7.4 fL 7.0-12.3 [facility] ([facility]) %Lym 21.7 % 10.0-45.2 [facility] ([facility]) % Marcella 68.0 % 41.0-80.0 [facility] ([facility]) %Baso 0.3 % 0.0-3.0 [facility]) %Eos 2.3 % 0.0-8.0 [facility] ([facility]) %George 7.7 % 2.0-13.0 [facility] ([facility]) Lymp 1.5 x10E3/uL 0.6-3.1 [facility]) George 0.5 x10E3/uL 0.0-1.0 [facility]) Neut 4.7 x10E3/uL 2.0-8.1 [facility]) Eos 0.2 x10E3/uL 0.0-0.6 [facility]) Baso 0.0 x10E3/uL 0.0-0.2 [facility]) ID Date Data Source [id number] 05/08/2020 12:07:38 PM EDT [facility] Name Value Range Interpretation Code Description Data Bridget rce(s) Supporting Document(s) Discharge Note [facility] Dru rufftal ELLJYd6sHyJDPwzpqS6DBJNsQH4hcmb7CXdwV7CqCIWhhuHjLTPiH0qvSRVRDUCXGAUebP5xZQIlFisF vYm eCUQaZPPLuNxCeMfRnO1yctvs2zGF4QNYvYsxbWN6DrWw3EZKjF3HaZCVrLTYwz0NrKm8+HsD7zyCehG m8pW2FC4NGXYaB95hsTr9kLUBtcChusJXa8wGCxpfYc3RqsabCLSYuJPWGIArISIEDU53OGICBExSOOJ xcje5jx0JjGs5cZjcH96/ZrfmxtVVb+2f7/Yvaf8KZ tTAuy7f5rcsKfKvewzSUZEoMeOTQ4cg79qPLkhPSuCwZI8oAHBvLZt6DKvT14cYNlzIlTS+E07UAIkhm 6wjWc8+Haydee+5Tqmv9Q7/Haiecvf6/8hzKbKXacEqTpClDzYVtzIj32wWWwNXdlKYyw8PTOTFJp2yCq8 [file] o2LIxc4iFe2yxIr5+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/Ra33erWTHQxZTltSH9965Xjr/z/dC+0mva6o3jPGdoQtWkkxz3CLvjshZMnZ [file] SUUFPWZvDGZmTxt4MUZEOAX5XlC1PZwAMATVL2XPKYH2EuCsSieaL7TRKK5kJXDILUU1ZuCbDKWEZDM2 JOFVHEEaDBpSMoLOKOTxC1QDHu7JWFYiO0d0VOUwQqp+CoafmEJmpFosBDLGKgv8DyNAHKTBP8DX ID Date Data Source [id number] 05/05/2020 12:05:32 PM EDT [facility] Name Value Range Interpretation Code Description Data Bridget rce(s) Supporting Document(s) Consult Note [facility] YWZQHl5uLaINJyukpI3JUIJaUK6ixgq9CPseQ3KkJRYwioBvPDJeO6ezULCIUPBWVLMjfB4cKUGpJdqH vYm eYXQxKWEBxCeOeIcIrM4eciwp4rAN9FIWdYmdnWN5ExMx8OUJrI5KdUKToGMAcc7YfTw7+ZtM1ppOteI u4tW5MG6ZVCJmT24mgPv1tFVBvaVpdgLJl4xFBqbyOh7JyzfgEFDOhYGJPTMnDMIQTR80NQDXOGvCJKB hyki3rt0CmEc1iTruR66/ZrfmxtVVb+2f7/Jhsk3VU iBTro5a8uniBiEyeciAOEAeLhVSE5kb45sSZldWPzCcMB1yJWRrSRl8XIzR47xJDahBiUV+O40WWPzgn 6wjWc8+Haydee+7Gqdi3K6/Haiecvf6/7cgAjIObmKiEdClLgENkjFx83hEGfIPtoIJxx6GFEQKXk9wPg4 [file] z1OYwe8dMv7saUk7+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/Qq15vhUZXErQXbgIH5805Buq/z/dC+4nzz4o4qVMltRhQpoaj0OSwdolAIaG [file] XCKrGSMRQaRSR9MHIkYc4wWuOlA3NqzhJfXuVCTq5Ke3QhdoI7wfQgBwMhYbO8YiMfPT2AXc== ID Date Data Source [id number] 05/05/2020 10:28:00 AM EDT [facility] [address] [id number] TELEPHONE RADIOLOGY DEPARTMENT Name: [facility] #: [id number] : 1930 Ordering Physician: QIAN Atkins Sex: M Date: 05/02/20 Admission Type: O/P X-ray Number: [id number] Unsigned Transcriptions are preliminary reports and do not represent a Medical or Legal Document XRAY CHEST 2 VIEW [place] [address] COMPLETE:05/02/20 12:48 BBS 13002 (REASON FOR CHEST: CHF Examination of the chest 2 images submitted. FINDINGS: Small left effusion noted. Pulmonary venous congestion. Some right basilar atelectasis. IMPRESSION: Trace left effusion with pulmonary venous congestion noted. That effusion is not present on 06/29/2019. Electronically Reviewed and Signed By Yara CEJA MD, MD 05/05/20 10:27 Dictating Initials: GMM Transcribed Date: 05/03/20 09:33 Transcribe Initials: BBS Name Value Range Interpretation Code Description Data Bridget rce(s) Supporting Document(s) ID Date Data Source [id number] 05/05/2020 10:26:24 [place] [address] TELEPHONE RADIOLOGY DEPARTMENT Name: [facility] #: [id number] : 1930 Ordering Physician: QIAN Atkins Sex: M Date: 05/01/20 Admission Type: O/P X-ray Number: [id number] Unsigned Transcriptions are preliminary reports and do not represent a Medical or Legal Document XRAY CHEST 2 VIEW [place] - [facility] [address] COMPLETE:05/01/20 13:12 LEI 00592 (REASON FOR CHEST: ANGINA Examination of the chest 2 views submitted. FINDINGS: Mild cardiomegaly. Some blunting right and left costophrenic angles noted suggestive of trace bilateral effusions. Pulmonary venous hypertension. No other significant findings otherwise noted. IMPRESSION: Cardiomegaly. Trace bilateral effusions with pulmonary venous hypertension. Electronically Reviewed and Signed By Yara CEJA MD, MD 05/05/20 10:26 Dictating Initials: GMM Transcribed Date: 05/02/20 14:28 Transcribe Initials: BBS Name Value Range Interpretation Code Description Data Bridget rce(s) Supporting Document(s) ID Date Data Source [id number] 05/05/2020 10:25:54 [place] [address] TELEPHONE RADIOLOGY DEPARTMENT Name: [facility] #: [id number] : 1930 Ordering Physician: BROCK CABRALES Sex: M Date: 04/30/20 Admission Type: O/P X-ray Number: [id number] Unsigned Transcriptions are preliminary reports and do not represent a Medical or Legal Document XRAY CHEST 2 VIEW [place] - [facility] [address] COMPLETE:04/30/20 22:18 LEI 00349 (REASON FOR CHEST: CHEST PAIN Examination of the chest 2 views submitted. FINDINGS: Cardiomegaly noted. There are small bilateral effusions with pulmonary venous congestion identified. IMPRESSION: Cardiomegaly, pulmonary venous congestion. Small bilateral pleural effusions. Compared to prior study of 06/29/2019. This is new and consist with mild CHF. Electronically Reviewed and Signed By Yara CEJA MD, MD 05/05/20 10:25 Dictating Initials: GMM Transcribed Date: 05/02/20 14:09 Transcribe Initials: BBS Name Value Range Interpretation Code Description Data Bridget rce(s) Supporting Document(s) ID Date Data Source [id number] 05/04/2020 05:46:06 PM EDT [facility] Name Value Range Interpretation Code Description Data Bridget rce(s) Supporting Document(s) Admission Note [facility] spital AIOHSm8sVwNNDwbxiD2QIPKaTK5zmlj5FYboY4PuEILqfmLjLUJfA9caGLRHKAKVIQIewP8gRUCzWpzI vYm rJSRkMAYDhReGwHqYfN6mdfua8bYI5EVXcJhxlKN7QoPv4OTUcI3JhODYbRNRde0AhJi4+SdD0lpBwgN a9sT8YG3XUYTqS49vcUw3jEEWzaJartRZa8uHTldhJo3PhcauTMVOmXXFWFLuAUIWAS74UDVREXbOKPY yziw4mi7UjDs2mPffE51/ZrfmxtVVb+2f7/Jjvg5VJ gNJus4t0dslXvFqcuiMXFEkIzRJQ0iy56mFQohINqGjLE6lRZAsUOu9HMpC73uNTtrItYE+L34OJXskt 6wjWc8+Haydee+4Libj6X3/Haiecvf6/0caJyMDurTmLsXpSpTLdgNk76eTToKGamFCfk8JIYVMIc6fZn8 [file] w6OPix8yJh1txMk4+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/Uu75fhFZXUrYXtcBX8874Nat/z/dC+5een9g6qIVrrSmYtcqo7NRdnajKWbS [file] MDAwMzAyNDIgMDAwMDAgbiAKMDAwMDAzMDMyMiAwMD RiBFXxKHhlZSXsEZHbPQK9XMDaYXYwRU1vJjUdPMYuGELzXWGtPSAgFELxpdNEIOIdIQWcVUX0OAYzIR XfWRAiYZviSKUlGOMoNgLeBUPpRFGfTO2kDrSkJBIpQMG2BuCuYJKcIIWmenMVGMUbGWXaAvf7OGXmCV WlMFFxKPnnWBDwTZVfWyW9UYOeYIByBL3sLuDnQBKb MfZoOYTaOKOpDXLaqwYASUDhMGQqNHNpLoEkUVZrGEAsWHotJIYgDVKtGdS3IKQtAZFqPV1cTmAeQAUm HKR4LZFnWJDrESIzigIADGIbZNZfHdn2NAHlYEXpYEUtSTvhTHEbULWkPrD1GVPsOVBvSA5iXsRdVYAk MjAzODAgMDAwMDAgbiAKMDAwMDAyMTEzNiAwMDAwMC CtPYmkHWJbYLEnCNAxKOKpYMPjKV4oGsXzATPcJiCcKMfvIANsBUMwmeMSPKVoGRPjUxwxYYLbWFOyRN CpKLxsHPUsVLA3GFAiTOXxWRZfXJ6hLgHrZPFvJvIqAlSuYDOiXJVlesKRAFShZCWdUrc3VVEcNSIfZL EiRByxZKMgOBU2WmX1GQIgWZAwDG3eVoVxUGLxVgas ALHtYZExPCBabuHYZRCkCAQgXOlxOxBqPNTpQEXpWMjdBYJvVKO5GFU9CJPtWFJtHH2mHsJdAXLnHnAp SoUtLHNdGOGpwlZJOCQjSYFiGGWwYHKoZHJvOPGuCVq2viAumNThZcc0YzGdD0Uxj0AqFzRfOHLJITLh ZG2gviD4FBBiZqupIG9UKIYrMClUHJWOWCgmVTx1Z2 FyEidnOfY1PDEXBWM7UWQzEvG9AbU6HEJGXaU0JwP4ZCsmYxFcJVV5OEa2QCCTXyE6SYPWOen+XQogIC 1BvPpmPEGpSu9+WaH1TWH4qRWpDbdeIRS1USkqDBBBRuc= ID Date Data Source [id number] 05/04/2020 09:00:00 AM EDT [facility] Name Value Range Interpretation Code Description Data Bridget rce(s) Supporting Document(s) Magnesium [Mass/volume] in Serum or Plasma 1.9 mg/dL 1.8 - 2.4 [facility] ID Date Data Source [id number] 05/04/2020 09:00:00 AM EDT [facility] Name Value Range Interpretation Code Description Data Bridget rce(s) Supporting Document(s) BASIC METABOLIC PANEL [facility] BASIC METABOLIC PANEL Sodium [Moles/volume] in Serum or Plasma 139 mEq/L 136 - 145 [facility] Potassium [Moles/volume] in Serum or Plasma 3.7 mEq/L 3.5 - 5.1 [facility] Chloride [Moles/volume] in Serum or Plasma 102 mEq/L 98 - 107 [facility] Carbon dioxide, total [Moles/volume] in Serum or Plasma 28.8 mEq /L 21.0 - 32.0 [facility] Glucose [Mass/volume] in Serum or Plasma 201 mg/dL 70 - 100 Above high normal [facility] Urea nitrogen [Mass/volume] in Serum or Plasma 13 mg/dL 7 - 18 [facility] CREATININE SERUM 1.17 mg/dL 0.70 - 1.30 [facility] AGE 89 yrs [facility] l eGFR NON-AFR AMR 59 [facility] eGFR AFR AMR >60 [facility] BUN/CREAT 11 6 - 25 [facility] Calcium [Mass/volume] in Serum or Plasma 9.1 mg/dL 8.8 - 10.2 [facility] ANION GAP 8 7 - 15 [facility] Estimated GFR reference r andi: > 60 mL/min/1.73m >18 years: Calculated using IDMS traceable MDRD Study Equation <18 years: Calculated using IDMS traceable Bedside Rodriguez Equation ID Date Data Source [id number] 05/04/2020 09:00:00 AM EDT [facility] Name Value Range Interpretation Code Description Data Bridget rce(s) Supporting Document(s) CBC [facility] COMPLETE BLOOD COUNT Leukocytes [#/volume] in Blood by Automated count 5.8 K/uL 4.0 - 10 .0 [facility] Erythrocytes [#/volume] in Blood by Automated count 3.50 M/uL 4.30 - 6.10 Below low normal [facility] Hemoglobin [Mass/volume] in Blood 12.1 g/dL 13.5 - 17.5 Below low no rmal [facility] Hematocrit [Volume Fraction] of Blood by Automated count 36.9 % 39.0 - 50.0 Below low normal [facility] Erythrocyte mean corpuscular volume [Entitic volume] b y Automated count 105.4 fL 80.0 - 96.0 Above high normal [facility] Erythrocyte mean corpuscular hemoglobin [Entitic mass] by Automated count 34.6 pg 26.0 - 34.0 Above high normal [facility] Erythrocyte mean corpuscular hemoglobin concentration [Mass/volume] by Automated count 32.8 g/dL 32.0 - 36.0 [facility] Erythrocyte distribution width [Ratio] by Automated count 14.6 % 11.6 - 14.8 [facility] Platelets [#/volume] in Blood by Automated count 171 K/uL 150 - 450 [facility] Platelet mean volume [Entitic volume] in Blood by Automated count 8.8 fL 7.1 - 10.4 [facility] Neutrophils [#/volume] in Blood by Automated count 3.97 K/uL 1.70 - 7.70 [facility] Lymphocytes [#/volume] in Blood by Automated count 0.89 K/uL 1.50 - 6.00 Below low normal [facility] Monocytes [#/volume] in Blood by Automated count 0.76 K/uL 0.00 - 1. 00 [facility] Eosinophils [#/volume] in Blood by Automated count 0.14 K/uL 0.00 - 0.30 [facility] Basophils [#/volume] in Blood by Automated count 0.02 K/uL 0.00 - 0. 10 [facility] 0.01 Urinalysis macro (dipstick) panel - Urine 0.000 10^3/uL 0.000 - 0.012 [facility] Neutrophils/100 leukocytes in Blood by Automated count 68.6 % 42. 2 - 75.2 [facility] Lymphocytes/100 leukocytes in Blood by Automated count 15.4 % 15. 0 - 41.0 [facility] Monocytes/100 leukocytes in Blood by Automated count 13.1 % 0.0 - 12.0 Above high normal [facility] Eosinophils/100 leukocytes in Blood by Automated count 2.4 % 0.0 - 7.0 [facility] 0.30.20 NRBC 0.0 % [facility] NOT INDICATED [facility] RBC MORPH NOT INDICATED [facility] pital ID Date Data Source [id number] 05/05/2020 05:21:00 AM EDT [facility] Name: MAGDA RODRIGUEZ : 1930 A ge/Sex: 89M Ordering Provider: Matthew Messina MD Med Rec #: [id number] Reg Status: [facility] Room #: Date of Service: 05/04/20 Report Number: [id number] cc: Send Report To: [id number] XRP/XR C-Arm No Charge 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 Forcomplete details, please see OP report. Fluoroscopy time in seconds: 38.4 Number of Exposures: 3 Time Portable Image Performed: Contrast Agent in ml: Method of Administration: REPORT SIGNATURE ON FILE Reported By: Matthew Messina MD 05/05/20520 Dictation Date/Time: 05/04/20629 Transcribed Date/Time: 05/05/20520 Weaver Apprentice: KATE Name Value Range Interpretation Code Description Data Bridget rce(s) Supporting Document(s) ID Date Data Source [id number] 05/03/2020 12:43:33 PM EDT [facility] Name Value Range Interpretation Code Description Data Bridget rce(s) Supporting Document(s) Discharge Note [facility] spital CXTHHx2zFmBARqrdcM9WOUUpLA3cunf5ELffQ0AyBFLpkqRsRMKfP8ykRDCNVILKUURrcY0zJXQeQggF vYm xRRTrCIEBwSqXmUiMoV0ptctf1mYS0IVAuWesfZZ7TkIo1JPVcG6LpNEQtJJVay3VvAx9+UcZ3gxFrqP t9mN9CA3JJHEtY46olEe8iFKInyJcmqWGa7wPZzwgAw9VbikhDAUNaFIEMJDwJMQGNL89HSXKYGbYFDT ipjp6zx7BkNk9oWpaE41/ZrfmxtVVb+2f7/Gotb5MT eODjg2j6iugApVzimhHRYEgBxOLU5tb24lHIqtLApTnDM0xLARnKTj6XCsU09bIDipSoKM+K12CWQqah 6wjWc8+Haydee+9Odjm0I0/Haiecvf6/4zcJrMZfzYzHbUwXcQJrbKr27fJOwIYhtGGfq8RADOCSq7eZp2 [file] m6BEql8rUk2ssNm0+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/Kp14csPUIDxRCjiPT3170Ymp/z/dC+0yhj6k2wQKlyZsPgjoc7JWrhouBHrX [file] jBVtcEazCNBDFjlbNtXTPRCQL5WP ID Date Data Source [id number] 05/03/2020 06:25:00 AM EDT [facility] Name Value Range Interpretation Code Description Data Bridget rce(s) Supporting Document(s) BASIC METABOLIC PANEL [facility] BASIC METABOLIC PANEL Sodium [Moles/volume] in Serum or Plasma 142 mEq/L 136 - 145 [facility] Potassium [Moles/volume] in Serum or Plasma 3.3 mEq/L 3.5 - 5.1 Below low normal [facility] Chloride [Moles/volume] in Serum or Plasma 104 mEq/L 98 - 107 [facility] Carbon dioxide, total [Moles/volume] in Serum or Plasma 34.3 mEq /L 21.0 - 32.0 Above high normal [facility] Glucose [Mass/volume] in Serum or Plasma 103 mg/dL 70 - 100 Above high normal [facility] Urea nitrogen [Mass/volume] in Serum or Plasma 15 mg/dL 7 - 18 [facility] CREATININE SERUM 1.06 mg/dL 0.70 - 1.30 [facility] AGE 89 yrs [facility] l HEIGHT 70.00 INCHES [facility] ital eGFR NON-AFR AMR >60 [facility] eGFR AFR AMR >60 [facility] ital BUN/CREAT 14 6 - 25 [facility] Calcium [Mass/volume] in Serum or Plasma 8.6 mg/dL 8.8 - 10.2 Below low normal [facility] ANION GAP 4 7 - 15 Below low normal [facility] Estimated GFR reference r andi: > 60 mL/min/1.73m >18 years: Calculated using IDMS traceable MDRD Study Equation <18 years: Calculated using IDMS traceable Bedside Rodriguez Equation ID Date Data Source [id number] 05/02/2020 07:09:11 PM EDT [facility] Name Value Range Interpretation Code Description Data Bridget rce(s) Supporting Document(s) Progress Note [facility] pital EUXXOo7bPjWPAzkzvL1DBJErMU3tsjs8JCngJ2NvROAurlKwWLVnM1xiEFNETZSYYBSvxL6lAPRqNzmU vYm iEPIjPYKNwJhXlHgByU5tfeyg9oFF6BQVqKgndDA2XiCr8ZNViP9FcHREkZGXip1ZvUj5+CgB2oxRieX i9aB1UO4BNDDtY20ztDh5yNWFfqTqxhVBc3sBLrrvBc4NkezeNGBNfIPCWXViMBQAQG58TUSUQDfGEYI uoqk3hr9OtXz4lLjyV27/ZrfmxtVVb+2f7/Jetg2QF jMDpt2d9whzMkCxggoERKWkQnVMM2qh33nOFthSOeWkQR5jYYHyXSj0WRyI65nWWolFgWJ+M21BOIrip 6wjWc8+Haydee+3Gryn0T3/Haiecvf6/5ldYcRXrnRqGbEmQbZKxaZg15tTBgNIdlQWji0UMKBYRa3lIh6 [file] d2IIae5mQd0jlQy6+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/Lf32jxDOQOyVZwaPV9080Gcy/z/dC+6tgf9e1uBGloBuIewtr5BZlhdjFMhT [file] AKMDAwMDAwMjcwMiAwMDAwMCBuIAowMDAwMDAyNzIy LFEzJFJsHU7dNkGwCTIrTUF8XITxRJYvXYAmahYBQVJnTSWkXtcnGFLwNBPwFMZjCEwiAJRfWDVlSgU9 BDLhCWCkKA5iIxIgAGPbFxN6LbKbUCAuOBKczeDFWGBoVJPiStggQAGdNEYiMYSuUAzoNSIeHEBqRWtw RYBuEQNqOU8vVlVpAFUhUKC4ICdrMGOkZETdoyUEHC HiZPMfOAS3NIXwJYVlMBQhJAxoCDTyZGZsAcnuUOPbZXUuIF3pFgIiIUEoFmO0KFQmLMXmTKXsjxOCPX HaFAOuLZR7CuYdMQVmJVQxXSlnYTKwTVCbDAX0HPAbTMDfBJ3xPzDxLMQyCcH8LpGxMBDlKGOllrRSZJ QzEVEdPNbnYITxRKLsMGNyFCzdWJNhIWT9VSYrCVLm XGQqHS0tMyDpTHXpTbAkQIUgNWLpCMCtxhNErGDzuCpeeou6NMuvIV3Sx090KTJsEHGZPnXxZ0qxBz4y HWYsYZVKLRZmVQUzJur6XpIxOVA2MgnuQjPZGjk4DAN6AeZxTMv1QeI1FVK5KJ9vCFvlYDWLDwe2JLQT RbMAPRc0RLPTHdD4LTkWNfP6FYI6Fu2IYZXsU6n3HUJhDRj+CgzdpBJwiYuiYNFCCsY4UOPKRRYZK3JQ ID Date Data Source [id number] 05/02/2020 06:25:00 AM EDT [facility] Name Value Range Interpretation Code Description Data Bridget rce(s) Supporting Document(s) Magnesium [Mass/volume] in Serum or Plasma 1.9 mg/dL 1.8 - 2.4 [facility] ID Date Data Source [id number] 05/02/2020 06:25:00 AM EDT [facility] Name Value Range Interpretation Code Description Data Bridget rce(s) Supporting Document(s) BASIC METABOLIC PANEL [facility] BASIC METABOLIC PANEL Sodium [Moles/volume] in Serum or Plasma 141 mEq/L 136 - 145 [facility] Potassium [Moles/volume] in Serum or Plasma 3.2 mEq/L 3.5 - 5.1 Below low normal [facility] Chloride [Moles/volume] in Serum or Plasma 103 mEq/L 98 - 107 [facility] Carbon dioxide, total [Moles/volume] in Serum or Plasma 32.4 mEq /L 21.0 - 32.0 Above high normal [facility] Glucose [Mass/volume] in Serum or Plasma 95 mg/dL 70 - 100 [facility] Urea nitrogen [Mass/volume] in Serum or Plasma 15 mg/dL 7 - 18 [facility] CREATININE SERUM 1.01 mg/dL 0.70 - 1.30 [facility] AGE 89 yrs [facility] HEIGHT 70.00 INCHES [facility] ital eGFR NON-AFR AMR >60 [facility] eGFR AFR AMR >60 [facility] BUN/CREAT 15 6 - 25 [facility] Calcium [Mass/volume] in Serum or Plasma 8.8 mg/dL 8.8 - 10.2 [facility] ANION GAP 6 7 - 15 Below low normal [facility] Estimated GFR reference r andi: > 60 mL/min/1.73m >18 years: Calculated using IDMS traceable MDRD Study Equation <18 years: Calculated using IDMS traceable Bedside Rodriguez Equation ID Date Data Source [id number] 05/01/2020 11:10:22 AM EDT [facility] Name Value Range Interpretation Code Description Data Bridget rce(s) Supporting Document(s) Admission Note [facility] spital IAVJZw1hWdJJGjnxlJ1ELMQdME2jlil0XQjmI6TsKLYltsIdXFDwC3jrUPBYTHPCWSMaqW6fQBSgSywK vYm gGHNfHVJWjOsHeKzCfP0fowhc0fDX2WLLnAyklQZ2CsRj1UBPhG1SwRIPlKUMfk1DeEp7+KfI4cgOrmS o6mC3PX8PHHWaS58feJb6cBPOeyUgndVKv3tPUjxbHr7AaoynFREMkVDSXTDiUNNIDV32FHMMBFgDJRD fuzu1ch1HuBw1iXmfN62/ZrfmxtVVb+2f7/Jppv3YJ zDHwj5h3cszNzHzebwLYSTiWqRQC5qa53jNVckHRhPzIX2wNQEsSMm5TSvC23jVJfhHvEA+X63RSWoeh 6wjWc8+Haydee+5Eano4H2/Haiecvf6/1kcYtGPkdIlJlLmJjZEysQm78aGPxVQskASke6CBIEKIn0rXw2 [file] o5YTnk4qDv6kaEr2+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/Ps18zpPCGShISyrIM4381Ixa/z/dC+9mcl6v6lVQnfQoJsyil2VEivvcWRsA [file] MgMDAwMDAgbiAKMDAwMDAwMDAxNSAwMDAwMCBuIAow GSMzGOMuDMD7MXXlLWMhWF5yLmGuHIJcILP1QLPcHYFgOHKbpgRQQKDbOGCyIeatXzZvALPjEKDrRUuh TGJzYHKvAyY2PSAbIYAyBG5rVsPqRGYvWYK4AKdnNKXwEMYeglGTOFTuZWDrMpXzJnLvUTRxCVLtLEwp RLTfKMP9BbU2VFXiQTBbDZ3pAeOaUCQdLNN0HtfaXJ YdCFVwmxIQDWFbWOPvHui5BCKyMAHaWPQuHIoaFEDqGNWhFXt1ULIuBYNsBQ7qYlIfKDIyXdHxKDwiTQ HyYPTixhXSQYVrCDDcFNM2ZXPvVIIlZNHeBLwoQDWjGUGhPSDbZOKvIWQuZW6pBpDwWPRzXrIwJwNaQS AwMDAgbiAKMDAwMDAyMjYyNSAwMDAwMCBuIAowMDAw VJE1CTDtNAHpQQWiWF5lKpUyUYWeSfriVoNaPSTpRECowgAAOMWyYHTqFZZ4TMDsHWOiMGPiSVipPOJl DMP9Wty2EVBiONTkTP9kXqOkXYMoXkj7MRCzYFDqWJBuiyHFKXOoYTFgOZLtPYUeBFPdKEPtWGkaKCMh IZP4JjTuJEGsNSTjJS8iYbNfQYkuAYPBFQlRCBLiTw 9crKDrUIVtVojeFE8BajPwDHTsTSUYNtHyR7uDHBu3JSRiCQLXSRFJJIQ1BPL5PtJQFWb6BRFBWkuINo U0NTI+HSgPOoM4NzYVRRI3UXzlNPRLTFW5SQqdWpBBQLX8TXA2Fp0nMbHjU2YmeaUdFvqRGm3Fk1Fitn Z1rxRrTwW0AppsVzTcUR5XEd== ID Date Data Source [id number] 05/01/2020 08:05:00 AM EDT [facility] Name Value Range Interpretation Code Description Data Bridget rce(s) Supporting Document(s) CBC [facility] COMPLETE BLOOD COUNT Leukocytes [#/volume] in Blood by Automated count 5.9 K/uL 4.0 - 10 .0 [facility] Erythrocytes [#/volume] in Blood by Automated count 3.25 M/uL 4.30 - 6.10 Below low normal [facility] Hemoglobin [Mass/volume] in Blood 11.1 g/dL 13.5 - 17.5 Below low no rmal [facility] Hematocrit [Volume Fraction] of Blood by Automated count 34.4 % 39.0 - 50.0 Below low normal [facility] Erythrocyte mean corpuscular volume [Entitic volume] b y Automated count 105.8 fL 80.0 - 96.0 Above high normal [facility] Erythrocyte mean corpuscular hemoglobin [Entitic mass] by Automated count 34.2 pg 26.0 - 34.0 Above high normal [facility] Erythrocyte mean corpuscular hemoglobin concentration [Mass/volume] by Automated count 32.3 g/dL 32.0 - 36.0 [facility] Erythrocyte distribution width [Ratio] by Automated count 14.4 % 11.6 - 14.8 [facility] Platelets [#/volume] in Blood by Automated count 160 K/uL 150 - 450 [facility] Platelet mean volume [Entitic volume] in Blood by Automated count 9.4 fL 7.1 - 10.4 [facility] Neutrophils [#/volume] in Blood by Automated count 3.56 K/uL 1.70 - 7.70 [facility] Lymphocytes [#/volume] in Blood by Automated count 1.07 K/uL 1.50 - 6.00 Below low normal [facility] Monocytes [#/volume] in Blood by Automated count 0.77 K/uL 0.00 - 1. 00 [facility] Eosinophils [#/volume] in Blood by Automated count 0.42 K/uL 0.00 - 0.30 Above high normal [facility] Basophils [#/volume] in Blood by Automated count 0.02 K/uL 0.00 - 0. 10 [facility] 0.03 Urinalysis macro (dipstick) panel - Urine 0.000 10^3/uL 0.000 - 0.012 [facility] Neutrophils/100 leukocytes in Blood by Automated count 60.7 % 42. 2 - 75.2 [facility] Lymphocytes/100 leukocytes in Blood by Automated count 18.2 % 15. 0 - 41.0 [facility] Monocytes/100 leukocytes in Blood by Automated count 13.1 % 0.0 - 12.0 Above high normal [facility] Eosinophils/100 leukocytes in Blood by Automated count 7.2 % 0.0 - 7.0 Above high normal [facility] 0.30.50 NRBC 0.0 % [facility] NOT INDICATED [facility] RBC MORPH NOT INDICATED [facility] pital ID Date Data Source [id number] 05/01/2020 08:05:00 AM EDT [facility] Name Value Range Interpretation Code Description Data Bridget rce(s) Supporting Document(s) Troponin I.cardiac [Mass/volume] in Serum or Plasma 0.059 ng/mL 0. 017 - 0.060 [facility] \\BLDo\\TROPONIN I I NTERPRETATION:\\BLDx\\ < 0.06 ng/mL NOT SUSPICIOUS FOR AN AMI 0.06 - 0.59 ng/mL MAIER ZONE FOR AN AMI, SERIAL MONITORING RECOMMENDED 0.6 - 1.5 ng/mL SUSPICIOUS FOR AN AMI Reference range updated for new chemiluminescent immunoassay method based on [employer] technology. Effective 03/10/18. ID Date Data Source [id number] 05/01/2020 08:05:00 AM T [facility] Name Value Range Interpretation Code Description Data Bridget e(s) Supporting Document(s) BASIC METABOLIC PANEL [facility] BASIC METABOLIC PANEL Sodium [Moles/volume] in Serum or Plasma 142 mEq/L 136 - 145 [facility] Potassium [Moles/volume] in Serum or Plasma 3.2 mEq/L 3.5 - 5.1 Below low normal [facility] Chloride [Moles/volume] in Serum or Plasma 105 mEq/L 98 - 107 [facility] Carbon dioxide, total [Moles/volume] in Serum or Plasma 32.4 mEq /L 21.0 - 32.0 Above high normal [facility] Glucose [Mass/volume] in Serum or Plasma 96 mg/dL 70 - 100 [facility] Urea nitrogen [Mass/volume] in Serum or Plasma 17 mg/dL 7 - 18 [facility] CREATININE SERUM 1.00 mg/dL 0.70 - 1.30 [facility] AGE 89 yrs [facility] HEIGHT 70.00 INCHES [facility] ital eGFR NON-AFR AMR >60 [facility] eGFR AFR AMR >60 [facility] ital BUN/CREAT 17 6 - 25 [facility] Calcium [Mass/volume] in Serum or Plasma 8.7 mg/dL 8.8 - 10.2 Below low normal [facility] ANION GAP 5 7 - 15 Below low normal [facility] Estimated GFR reference r andi: > 60 mL/min/1.73m >18 years: Calculated using IDMS traceable MDRD Study Equation <18 years: Calculated using IDMS traceable Bedside Rodriguez Equation ID Date Data Source [id number] 05/01/2020 12:45:12 AM EDT [facility] Name Value Range Interpretation Code Description Data Bridget rce(s) Supporting Document(s) ER Note [facility] LUMKSu3bDqMWWszzpN5HMBNzAA3emyo5PXihJ6HtDENwrzZySHYzX6ecVGGOTRQNVHDyyN5kZXNiRfsF vYm oHPWxNDTXxGyOaZoAhP6onmzu6tUV4GVTdYwkdWP0CfTg5HTUrV0TuWJKfWJLun3CoHq6+GsO7egLjsU r5dW9OZ9QIMHqW33eaZg1vTRXreBczxMXm7gPSjspYk6FcawuLXPNoNKTJLZpDQIAGG15MPYFNAqJGWB dyyh1rn2LjNn0uHqzI13/ZrfmxtVVb+2f7/Eddk8LI mRBac1q7wgmBqSftewXACRmKnRID3vu92sSQbaZOgIgOW3fYAQdKAy9OKgZ73wGKqvMvEH+G95NMScrm 6wjWc8+Haydee+0Vxri7H5/Haiecvf6/4leHfUHljNcNdMtHqNUgmKx15uJFbHMxvHTnl8RNMWWLf3lJr4 [file] m1FTry7aQg5ghWc9+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/Ue98ieLPKErLEbjJZ1209Kqq/z/dC+7ens4h4jBXusIgHocec8TAesnqSMeM [file] a9X8SILbs+viMVoIHvRY5ZFd1P3z2+mU1GsrfUoGEW0RvNC3tTkRVRwD+byCXGQAo5tyQEHdgB4ql/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 vehicle 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 attendant [file] biAKMDAwMDAyNTAyMyAwMDAwMCBuIAowMDAwMDIyMj L4KFWhMIWrJT4iEzWtVGIgMzRtEGAqCGSnZOEotkWAYPMsSLDdCuY5RuZzQIOrRFUhXHihUEBvFUS9Fp K5VWVfHLNpMT1aEcZoETPmGlljGgSfPBMeUGAyvmPYJJIhQOAiLYm2PqTnDARrLIKwUScmNLLiXZQ7Xm R6WXYcTWRmHM9wXsFyGWPsEya1FwOeMKAoRYUhjtPG ZROfFHHhAnPyGUQyIGXrMNPkKPhnNJZrWCBcPJu5YIOiLVWjCO9oTeDyKXWtCqVwYKPvHORrJROchgIS GLSmNXRtYqN6FcYgVVIlWVRbBLneKDThTPDzDOB4EJSwVTFmNW9iBdYqROFaEiE8CpCwCGXjUDCrarWJ GSMtFSYrMsxoHBHuZGAjLNMqKNggGXXmKIY8QXV4ZE PwDYNrIK5aCbCzPUEuYxmhZQdfMBCzAXHgezHIaYWqvNmotcw8ZEvaHA9Jh555UBIlPSEFTdCoI5goQx 1rZNXvPQUVSLLoFYArDmkQEtDQFGN1OZLPSPInQRCOIMDAWlXEZWF9QiEfVtGEQc3cXRIPNJTfGcyaIo XgPfF3Q0X6N1L3TWVfKwB2QIDSOBFRAw0XVKRlX1 e6FGRrTbn+JmrafTTlmNbvJIYJVcw0XfjSESELL9UX ID Date Data Source [id number] 04/30/2020 08:20:00 PM EDT [facility] Name Value Range Interpretation Code Description Data Bridget rce(s) Supporting Document(s) Natriuretic peptide B [Mass/volume] in Serum or Plasma 3545 PG/M L 0 - 450 Above high normal [facility] Testing methodology changed t o chemiluminscent immunoassay based on [employer]. Effective 03/04/18. ID Date Data Source [id number] 04/30/2020 08:20:00 PM EDT [facility] Name Value Range Interpretation Code Description Data Bridget rce(s) Supporting Document(s) Troponin I.cardiac [Mass/volume] in Serum or Plasma 0.049 ng/mL 0. 017 - 0.060 [facility] \\BLDo\\TROPONIN I I NTERPRETATION:\\BLDx\\ < 0.06 ng/mL NOT SUSPICIOUS FOR AN AMI 0.06 - 0.59 ng/mL MAIER ZONE FOR AN AMI, SERIAL MONITORING RECOMMENDED 0.6 - 1.5 ng/mL SUSPICIOUS FOR AN AMI Reference range updated for new chemiluminescent immunoassay method based on [employer] technology. Effective 03/10/18. ID Date Data Source [id number] 04/30/2020 08:20:00 PM EDT [facility] Name Value Range Interpretation Code Description Data Bridget rce(s) Supporting Document(s) COMPREHENSIVE CHEM PROFILE [facility] COMPREHENSIVE METABOLIC PANEL Sodium [Moles/volume] in Serum or Plasma 143 mEq/L 136 - 145 [facility] Potassium [Moles/volume] in Serum or Plasma 3.5 mEq/L 3.5 - 5.1 [facility] Chloride [Moles/volume] in Serum or Plasma 106 mEq/L 98 - 107 [facility] Carbon dioxide, total [Moles/volume] in Serum or Plasma 29.2 mEq /L 21.0 - 32.0 [facility] Glucose [Mass/volume] in Serum or Plasma 121 mg/dL 70 - 100 Above high normal [facility] Urea nitrogen [Mass/volume] in Serum or Plasma 19 mg/dL 7 - 18 Above high normal [facility] CREATININE SERUM 1.11 mg/dL 0.70 - 1.30 [facility] AGE 89 yrs [facility] HEIGHT NA 70.00 [facility] [place] eGFR NON-AFR AMR >60 [facility] eGFR AFR AMR >60 [facility] ital BUN/CREAT 17 6 - 25 [facility] Protein [Mass/volume] in Serum or Plasma 6.3 g/dL 6.0 - 8.3 [facility] Albumin [Mass/volume] in Serum or Plasma 3.0 g/dL 3.8 - 5.4 Below low normal [facility] GLOBULIN 3.3 g/dL 2.0 - 4.0 [facility] A/G RATIO 0.9 0.8 - 2.0 [facility] Calcium [Mass/volume] in Serum or Plasma 9.0 mg/dL 8.8 - 10.2 [facility] Bilirubin.total [Mass/volume] in Serum or Plasma 0.5 mg/dL 0.2 - 1.0 [facility] Bilirubin.direct [Mass/volume] in Serum or Plasma 0.1 mg/dL 0.0 - 0. 2 [facility] INDIRECT BILI 0.4 mg/dL 0.0 - 1.1 [facility] pital ALK PHOSPHATASE 99 U/L 40 - 129 [facility] ospital Aspartate aminotransferase [Enzymatic ac tivity/volume] in Serum or Plasma by With P-5'-P 18 IU/L 7 - 37 [facility] Alanine aminotransferase [Enzymatic acti vity/volume] in Serum or Plasma by With P-5'-P 19 IU/L 12 - 78 [facility] ANION GAP 8 7 - 15 [facility] Estimated GFR referenc e range: >60ml/min/1.73m >18 years: Calculated using IDMS traceable Study Equation <18 years: Calculated using IDMS tracable Bedside Schartz Equation ID Date Data Source [id number] 04/30/2020 08:20:00 PM EDT [facility] Name Value Range Interpretation Code Description Data Bridget rce(s) Supporting Document(s) PROTIME NON 13.2 Secs 10.7 - 16.1 [facility] INR in Platelet poor plasma by Coagulation assay 1.0 0.9 - 1.1 [facility] New Protime Reference Range as of May 29, 2019 ID Date Data Source [id number] 04/30/2020 08:20:00 PM EDT [facility] Name Value Range Interpretation Code Description Data Bridget rce(s) Supporting Document(s) CBC [facility] COMPLETE BLOOD COUNT Leukocytes [#/volume] in Blood by Automated count 6.7 K/uL 4.0 - 10 .0 [facility] Erythrocytes [#/volume] in Blood by Automated count 3.27 M/uL 4.30 - 6.10 Below low normal [facility] Hemoglobin [Mass/volume] in Blood 11.2 g/dL 13.5 - 17.5 Below low no rmal [facility] Hematocrit [Volume Fraction] of Blood by Automated count 34.7 % 39.0 - 50.0 Below low normal [facility] Erythrocyte mean corpuscular volume [Entitic volume] b y Automated count 106.1 fL 80.0 - 96.0 Above high normal [facility] Erythrocyte mean corpuscular hemoglobin [Entitic mass] by Automated count 34.3 pg 26.0 - 34.0 Above high normal [facility] Erythrocyte mean corpuscular hemoglobin concentration [Mass/volume] by Automated count 32.3 g/dL 32.0 - 36.0 [facility] Erythrocyte distribution width [Ratio] by Automated count 14.5 % 11.6 - 14.8 [facility] Platelets [#/volume] in Blood by Automated count 178 K/uL 150 - 450 [facility] Platelet mean volume [Entitic volume] in Blood by Automated count 9.6 fL 7.1 - 10.4 [facility] Neutrophils [#/volume] in Blood by Automated count 4.59 K/uL 1.70 - 7.70 [facility] Lymphocytes [#/volume] in Blood by Automated count 0.95 K/uL 1.50 - 6.00 Below low normal [facility] Monocytes [#/volume] in Blood by Automated count 0.78 K/uL 0.00 - 1. 00 [facility] Eosinophils [#/volume] in Blood by Automated count 0.34 K/uL 0.00 - 0.30 Above high normal [facility] Basophils [#/volume] in Blood by Automated count 0.03 K/uL 0.00 - 0. 10 [facility] 0.04 Urinalysis macro (dipstick) panel - Urine 0.000 10^3/uL 0.000 - 0.012 [facility] Neutrophils/100 leukocytes in Blood by Automated count 68.2 % 42. 2 - 75.2 [facility] Lymphocytes/100 leukocytes in Blood by Automated count 14.1 % 15.0 - 41.0 Below low normal [facility] Monocytes/100 leukocytes in Blood by Automated count 11.6 % 0.0 - 12.0 [facility] Eosinophils/100 leukocytes in Blood by Automated count 5.1 % 0.0 - 7.0 [facility] 0.40.60 NRBC 0.0 % [facility] MANUAL DIFF NOT INDICATED [facility] ospital RBC MORPH NOT INDICATED [facility] pital ID Date Data Source [id number] 04/30/2020 08:03:00 PM EDT [facility] Name Value Range Interpretation Code Description Data Bridget rce(s) Supporting Document(s) Respiratory specimen severe acute respir atory syndrome coronavirus 2 (SARS-CoV-2) RNA [facility] This lab was ordered by [facility] rachel and reported by [facility]. ID Date Data Source [id number] 05/02/2020 01:37:00 AM EDT [facility] COVID-19 Specimen Source NASOPHARYNGEAL Is Patient admitted or to be admitted? NFirst test? UNKNOWNEmployed in healthcare? UNKNOWNSymptomatic per CDC? UNKNOWNHospitalized? NOICU? NOResident in congregated care? ex retirement, ARC NO? NO Name Value Range Interpretation Code Description Data Bridget rce(s) Supporting Document(s) SARS-CoV-2 RNA Negative Normal (applies to non-numeric r esults) [facility] 2019-novel Coronavirus (2019-nCoV) not d etected by the qRT-PCR assay. Consider testing for other respiratory viruses or re-collecting for 2019-nCoV testing. Note: Optimum timing for peak viral levels during infections caused by 2019- nCoV have not been determined. Collection of multiple specimens from the same patient may be necessary to detect the virus. Limitations Positive results are indicative of active infection with SARS-CoV-2 but do not rule out bacterial infection or co-infection with other viruses. The agent detected may not be the definite cause of disease. In addition, detection of viral RNA may not indicate the presence of infectious virus or that SARS-CoV-2 is the causative agent for clinical symptoms. Negative results do not preclude SARS-CoV-2 infection and should not be used as the sole basis for patient management decisions. Negative results must be combined with clinical observations, patient history, and epidemiological information. False negative results may also occur if amplification inhibitors are present in the specimen or if inadequate numbers of organisms are present in the specimen. Optimum specimen types and timing for peak viral levels during infections caused by SARS-CoV-2 have not been fully determined. Collection of multiple specimens (types and time points) from the same patient may be necessary to detect the virus. The test was validated for use with upper respiratory specimens obtained via nasopharyngeal or oropharyngeal swabs in VTM, UTM, M4, M5, M6, saline, and MTM media. The performance of this test has not been established for other specimens. Specimens collected using other FDA recommended Specimen Collection Materials listed in the FDA COVID-19 [employer] communication (October 22, 2019) are processed with the caveat that they were not all validated for use with this test and the result must be interpreted in this context. Furthermore, a false negative results may occur if a specimen is improperly collected, transported or handled. If the virus mutates in the RT- PCR target region, SARS-CoV-2 may not be detected or may be detected less predictably. Inhibitors or other types of interference may produce a false negative result. An interference study evaluating the effect of common cold medications was not performed. This test is not FDA-cleared but its performance characteristics were established by our CLIA-certified, CAP-accredited, high complexity laboratory in accordance with CLIA regulations, [employer] (CAP) guidelines (Oct 15, 2019), and FDA guidance (Sep 26, 2019). This test is only for use under the Food and Drug Administration's Emergency Use Authorization. THIS IS A STATE REPORTABLE COMMUNICABLE DISEASE. 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 ex retirement, ARC: N ?: N Please indicate the Triage TierN Test performed or referred by The [address] [address] ID Date Data Source [id number] 03/17/2020 06:30:00 PM EDT [facility] Name: JENNIFERMAGDA Med Rec #: [id number] 46 : 1930 Age/Sex: 89M Date of Service: 03/17/20 PHYSICIAN CHART Physician Documentation [facility] Name: Magda Rodriguez Age: 89 yrs Sex: Male : 1930 Arrival Date: 03/17/2020 Time: 18:30 Bed 8 Private MD: Pelon Berrios; Dr LUPE De La O Physician Ja Castañeda HPI: 03/17 19:30 This 89 yrs old Male presents to ER via jja1 Wheelchair with complaints of Hip Pain. 19:50 Patient is an 89-year-old male with medical history [facility] significant for CAD, lipidemia, spinal stenosis, chronic hip pain, chronic back pain, who presents to the ER today with complaints of hip pain. Patient is accompanied by a friend who states that the patient has been unable to perform ADLs and is confined to a chair or bed due to the significant amount of pain that he has in his hip. Patient has difficulty ambulating and often uses furniture walking to ambulate in his house. Patient reports that the hip pain has been ongoing for several months, and has been getting progressively worse. He usually sees the doctors in [place]; however, they have informed him that there is not much else they can do for him. He has been to pain management and was given a hip injection around three weeks ago. However, the pain has remained consistent. He does state that the pain is located in the right hip. Sometimes he states the pain is also located in his low back and radiates through his buttocks and into his leg. As mentioned above, patient does have a history of spinal stenosis. Patient denies fever, nausea, vomiting, diarrhea, chest pain, palpitations, or other symptoms at this time.. Historical: - Allergies: No known Allergies; - Home Meds: 1. allopurinol 300 mg Oral tab 1 tab at bedtime 2. Ambien 10 mg Oral tab 1 tab at bedtime 3. aspirin 81 mg Oral TbEC 1 tab once daily 4. Avodart 0.5 mg Oral Tb24 1 cap once daily 5. Fexofenadine HCl 90 mg Oral 1 tab once daily 6. gabapentin 400 mg Oral Tb24 1 cap 3 times per day 7. hydrocodone-acetaminophen 5-325 mg Oral tab 2 tabs Every 8 hours, PRN out of medicine 8. ICaps Oral TbER daily 9. Lasix 40 mg Oral tab 1 tab once daily 10. Levothroid 175 mcg Oral tab 1 tab once daily 11. Lipitor 20 mg Oral tab 1 tab once daily 12. melatonin 10 mg Oral tab as needed 13. Multiple Vitamins Oral tab daily 14. nitroglycerin 0.4 mg SL subl 1 tab every 5 minutes 15. Norvasc 2.5 mg Oral tab 1 tab once daily 16. Plavix 75 mg Oral tab 1 tab once daily 17. potassium chloride 10 mEq Oral TbER 1 tab once daily 18. ramipril 2.5 mg Oral Tb24 1 cap once daily 19. terazosin 10 mg Oral Tb24 1 cap once daily 20. Vitamin B-12 1,000 mcg Oral tab daily 21. Vitamin C 500 mg Oral tab 22. Vitamin D Oral 1000 unit daily - PMHx: Coronary atherosclerosis; Hypercholesterolemia; spinal stenosis; cva; - PSHx: kidney stone surgery; - Med Reconciliation:: Green Alert: The patient's med list is complete to the best of the nurse's/provider's knowledge. Medications reviewed, verbally from patient/family. - Immunization history: The patients tetanus immunization is up to date. All immunizations are up to date. Flu vaccine is up to date. Pneumococcal vaccine is up to date. Flu vaccine is up to date. - Advance directive: There is no existing advanced directive. Information offered. There is no existing advanced directive. Information offered. - Family History:: mother is . Father is . mother is . Father is . - Social History: Smoking status (Tobacco): Patient states he/she has never smoked tobacco. No barriers to communication noted, The patient speaks fluent Haitian, Smoking status (Tobacco): Patient states they are a former tobacco smoker, quit [employer] 45 years ago ago. Preferred Language: Haitian. - The history of the events were obtained from: the patient. ROS: 19:58 Constitutional: See HPI. Respiratory: Negative for cough, jja1 shortness of breath, See HPI. Abdomen/GI: See HPI. : Negative for urinary symptoms. Back: See HPI. MS/extremity: See HPI. Skin: Negative for rash. Neuro: See HPI. All other systems are negative. Exam: 19:59 Constitutional: The patient appears alert, appears to be jja1 awake, does not appear to be toxic, is obviously uncomfortable. 19:59 Chest/axilla: Inspection: normal, no assymetry. 19:59 Cardiovascular: Rate: normal, Rhythm: regular, Pulses: Pulses are 2+ in right radial artery, right dorsalis pedis artery, left radial artery and left dorsalis pedis artery. Heart sounds: normal, normal S1and S2, murmur, systolic, crescendo - decrescendo, grade 3 over 6, heard in the aortic area. 19:59 Respiratory: the patient does not display signs of respiratory distress, Respirations: normal, symetrical, Breath sounds: are normal, clear throughout. 19:59 Musculoskeletal/extremity: ROM: limited active range of motion due to pain, in the right leg, Circulation is intact in all extremities. Sensation intact. 19:59 Skin: Appearance: Color: pink, Temperature: warm, Moisture: dry. 19:59 Neuro: Orientation: to person, place, time & situation. Gait: is unsteady, Deep tendon reflexes are 2+ (normal) in the right patellar and left patellar. 20:05 Back: pain, that is moderate, of the lumbar area, ROM is jja1 painful, with all movement, CVA tenderness, is absent, vertebral tenderness, is appreciated at L2, L3, L4 and L5. Vital Signs: 18:44 BP 123 / 73; Pulse 90; Resp 16; Temp 97.6; Pulse Ox 98% ; sj Weight 66.22 kg; Height 5 ft. 10 in. (177.80 cm); 20:31 Pain 8/10; rjh1 21:39 BP 115 / 74; Pulse 72; Resp 18; Temp 97.9; Pulse Ox 97% on rjh1 R/A; Pain 7/10; 22:10 Pain 6/10; rjh1 22:30 BP 127 / 77; Pulse 85; Resp 18; Pulse Ox 97% on R/A; Pain rjh1 6/10; 18:44 Body Mass Index 20.95 (66.22 kg, 177.80 cm) sj MDM: 18:48 Patient medic ally screened. 20:06 Case presented to: Dr. Marcos Lara. Data reviewed: vital [facility] signs, nurses notes, old medical records. 21:26 ED course: To summarize, patient presented to the ER today jja1 with complaints of hip pain and back pain. The way the patient describes the pain it sounds more like pain typical of radicular pain. We did give the patient a dose of acetaminophen, ketorolac, morphine here in the ER to control his pain. The major concern is that patient is unable to take care of himself at home due to the significant amount of pain. He either lays in bed or in a chair all day long. I have consulted with the hospitalist, Dr. Shari Michaels, who will admit the patient to the hospital for observation. Patient will likely need the services of a technology adoption manager to help him manage his outpatient care.. 03/17 19:12 Order name: Cbc With Auto Differential; Complete Time: 20:31j03/17 19:12 Order name: COMMET; Complete Time: 20:50 03/17 18:51 Order name: Hip Rt - Xray 03/17 19:12 Order name: C-Reactive Protein,Wide Range; Complete Time: 20:50 03/17 19:12 Order name: Troponin I; Complete Time: 21:08 03/17 19:12 Order name: UA. 03/17 19:12 Order name: Emergency Room EKG Order - Use EKG Work-Up /Quick Select; Complete Time: 20:02 03/17 19:12 Order name: Cardiology EKG Interpretation - Choose Reason [facility] for Test 03/17 21:21 Order name: Assign to Observation EDMS 03/17 19:12 Order name: Collect Urine - Clean Catch 03/17 19:12 Order name: Saline Lock; Complete Time: 20:40 Dispensed Medications: 20:06 CANCELLED (Physician Discretion): morphine 2 mg IVP once aaq 20:16 Drug: Ofirmev 1000 mg [Ofirmev 1,000 mg/100 mL (10 mg/mL) rjh1 intravenous solution] Route: IVPB; Site: right forearm; 20:31 Follow up: Pain 8/10 Adult; Response: No change in rjh1 condition; IV Status: Completed infusion; IV Intake: 100ml 21:08 Drug: ketorolac 15 mg [ketorolac 30 mg/mL (1 mL) injection rjh1 solution (0.5 mL)] Route: IVP; Site: right forearm; 21:30 Follow up: Response: No change in condition rjh1 21:17 Drug: morphine 2 mg [morphine 2 mg/mL injection syringe (1 rjh1 mL)] Route: IVP; Site: right forearm; 21:39 Follow up: BP 115 / 74; Pulse 72 bpm; Resp 18 bpm; Temp rjh1 97.9; Pulse Ox 97% RA; Pain 7/10 Adult; Response: Pain is decreased 21:48 Drug: morphine 2 mg [morphine 2 mg/mL injection syringe (1 rjh1 mL)] Route: IVP; Site: right forearm; 22:10 Follow up: Pain 6/10 Adult; Response: Pain is decreased rjh1 Disposition Summary: 03/17/20 21:22 Hospitalization Ordered Hospitalization Status: Observation jja1 Provider: Shari Michaels Location: Med-Surg 2(03/17/20 21:26) [facility] Room Assignment: [place] [id number](03/17/20 21:26) [facility] Diagnosis - Chronic Low Back Pain - Intractable jja1 - Pain in right hip - intractable jja1 Additional Information - Patient Status Observation. jja1 Forms: - Medication Reconciliation jja1 - SBAR jja1 Addendum: 03/19/2020 20:06 Attestation: Patient was seen by the Mid-Level Provider. Jigna covington was personally available in the department for consultation but did not see or discuss the patient with them. Signatures: Dispatcher [employer] Loretta Dominguez RN RN Ja Sanders MD MD jam2 Frary, Shelby sf2 Whitney Aguiar RN RN alc Adams, Joseph, RNP RNP jja1 Marcos Lara MD MD aaq Nostrom, William wln1 Delonte Garcia RN RN rjh1 Corrections: (The foll owing items were deleted from the chart) 03/17 18:44 18:39 Home Meds: Flexeril 10 mg Oral tab 1 tab 3 times per sj day; sj 18:44 18:39 Home Meds: tramadol 50 mg Oral tab 2 tabs Every 6 sj hours, PRN; 19:57 19:50 Patient is an 89-year-old male with medical history jja1 significant for CAD, lipidemia, spinal stenosis, chronic hip pain, chronic back pain, who presents to the ER today with complaints of hip pain.. jja1 20:06 19:52 morphine 2 mg IVP once ordered. jja1 aaq 21: 21:22 Observation jja1 sf2 21: 21:22 jja1 sf2 Name Value Range Interpretation Code Description Data Bridget rce(s) Supporting Document(s) ID Date Data Source [id number] 03/17/2020 06:30:00 PM EDT [facility] Name: MAGDA RODRIGUEZ [facility] Rec #: [id number] 46 : 1930 Age/Sex: 89M Date of Service: 03/17/20 NURSE CHART Nurse's Notes [facility] Name: Magda Rodriguez Age: 89 yrs Sex: Male : 1930 Arrival Date: 03/17/2020 Time: 18:30 Bed 8 Private MD: Pelon Berrios; Dr Jaylyn Diagnosis: Chronic Low Back Pain-Intractable;Pain in right hip- intractable Presentation: 03/17 18:33 Transition of care: patient was not received from another setting of care. Presenting complaint: Patient states - He has right hip pain, denies any recent injury. The pain has been going on since last year and it is getting worse .He sees pain management and he had an injection about 3 weeks ago without any relief. Have you travelled in the last 30 days? No. Have you had contact with an individual with a confirmed diagnosis of Ebola or COVID-19? No. 18:33 Method Of Arrival: Wheelchair 18:33 Acuity: Semi- Urgent - 4 sj Triage Assessment: 18:38 Suicide Screening: Have you had thoughts of harming sj yourself or others? No. The patient appears to have some mild discomfort, The patient is cooperative. Patient states the pain is currently a 8 / 10 The patient complains of pain in right hip. The quality of the pain is described as stabbing, The pain is described as intermittent. 19:43 SEPSIS SCREEN: A Confirmed or Suspected Infection is alc Unknown, their temperature is not <96.8 or >100.9, their heart rate is not >90, their RR is not >20, it is unknown if their WBC is <4 or >12, the patient does not have new or unexplained altered mental status. SIRS or Sepsis criteria is not present. Historical: - Allergies: No known Allergies; - Home Meds: 1. allopurinol 300 mg Oral tab 1 tab at bedtime 2. Ambien 10 mg Oral tab 1 tab at bedtime 3. aspirin 81 mg Oral TbEC 1 tab once daily 4. Avodart 0.5 mg Oral Tb24 1 cap once daily 5. Fexofenadine HCl 90 mg Oral 1 tab once daily 6. gabapentin 400 mg Oral Tb24 1 cap 3 times per day 7. hydrocodone-acetaminophen 5-325 mg Oral tab 2 tabs Every 8 hours, PRN out of medicine 8. ICaps Oral TbER daily 9. Lasix 40 mg Oral tab 1 tab once daily 10. Levothroid 175 mcg Oral tab 1 tab once daily 11. Lipitor 20 mg Oral tab 1 tab once daily 12. melatonin 10 mg Oral tab as needed 13. Multiple Vitamins Oral tab daily 14. nitroglycerin 0.4 mg SL subl 1 tab every 5 minutes 15. Norvasc 2.5 mg Oral tab 1 tab once daily 16. Plavix 75 mg Oral tab 1 tab once daily 17. potassium chloride 10 mEq Oral TbER 1 tab once daily 18. ramipril 2.5 mg Oral Tb24 1 cap once daily 19. terazosin 10 mg Oral Tb24 1 cap once daily 20. Vitamin B-12 1,000 mcg Oral tab daily 21. Vitamin C 500 mg Oral tab 22. Vitamin D Oral 1000 unit daily - PMHx: Coronary atherosclerosis; Hypercholesterolemia; spinal stenosis; cva; - PSHx: kidney stone surgery; - Med Reconciliation:: Green Alert: The patient's med list is complete to the best of the nurse's/provider's knowledge. Medications reviewed, verbally from patient/family. - Immunization history: The patients tetanus immunization is up to date. All immunizations are up to date. Flu vaccine is up to date. Pneumococcal vaccine is up to date. Flu vaccine is up to date. - Advance directive: There is no existing advanced directive. Information offered. There is no existing advanced directive. Information offered. - Family History:: mother is . Father is . mother is . Father is . - Social History: Smoking status (Tobacco): Patient states he/she has never smoked tobacco. No barriers to communication noted, The patient speaks fluent Haitian, Smoking status (Tobacco): Patient states they are a former tobacco smoker, quit smoking 45 years ago ago. Preferred Language: Haitian. - The history of the events were obtained from: the patient. Screenin:42 AUDIT 1. How often do you have a drink containing alcohol? alc Never (0 points). Drug Abuse Screening Test: 1. Have you used drugs other than those required for medical reasons? No (0 points), screen is complete, no risk. Abuse screen: Denies threats or abuse. Denies injuries from another. Nutritional screening: No deficits noted. Wheelchair(15 pts). Patient's gait is weak (10 points). The patient's gait is impaired (20 points), cannot walk without assitance. The patient is at HIGH RISK for falls (Castillo Scale = >45 pts). Fall prevention measures have been instituted. Patient and Family have been educated on fall prevention program and strategies. Assessment: 19:30 The patient appears to have no apparent distress, The alc patient is pleasant. Musculoskeletal: Circulation, motion, and sensation are all intact. Range of motion intact in all extremities. No swelling noted. Pulses are all present. 19:38 Musculoskeletal: Patient reports Pain in right hip and alc right buttocks. Vital Signs: 18:44 BP 123 / 73; Pulse 90; Resp 16; Temp 97.6; Pulse Ox 98% ; sj Weight 66.22 kg; Height 5 ft. 10 in. (177.80 cm); 20:31 Pain 8/10; rjh1 21:39 BP 115 / 74; Pulse 72; Resp 18; Temp 97.9; Pulse Ox 97% on rjh1 R/A; Pain 7/10; 22:10 Pain 6/10; rjh1 22:30 BP 127 / 77; Pulse 85; Resp 18; Pulse Ox 97% on R/A; Pain rjh1 6/10; 18:44 Body Mass Index 20.95 (66.22 kg, 177.80 cm) Vitals: 21:40 pt requested and received tomato soup, saltine crackers, rjh1 and Pepsi, preparing pt for admission. ED Course: 18:31 Patient arrived in ED. jst 18:36 Triage completed. sj 18:37 Dr Jaylyn is Private Physician. sj 18:37 Pelon Berrios is Private Physician. sj 18:39 Arm band placed on right wrist. sj 18:47 Whitney Aguiar, RN is Primary Nurse. alc 18:48 Jhonny Traylor RNP is PHCP. jja1 18:48 Ja Castañeda MD is Attending Physician. jja1 19:33 Delonte Garcia, ALLA is Primary Nurse. skb 19:43 Patient has correct armband on for positive identification. alc Placed in gown. Bed in low position. Call light in reach. Side rails up X2. 19:55 An EKG was obtained and reviewed by Jhonny ACEVES. wln1 20:02 Cardiology EKG Interpretation - Choose Reason for Test Sent.wln1 20:19 Inserted saline lock: 20 gauge in right forearm and blood [facility] c ollected. 21:20 Shari Michaels MD is Hospitalizing Provider. jja1 21:42 No procedures ordered. rjh1 21:43 Radiology: Patient to X-ray at 19:30. [facility] Administered Medications: 20:06 CANCELLED (Physician Discretion): morphine 2 mg IVP once aaq 20:16 Drug: Ofirmev 1000 mg [Ofirmev 1,000 mg/100 mL (10 mg/mL) [facility] intravenous solution] Route: IVPB; Site: right forearm; 20:31 Follow up: Pain 8/10 Adult; Response: No change in rj condition; IV Status: Completed infusion; IV Intake: 100ml 21:08 Drug: ketorolac 15 mg [ketorolac 30 mg/mL (1 mL) injection rj solution (0.5 mL)] Route: IVP; Site: right forearm; 21:30 Follow up: Response: No change in condition rj 21:17 Drug: morphine 2 mg [morphine 2 mg/mL injection syringe (1 rjh1 mL)] Route: IVP; Site: right forearm; 21:39 Follow up: BP 115 / 74; Pulse 72 bpm; Resp 18 bpm; Temp rjh1 97.9; Pulse Ox 97% RA; Pain 7/10 Adult; Response: Pain is decreased 21:48 Drug: morphine 2 mg [morphine 2 mg/mL injection syringe (1 rjh1 mL)] Route: IVP; Site: right forearm; 22:10 Follow up: Pain 6/10 Adult; Response: Pain is decreased rj Intake: 20:31 IV: 100ml; Total: 100ml. [facility] Outcome: 21:22 Decision to Hospitalize by Provider. jja1 21:42 Patient verbalized understanding of disposition [facility] instructions. Patient has no functional deficits. 21:42 Patient admitted to the observation unit. 21:42 Condition: stable 21:42 Not Applicable. 21:42 Vitals are Complete in accordance with Emergency Department Policy. 22:50 Report given to Rosa GOLD on MSU-2, ok to send pt. [facility] 22:55 Patient left the ED. [facility] Signatures: Loretta Tran RN Whitney Reid RN RN alc Brown, Sarah, RN RN Jhonny Herrera RNP JALOUSIE INSTALLER jja1 Adolfo Izaguirre wln1 Adriane Nicolas Robert, RN RN chintan Marcos Lara MD aaq Corrections: (The following items were deleted from the chart) 18:44 18:39 Home Meds: Flexeril 10 mg Oral tab 1 tab 3 times per sj day; sj 18:44 18:39 Home Meds: tramadol 50 mg Oral tab 2 tabs Every 6 sj hours, PRN; sj 20:03 20:02 An EKG was obtained and reviewed by Marcos Lara MD [email or web address] Name Value Range Interpretation Code Description Data Bridget rce(s) Supporting Document(s) ID Date Data Source [id number] 03/20/2020 10:18:00 AM EDT [facility] Name: MAGDA RODRIGUEZ : 1930 A ge/Sex: 89M Ordering Provider: KETAN Garcia Med Rec #: [id number] Reg Status: DIS IN Room #: 207-2 Date of Service: 03/19/20 Report Number: [id number] cc:KETAN Garcia; Ranjit De La O MD Send Report To: [id number] CT/CT Head No Contrast Reason for exam: Sudden onset difficulty swallowing, shaky, lightheadedness Comparison: 06-16-2019 FINDINGS: Cerebral atrophy and chronic microvascular ischemic changes are noted in the cerebral white matter. Acute ischemic event, intracranial hemorrhage, space occupying mass, mass effect, or midline shift is not seen. Skull, sinuses and orbits are unremarkable. IMPRESSION: Atrophy and chronic microvascular ischemic changes. Acute intracranial pathology or mass not seen. While performing the above CT exam, the following dose reduction techniques wereused: *Automated exposure control *Adjustment of the mA and/or kV according to patient size *Use of iterative reconstruction technique CT Dose in mSv: 1.4 Contrast Agent in ml: Method of Administration: REPORT SIGNATURE ON FILE Reported By: Leonila Hayward MD <Electronically signed by Leonila Hayward MD> 03/21/20 1106 Dictation Date/Time: 03/19/20 1607 Transcribed Date/Time: 03/20/20 1018 Weaver Apprentice: LISSET Name Value Range Interpretation Code Description Data Bridget rce(s) Supporting Document(s) ID Date Data Source [id number] 03/19/2020 05:47:00 AM EDT [facility] Name Value Range Interpretation Code Description Data Bridget rce(s) Supporting Document(s) Color,Urine Yellow Normal (applies to non-numeric resu lts) [facility] Clarity,Urine Clear Normal (applies to non-numeric re sults) [facility] Specific [place],Urine 1.001-1.030 Normal (applies to non- numeric results) [facility] PH,Urine 5.0-8.0 Normal (applies to non-numeric resul ts) [facility] Protein,Urine Negative Normal (applies to non-numeric re sults) [facility] Glucose,Urine (UA) Negative Normal (applies to non-numer ic results) [facility] Ketones,Urine Negative Normal (applies to non-numeric re sults) [facility] Blood,Urine Negative Normal (applies to non-numeric resu lts) [facility] Bilirubin,Urine Negative Normal (applies to non-numeric results) [facility] Urobilinogen,Urine Norm 0.2-1 Normal (applies to non-numer ic results) [facility] Leukocyte Esterase,Urine Negative Normal (applies to non -numeric results) [facility] Nitrite,Urine Negative Normal (applies to non-numeric re sults) [facility] ID Date Data Source [id number] 03/17/2020 06:30:00 PM EDT [facility] Name: MAGDA RODRIGUEZ [facility] Rec #: [id number] : 1930 Age/Sex: 89M Date of Service: 03/17/20 DISPOSITION SUMMARY Discharge Summary [facility] Name:Magda Rodriguez Emergency Department Age:89 yrs Sex:Male :1930 Arrival:03/17/2020 18:30 Departure Date03/17/2020 Departure Time22:55 Private MD:Pelon Berrios; Dr Jaylyn Outcome: Hospitalize Location: Med-Surg 2 Condition: Chief Complaint: Hip Pain Diagnosis: Chronic Low Back Pain - Intractable, Pain in right hip - intractable Prescriptions: Custom Notes: Attending Physician: Ja Castañeda MD Private MD: Pelon Berrios Mid Level Provider: Jhonny Traylor RNP Hospitalizing Provider: Shari Michaels MD Orders: Cbc With Auto Differential, COMMET, Hip Rt - Xray, C-Reactive Protein,Wide Range, Troponin I, UA., Emergency Room EKG Order - Use EKG Work- Up /Quick Select, Cardiology EKG Interpretation - Choose Reason for Test, morphine, Ofirmev, ketorolac, morphine, Assign to Observation, morphine, Collect Urine - Clean Catch, Saline Lock Discharge Instruction: Medication Reconciliation, SBAR Name Value Range Interpretation Code Description Data [facility] Supporting Document(s) ID Date Data Source [id number] 03/18/2020 09:18:00 AM EDT [facility] Name Value Range Interpretation Code Description Data Bridget rce(s) Supporting Document(s) Sodium 138 mmol/L 137-145 Normal (applies to non-numeric resul ts) [facility] Potassium 3.5-5.1 Normal (applies to non-numeric resul ts) [facility] Chloride 107 mmol/L 98-112 Normal (applies to non-numeric resul ts) [facility] Carbon Dioxide CO2 22.0-33.0 Normal (applies to non-numer ic results) [facility] Anion Gap 4.0-11.0 Below low normal [facility] BUN 17 mg/dL 9-20 Normal (applies to non-numeric resul ts) [facility] Creatinine 0.80-1.50 Normal (applies to non-numeric resul ts) [facility] GFR 83 mL/min >60 Normal (applies to non-numeric resul ts) [facility] Result based on MDRD formula. Glucose Level 105 mg/dL 74-99 Above high normal [facility] The reference range is only applicable w hen fasting. Calcium-Uncorrected 8.4-10.2 Normal (applies to non-nume reji results) [facility] Corrected Calcium 8.4-10.2 Normal (applies to non-numeri c results) [facility] ID Date Data Source [id number] 03/18/2020 09:06:00 AM EDT [facility] Name Value Range Interpretation Code Description Data Bridget rce(s) Supporting Document(s) White Blood Count 4.8-10.8 Normal (applies to non-numeri c results) [facility] Red Blood Count 4.35-6.08 Below low normal [facility] Hemoglobin 13.0-17.5 Below low normal [facility] Hematocrit 37.7-51.0 Below low normal [facility] Mean Corpuscular Volume 80-94 Above high normal [facility] Mean Corpuscular Hemoglobin 27.0-33.0 Above high normal [facility] Mean Corpuscular HGB Conc 32.0-36.0 Normal (applies to no n-numeric results) [facility] Red Cell Distribution Width 11.5-14.5 Normal (appli es to non-numeric results) [facility] Platelet Count 191 X10 3/uL 130-450 Normal (applies to non-numeric results) [facility] Mean Platelet Volume 9.6-13.1 Normal (applies to non-num kaci results) [facility] Imm Grans% (AUTO) 0 % 0-2 Normal (applies to non-numeri c results) [facility] Neutrophils % (AUTO) 65 % 40-75 Normal (applies to non-num kaci results) [facility] Lymphocytes % (AUTO) 22 % 21-46 Normal (applies to non-num kaci results) [facility] Monocytes % (AUTO) 10 % 5-12 Normal (applies to non-numer ic results) [facility] Eosinophils % (AUTO) 2 % 1-5 Normal (applies to non-num kaci results) [facility] Basophils % (AUTO) 1 % 0-1 Normal (applies to non-numer ic results) [facility] Imm Grans# (AUTO) 0.0-0.5 Normal (applies to non-numeri c results) [facility] Neutrophils # (AUTO) 1.5-8.1 Normal (applies to non-num kaci results) [facility] Lymphocytes # (AUTO) 1.0-3.1 Normal (applies to non-num kaci results) [facility] Monocytes # (AUTO) 0.2-1.3 Normal (applies to non-numer ic results) [facility] Eosinophils# (AUTO) 0.0-0.5 Normal (applies to non-nume reji results) [facility] Basophils # (AUTO) 0.0-0.1 Normal (applies to non-numer ic results) [facility] ID Date Data Source [id number] 03/17/2020 08:52:00 PM EDT [facility] Name Value Range Interpretation Code Description Data Bridget rce(s) Supporting Document(s) Troponin I 0.000-0.045 Normal (applies to non-numeric resu lts) [facility] ID Date Data Source [id number] 03/17/2020 08:49:00 PM EDT [facility] Name Value Range Interpretation Code Description Data Bridget rce(s) Supporting Document(s) Sodium 142 mmol/L 137-145 Normal (applies to non-numeric resul ts) [facility] Potassium 3.5-5.1 Below low normal [facility] Chloride 112 mmol/L 98-112 Normal (applies to non-numeric resul ts) [facility] Carbon Dioxide CO2 22.0-33.0 Normal (applies to non-numer ic results) [facility] Anion Gap 4.0-11.0 Normal (applies to non-numeric resul ts) [facility] BUN 16 mg/dL 9-20 Normal (applies to non-numeric resul ts) [facility] Creatinine 0.80-1.50 Normal (applies to non-numeric resul ts) [facility] GFR >60 Normal (applies to non-numeric results) [facility] Result based on MDRD formula. Glucose Level 112 mg/dL 74-99 Above high normal [facility] The reference range is only applicable w hen fasting. Calcium-Uncorrected 8.4-10.2 Normal (applies to non-nume reji results) [facility] Corrected Calcium 8.4-10.2 Normal (applies to non-numeri c results) [facility] Bilirubin,Total 0.2-1.3 Normal (applies to non-numeric results) [facility] SGOT(AST) 23 U/L 17-59 Normal (applies to non-numeric resul ts) [facility] SGPT(ALT) 22 U/L 21-72 Normal (applies to non-numeric resul ts) [facility] Alkaline Phosphatase 104 U/L 38-126 Normal (applies to non-num kaci results) [facility] can increase Alkaline Phosp le vels up to 2 times the normal adult value. Normal values for children and adolescents are 2 to 3 times the normal adult value. Total Protein 6.3-8.2 Below low normal [facility] Albumin 3.5-5.0 Below low normal [facility] ID Date Data Source [id number] 03/17/2020 08:49:00 PM EDT [facility] Name Value Range Interpretation Code Description Data Bridget rce(s) Supporting Document(s) C-Reactive Protein,Wide Range <3.00 Normal (applies t o non-numeric results) [facility] ID Date Data Source [id number] 03/17/2020 08:23:00 PM EDT [facility] Name Value Range Interpretation Code Description Data Bridget rce(s) Supporting Document(s) White Blood Count 4.8-10.8 Normal (applies to non-numeri c results) [facility] Red Blood Count 4.35-6.08 Below low normal [facility] Hemoglobin 13.0-17.5 Below low normal [facility] Hematocrit 37.7-51.0 Below low normal [facility] Mean Corpuscular Volume 80-94 Above high normal [facility] Mean Corpuscular Hemoglobin 27.0-33.0 Above high normal [facility] Mean Corpuscular HGB Conc 32.0-36.0 Normal (applies to no n-numeric results) [facility] Red Cell Distribution Width 11.5-14.5 Normal (appli es to non-numeric results) [facility] Platelet Count 192 X10 3/uL 130-450 Normal (applies to non-numeric results) [facility] Mean Platelet Volume 9.6-13.1 Normal (applies to non-num kaci results) [facility] Imm Grans% (AUTO) 0 % 0-2 Normal (applies to non-numeri c results) [facility] Neutrophils % (AUTO) 75 % 40-75 Normal (applies to non-num kaci results) [facility] Lymphocytes % (AUTO) 13 % 21-46 Below low normal [facility] Monocytes % (AUTO) 10 % 5-12 Normal (applies to non-numer ic results) [facility] Eosinophils % (AUTO) 1 % 1-5 Normal (applies to non-num kaci results) [facility] Basophils % (AUTO) 0 % 0-1 Normal (applies to non-numer ic results) [facility] Imm Grans# (AUTO) 0.0-0.5 Normal (applies to non-numeri c results) [facility] Neutrophils # (AUTO) 1.5-8.1 Normal (applies to non-num kaci results) [facility] Lymphocytes # (AUTO) 1.0-3.1 Below low normal [facility] Monocytes # (AUTO) 0.2-1.3 Normal (applies to non-numer ic results) [facility] Eosinophils# (AUTO) 0.0-0.5 Normal (applies to non-nume reji results) [facility] Basophils # (AUTO) 0.0-0.1 Normal (applies to non-numer ic results) [facility] ID Date Data Source [id number] 03/18/2020 09:39:[address] [facility] Name: MAGDA RODRIGUEZ : 1930 A ge/Sex: 89M Ordering Provider: Jhonny Traylor IV, FNP Med Rec #: [id number] Reg Status:ADM IN Room #: 207-2 Date of Service: 03/17/20 Report Number: [id number] cc: Rnajit De La O MD; Jhonny Traylor IV, CLINICAL REHABILITATION COORDINATOR; Shari Michaels MD Send Report To: Reason for exam: Baseline SINUS RHYTHM WITH FIRST DEGREE AV BLOCK WITH OCCASIONAL VENTRICULAR PREMATURE COMPLEXES MARKED LEFT AXIS DEVIATION COMPLETE RIGHT BUNDLE BRANCH BLOCK NO CHANGE COMPARED WITH 06/16/2019 Physician Telecasting Engineer: Delonte Nettles M.D. ECG HEART RATE: 87 /min ECG RR INTERVAL: 687 ms ECG P DURATION: 104 ms ECG QRS DURATION: 146 ms ECG DC INTERVAL: 246 ms ECG QT INTERVAL: 398 ms ECG QTC INTERVAL: 445 ms Q-T dispersion: ms ECG P AXIS: -76 deg ECG QRS AXIS: -44 deg ECG T AXIS: 62 deg REPORT SIGNATURE ON FILE 03/18/20938 Reported By: Delonte Nettles II, MD <<Signature on File>> Exam Date/Time: 03/17/201943 Order #: [id number] Dictation Date/Time: 03/18/20938 Transcribed Date/Time: 03/18/20938 Weaver Apprentice: STARLA Name Value Range Interpretation Code Description Data Bridget rce(s) Supporting Document(s) ID Date Data Source [id number] 03/18/2020 03:42:[address] 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 No fracture or dislocation. No acute soft tissue abnor mality. Fluoroscopy time in seconds: 0 Number of Exposures: Time Portable Image Performed: Contrast Agent in ml: Method of Administration: REPORT SIGNATURE ON FILE Reported By: Rosalio Nelson MD <Electronically signed by Rosalio Nelson MD> 03/21/20 1057 Dictation Date/Time: 03/17/201945 Transcribed Date/Time: 03/18/20 154 Weaver Apprentice: MICHAEL Name Value Range Interpretation Code Description Data Bridget rce(s) Supporting Document(s) ID Date Data Source [id number] 02/22/2020 11:33:00 AM EDT [facility] Name: MAGDA RODRIGUEZ : 1930 A ge/Sex: 89M Ordering Provider: Matthew Messina MD Med Rec #: [id number] Reg Status: [facility] Room #: Date of Service: 02/22/20 Report Number: [id number] cc: Send Report To: [id number] XRP/XR C-Arm No Charge Reason for exam: GREATER TROCHANTERIC FINDINGS: Fluoroscopy was used during the OR procedure performed same date of service. Forcomplete details, please see OP report. Fluoroscopy time in seconds: 4.6 Number of Exposures: 3 Time Portable Image Performed: Contrast Agent in ml: Method of Administration: REPORT SIGNATURE ON FILE Reported By: Matthew Messina MD 02/22/20 1133 Dictation Date/Time: 02/22/20629 Transcribed Date/Time: 02/22/201132 Weaver Apprentice: KATE Name Value Range Interpretation Code Description Data Bridget rce(s) Supporting Document(s) ID Date Data Source [id number] 02/20/2020 10:15:00 AM EDT [facility] Name Value Range Interpretation Code Description Data Bridget rce(s) Supporting Document(s) Respiratory specimen severe acute respir atory syndrome coronavirus 2 (SARS-CoV-2) RNA [facility] ital This lab was ordered by [facility] rachel and reported by [facility]. ID Date Data Source [id number] 02/20/2020 10:15:00 AM EDT [facility] COVID-19 Specimen Source NASOPHARYNGEAL Is Patient admitted or to be admitted? Y Name Value Range Interpretation Code Description Data Bridget rce(s) Supporting Document(s) SARS-CoV-2 RNA Negative Normal (applies to non-numeric r esults) [facility] 2019-novel Coronavirus (2019-nCoV) not d etected by the qRT-PCR assay. Consider testing for other respiratory viruses or re-collecting for 2019-nCoV testing. Note: Optimum timing for peak viral levels during infections caused by 2019- nCoV have not been determined. Collection of multiple specimens from the same patient may be necessary to detect the virus. Limitations Positive results are indicative of active infection with SARS-CoV-2 but do not rule out bacterial infection or co-infection with other viruses. The agent detected may not be the definite cause of disease. In addition, detection of viral RNA may not indicate the presence of infectious virus or that SARS-CoV-2 is the causative agent for clinical symptoms. Negative results do not preclude SARS-CoV-2 infection and should not be used as the sole basis for patient management decisions. Negative results must be combined with clinical observations, patient history, and epidemiological information. False negative results may also occur if amplification inhibitors are present in the specimen or if inadequate numbers of organisms are present in the specimen. Optimum specimen types and timing for peak viral levels during infections caused by SARS-CoV-2 have not been fully determined. Collection of multiple specimens (types and time points) from the same patient may be necessary to detect the virus. The test was validated for use with upper respiratory specimens obtained via nasopharyngeal or oropharyngeal swabs in VTM, UTM, M4, M5, M6, saline, and MTM media. The performance of this test has not been established for other specimens. Specimens collected using other FDA recommended Specimen Collection Materials listed in the FDA COVID-19 [employer] communication (October 22, 2019) are processed with the caveat that they were not all validated for use with this test and the result must be interpreted in this context. Furthermore, a false negative results may occur if a specimen is improperly collected, transported or handled. If the virus mutates in the RT- PCR target region, SARS-CoV-2 may not be detected or may be detected less predictably. Inhibitors or other types of interference may produce a false negative result. An interference study evaluating the effect of common cold medications was not performed. This test is not FDA-cleared but its performance characteristics were established by our CLIA-certified, CAP-accredited, high complexity laboratory in accordance with CLIA regulations, [employer] (CAP) guidelines (Oct 15, 2019), and FDA guidance (Sep 26, 2019). This test is only for use under the Food and Drug Administration's Emergency Use Authorization. THIS IS A STATE REPORTABLE COMMUNICABLE DISEASE. Performing Lab Normal (applies to non-numeric r esults) [facility] Please indicate the Triage TierY COVID- 19 Specimen Source: PHOTOENGRAVING PROOFER APPRENTICE Test performed or referred by The [address] [address] ID Date Data Source [id number] 01/12/2020 08:25:00 AM EDT [facility] Name Value Range Interpretation Code Description Data Bridget rce(s) Supporting Document(s) Hemoglobin A1c/Hemoglobin.total in Blood 5.0 % 4.0 - 5.6 [facility] Glucose mean value [Mass/volume] in Blood Estimated fr om glycated hemoglobin 97 mg/dL [facility] \\BLDo\\HEMOGLO BIN A1C\\BLDx\\ 4.0 - 5.6%: Normal 5.7 - 6.4%: Suggests Impaired Glucose Metabolism > or = 6.5%: Abnormal Estimated average glucose calculated using ADAG Study formula as recommended by the [place] [employer]. ID Date Data Source [id number] 01/12/2020 08:25:00 AM EDT [facility] Name Value Range Interpretation Code Description Data Bridget rce(s) Supporting Document(s) TSH 1.48 uIU/mL 0.36 - 3.74 [facility] pital Reference range updated for new Vidable technology based chemiluminescent immunoassay method, and age specific ranges. Effective 04/08/18. ID Date Data Source [id number] 01/12/2020 08:25:00 AM EDT [facility] Name Value Range Interpretation Code Description Data Bridget rce(s) Supporting Document(s) Cholesterol [Mass/volume] in Serum or Plasma 140 mg/dL [facility] Triglyceride [Mass/volume] in Serum or Plasma 111 mg/dL [facility] Cholesterol in HDL [Mass/volume] in Serum or Plasma 70 mg/dL [facility] Cholesterol in LDL [Mass/volume] in Serum or Plasma by calculation 48 mg/dL [facility] CHOL/HDL 2.00 [facility] \\BLDo\\INTERPRE TATION\\BLDx\\ REFERENCE RANGES (NATIONAL CHOLESTEROL EDUCATION PROGRAM) CHOLESTEROL < 200 mg/dL DESIREABLE 200 - 239 mg/dL BORDERLINE HIGH > 240 mg/dL HIGH TRIGLYCERIDES < 150 mg/dL DESIREABLE 150 - 199 mg/dL BORDERLINE HIGH 200 - 499 mg/dL HIGH > or = 500 mg/dL VERY HIGH HDL > or = 60 mg/dL HIGH < 40 mg/dL LOW LDL < 100 mg/dL DESIREABLE 100 - 129 mg/dL LOW RISK 130 - 159 mg/dL BORDERLINE HIGH 160 - 189 mg/dL HIGH > or = 190 mg/dL VERY HIGH ID Date Data Source [id number] 01/12/2020 08:25:00 AM EDT [facility] Name Value Range Interpretation Code Description Data Bridget rce(s) Supporting Document(s) Magnesium [Mass/volume] in Serum or Plasma 1.8 mg/dL 1.8 - 2.4 [facility] ID Date Data Source [id number] 12/30/2019 05:10:00 AM EDT [facility] Hospital Name: MAGDA RODRIGUEZ : 1930 A ge/Sex: 89M Ordering Provider: Win Munroe MD [facility] Rec #: [id number] Reg Status: [facility] Room #: Date of Service: 12/29/19 Report Number: [id number] cc: Send Report To: [id number] [id number] XRP/XR C-Arm No Charge Reason for exam: ILESI L1-L2 FINDINGS: Fluoroscopy was used during the OR procedure performed same date of service. Forcomplete details, please see OP report. Fluoroscopy time in seconds: 46 Number of Exposures: 6 Time Portable Image Performed: Contrast Agent in ml: Method of Administration: REPORT SIGNATURE ON FILE Reported By: Win Munroe MD 12/30/19 05 Dictation Date/Time: 12/29/19 1200 Transcribed Date/Time: 12/30/19509 Weaver Apprentice: KATE Name Value Range Interpretation Code Description Data Bridget rce(s) Supporting Document(s) ID Date Data Source [id number] 12/27/2019 07:48:00 AM EDT [facility] Name Value Range Interpretation Code Description Data Bridget rce(s) Supporting Document(s) Respiratory specimen severe acute respir atory syndrome coronavirus 2 (SARS-CoV-2) RNA [facility] ital This lab was ordered by [facility] Julito ramos and reported by [facility]. ID Date Data Source [id number] 12/27/2019 07:48:00 AM EDT [facility] COVID-19 Specimen Source NASOPHARYNGEAL Is Patient admitted or to be admitted? Y Name Value Range Interpretation Code Description Data Bridget rce(s) Supporting Document(s) SARS-CoV-2 RNA Negative Normal (applies to non-numeric r esults) [facility] This test has not been FDA cleared or ap proved. This test has been authorized by FDA under an EUA for use by authorized laboratories. This test has been authorized only for detection of nucleic acid from 2019-nCoV, not for any other viruses or pathogens. This test is only authorized for the duration of the declaration that circumstances exist justifying the authorization of emergency use of in vitro diagnostic tests for detection and/or diagnosis of 2019-nCoV under section 564(b)(1) of Act, 21 U.S.C ? 360bbb-3(b) (1), unless the authorization is terminated or revoked sooner. Negative results do not preclude 2019-nCoV infection and should not be used as the sole basis for treatment or other patient management decisions. Negative results must be combined with clinical observations, patient history, and epidemiological information. Performed on the Newtronher Fusion instrument THIS IS A STATE REPORTABLE COMMUNICABLE DISEASE. Performing Lab Normal (applies to non-numeric r esults) [facility] Is Patient Admitted or Awaiting Admissio n?:Y PREOP COVID-19 Specimen Source: PHOTOENGRAVING PROOFER APPRENTICE Test performed or referred by The [address] [address] ID Date Data Source [id number] 10/17/2019 10:12:20 AM EDT [facility] Name Value Range Interpretation Code Description Data Bridget rce(s) Supporting Document(s) Discharge Note [facility] spital DAGPVl6kCuQPCdzioM7GIJUrVL4pfcs2YJhsS6GhJKHesoCcJIZuU6sqWXHDVKYWIZLyuW4wOYLpJhmJ vYm zJKTfEOSDyUnWqUsEcF6fhcto1iTW6RGAhMcrdBB7XeBs2AYNeY3UkKEHcQIIzf1KkIq7+VzV3zsQcfK x7fZ9WK1WMYVcQ52mfJs5yQRKtlGxzyPVz2cCYofeOb3CkoxpXAXHgMVQYWBoPEMMIX70CKWBULjLBXP bzvu7oe1SeNo3rLipF69/ZrfmxtVVb+2f7/Phbw6QO kDDyn3a7hshBrDqrcfYKKVpIvWVH0du21aRFmoOTmAhXZ9dWFKmMEr4DNoJ19xIZntEoBA+J30NFNylk 6wjWc8+Haydee+7Sdcw5Z2/Haiecvf6/5nlUvFGmoKaCoEfUeODdlMa69pHSbJJasHTqn3LLJWXQh5lCl4 [file] v6CFkz4dEr5uuAh5+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/Ry25beJXIIxSJsdVY4651Qgt/z/dC+5vcv9t8mRPquDcLrazx2FIjkvgKAuZ [file] AwMDAwMzcyOCAwMDAwMCBuIAowMDAwMDAzOTgwIDAw VWXdAF0zOqTiUFEnBVE7NKlxWBHuMQBtgwNZTEYoJQRmNOG5KTRnLNPvJOYyWBwlVOJiIHPeIvruYZGi ERAbDT9tKwEeREPdHaA3QGceBZGeFLYhtkRBVEGiYQKbIyOsUHGmXUAdPMLqXQgpPGMjGQAqTQC5DVOm QOAeWX1tChRxEGQgLgXsSfbbOEQqXVTfirKQjFLhdU ilubo9JKbrLL7Zl973IGIlEOJAEvUcS7tdYh8ePXClVTADQEIbEFJzAof4JEQ1MFGsZqJSOVhTQNd6Ou VFO8SzVBGYLaE7JvCdPZ0wNIL0GInQEpL6HZVTZ8N5PmOIPPFNUdI0BoArHGAWJzV6Xt1NRWOsJ2j8DO AyMQo+YkatlUXzxBujEZVUTjO4LZKCJQVZB1RZ ID Date Data Source [id number] 10/17/2019 08:46:31 AM EDT [facility] Name Value Range Interpretation Code Description Data Bridget rce(s) Supporting Document(s) ER Note [facility] ZKYQCg4mAiHBYchuuU1YWIVwHN3joha1ACrrJ4HoFJChvzGqTLTbT5ssSWOKGXIHZNOdyH6gVUQdYsoZ vYm cUKBpGCNKkZuHcGuUbL2yojyn6lRX7MEAeWicmVR5CkWk1EJNzA1IlFOQdYYQko1BjUt7+ZrJ7pmQrkG l5kS4WS6ZPZFuK11nwFb1gRURvjJjnnFUh3xQMeynTf1FqgwsFWAGqSUUCBAwMZDVAK93ZPVTGRtURML eqrz2vi3PeNz4dZhfX40/ZrfmxtVVb+2f7/Twzt2CQ aMPxl0q9zrkItYdooqKRGDzAoQOR7vy07pIEaqJMyXzWV4nQUMiDIt4FVrA50uYAxcGqXG+U57ODNplp 6wjWc8+Haydee+5Apjp8Z4/Haiecvf6/9vaKlRYkdYdVhJpDaTJluKg11xQHvMZlyWOyf0DARGOZj8gZw5 [file] z4BLmq9gTs3lsEi3+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/Ps44jaPMPCdGDsoOV0837Udm/z/dC+0hog0f0zXMjdNuUggzh9TDsecwQLiP [file] MjUxNTMgMDAwMDAgbiAKMDAwMDAyMjExMyAwMDAwMC AzBEcfLNZeEWG4ZZOmZWLpZIEbSR5pJhHqUHOlRjFkQMWoXQEwHAZgtiSZEMSkTUZsIUB8WuFgACEvFF RbHGbmEMTsRDZ5TCGpJFVaDRIfOW4mBdTzHIdzAXCLPTxMFUUlOm8gvNFlWAPcIiohJH0RszIwRENhFH GABtPrK5gLSNf0Dlq4P7AaMUT3AXdKXjDoJjc0ETmz BAEZLtMkDsd9WtT+IEnWWVg0QFSXAOkRS3TrGAL0HEx4ASO5E1CWKjQTXGuSSD1kDiHhW1FwvzZoUeGK Fh1Jv1ZobnG5jqTdBfV2PJW6EeJbBS8DAf== ID Date Data Source [id number] 10/17/2019 08:29:52 AM EDT [facility] Name Value Range Interpretation Code Description Data Bridget rce(s) Supporting Document(s) ER Note [facility] CBRPJh2uHgGOOsmooE4RFXIeAI8cfqo0FVnrP8VyORCvbbBzUCZlO4dhGXTPSPIZDYHwkQ6eVKDzWnmU vYm dEDPhJSCIaYdRqIkYvX7wurxy2zNA2NVGfLjbhFC5LfEy3HSSuJ6UqIYReSLWid2UkSq5+OqL7txCpaD r3rF8HG9SXKScF81wfEf6cXMZszKlygEEy8aXKkuvMy9HozftYQIDiIBUTVJgDUYGUN86LBMVEStLIIC czlr8tc7JnCs1wTkqI65/ZrfmxtVVb+2f7/Dvzg0IT nKYqi3f2jdeXaQnhaxOEOYtKdAXT0ux30pDQkyJMkAfDG2sXNJlUGw2YJdA88lQSloMaJR+O87HZMcyy 6wjWc8+Haydee+5Gvkk3S1/Haiecvf6/2lpJlOZprPxWdUwRrPNozSz30fHCaMAtqDIoz0XNFYVBt6pEv1 [file] n5CYbn0jVw9hoIu8+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/Tp87ftQSHWwZExsOJ0913Xyf/z/dC+5zyg0o8sXQzdByUtxdo3QZxpghDJdA [file] mdUL6GfTywZCF7Za3+TiX8WYV3mSLmFxmcCZDrYzguGAMFUuq= ID Date Data Source [id number] 10/15/2019 10:50:20 AM EDT [facility] Name Value Range Interpretation Code Description Data Bridget rce(s) Supporting Document(s) Discharge Note [facility] spital IFWWEc0eWiKXSzharU9FLGVoAX8kxvg8FCrwK3WuUOGpjlWnWHHgN9kuVJDBZOTMROJckF3hEIUoMvjZ vYm zYZSbSCZAeEfMyTaTcG6fkbkm6vTE7SWTrHxaoGZ7LpPv4JDJhI9TjJJZtBZAsj5XoAp9+AdF5niIjkU q3iK7EK9OOXFjX56cnBa2mNBIpuJcgyRPj6cSTpyzWv5KkszhDXEQhNMRJPRlMZOLET42SQWYKKxSFZR sxwl7ye4KzUn0iQkeP33/ZrfmxtVVb+2f7/Bwcn8OU wTVhg3d8ijnEbSjquvWFQVbLzCFQ7zh86sAUqkVFrRvEB7dXVYlACx7ZAfT21pABfaNeHG+W27EDHjsp 6wjWc8+Haydee+3Ioff5V3/Haiecvf6/8nfEqFQanNmWoJhLtXYcrSk58qSIjEBnaUGjq4ODUVLIc7gSy6 [file] l2LWsj6yGx5mmQr5+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/Em92khLBSPpWJrrOG7091Aha/z/dC+4eda7x5pNUbmIyBwmju2FMwtrbVMnO [file] UgMDAwMDAgbiAKMDAwMDAwMzcwOSAwMDAwMCBuIAow NZDiVCIsENl6IDGjPHHnFU7nPlSvNVKkSoK1PzKeXPErXSUbacFCQRUwHNVyGdofPPRmVDLgKOHuREow KAIlOTBjFCaiSIOxHPYvTJ3nPmDjLSPeFVC2IIndKWKhBOVepqFEHNXsWUStJKF2GWHpZOZcJUApTFff FDJwIKPwIgjaRECoMWUaJR9xHgDbBXTlDhC3IxjpBE KaVKXiwnFCXGWqRCNnXYt7TTPcDGVjPJHoZImzXXYxTHZxDNd3MTXfIWLuFI2mPlMfRQXzOyH4HVvyBL VeTOFptxJEhOPrhIrqqxe9IWprKU1Ko385FLIeBMHEVsNqM9iwCg2zOEWpUIIOPJIhHINxJipFDDNPY4 BqYipxWuBbK7OsZlGNOELiL8A4YxdDTyKyAM5mSBAu SKE4KdNnEIGcBaHkKVTqPYA8BEHxWLZPR1ZWKlJbAq9IRPBcT2f5VTPzFDk+PgpzdGFydHhyZWYKMjI1 LJLORAOZN4OS ID Date Data Source [id number] 10/15/2019 08:40:18 AM EDT [facility] Name Value Range Interpretation Code Description Data Bridget rce(s) Supporting Document(s) Progress Note [facility] pital XFRNIe0dViQNHdafjE6QTXLhMK9vwdx4SOidH9OqCTBewvVzQTRnA5yhOPWWLGBGWSGpyR4eXHIzLenU vYm sBMQpKMMKtHxRuHjKlW6bulba6vJJ7HCWoJudyQU6QqGr9ZAZqB5WhYZMwWHAfl3KqSt7+MkJ3tzRocV w8iS3NC2EBZChV97xwDd5yXCWpmZujwJCn7ySFarcKm9AozuaQHCEjDUYTEIaJZNICS43FPYOCJhLNVW hrha3vq6HvZo8qBxjR11/ZrfmxtVVb+2f7/Rjcd3JE mOKzk8x3gkpQsWmpagPCIEcMdOXL0cs69sGVcaUTpXuRD2aTYEqFNk5ZZhR67qUAqqOhPC+T38UCSgqz 6wjWc8+Haydee+9Iqjl7R2/Haiecvf6/0pvJwEUayZiTpIaNlAKaoXe66sXGwFYfeTLyt8AIFPSPy9vTe3 [file] q3BOpg6zRx6daWh9+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/Fj02pfFXBHvJEcyBA5495Wbh/z/dC+6hvd2a7pFCftIoEfuxo9AJgqmsIRzC [file] MakQecYPKCLuS7PNEPDMBYH1QR ID Date Data Source [id number] 10/09/2019 03:21:51 PM EDT [facility] Name Value Range Interpretation Code Description Data Bridget rce(s) Supporting Document(s) Progress Note [facility] pital VUXJXx7bJqOLSxavnY3GPHBeAF9oiut7HDxsW0XsFOLmplXhADNiD8moMQHWKSXYZCGstC0cDSWtNhiN vYm iNWWcOYBRrKdCoEsMbP9zppxq4pPF4UJOvHmxuVE5FnNo0QUNuZ0UtLPKcKVDsz6ViOy0+MhI8eeOmpL c6oQ7CV6WIJIfK79hkEi5pPTIaqNolpFCu3pZXvgtPh0EjvhwBBFHhJTQSUCrWPTHEC87FKPSLUsUPEE omnj7rv0NuVj2nIfyE07/ZrfmxtVVb+2f7/Elgm0OT aBVoh6e4acyXlCsplbQWYSgZyLQT3fe69nPZsbLGwQiWT8kLNUtUMk8VVjQ50iOFeiLyWI+I93PXXuyn 6wjWc8+Haydee+8Nspl9K3/Haiecvf6/6pjLwMUcqLqOrAuRrXGjtGv28pQIqEZteUHgg6LHPBCHy3fMb6 [file] a4UTcg5yRi6llBz7+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/Xy91llXVNUeSVioGV3539Lsp/z/dC+6zew2i7zVKngNzVelrr5RSdnbwHHpS [file] EUTJKJdJKlO3Va4OIBOlV5n1QHTdUPs+GafjzGSaeGwiXQTAWjEpPXnJIEWLX8DD ID Date Data Source [id number] 10/08/2019 05:16:25 PM EDT [facility] Name Value Range Interpretation Code Description Data Bridget rce(s) Supporting Document(s) Discharge Note [facility] sp[facility] TUNRPj7iBnCBQsfyzA6POPHfDD3wugw1OYbpJ1ReYWBxtrJpGBZzG0bvQHJCCPGWXBNqjE1gXIXfQhfH vYm fECMaEDLEtHsFoQjYbQ6prvsp4iMX0CMXfSmbgFP7OcNj0MMKqM4BiBEAwCUMpk8PuIq9+LrY8emDpuM c2oW5DN3UMRPzG51uoIj9hLBRakPqjtBXn2qQXtktGs3XodwsRQKKdNCHHWBgPQUXTD26SENTJLcTRSF jmtb6zz3EwIl4tOlyL80/ZrfmxtVVb+2f7/Bzqn0FR fOUpc6i4bywWqXeeewZENGwRyADH5gz74sXAydBYvWbWX2qCCCcSYi3SMrV78fFDlvLeVZ+E78AGZqwu 6wjWc8+Haydee+1Xeal2G6/Haiecvf6/7ttUhHMviRvOfRzVxEPysRa47zWYdKPpuUCuz1NFLBDGs8oZt3 [file] c4HZnw0kFz2weNq5+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/Mb05ooRNUCbREhkIN7220Isw/z/dC+0qew3k7mWCkyBmZxttp3BHbdgxBFkG [file] WYT6Sc8cSdSwX2LcwqQxSzqFDe4Gd7PvylY1tmLpKnA8CUwdIkNzBF4NMl== ID Date Data Source [id number] 10/07/2019 07:09:38 PM EDT [facility] Name Value Range Interpretation Code Description Data Bridget rce(s) Supporting Document(s) Progress Note [facility] pital UYIXBz3cAfCNTjmstN5GDWHxSX4mwcc5LDfgM0XlOPJissNfKVHuT0ckBVTGLBLRWRXskJ9zVCDeCgvN vYm aHBWqNYKCpEiMmUbZqV1amirw6gBL2AOBwYosxGK0NzLd7YRLsJ2BoSALtMHKny4PkHs9+IyY9gbCgmR d0nP5HT3CALPpX68fcDr7wLIRtiPubtSKa4gPIsnhTy5ZcwgeVLIApNEMWAVsSIOVFS14BYXUJIhFBXH hcqn1dk6WdWv8qXjwJ32/ZrfmxtVVb+2f7/Zpda7UO kTVxp5o0uocAcBhpcfOJBCpOuFLB7ja56cYAoyCJrAmVE1aQPKqXWi2VFkF86sKTwlAtEE+Y57OPWbfn 6wjWc8+Haydee+7Bkby4R2/Haiecvf6/1iiXlSCjeBqUxSvAnDWhuDj15zQNyDCteYXyi7DKIRRJx1gDp1 [file] k2MAgw9nYf3wdOe5+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/Yn25rmUVFYiDLziID0818Xpu/z/dC+4bvq0g1kCSeyEmTldah9YVpbzkJKsD [file] PgplbmRvYmoKMjMgMCBvYmoKPDwKICAvVHlwZSAvRm 6asUtvGR9LlMP4wTExOH9LxCOaHTquEG1WZHGlXy0egLOeJQnvHFMlDy5aVX9BTCGvOR1pb7DegmptI4 pqebYdo1qMsgVoIJoySag+MiefcfBvRucMUILgBL7kjlb1STLjZVvjZUCpSFAiHQYWA3OyxG38BAPQQ7 uuDYBfTtT5WRKqOvFyRNMbIBObHYX+PgplbmRvYmoK MlZaXR8rveq0HXjkFI5ClPJrGO1CTQPjfB4jBaHdL7FhE6PiFRIbOCWTKnZjO1ufzzjwNPqexV9nvf56 sqfKPRWaZLF3EOXhpYEwGEVdRYWMKRFxIHPrOGtuWfGldiUvPVEwERSEUw8BYQ3aw1XmLhBwVUYaYyzZ CAqWMSCsJa0ngJD1QAgvHO3GTlDkACQsGTEGQFLdAp NdAlOxRYLPWvRxV8H4PSOfRVVtEae+LgefGE6Qfs3sJ5S6YCuaYYMMHR3UzIIiDZYoN0ipIBydAnBoIN J5bQ9DEWPuJS3slkLhoGT6JKNsPV9sCNCcYTReVgNiON0nKAK9FLRaMgE+PwopCG6Hf5lwooUsJRUoNK a7KE3DINVqvAp1OrtRRXeuACUYQT3+Cj4+FiZmEJ0w eernMYFkZP9mthn5EKErIoZhmpKwHIY1VUPhBbLzZTU+JrTdFMo4VK5UUA8KVD1HyEItQY3+XSA+Pgpl ooBzFcrFaIOoVoilBSE3LaFlOEWtIMPjRROkRwV8GvDpJeUQNNYsWAZgOOF2PsIyUGOjQKZzPXteEEUk GDI2IIX4ILUaBXQxPL7tVaOmYORuWwVeVhXjEHSkPY FxtqLITEUrGPJuJEXmAFDfBNQdNWYrSJwqRAYpXVPaIWS0FLThLLDhNR9jGeObVWDzAEX5BTSaSMPfDS XrbmVXLREgNBLeIoqtUwGoYCLvNSUyAImwYMJhTWKzRkJ9QJJzADLfSL0kBdDvTBGpICG7YHqjYQTfLB TkitIONJNbJGQgVMy0LtAbTJPiNOFdBPoxLJCpJZR3 FBB9WZRtEMQsRO5wMsXiWLUhXXZ8FgtgQHAkVUMxesRXFPXcLLWzHlu0JIVeKWZePRElGIcxSVIqWZSk NPd5LUZmAKPgXY3eGmNqCRToCeJzZQtyOIReFNRqjcNHDCXkUXUgEFO6XJIiYKUpVARuBZjmLQBdYOVy WXX5PUAoAVFnXQ9xFsIwSKKeVvX5JeSxLTYiRYLslj JEXCRvRBYtZiY5CSCpCYBsEXNbGZspRBYiKMU2HHX4KVOsGFFpRL0wTuEiZGKhAeZ8IJeyRUQkIDYetp OTMJUoCGOmIWq5LGJpSIAiERVjHOlsWFAaTNQ7BWp1FBClMPTdRO6hKmAeZUltZXGHIMoVCOClGe4dwY SkJBAyEebfBV1BmyScKVZxTKWAKqDaP5lMQRe4A0B3 JdAcVEvkQ0YDVisqTUEcAVH6UUO3InW2DxN4TOK+FFtwAfNlFQXOCSM8ERV4UPW8ReIMVYehSqe3TkA2 KMUYNQ9pUqSsD4CebdDzGbKLZu1Oj7CjspA4paGaMkV5QFG5TeJlOO7RNw== ID Date Data Source [id number] 10/07/2019 06:45:00 AM EDT [facility] Name Value Range Interpretation Code Description Data Bridget rce(s) Supporting Document(s) [facility] Leukocytes [#/volume] in Blood by Automated count 6.1 K/uL 4.0 - 10 .0 [facility] Erythrocytes [#/volume] in Blood by Automated count 3.42 M/uL 4.30 - 6.10 Below low normal [facility] Hemoglobin [Mass/volume] in Blood 12.2 g/dL 13.5 - 17.5 Below low no rmal [facility] Hematocrit [Volume Fraction] of Blood by Automated count 35.1 % 39.0 - 50.0 Below low normal [facility] Erythrocyte mean corpuscular volume [Entitic volume] b y Automated count 102.6 fL 80.0 - 96.0 Above high normal [facility] Erythrocyte mean corpuscular hemoglobin [Entitic mass] by Automated count 35.7 pg 26.0 - 34.0 Above high normal [facility] Erythrocyte mean corpuscular hemoglobin concentration [Mass/volume] by Automated count 34.8 g/dL 32.0 - 36.0 [facility] Erythrocyte distribution width [Ratio] by Automated count 14.4 % 11.6 - 14.8 [facility] Platelets [#/volume] in Blood by Automated count 193 K/uL 150 - 450 [facility] Platelet mean volume [Entitic volume] in Blood by Automated count 9.7 fL 7.1 - 10.4 [facility] Neutrophils [#/volume] in Blood by Automated count 3.87 K/uL 1.70 - 7.70 [facility] Lymphocytes [#/volume] in Blood by Automated count 1.28 K/uL 1.50 - 6.00 Below low normal [facility] Monocytes [#/volume] in Blood by Automated count 0.63 K/uL 0.00 - 1. 00 [facility] Eosinophils [#/volume] in Blood by Automated count 0.20 K/uL 0.00 - 0.30 [facility] Basophils [#/volume] in Blood by Automated count 0.03 K/uL 0.00 - 0. 10 [facility] 0.04 Urinalysis macro (dipstick) panel - Urine 0.000 10^3/uL 0.000 - 0.012 [facility] Neutrophils/100 leukocytes in Blood by Automated count 63.9 % 42. 2 - 75.2 [facility] Lymphocytes/100 leukocytes in Blood by Automated count 21.2 % 15. 0 - 41.0 [facility] Monocytes/100 leukocytes in Blood by Automated count 10.4 % 0.0 - 12.0 [facility] Eosinophils/100 leukocytes in Blood by Automated count 3.3 % 0.0 - 7.0 [facility] 0.50.70 NRBC 0.0 % [facility] MANUAL DIFF NOT INDICATED [facility] ospital RBC MORPH NOT INDICATED [facility] pital ID Date Data Source [id number] 10/07/2019 06:45:00 AM EDT [facility] Name Value Range Interpretation Code Description Data Bridget rce(s) Supporting Document(s) BASIC METABOLIC PANEL [facility] BASIC METABOLIC PANEL Sodium [Moles/volume] in Serum or Plasma 139 mEq/L 136 - 145 [facility] Potassium [Moles/volume] in Serum or Plasma 3.7 mEq/L 3.5 - 5.1 [facility] Chloride [Moles/volume] in Serum or Plasma 106 mEq/L 98 - 107 [facility] Carbon dioxide, total [Moles/volume] in Serum or Plasma 28.4 mEq /L 21.0 - 32.0 [facility] Glucose [Mass/volume] in Serum or Plasma 95 mg/dL 70 - 100 [facility] Urea nitrogen [Mass/volume] in Serum or Plasma 9 mg/dL 7 - 18 [facility] CREATININE SERUM 0.90 mg/dL 0.70 - 1.30 [facility] AGE 89 yrs [facility] HEIGHT 62.00 INCHES [facility] ital eGFR NON-AFR AMR >60 [facility] eGFR AFR AMR >60 [facility] BUN/CREAT 10 6 - 25 [facility] Calcium [Mass/volume] in Serum or Plasma 8.5 mg/dL 8.8 - 10.2 Below low normal [facility] ANION GAP 8 5 - 15 [facility] Estimated GFR reference r andi: > 60 mL/min/1.73m >18 years: Calculated using IDMS traceable MDRD Study Equation <18 years: Calculated using IDMS traceable Bedside Rodriguez Equation ID Date Data Source [id number] 10/06/2019 06:31:51 PM EDT [facility] Name Value Range Interpretation Code Description Data Bridget rce(s) Supporting Document(s) Progress Note [facility] pital GCLTUd3iCaUPHwojmM6PHZKqAF3eyfl8IEsaM4DaHZVwueYkOOIwM3ydJBIOZBLDBCZqyG6rYWGeNatV vYm uWSQzNAGNuFtFjNmKaK4qqlmt5pBG7AIQnOwjuZT6MaFq1ODChP3VbCTVtHRLfd2ByWw8+NeS2rsApaR n4oG7KX2BOTRcX56tdGl1iYVGddWzqfVXw5uVLcpaIa4VpeukNHVGrYFSDSPfXBOFZP77CVFLYOaTZYW lbfy9ni2PmIs9gAtqE56/ZrfmxtVVb+2f7/Qaow8DY zGMdm7r4ikyTyCsnmxOTEEeHyPRI4ny96pDGcgRVsQoGO4tVLTvSVf8YUtW02kVCmhXqNF+K36JQQrjq 6wjWc8+Haydee+2Asxl9T0/Haiecvf6/2zkDdUXhgOeWhPqCiCCohZz06zUOsLGgnHHhz1NILIJWp4uDy4 [file] v4IPmu4aFh6evHg0+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/Xh21ukHSGAkYJuvOF6387Tgn/z/dC+1zov4r6uGPceXoSyrju7AZrowuZVbH [file] A6TaKtS6LUIIJM8zGcFxK6GawoTiZyLGNo3Ie9PnhcX6oqZjLfY1AUL1PsLsFW8NFh== ID Date Data Source [id number] 10/06/2019 06:20:00 AM EDT [facility] Name Value Range Interpretation Code Description Data Bridget rce(s) Supporting Document(s) Magnesium [Mass/volume] in Serum or Plasma 1.8 mg/dL 1.8 - 2.4 [facility] ID Date Data Source [id number] 10/06/2019 06:20:00 AM EDT [facility] Name Value Range Interpretation Code Description Data Bridget rce(s) Supporting Document(s) BASIC METABOLIC PANEL [facility] BASIC METABOLIC PANEL Sodium [Moles/volume] in Serum or Plasma 139 mEq/L 136 - 145 [facility] Potassium [Moles/volume] in Serum or Plasma 3.6 mEq/L 3.5 - 5.1 [facility] Chloride [Moles/volume] in Serum or Plasma 105 mEq/L 98 - 107 [facility] Carbon dioxide, total [Moles/volume] in Serum or Plasma 28.5 mEq /L 21.0 - 32.0 [facility] Glucose [Mass/volume] in Serum or Plasma 90 mg/dL 70 - 100 [facility] Urea nitrogen [Mass/volume] in Serum or Plasma 8 mg/dL 7 - 18 [facility] CREATININE SERUM 0.91 mg/dL 0.70 - 1.30 [facility] AGE 89 yrs [facility] l eGFR NON-AFR AMR >60 [facility] eGFR AFR AMR >60 [facility] ital BUN/CREAT 9 6 - 25 [facility] Calcium [Mass/volume] in Serum or Plasma 8.5 mg/dL 8.8 - 10.2 Below low normal [facility] ANION GAP 9 5 - 15 [facility] Estimated GFR reference r andi: > 60 mL/min/1.73m >18 years: Calculated using IDMS traceable MDRD Study Equation <18 years: Calculated using IDMS traceable Bedside Rodriguez Equation ID Date Data Source [id number] 10/05/2019 12:20:00 PM EDT [facility] Name Value Range Interpretation Code Description Data Bridget rce(s) Supporting Document(s) Magnesium [Mass/volume] in Serum or Plasma 1.9 mg/dL 1.8 - 2.4 [facility] ID Date Data Source [id number] 10/05/2019 12:20:00 PM T [facility] Name Value Range Interpretation Code Description Data Bridget rce(s) Supporting Document(s) BASIC METABOLIC PANEL [facility] BASIC METABOLIC PANEL Sodium [Moles/volume] in Serum or Plasma 138 mEq/L 136 - 145 [facility] Potassium [Moles/volume] in Serum or Plasma 3.5 mEq/L 3.5 - 5.1 [facility] Chloride [Moles/volume] in Serum or Plasma 103 mEq/L 98 - 107 [facility] Carbon dioxide, total [Moles/volume] in Serum or Plasma 27.3 mEq /L 21.0 - 32.0 [facility] Glucose [Mass/volume] in Serum or Plasma 110 mg/dL 70 - 100 Above high normal [facility] Urea nitrogen [Mass/volume] in Serum or Plasma 7 mg/dL 7 - 18 [facility] CREATININE SERUM 0.82 mg/dL 0.70 - 1.30 [facility] AGE 89 yrs [facility] HEIGHT 68.00 INCHES [facility] ital eGFR NON-AFR AMR >60 [facility] eGFR AFR AMR >60 [facility] ital BUN/CREAT 9 6 - 25 [facility] Calcium [Mass/volume] in Serum or Plasma 8.9 mg/dL 8.8 - 10.2 [facility] ANION GAP 11 5 - 15 [facility] Estimated GFR reference r andi: > 60 mL/min/1.73m >18 years: Calculated using IDMS traceable MDRD Study Equation <18 years: Calculated using IDMS traceable Bedside Rodriguez Equation ID Date Data Source [id number] 10/05/2019 07:40:19 AM EDT [facility] Name Value Range Interpretation Code Description Data Bridget rce(s) Supporting Document(s) Progress Note [facility] pital APNJCj0pNlWLPipuwG6VJXSiVD7bkhq7FDssK5KtJNWnriJnWENkO3pcODLWIDTYFZThpP6eRDLoOxnN vYm vSPUeFAQVsZuUoGbApF9tdkay0nXN6LYJxJdpuQY3BdXi6YTTfD0XvNWGpPEUio2LpNq1+CmR3xgLeiJ q9tA7ES9TXQCxF97mxBp9lXISldZhwtTVp0eGDwbyTc8AgejyOVWSzAWPJPCjPRHYOL93ULMYGEeCRRR pcwk8gw7WkUb9tHoeU08/ZrfmxtVVb+2f7/Gejq2VJ aIJfr2n0dvwYdWfvbkCUCLqByGBL9yc94zMCrvBNpHnUP1hQODqAYy3NNhC76aXReeCqXQ+Y38RGLwyg 6wjWc8+Haydee+7Gisu2M4/Haiecvf6/8bzFyEGjeVxCnLoYuOThbUq48aSAvKIhvAOvf3CUXQMKp3bYf8 [file] k2VNcl4bRv9nbHt0+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/Ma86ryONROoFLwnNF3337Njv/z/dC+0nna2h7dLGsvXjPygpg8WIadgyEUiV [file] MDAwMjcwMiAwMDAwMCBuIAowMDAwMDAyNzIyIDAwMD MqVQ9rCyWdPWXvOYQ0RIItKSZoSSHwliMUOEGrXEYvHkizHFMrPOGxPBAmJTzkHBDkSUEnShXcDVGtPP BfGK5sCfMqGIFmQrReQSPxAEQeGVUeocXMGGFfNMZqLindADXhMQWtRHUuUVgrCZVbOKYdYNgrIOSpEU VsRF6wIgXbHIJhQLT6DKdbORZdANVojeQUOPPrRWWx FDB0DFLwHEQoTSGxJChsQNTdINJyHkoeAVZhVMCgUJ6sJaBzBRVyYiOoOQGeVZWaVTNlcmAEMHDqDZCx JcN9GqLpJBWcZMVuFDapRCQgXXQyMqFwWYAmQSSbDB3lUxZpSDKoDjK0JCHpRIFcEXZmgbMVmACaxLjh wzi1FQxzFU7Yt103WPDeQKJVTfHfU8qeEs6mDICmCH WAVLGqZKPuLopVZFY7ZQv9QJI4NTM5ZcPFBfHyOsJIWASiZlkjCGUoKI6kETC7WPVZBbhZMOgDBNqVJV BhEjHhIAQtTxH0FJJ2NlYRBs1UGKUdP9z9VWHaWMh+WsrppQEgzBisZHYCElBoWncFDLVKY1PR ID Date Data Source [id number] 10/05/2019 05:40:00 AM EDT [facility] Name Value Range Interpretation Code Description Data Bridget rce(s) Supporting Document(s) Magnesium [Mass/volume] in Serum or Plasma 1.7 mg/dL 1.8 - 2.4 Below low normal [facility] ID Date Data Source [id number] 10/05/2019 05:40:00 AM EDT [facility] Name Value Range Interpretation Code Description Data Bridget rce(s) Supporting Document(s) Troponin I.cardiac [Mass/volume] in Serum or Plasma 0.058 ng/mL 0.017 - 0.056 Above high normal [facility] \\BLDo\\TROPONIN I I NTERPRETATION:\\BLDx\\ < 0.06 ng/mL NOT SUSPICIOUS FOR AN AMI 0.06 - 0.59 ng/mL MAIER ZONE FOR AN AMI, SERIAL MONITORING RECOMMENDED 0.6 - 1.5 ng/mL SUSPICIOUS FOR AN AMI Reference range updated for new chemiluminescent immunoassay method based on [employer] technology. Effective 03/10/18. ID Date Data Source [id number] 10/05/2019 05:40:00 AM EDT [facility] Name Value Range Interpretation Code Description Data Bridget rce(s) Supporting Document(s) RENAL FUNCTION PANEL [facility] RENAL FUNCTION PANEL Sodium [Moles/volume] in Serum or Plasma 139 mEq/L 136 - 145 [facility] Potassium [Moles/volume] in Serum or Plasma 3.6 mEq/L 3.5 - 5.1 [facility] Chloride [Moles/volume] in Serum or Plasma 104 mEq/L 98 - 107 [facility] Carbon dioxide, total [Moles/volume] in Serum or Plasma 26.3 mEq /L 21.0 - 32.0 [facility] Glucose [Mass/volume] in Serum or Plasma 105 mg/dL 70 - 100 Above high normal [facility] Urea nitrogen [Mass/volume] in Serum or Plasma 7 mg/dL 7 - 18 [facility] CREATININE SERUM 0.85 mg/dL 0.70 - 1.30 [facility] AGE 89 yrs [facility] HEIGHT 68.00 INCHES [facility] ital eGFR NON-AFR AMR >60 [facility] eGFR AFR AMR >60 [facility] ital BUN/CREAT 8 6 - 25 [facility] Albumin [Mass/volume] in Serum or Plasma 2.7 g/dL 3.8 - 5.4 Below low normal [facility] Phosphate [Mass/volume] in Serum or Plasma 2.6 mg/dL 2.5 - 4.9 [facility] Calcium [Mass/volume] in Serum or Plasma 8.8 mg/dL 8.8 - 10.2 [facility] ANION GAP 12 5 - 15 [facility] Estimated GFR reference range: > 60ml/min/1.73m >18 years: Calculated using IDMS traceable Study Equation <18 years: Calculated using IDMS traceable Bedside Schartz Equation ID Date Data Source [id number] 10/04/2019 10:07:27 AM EDT [facility] Name Value Range Interpretation Code Description Data Bridget rce(s) Supporting Document(s) Admission Note [facility] GYPEXc0wZfYPOhrjhR3ZYUEcPI6elmq4OMlwV2ByQBTrsfPeRYEzR2vkGPGBJBMBYGVzmL2iHIJnPokG vYm mQCTyIBKZtPlHfBcPxO5mvhkn8fDW4KBWgNhsaDC2XtQq5DMWhS0UvIYScZTSof6NyZp7+KmP1jeDxpY o1eR6IK3DMXEkV68wzTx8aBGCppFxjiXMh6mDRvzxAf6CtjeaHTYApSXAOUZgNVTQVH01WBCHLTyRTMH gela5cz0QbBa1kTwgI00/ZrfmxtVVb+2f7/Udhi2UK wNTlj1b5wayAmXxjmdEKCLyDxQSA8xv74yJLgsEYfAkFL7eMPNsPYp3SIrT79aLUsiQqTT+R18HSGhks 6wjWc8+Haydee+5Yzgm8B9/Haiecvf6/5txClIMwgZbNiPoNfGJspYt83gPEpMDgiBQoe4WORKFPv4nJn5 [file] o9UMyr3fGs0hdDj4+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/Tw54uyQXEAdIWapDD6202Zvh/z/dC+4fqb5h2pYBoiHkOmavn4ESrfhcQRfC [file] EkMsFAYjPT9gPhRhH5KkboBlJwtIPs2Kq5TiqzA8izStFeG6EZy2DySiIV9LOl== ID Date Data Source [id number] 10/04/2019 07:20:00 AM EDT [facility] Name Value Range Interpretation Code Description Data Bridget rce(s) Supporting Document(s) Troponin I.cardiac [Mass/volume] in Serum or Plasma 0.058 ng/mL 0.017 - 0.056 Above high normal [facility] \\BLDo\\TROPONIN I I NTERPRETATION:\\BLDx\\ < 0.06 ng/mL NOT SUSPICIOUS FOR AN AMI 0.06 - 0.59 ng/mL MAIER ZONE FOR AN AMI, SERIAL MONITORING RECOMMENDED 0.6 - 1.5 ng/mL SUSPICIOUS FOR AN AMI Reference range updated for new chemiluminescent immunoassay method based on Vidable technology. Effective 03/10/18. ID Date Data Source [id number] 10/04/2019 07:20:00 AM EDT [facility] Name Value Range Interpretation Code Description Data Bridget rce(s) Supporting Document(s) BASIC METABOLIC PANEL [facility] BASIC METABOLIC PANEL Sodium [Moles/volume] in Serum or Plasma 140 mEq/L 136 - 145 [facility] Potassium [Moles/volume] in Serum or Plasma 3.2 mEq/L 3.5 - 5.1 Below low normal [facility] Chloride [Moles/volume] in Serum or Plasma 105 mEq/L 98 - 107 [facility] Carbon dioxide, total [Moles/volume] in Serum or Plasma 29.2 mEq /L 21.0 - 32.0 [facility] Glucose [Mass/volume] in Serum or Plasma 112 mg/dL 70 - 100 Above high normal [facility] Urea nitrogen [Mass/volume] in Serum or Plasma 11 mg/dL 7 - 18 [facility] CREATININE SERUM 0.95 mg/dL 0.70 - 1.30 [facility] AGE 89 yrs [facility] HEIGHT 68.00 INCHES [facility] ital eGFR NON-AFR AMR >60 [facility] eGFR AFR AMR >60 [facility] BUN/CREAT 12 6 - 25 [facility] Calcium [Mass/volume] in Serum or Plasma 8.6 mg/dL 8.8 - 10.2 Below low normal [facility] ANION GAP 9 5 - 15 [facility] Estimated GFR reference r andi: > 60 mL/min/1.73m >18 years: Calculated using IDMS traceable MDRD Study Equation <18 years: Calculated using IDMS traceable Bedside Rodriguez Equation ID Date Data Source [id number] 10/03/2019 11:30:37 PM EST [facility] Name Value Range Interpretation Code Description Data Bridget rce(s) Supporting Document(s) ER Note [facility] l UHYOXq6sKzOUPotmlK2IIAOxLP0fbeh3LAshO4BwMMUadvMbUFIvS8uoGQYMSCCNYKWhyD8yTBVuYfzN vYm eQXLiNTSUqQyVnCwYlV1ewukg8aRQ3XXZsEocuPR3LzUp4NIUbM2EyEKJvYSKnv3XkYo6+YdX8mbJkfR e8sZ9ZX6WUKTfN21twLh4iMBUrsUgtpEKn7hDFohnXy8ShtgoTUBGbEDOZCXwIVMNRV44DXLDYNyPWOV tnkt7ht2TxRw9xPulQ52/ZrfmxtVVb+2f7/Hgex0TD bRPpb1y0owqGeFmomsDBONsFoGCB9wo43hBAeaQQgFvTH0lUMJyVWx8CPoE75iWLwxSsQZ+X41MKOwnt 6wjWc8+Haydee+4Qoqc5L7/Haiecvf6/0jjKnXUgpMgVwMbHaZZqwNe92oXCbJSvjNBqt1FSWAPTp6hFk1 [file] n7KYew8oZu0vrOb4+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/Yd09zaZZEGuPXwqSG3432Gro/z/dC+5cqv6h0oAIzaLgCgvlw3ULauymCAlT [file] PgplbmRvYmoKMjYgMCBvYmoKPDwKICAvVHlwZSAvRm 5lsUkzGE7LfJH7oARdGJ5YgPGyHIgnTG5XXTMqBi2gcBAdEAlyZLGlWz4tYN7EFZRvGX3yh6UqdcaqQ5 qjpcYsd5yCjeJlMNzwPpx+MebthhHhXjoSZYCkJB0rcob6MLDyUOhrPDZvWZYqVCMRE4RogL74CAFNL6 hlIARsTiU1SPCjSaYfHYOsAOXuMJGnCSYNYL1uBx5T LA2mh8EvGcVjBXPrGboFFNtKPZDkSVfdXTVoB1Y3JBgxBabcWQ5LUDeyiqJcGRXfIaynLV1RCQ6gQBi7 JQCjy70az93rUrUqL24esMXgPTXsMDbiGOOMJpNuY0GgM6FBWTDxrUQaXGPaPPNFBi0+HoHsMR3cngww VINfu9DeItb8FwOnD5IptpIjYMyISCNbGypxXeYuJW RHBzQmY8XzZPM8IRFiZfxmZQ7DQBRvWcYwCNVUKg0YUZNjJDHrA2VarYQeN5AFSaZbQF7uQ0YWDO1DoU KbZNNwA9QrlOQsUgFcV9kNOxzhB5FqMEcpK8fhJYStTmHzGWReY6dkEmOmZPNsJXHaAz7HXYTkU63nq6 GBhUTkBVC8IUQyUSRpWJGqzULLNlP0AYGuRmQ+Pgo+ HuhalyNxTrqRXPVcXCZoFqaXXModY274vJYqSeLsAFbgW0MjZ8JqWv2tEcJ6LRChJvIbTFLqL7QoHnA+ Cj4lMf9DUL8zr6GwYmcjSZPDXOIzKngsAAWnUZGzPGKvXYL2NOA2IWSpQqAmYEJuWfj3YZIqYGWuXAIz ldHTGIBtRMTiBWP2JNTtXPGiPZMoZGkuHTHjPKW0Ms VdUSGsVNVpGW8fNgEnYXXoICEfWUCfLALdJXApbrTLNSNbFLTvNLO3ORHzNIBgJQWkIIvpEPIeGIWnQo BdTICqTYTiLF9jPxRhXXOdSHJ9TaAqJVOjUKXxycIAOFRoLFMbGuw5DTKtNTSfGJTdIUwoJWRgWESiYt E5RXPnHCExNU4gInDvKCUuCyXcLLnrFLIvZZSvhoEM EJEsOOHiSLk2ZYKiCENbXTDrZFpuJAGcLSZbGjQ5KZFnVAGyWI6lVeOmWAGlMEQ4TAOnIGLiNTTmikER CSPnFALpNqn9YGAiGOZaDHPpSQwxHVJhIROmThV2PMQnAMFsNI4hOyDfOKEsDxRoPSFxCMLgWLJdeeQG VHGvDQXzAvMgKHOtQUBbVMXpUZafXENnMOT1HTR9UP HaAHSuFX3fOhJbRWJwXmLpSADyHDFrQJMvdoQAZQJkLRQoZKgxNDSuATWuQQQrTVugGWCeURL1BIt5JJ HbUMXnFS3fFbGoWFGsYhVrNyEyFIFkCQJocyAZIHZlVBNmAlq4SbDuBOKbAGYiSVqvCHCyDCA4CNszBX KhFFZoXZ0oGrMdRCHoPntrIFylRNYtPTUwejXRHQRw WDHbXNXzLSSxWKRoRGDmCUp1laXhrNSnLti9HpHeZ3Vow0NcQwXgEUWUVTXoEL0qgzH3YDHoBzmmGG4H PLRbUBDEMdE7IcI7ReGrXxL6W6ZjEmCoRmInERZ6VepIBxoLEhK0RWR3NnbaPaF0ViQYKuFcKzTBMFDU EKGYZDPgKYBjV2G+VGcrLN7BoQjiWEL9Ka3+NvR2CWS9rGAlUgiaSPj4UHyjKMITEbi= ID Date Data Source [id number] 10/03/2019 10:05:00 PM [facility] Name Value Range Interpretation Code Description Data Bridget rce(s) Supporting Document(s) Troponin I.cardiac [Mass/volume] in Serum or Plasma 0.067 ng/mL 0.017 - 0.056 Above high normal [facility] CALLED TO: KEREN @ 2237 10/03/19 [facility] { READ BACK: YES \\BLDo\\TROPONIN I INTERPRETATION:\\BLDx\\ < 0.06 ng/mL NOT SUSPICIOUS FOR AN AMI 0.06 - 0.59 ng/mL MAIER ZONE FOR AN AMI, SERIAL MONITORING RECOMMENDED 0.6 - 1.5 ng/mL SUSPICIOUS FOR AN AMI Reference range updated for new chemiluminescent immunoassay method based on Vidable technology. Effective 03/10/18. ID Date Data Source [id number] 10/03/2019 10:05:00 PM [facility] Name Value Range Interpretation Code Description Data Bridget rce(s) Supporting Document(s) BASIC METABOLIC PANEL [facility] BASIC METABOLIC PANEL Sodium [Moles/volume] in Serum or Plasma 140 mEq/L 136 - 145 [facility] Potassium [Moles/volume] in Serum or Plasma 3.1 mEq/L 3.5 - 5.1 Below lower panic limits [facility] CALLED TO: QUIQUE @ 2236 10/03/19 BY LMB [facility] REP/VERIFIED RESULT VERIFIED BY REPEAT ANALYSIS [facility] READ BACK YES [facility] Chloride [Moles/volume] in Serum or Plasma 102 mEq/L 98 - 107 [facility] Carbon dioxide, total [Moles/volume] in Serum or Plasma 29.6 mEq /L 21.0 - 32.0 [facility] Glucose [Mass/volume] in Serum or Plasma 121 mg/dL 70 - 100 Above high normal [facility] Urea nitrogen [Mass/volume] in Serum or Plasma 12 mg/dL 7 - 18 [facility] CREATININE SERUM 1.06 mg/dL 0.70 - 1.30 [facility] AGE 89 yrs [facility] eGFR NON-AFR AMR >60 [facility] eGFR AFR AMR >60 [facility] BUN/CREAT 11 6 - 25 [facility] Calcium [Mass/volume] in Serum or Plasma 9.4 mg/dL 8.8 - 10.2 [facility] ANION GAP 12 5 - 15 [facility] Estimated GFR reference r andi: > 60 mL/min/1.73m >18 years: Calculated using IDMS traceable MDRD Study Equation <18 years: Calculated using IDMS traceable Bedside Rodriguez Equation ID Date Data Source [id number] 10/03/2019 10:05:00 PM EST [facility] Name Value Range Interpretation Code Description Data Bridget rce(s) Supporting Document(s) CBC [facility] COMPLETE BLOOD COUNT Leukocytes [#/volume] in Blood by Automated count 6.3 K/uL 4.0 - 10 .0 [facility] Erythrocytes [#/volume] in Blood by Automated count 3.95 M/uL 4.30 - 6.10 Below low normal [facility] Hemoglobin [Mass/volume] in Blood 13.3 g/dL 13.5 - 17.5 Below low no rmal [facility] Hematocrit [Volume Fraction] of Blood by Automated count 40.0 % 3 9.0 - 50.0 [facility] Erythrocyte mean corpuscular volume [Entitic volume] b y Automated count 101.3 fL 80.0 - 96.0 Above high normal [facility] Erythrocyte mean corpuscular hemoglobin [Entitic mass] by Automated count 33.7 pg 26.0 - 34.0 [facility] Erythrocyte mean corpuscular hemoglobin concentration [Mass/volume] by Automated count 33.3 g/dL 32.0 - 36.0 [facility] Erythrocyte distribution width [Ratio] by Automated count 14.1 % 11.6 - 14.8 [facility] Platelets [#/volume] in Blood by Automated count 204 K/uL 150 - 450 [facility] Platelet mean volume [Entitic volume] in Blood by Automated count 9.2 fL 7.1 - 10.4 [facility] Neutrophils [#/volume] in Blood by Automated count 4.24 K/uL 1.70 - 7.70 [facility] Lymphocytes [#/volume] in Blood by Automated count 1.37 K/uL 1.50 - 6.00 Below low normal [facility] Monocytes [#/volume] in Blood by Automated count 0.62 K/uL 0.00 - 1. 00 [facility] Eosinophils [#/volume] in Blood by Automated count 0.05 K/uL 0.00 - 0.30 [facility] Basophils [#/volume] in Blood by Automated count 0.02 K/uL 0.00 - 0. 10 [facility] 0.03 Urinalysis macro (dipstick) panel - Urine 0.000 10^3/uL 0.000 - 0.012 [facility] Neutrophils/100 leukocytes in Blood by Automated count 67.0 % 42. 2 - 75.2 [facility] Lymphocytes/100 leukocytes in Blood by Automated count 21.6 % 15. 0 - 41.0 [facility] Monocytes/100 leukocytes in Blood by Automated count 9.8 % 0.0 - 12.0 [facility] Eosinophils/100 leukocytes in Blood by Automated count 0.8 % 0.0 - 7.0 [facility] 0.30.50 NRBC 0.0 % [facility] NOT INDICATED [facility] ospital RBC MORPH NOT INDICATED [facility] pital ID Date Data Source [id number] 10/03/2019 10:33:07 AM EST [facility] Name Value Range Interpretation Code Description Data Bridget rce(s) Supporting Document(s) ER Note [facility] l GOULJt3lOhHPOkxnfK4MENGzYY4lwgn1ZNatV9DqQVFmpsNgTNHkO8ziSTTXCNZSOZJndI0lYOLpTbxF vYm vXVZxYWXVzDdIjLjKwM2aeedd6uKA6FVHhHyasXY0OhMc0JEVuD5ZnPAZbXNUqi0XnIv3+ObX2xyRynZ f3uY0MR0GFSAfD51bdAj5wSVZqlHptsFOs1dZBkmtIb4ZalhlYNQCwOGEZFYlIRLCMZ63MIVCZGvJMQY lqww2wg2IhLl4pVgfP84/ZrfmxtVVb+2f7/Hrqe0DG iGNzb9o2ptqDeDtkaoMDOBoXqDLM0ge88gGKppRPpCgDS9cQWYzICz7TWfA41pFGjfKiYZ+J26MFMvqi 6wjWc8+Haydee+3Donu0S6/Haiecvf6/4vhZlWChjPmWiUaAbULzcMv77nKVrCBdqJFfn1IHJBKTx6rMh0 [file] e5IXma6rZe5rrRo6+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/Np82udGJVGwBOoaZH4775Ubr/z/dC+1oqk5g1nNWmvIcOqxhz2ZPgzqmBIiT [file] Julito+VsqnVA9Xdz0uD2O3ESsoVHXTIX1EeZQjJPEhG9gxJVubSaNrLAL0eO6YYVQyGO3cokRpxWC6RFYf MB5kAJJxGLHoZrAeML7uVUO2XFEaTeP+OczsNE2Yx3duotOyWFCcVNi6BR3HNLCtmXc4WeoUFTixWFYB ID4+Cj4+ApWbED7assieOCOwQV0suzq1NOEnDvGdfz XtEAO0SEOlSpFfMMK+FoOzBCm2KZ3FXV4IQL6RpNLxAT3+XSA+UeeqqgBoFnpIuFLpQmegVUZ3RtSqOR YaMKOiIIUpQeF3CfWdBgCPFWVxXIPnRHGdJXUcGAXgDHVwJCxaGZTeIDC9SvAxGAXlRVJrHR4uSjKsJO WnGuh0MlWuDJQaIRBujjKHSRAsVMFbQMMhTVHnWRVd JKHfMOxiKYKrPTClQKG6YVHsTSCmIY2cNvVzIWEfIYQ1DAXoGJWmYFZosrLRXFYaIFWuMbhzNkLhQIOt MGObSTejVPWpVDNhDgR4XLEnODIcCT1nKlBeTJTkFWL6LEryLZLcDVXhsuHJYYHpGDDmIPbyHZZhZDFa MBEuDQbdAPLsIXC8HuL0AJSnVEZlXH8vXmRnJZHwWW X4ThtcOALnXPFpkrOYMJWpMYTrAcc7GXFxQISbPDGjEDlnUTLdJGZgWRd2EMKbEJScTJ7tZwNbKOZfJf WjOPabWDXcXJEuomBWTFMpKBEcAAC0YWDjJJHnESWeLOybIMCpNUEoIRe8BRWwCDCaGQ8cLaJhFKFdZa QzNzEgMDAwMDAgbiAKMDAwMDAyMjExMSAwMDAwMCBu OAatWTNjLIA0EgKyFYAwDJUbHY7uDhFiCQTrDjg9RcJjQAZeMQRakkDYXXDhCGFwROK9WiEdXPJnHDBn SVlaUPMyOTV6Ozq8SWCqRGQlHL2yCcEaWJTgNoh8DHDjOWVoKHFgcxESEJElWXGvGAFtRHVuEUXxSYCp EFedVHXmFIS5ATLfBXZmUNBhBI4aTbTcGLnkWIKEVZ rBQDVlJh5axTFfPBVpZaplCB1BxyCcHPEwKWNPEnGjP5qFUGm6IeAsWMGkEzF0VFOhEiDhLFHfZ4ATZD DEGFc2Xov0EJX+DZgzRWVZVMYILzp2KcASIHY9ZNV0URD0JUH4UKo7QGmmJC2qDfTtK4QjpiUhQfhVWe 0Xw9IppjW6qbFfXrP1DjydWeRqVI7WMn== ID Date Data Source [id number] 10/03/2019 10:28:07 AM EST [facility] Name Value Range Interpretation Code Description Data Bridget rce(s) Supporting Document(s) Discharge Note [facility] spital IHODAl8fCgCCVkvmdQ1QLLHyIX4ffnk6TXurZ0SkUWXfjxOuBWEmW3kwUNXPZOAXBHIjxB5rLVRpNinJ vYm eOQQlJZDGvWtSyOjNcR2zcnym2yIT8QDIqAqqxXU8AeDg9DCCgU2KxGIDuSZKeu8XoYo0+PoV4xeKuzD u6xS6OW6MOWEuK14jzDa0aOVLtbXgogIGu7aHCfznYx3RxfmuBNXEdFTWGINyUPVDSD09WHGDWBiVUSU dsqh7xm0JtCw8oWskR47/ZrfmxtVVb+2f7/Tfas9JG rVHzi6b3bphXiNcwyxNABPqZtHYM5wl06bQWgqUXqZvMW7uTZXvQOq2CQbG01bJVwjUkXS+E19ELOusb 6wjWc8+Haydee+5Bfnu7F3/Haiecvf6/1loFzYYfrRrLlRiUzROwzPi25jXRgRKkdSEeq6XGVNOHg1tWv3 [file] b0LOec7vTi9qrPc2+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/Bt29vhHLYGsADlgRN9532Bnd/z/dC+5lpw3n1rFOgjKbCakcz5JZqrnbJHcK [file] ieMGPUFvBeNeCMFYPPK9NN ID Date Data Source [id number] 10/03/2019 08:35:00 AM EST [facility] Name Value Range Interpretation Code Description Data Bridget rce(s) Supporting Document(s) BASIC METABOLIC PANEL [facility] BASIC METABOLIC PANEL Sodium [Moles/volume] in Serum or Plasma 142 mEq/L 136 - 145 [facility] Potassium [Moles/volume] in Serum or Plasma 2.8 mEq/L 3.5 - 5.1 Below lower panic limits [facility] CALLED TO: JAKUB @ 0857 10/03/19 BY LMB [facility] REP/VERIFIED RESULT VERIFIED BY REPEAT ANALYSIS [facility] READ BACK YES [facility] Chloride [Moles/volume] in Serum or Plasma 104 mEq/L 98 - 107 [facility] Carbon dioxide, total [Moles/volume] in Serum or Plasma 29.0 mEq /L 21.0 - 32.0 [facility] Glucose [Mass/volume] in Serum or Plasma 123 mg/dL 70 - 100 Above high normal [facility] Urea nitrogen [Mass/volume] in Serum or Plasma 13 mg/dL 7 - 18 [facility] CREATININE SERUM 1.10 mg/dL 0.70 - 1.30 [facility] AGE 89 yrs [facility] HEIGHT 68.00 INCHES [facility] ital eGFR NON-AFR AMR >60 [facility] eGFR AFR AMR >60 [facility] BUN/CREAT 12 6 - 25 [facility] Calcium [Mass/volume] in Serum or Plasma 9.2 mg/dL 8.8 - 10.2 [facility] ANION GAP 12 5 - 15 [facility] Estimated GFR reference r andi: > 60 mL/min/1.73m >18 years: Calculated using IDMS traceable MDRD Study Equation <18 years: Calculated using IDMS traceable Bedside Rodriguez Equation ID Date Data Source [id number] 10/03/2019 08:35:00 AM EST [facility] Name Value Range Interpretation Code Description Data Bridget rce(s) Supporting Document(s) CBC [facility] COMPLETE BLOOD COUNT Leukocytes [#/volume] in Blood by Automated count 5.9 K/uL 4.0 - 10 .0 [facility] Erythrocytes [#/volume] in Blood by Automated count 3.61 M/uL 4.30 - 6.10 Below low normal [facility] Hemoglobin [Mass/volume] in Blood 12.4 g/dL 13.5 - 17.5 Below low no rmal [facility] Hematocrit [Volume Fraction] of Blood by Automated count 36.9 % 39.0 - 50.0 Below low normal [facility] Erythrocyte mean corpuscular volume [Entitic volume] b y Automated count 102.2 fL 80.0 - 96.0 Above high normal [facility] Erythrocyte mean corpuscular hemoglobin [Entitic mass] by Automated count 34.3 pg 26.0 - 34.0 Above high normal [facility] Erythrocyte mean corpuscular hemoglobin concentration [Mass/volume] by Automated count 33.6 g/dL 32.0 - 36.0 [facility] Erythrocyte distribution width [Ratio] by Automated count 14.3 % 11.6 - 14.8 [facility] Platelets [#/volume] in Blood by Automated count 187 K/uL 150 - 450 [facility] Platelet mean volume [Entitic volume] in Blood by Automated count 9.3 fL 7.1 - 10.4 [facility] Neutrophils [#/volume] in Blood by Automated count 4.49 K/uL 1.70 - 7.70 [facility] Lymphocytes [#/volume] in Blood by Automated count 0.81 K/uL 1.50 - 6.00 Below low normal [facility] Monocytes [#/volume] in Blood by Automated count 0.52 K/uL 0.00 - 1. 00 [facility] Eosinophils [#/volume] in Blood by Automated count 0.05 K/uL 0.00 - 0.30 [facility] Basophils [#/volume] in Blood by Automated count 0.02 K/uL 0.00 - 0. 10 [facility] 0.01 Urinalysis macro (dipstick) panel - Urine 0.000 10^3/uL 0.000 - 0.012 [facility] Neutrophils/100 leukocytes in Blood by Automated count 76.2 % 42.2 - 75.2 Above high normal [facility] Lymphocytes/100 leukocytes in Blood by Automated count 13.7 % 15.0 - 41.0 Below low normal [facility] Monocytes/100 leukocytes in Blood by Automated count 8.8 % 0.0 - 12.0 [facility] Eosinophils/100 leukocytes in Blood by Automated count 0.8 % 0.0 - 7.0 [facility] 0.30.20 NRBC 0.0 % [facility] MANUAL DIFF NOT INDICATED [facility] ospital RBC MORPH NOT INDICATED [facility] pital ID Date Data Source [id number] 09/29/2019 06:00:00 AM EST [facility] Name Value Range Interpretation Code Description Data Bridget rce(s) Supporting Document(s) FECAL FAT QUANT [facility] ospital _FECAL FAT,QUANTITATIVE_Fecal Fat, Q uantitativeReported: 10/08/2019 20:05 Status=F RESULT FLAG RANGE UNITS SC --Fecal Weight (Total) 476 g BN 10/08/19.rfl.COMPLETE.LCTRFat,(Fecal Lipids)Qn 2.5 0.0-7.1 g/24 hr BN 10/08/19.rfl.COMPLETE.LCTRThis value is based on a 72 hour stool collection.This test was developed and its performance characteristicsdetermined by [employer]. It has not been cleared or approvedby the Food and Drug Administration.BN Test performed by: [facility] [id number] Adolfo Mays MD ID Date Data Source [id number] 09/24/2019 03:33:58 PM EST [facility] Name Value Range Interpretation Code Description Data Bridget rce(s) Supporting Document(s) ER Note [facility] FPITHu9sPtWOVqrioS8YGDLyWL7ydwl6PUayG6BcSENtcrAmGYWiF6cvCIRDEFLXJKLozW5pKHJkRmlQ vYm xZINwNAYOtGzDtCyBjP6wbpzx9uGI6XDDmAhibLC6EyCf4HQBdW7DaQBBlLAIle5TqHs8+FxX8tfDbqH f5oR8GW9OLFBqQ19xnLd5eZDLrdHxlxZCf7mDIhzuQg6KujlwRASRzRYJPLBdGMCEZQ89URVYOHkPXOK vnoq2nx9XbNk1xOqoQ40/ZrfmxtVVb+2f7/Bikp1JD xZZzl0l2vcmBqWdqqyIZMArHdBMS7py21oHNorZTrDlVV7jJHUkGKv8CWkS77qVPqfFwIE+A77QOCoce 6wjWc8+Haydee+4Yzaz5Y0/Haiecvf6/5byNnCVocAdBdSzWlTRuyAy75iNBhPZwaCNgj7TUNKWDk3vHo7 [file] k0USyk9yKt6pkQv6+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/Nw85jfLCKAfJTiwXR5012Iea/z/dC+9vho9k1eETdqTnGeyli5NQgbqvWGqO [file] MDAxNDUgMDAwMDAgbiAKMDAwMDAwMjcwMiAwMDAwMC DkUXyqTMHuBZTbCfFwSWEsSSCgOJ7wVjNhICMiTBJ3LBLfTQQxBZKoyxTXLTNeLRKmDqcpDTGvXYRrFQ BgFRnfXFDoQHIdTLFaPNGrDBKbQA9fAmOtULExRrG2VKciXIJpKTAxhmUTTRFhJMZhBbgdWKApPOGaTP OvJIqhBJJsTUEyBOygVTReTUThIG2kVuQoJOOzXDU3 WOawVRKvSLMbzwOJZUOgTKQlYOU8TMYuODQiDRSyIYoiOTMfUBInOvjxVINcEOUqGS9pZdImRNVuSgM3 YSQjHLMfZLSilgAWJZYpZREeCYErGFExVQTfITRgRDorZZDoSHYuKRE3AHOdTMZtRS0xEwUuFYMeTrKd ODkgMDAwMDAgbiAKMDAwMDAyNTMwMiAwMDAwMCBuIA jzGVIpWOZ3XHC3BQXwIHNuZD2eLjGfODLbZwD3EmWoBSMbIYVinfKFiXEkfZuieyw7MOzjNJ5Ql046IK LmRPUSGxSuJ6tfNu2wGGAvEBYNBFZqUNUnMrh4WlAOMDOkXQw7ELO0MkBAKoHASAFaVFCdNoVzRDI0CT 6zCSDSFsEPQdE4CDZISZn6GnF7SBZBTUZ3PkF0FTF3 Bxv4Bi6KQOXtS8v3GTZgIDi+RlzwoRLqdSkpEIKZEpGhXdDCZSLSM9VF ID Date Data Source [id number] 09/20/2019 04:10:06 PM EST [facility] Name Value Range Interpretation Code Description Data Bridget rce(s) Supporting Document(s) Discharge Note [facility] NIPNQt1cSqNSZqrvoY7BXUTdCQ6vtwy1MEumE8EyRCRjrmZtVZBpK8dkFSIYUGQQBNYajN9pDHUdSunN vYm wYDRmKJYPeRiLtDrNpU3qiyrk0tSS2HWIqSxbhDZ6TfNg4HSVwF5XyUQCpAWBnt7ZcNj9+IkP7srYvkM k0tN3MW7MTGFcL64reSe0qVVGveTbtkQVj0kBQzekFc3OfxscOIHDbFOSXWBmEGEUDT47MAESXOmCAJI enso1gt9VxXu5bUvyK58/ZrfmxtVVb+2f7/Sprw0GG zXCxf8b9yktApXouaoFBVZiAqJYF3oh70dWThsPPfOjLW2aKALtUCc6NHqH03tBYfaEkMI+M47XYOmxg 6wjWc8+Haydee+8Pbbs1E9/Haiecvf6/6xlSgAElmEuGdLiBpNRmbIc93pFSdJVmmINum1QNCQDWw9uAv0 [file] c9WXrd6vPp0euRv5+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/Cm26vzQRPHhKEmrHI4715Tye/z/dC+6zea1w9lLXemSwFrwxt5KVzhblIScL [file] JlZgoyMjczMgolJUVPRgo= ID Date Data Source [id number] 09/02/2019 11:06:00 AM [facility] Name: MAGDA RODRIGUEZ : 1930 A ge/Sex: 89M Ordering Provider: Win Munroe MD Med Rec #: [id number] Reg Status: [facility] Room #: Date of Service: 09/01/19 Report Number: [id number] cc: Send Report To: [id number] XRP/XR C-Arm No Charge Reason for exam: MAJOR JOINT BURSA INJ FINDINGS: Fluoroscopy was used during the OR procedure performed same date of service. Forcomplete details, please see OP report. Fluoroscopy time in seconds: 12 Number of Exposures: 5 Time Portable Image Performed: Contrast Agent in ml: Method of Administration: REPORT SIGNATURE ON FILE Reported By: Win Munroe MD 09/02/19 1106 Dictation Date/Time: 09/01/19 140 Transcribed Date/Time: 09/02/191105 Weaver Apprentice: KATE Name Value Range Interpretation Code Description Data Bridget rce(s) Supporting Document(s) ID Date Data Source [id number] 08/14/2019 09:57:00 AM [facility] Name: MAGDA RODRIGUEZ : 1930 A ge/Sex: 89M Ordering Provider: Win Munroe MD Med Rec #: [id number] Reg Status: [facility] Room #: Date of Service: 08/13/19 Report Number: [id number] cc:Win Munroe MD Send Report To: [id number] XRP/XR Hip Rt 1- 2 view w AP Pelvis Reason for exam: M25.551, RIGHT HIP PAIN FINDINGS: There is no evidence of an acute fracture or dislocation identified. Joint space narrowing is present bilaterally at the hips Diffuse osteopenia is present. Surgical clips are identified bilaterally in the pelvis and left lower quadrant. There is a partially visualized calcification in the right lower quadrant of the abdomen of indeterminate significance and etiology. Not clearly visualized on a previous examination from 09/29/13. IMPRESSION: Degenerative changes bilaterally at the hips. No acute findings. There is incidental note of a calcification in the right lower quadrant of the abdomen measuring approximately 2.8cm. This is undetermined significance and etiology. A KUB may be helpful. REPORT IS DICTATED BY DAVON APPLE; REVIEWED AND SIGNED BY DR. SUTTON. Fluoroscopy time in seconds: Number of Exposures: Time Portable Image Performed: Contrast Agent in ml: Method of Administration: REPORT SIGNATURE ON FILE Reported By: Davon Sutton MD <Electronically signed by Davon Sutton MD> 08/14/19 1524 Dictation Date/Time: 08/13/19 1248 Transcribed Date/Time: 08/14/19 0957 Weaver Apprentice: AWILDA Name Value Range Interpretation Code Description Data Bridget rce(s) Supporting Document(s) ID Date Data Source [id number] 08/11/2019 07:48:00 AM [facility] Name: MAGDA RODRIGUEZ : 1930 A ge/Sex: 89M Ordering Provider: Gorge Cool DO Med Rec #: [id number] Reg Status: [facility] REF Room #: Date of Service: 08/10/19 Report Number: [id number] cc:Wing Jin MD; Gorge Cool DO Send Report To: [id number] MRI/MRI Lum Spine w & wo Contrast Reason for exam: LI WEDGE COMPRESSION FRACTURE Comparison: 05/06/19. FINDINGS: Old compression fracture deformities are noted in L1, L2, and L3 vertebral bodies with unchanged loss of height. Retropulsion into the spinal canal is seen by the L1 vertebral body unchanged. Moderate central canal stenosis and moderate lateral recess narrowing is noted due to retropulsion intothe spinal canal. Additional evidence of fracture is not seen. L5-S1, spondylosis and disk bulging are seen without change resulting in moderate lateral recess narrowing and mild neural foraminal narrowing. At L4-L5, L3-L4, and L2-L3 spondylosis is and disk protrusion are noted with mild central canal stenosis, marked lateral recess narrowing, and marked neural foraminal narrowing without change. At L1 vertebral body, retropulsion is seen into the spinal canal by compression fracture deformity which results in moderate central canal stenosis and moderatelateral recess narrowing. Retropulsion is seen contacting the exiting nerve roots of the filum terminale. Spinal cord terminates at T12 vertebral body above the retropulsion into the spinal canal by L1. IMPRESSION: No s ignificant change is seen from May 06, 2019. 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 Spinal canalstenosis and lateral recess narrowing by compression fracture deformity of L1. There is also contact of the nerve roots of the filum terminale possibly resulting in nerve root impingement. Unchanged central canal stenosis and lateral recess narrowing L2- L3, L3-L4, and L4-L5. Unchanged lateral recess narrowing and neural foraminal narrowing without central canal stenosis at L5-S1. Fluoroscopy time in seconds: Number of Exposures: Time Portable Image Performed: Contrast Agent in ml: Multihance 20 Method of Administration: Intraveneous REPORT SIGNATURE ON FILE Reported By: Leonila Hayward MD <Electronically signed by Leonila Hayward MD> 08/12/19 1312 Dictation Date/Time: 08/10/19 1710 Transcribed Date/Time: 08/11/19 0748 Weaver Apprentice: KATE Name Value Range Interpretation Code Description Data Bridget rce(s) Supporting Document(s) ID Date Data Source [id number] 08/08/2019 12:40:30 AM EST [facility] Name Value Range Interpretation Code Description Data Bridget rce(s) Supporting Document(s) Discharge Note [facility] spital UGPKNa4rVdQPMlfkdL7LNTFrIX7ylsx8HTmsS4MrQKMzlmJqULZzA8nsXBAKJCVIZLQgtA5nFLVdQplJ vYm xCGBvQTMMjFvHqZjJuJ2pnnbl6dOA1OCYrIavfTS2KnCz0TRUgF0RsGDYpJUYju4RkBd4+OfJ2ruVxdU r8dF9YC5IAHTmL88taAh7sHTShpLejgTJj8tUWqzwTa3ZmnqsGCMCfXEYSPPbRXFNLA00SSRUOIxUFSO rapm4nz8CeWp0gZikE42/ZrfmxtVVb+2f7/Tuvt0CO gZPlv8b9xdhRiZfosrMGYGrNxOMC4dw12dUOtwEQoWpWV5vULNiFIk4KHeS49dPRugYzMS+S66HRCxpm 6wjWc8+Haydee+6Xfai2P0/Haiecvf6/0uyZwSEalQtOyZaEbMKyeJp65gHCeIMhnPBgf9FCPLPKz5eKv9 [file] k3XBgm7qXk6tbXk4+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/Qw62uiRNALnOMhqUZ2884Aky/z/dC+6isy4o1rLHaqTwZibor9LOaeulANmK [file] sCypXBV3Cp7+UeT0RQG2aZPgViggEpT9EohmEAKLIzq= ID Date Data Source [id number] 08/08/2019 12:21:33 AM EST [facility] Name Value Range Interpretation Code Description Data Bridget rce(s) Supporting Document(s) Admission Note [facility] UPUADx6bFlMTIggtpC3APSOkZI8secv0MWdrU5HkDUPnceAsEDFsW6kkHOZTPXTSCFQffW4sKZPgSemP vYm cZESqQCFGtVgSiQfEuO6ljpor1lXH5GULiJvvxBK1YtXo3STUiD4WdQNWjZACtz1UgJk2+QmW1ncJstK d8sV1CT5SLDLyY73fmQm8mRXTvmWqxwJAu9vIGakkTe8GoyypMMYShGNFEGInBRXIII65XLJSRSiRSMF wixo5fq7ZnRy8nEswE92/ZrfmxtVVb+2f7/Fjdl6YZ pSZqh3w4yznPjSiiplXACCpOaYWH0mh84aBHfmHCxYiJK6bUCNeDCd5IMyW76wMWygFmZH+P08CDPxbf 6wjWc8+Haydee+5Subn3Z9/Haiecvf6/7ubMyIIjeCeZqLnRtAJxmHs67yGLfAUonTYvd7NDVPVEa0cDr1 [file] j4VXze1ePy3tbVz3+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/Nq37ikQROTyNVsvLQ6402Jze/z/dC+5xpu8j6eOEttEeZhaty2OUkymkONpE [file] CrxsKcIwbBNl8Cg4IdyvZ5sgIlXbJ1OoQ5OzFyWD8JOz== ID Date Data Source [id number] 07/09/2019 07:31:29 AM EST [facility] Name Value Range Interpretation Code Description Data Bridget rce(s) Supporting Document(s) Discharge Note [facility] spital EBUKCu0fFpDYIihfyT4AHGHeZQ2hwvi8UFsuW5OmDXWhwbInHZFfS6evNBJMVTWLQJQamH7tKOYyTmuU vYm qKLHpDJJDrCuMrEnQoL3wlxjc4vAM8XVSjZmqmPT9CmRh4ZXWaK2TyZCDvKNFoc0ZjCh1+FvS7wtBddX u3wV0ND7DFXUdL90qnYm0mXMQtlZcoiXWl0zFInvmFh5YjpgaGQNDbDSGOFTsEITFDC12DKSSGVjKKLY xegv9mo4MvPl8fEjuQ24/ZrfmxtVVb+2f7/Etbf2GA qRKwe9m9zatVtNfireXMKAqWaFUL9ek46lEPoqLIoOsAE6pUFSjILf6TAwL77qWGdmVfCX+S16JLOldd 6wjWc8+Haydee+7Dlyf2Q5/Haiecvf6/8uxFuIMyhFyZfJxShREdwHc86rPYhGEktMLau2HWTFLWu5lSk4 [file] b6WOnl5lBf4byXq0+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/Th99lvPBCWvVWcmTQ3931Vvh/z/dC+7qcy4q8uFBslZmJnncp9XCywqvAZtM [file] AwMDAwMjcwMiAwMDAwMCBuIAowMDAwMDAyNzIyIDAw DDAvSV8vWoCwTJFdQVB8XGEsPMFrPHFomgNTCXUvUSWrUmrgRHZjCIMkTYHyHTzwIPVtYNEmUbSkPFWr KBPjDT2hHmGcNTWwLrYwHzLkQGZxCYGqvkSKJROzUCSnHsxzUFUtNSOmHOIoHLznPELkNEAsAIymRSNw RKYfQC5nUqFuLGQqXSB6IGuyHKTxDHIhgjPLCSDlEZ WfPTK8FTDpZHWtPSCxVJddLUSdAXHdVwnqDWLiGAEeFV1xByBjCSMzSxZvUgBiJVBePECpqtICUWLyPB QfOsOqXBVhHELnUVWnKQngXHGgFJYdZWBmIPAzZKOlCC1jBzPyVIUiXaW3WNIdFOPiCSVbabZLhQPxsI cdizd9JKlyKT9Ei958DUElOBNLWsWwB6meBp6aDUJg NNVJLBIeDVUoZcz6IBBHMmQzUTT1Prs7CQFrSvroIbtjJXPJEze6MQkMAW2jETTSIGUwWCMFGwVrGSvc YHIiBIHJGGJ7LLSnWVB6NGI9Rd9WYRFqY2f6WIGpIOf+ApbetTMkhVyhPADNAfLnFvyUTZTGN0ER Procedure Social History Code Duration Value Status Description Data Source(s ) Smoking 08/19/2020 08:05:00 AM EST Light Tobacco Smoker comple wendy Light Tobacco Smoker [facility] Vital Signs ID Date Data Source UNK Name Value Range Interpretation Code Description Data Source(s) Deprecated Oxygen saturation in Capillary blood by Oximetry 96 % Normal (applies to non-numeric results) 96 % [facility] Body temperature 36.4 margo Normal (applies to non-numeric results) 36.4 margo [facility] Respiratory rate 18 min Normal (applies to non-numeric results) 18 min [facility] Heart rate 82 min Normal (applies to non-numeric resul ts) 82 min [facility] Diastolic blood pressure 52 mm[Hg] Normal (applies to non-numeric results) 52 mm[Hg] [facility] Systolic blood pressure 105 mm[Hg] Normal (applies t o non-numeric results) 105 mm[Hg] [facility] Body weight Measured 86.9 kg Normal (applies to non-num kaci results) 86.9 kg [facility] Body height 171.9072 cm Normal (applies to non-numeric res ults) 171.9072 cm [facility] Body mass index (BMI) [Ratio] 29.50 kg/m2 No rmal (applies to non-numeric results) 29.50 kg/m2 [facility] Body weight 93.44 kg 93.44 kg [facility] Body height 175.2600 cm 175.2600 cm [facility] Body surface area Derived from formula 2.13 m2 2.13 m2 [facility] Body mass index (BMI) [Ratio] 30.42 kg/m2 30.42 kg/m2 [facility] Body weight 88.18 kg 88.18 kg [facility] Body temperature 36.4 Margo 36.4 Margo [facility] Respiratory rate 18 /min 18 /min [facility] Heart rate 72.0 /min 72.0 /min [facility] ospital Oxygen saturation in Arterial blood by Pulse oximetry 97 % 97 % [facility] Diastolic blood pressure 72 mm[Hg] 72 mm[Hg] [facility] Systolic blood pressure 119 mm[Hg] 119 mm[Hg] [facility] Body temperature 36.2 Margo 36.2 Margo [facility] Respiratory rate 18 /min 18 /min [facility] Heart rate 86.0 /min 86.0 /min [facility]ital Oxygen saturation in Arterial blood by Pulse oximetry 97 % 97 % [facility] Diastolic blood pressure 85 mm[Hg] 85 mm[Hg] [facility] Systolic blood pressure 141 mm[Hg] 141 mm[Hg] [facility] Body mass index (BMI) [Ratio] 30.8 kg/m2 30.8 k g/m2 [facility] ([facility]) Body weight 199.56 [lb_av] 199.56 [lb_av] [facility] ([facility]) Body height 67.50 [in_i] 67.50 [in_i] [facility] ([facility]) 5'7.50" Oxygen saturation in Arterial blood by Pulse oximetry 95 % 95 % [facility] ([facility]) Heart rate 76 /min 76 /min [facility] ([facility]) Diastolic blood pressure 64 mm[Hg] 64 mm[Hg] [facility] Systolic blood pressure 118 mm[Hg] 118 mm[Hg] [facility] ([facility]) Body mass index (BMI) [Ratio] 31.3 kg/m2 31.3 k g/m2 [facility] Body weight 203.12 [lb_av] 203.12 [lb_av] [facility] ([facility]) Body height 67.5 [in_i] 67.5 [in_i] [facility] ([facility]) 5'7.50" Body temperature 36.7 Margo 36.7 Margo [facility] Respiratory rate 18 /min 18 /min [facility] Heart rate 72.0 /min 72.0 /min [facility] Oxygen saturation in Arterial blood by Pulse oximetry 93 % 93 % [facility] Diastolic blood pressure 70 mmHg 70 mmHg [facility] Systolic blood pressure [address] [facility] Body weight 92.53 kg 92.53 kg [facility] Body weight 97.98 kg 97.98 kg [facility] Body temperature 35.8 Margo 35.8 Margo [facility] Respiratory rate 14 /min 14 /min [facility] Heart rate 83.0 /min 83.0 /min [facility] Oxygen saturation in Arterial blood by Pulse oximetry 95 % 95 % [facility] Body height 177.8000 cm 177.8000 cm [facility] Body surface area Derived from formula 2.20 m2 2.20 m2 [facility] Diastolic blood pressure 77 mmHg 77 mmHg [facility] Systolic blood pressure 131 mmHg 131 mmHg [facility] Body mass index (BMI) [Ratio] 30.99 kg/m2 30.99 kg/m2 [facility] Body weight 97.98 kg 97.98 kg [facility] Body temperature 36.9 Margo 36.9 Margo [facility] Respiratory rate 20 /min 20 /min [facility] Heart rate 81.0 /min 81.0 /min [facility] Oxygen saturation in Arterial blood by Pulse oximetry 97 % 97 % [facility] Body height 157.4800 cm 157.4800 cm [facility] Body surface area Derived from formula 2.07 m2 2.07 m2 [facility] Diastolic blood pressure 57 mmHg 57 mmHg [facility] Systolic blood pressure [address] [facility] Body mass index (BMI) [Ratio] 39.51 kg/m2 39.51 kg/m2 [facility] Body temperature 36.6 Margo 36.6 Margo [facility] Respiratory rate 18 /min 18 /min [facility] Heart rate 68.0 /min 68.0 /min [facility] Oxygen saturation in Arterial blood by Pulse oximetry 96 % 96 % [facility] Diastolic blood pressure 70 mm[Hg] 70 mm[Hg] [facility] Systolic blood pressure 122 mm[Hg] 122 mm[Hg] [facility] Body weight 92.53 kg 92.53 kg [facility] Body temperature 36.1 Margo 36.1 Margo [facility] Respiratory rate 18 /min 18 /min [facility] Heart rate 84.0 /min 84.0 /min [facility] Oxygen saturation in Arterial blood by Pulse oximetry 95 % 95 % [facility] Body height 175.2600 cm 175.2600 cm [facility] Body surface area Derived from formula 2.12 m2 2.12 m2 [facility] Diastolic blood pressure 70 mm[Hg] 70 mm[Hg] [facility] Systolic blood pressure 115 mm[Hg] 115 mm[Hg] [facility] Body mass index (BMI) [Ratio] 30.13 kg/m2 30.13 kg/m2 [facility] Body weight 92.99 kg 92.99 kg [facility] Body temperature 36.5 Margo 36.5 Margo [facility] Respiratory rate 20 /min 20 /min [facility] Heart rate 91.0 /min 91.0 /min [facility] Oxygen saturation in Arterial blood by Pulse oximetry 97 % 97 % [facility] Body height 177.8000 cm 177.8000 cm [facility] Body surface area Derived from formula 2.14 m2 2.14 m2 [facility] Diastolic blood pressure 75 mm[Hg] 75 mm[Hg] [facility] Systolic blood pressure 127 mm[Hg] 127 mm[Hg] [facility] Body mass index (BMI) [Ratio] 29.41 kg/m2 29.41 kg/m2 [facility] Diastolic blood pressure 75 mm[Hg] 75 mm[Hg] [facility] Systolic blood pressure 127 mm[Hg] 127 mm[Hg] [facility] Body mass index (BMI) [Ratio] 29.41 kg/m2 29.41 kg/m2 [facility] Body weight 92.99 kg 92.99 kg [facility] Body temperature 36.5 Margo 36.5 Margo [facility] Respiratory rate 20 /min 20 /min [facility] Heart rate 91.0 /min 91.0 /min [facility]ital Oxygen saturation in Arterial blood by Pulse oximetry 97 % 97 % [facility] Body height 177.8000 cm 177.8000 cm [facility] Body surface area Derived from formula 2.14 m2 2.14 m2 [facility] Body height 177.8000 cm 177.8000 cm [facility] Body height 177.8000 cm 177.8000 cm [facility] Body weight 97.93 kg 97.93 kg [facility] Body height 177.8000 cm 177.8000 cm [facility] Body surface area Derived from formula 2.20 m2 2.20 m2 [facility] Body mass index (BMI) [Ratio] 30.98 kg/m2 30.98 kg/m2 [facility] Heart rate 12.0 /min 12.0 /min [facility] Oxygen saturation in Arterial blood by Pulse oximetry 95 % 95 % [facility] Diastolic blood pressure 76 mm[Hg] 76 mm[Hg] [facility] Systolic blood pressure 128 mm[Hg] 128 mm[Hg] C [facility] Body temperature 36.3 Margo 36.3 Margo [facility] Respiratory rate 20 /min 20 /min [facility] ID Date Data Source [id number] 07/07/2020 12:05:00 AM [facility] Name Value Range Interpretation Code Description Data Source(s) Weight (Calculated Kilograms) 100.47 100.47 [facility] Height (Calculated Centimeters) 180.34 180. 34 [facility] Body Mass Index (BMI) 30.9 30.9 [facility] Weight (Calculated Kilograms) 100.47 100.47 [facility] Height (Calculated Centimeters) 180.34 180. 34 [facility] Body Mass Index (BMI) 30.9 30.9 [facility] ID Date Data Source [id number] 07/12/2020 07:50:00 AM [facility] Name Value Range Interpretation Code Description Data Source(s) Weight (Calculated Kilograms) 100.47 100.47 [facility] Height (Calculated Centimeters) 180.34 180. 34 [facility] Body Mass Index (BMI) 30.9 30.9 [facility] ID Date Data Source [id number] 08/25/2020 02:51:00 PM EST [facility] Name Value Range Interpretation Code Description Data Source(s) Weight (Calculated Kilograms) 100.47 100.47 [facility] Height (Calculated Centimeters) 180.34 180. 34 [facility] Body Mass Index (BMI) 30.9 30.9 [facility] ID Date Data Source [id number] 07/19/2020 04:32:00 PM EST [facility] Name Value Range Interpretation Code Description Data Source(s) Weight (Calculated Kilograms) 100.47 100.47 [facility] Height (Calculated Centimeters) 180.34 180. 34 [facility] Body Mass Index (BMI) 30.9 30.9 [facility] ID Date Data Source [id number] 05/12/2020 10:24:00 AM EDT [facility] Name Value Range Interpretation Code Description Data Source(s) Weight Measurement Method 1 1 [facility] Weight (Calculated Kilograms) 100.47 100.47 [facility] Weight 3360 3360 [facility] Temperature 98.2 98.2 [facility] Respiratory Rate 16 16 [facility] Pulse Rate 78 78 [facility] Height (Calculated Centimeters) 180.34 180. 34 [facility] Height 70 70 [facility] Blood Pressure 138/73 138/73 [facility] Body Mass Index (BMI) 30.9 30.9 [facility] Weight Measurement Method 1 1 [facility] Weight (Calculated Kilograms) 100.47 100.47 [facility] Weight 3360 3360 [facility] Temperature 98.2 98.2 [facility] Respiratory Rate 16 16 [facility] Pulse Rate 78 78 [facility] Height (Calculated Centimeters) 180.34 180. 34 [facility] Height 70 70 [facility] Blood Pressure 138/73 138/73 [facility] Body Mass Index (BMI) 30.9 30.9 [facility] Weight (Calculated Kilograms) 100.47 100.47 [facility] Height (Calculated Centimeters) 180.34 180. 34 [facility] Body Mass Index (BMI) 30.9 30.9 [facility] Weight (Calculated Kilograms) 100.47 100.47 [facility] Height (Calculated Centimeters) 180.34 180. 34 [facility] Body Mass Index (BMI) [address] [facility] ID Date Data Source [id number] 05/02/2020 01:37:00 AM EDT [facility] Name Value Range Interpretation Code Description Data Source(s) Weight (Calculated Kilograms) 100.47 100.47 [facility] Height (Calculated Centimeters) 180.34 180. 34 [facility] Body Mass Index (BMI) 30.9 30.9 [facility] Weight (Calculated Kilograms) 100.47 100.47 [facility] Height (Calculated Centimeters) 180.34 180. 34 [facility] Body Mass Index (BMI) 30.9 30.9 [facility] Weight (Calculated Kilograms) 100.47 100.47 [facility] Height (Calculated Centimeters) 180.34 180. 34 [facility] Body Mass Index (BMI) 30.9 30.9 [facility] ID Date Data Source [id number] 06/09/2020 02:17:00 PM EST [facility] Name Value Range Interpretation Code Description Data Source(s) Weight (Calculated Kilograms) 100.47 100.47 [facility] Height (Calculated Centimeters) 180.34 180. 34 [facility] Body Mass Index (BMI) 30.[address] [facility] ID Date Data Source [id number] 05/12/2020 09:49:00 AM EDT [facility] Name Value Range Interpretation Code Description Data Source(s) Weight (Calculated Kilograms) 100.47 100.47 [facility] Height (Calculated Centimeters) 180.34 180. 34 [facility] Body Mass Index (BMI) 30.[address] [facility] ID Date Data Source [id number] 05/02/2020 02:14:00 PM EDT [facility] Name Value Range Interpretation Code Description Data Source(s) Weight Measurement Method 5 5 [facility] Weight (Calculated Kilograms) 100.47 100.47 [facility] Weight 3136 3136 [facility] Temperature Source 7 7 [facility] Temperature 98.9 98.9 [facility] Respiratory Effort 1 1 [facility] Respiratory Rate 18 18 [facility] Pulse Assessment Method 4 4 C [facility] Pulse Rate 72 72 [facility] Height (Calculated Centimeters) 180.34 180. 34 [facility] Height 70 70 [facility] Blood Pressure 98/60 98/60 [facility] Body Mass Index (BMI) 30.9 30.9 [facility] Weight Measurement Method 5 5 [facility] Weight (Calculated Kilograms) 100.47 100.47 [facility] Weight 3136 3136 [facility] Temperature Source 7 7 [facility] Temperature 98.9 98.9 [facility] Respiratory Effort 1 1 [facility] Respiratory Rate 18 18 [facility] Pulse Assessment Method 4 4 C [facility] Pulse Rate 72 72 [facility] Height (Calculated Centimeters) 180.34 180. 34 [facility] Height 70 70 [facility] Blood Pressure 98/60 98/60 [facility] Body Mass Index (BMI) 30.9 30.9 [facility] Weight (Calculated Kilograms) 100.47 100.47 [facility] Height (Calculated Centimeters) 180.34 180. 34 [facility] Body Mass Index (BMI) 30.9 30.9 [facility] Weight (Calculated Kilograms) 100.47 100.47 [facility] Height (Calculated Centimeters) 180.34 180. 34 [facility] Body Mass Index (BMI) 30.9 30.9 [facility] Weight (Calculated Kilograms) 100.47 100.47 [facility] Height (Calculated Centimeters) 180.34 180. 34 [facility] Body Mass Index (BMI) 30.9 30.9 [facility] Weight (Calculated Kilograms) 100.47 100.47 [facility] Height (Calculated Centimeters) 180.34 180. 34 [facility] Body Mass Index (BMI) 30.9 30.9 [facility] ID Date Data Source [id number] 04/05/2020 07:47:00 AM EDT [facility] Name Value Range Interpretation Code Description Data Source(s) Weight (Calculated Kilograms) 100.47 100.47 [facility] Height (Calculated Centimeters) 180.34 180. 34 [facility] Body Mass Index (BMI) 30.9 30.9 [facility] ID Date Data Source [id number] 03/29/2020 11:59:00 AM EDT [facility] Name Value Range Interpretation Code Description Data Source(s) Weight (Calculated Kilograms) 100.47 100.47 [facility] Height (Calculated Centimeters) 180.34 180. 34 [facility] Body Mass Index (BMI) 30.9 30.9 [facility] Weight Measurement Method 1 1 [facility] Weight (Calculated Kilograms) 100.47 100.47 [facility] Weight 3056 3056 [facility] Temperature 98.1 98.1 [facility] Respiratory Effort 1 1 [facility] Respiratory Rate 16 16 [facility] Pulse Rate 85 85 [facility] Height (Calculated Centimeters) 180.34 180. 34 [facility] Height 70 70 [facility] Blood Pressure 124/70 124/70 [facility] Body Mass Index (BMI) 30.9 30.9 [facility] Weight Measurement Method 1 1 [facility] Weight (Calculated Kilograms) 100.47 100.47 [facility] Weight 3056 3056 [facility] Temperature 98.1 98.1 [facility] Respiratory Effort 1 1 [facility] Respiratory Rate 16 16 [facility] Pulse Rate 85 85 [facility] Height (Calculated Centimeters) 180.34 180. 34 [facility] Height 70 70 [facility] Blood Pressure 124/70 124/70 [facility] Body Mass Index (BMI) 30.9 30.9 [facility] Weight (Calculated Kilograms) 100.47 100.47 [facility] Weight 3056 3056 [facility] Height (Calculated Centimeters) 180.34 180. 34 [facility] Height 70 70 [facility] Body Mass Index (BMI) 30.9 30.9 [facility] ID Date Data Source [id number] 02/20/2020 10:15:00 AM [facility] Name Value Range Interpretation Code Description Data Source(s) Weight (Calculated Kilograms) 100.47 100.47 [facility] Height (Calculated Centimeters) 180.34 180. 34 [facility] Body Mass Index (BMI) 30.9 30.9 [facility] ID Date Data Source [id number] 04/14/2020 09:01:[address] [facility] Name Value Range Interpretation Code Description Data Source(s) Weight (Calculated Kilograms) 100.47 100.47 [facility] Height (Calculated Centimeters) 180.34 180. 34 [facility] Body Mass Index (BMI) 30.9 30.9 [facility] ID Date Data Source [id number] 04/01/2020 11:51:[address] [facility] Name Value Range Interpretation Code Description Data Source(s) Weight (Calculated Kilograms) 100.47 100.47 [facility] Height (Calculated Centimeters) 180.34 180. 34 [facility] Body Mass Index (BMI) 30.9 30.9 [facility] ID Date Data Source [id number] 02/26/2020 08:01:00 AM [facility] Name Value Range Interpretation Code Description Data Source(s) Weight (Calculated Kilograms) 100.47 100.47 [facility] Height (Calculated Centimeters) 180.34 180. 34 [facility] Body Mass Index (BMI) 30.9 30.9 [facility] ID Date Data Source [id number] 04/06/2020 02:49:[address] [facility] Name Value Range Interpretation Code Description Data Source(s) Weight (Calculated Kilograms) 100.47 100.47 [facility] Height (Calculated Centimeters) 180.34 180. 34 [facility] Body Mass Index (BMI) 30.9 30.9 [facility] ID Date Data Source [id number] 01/28/2020 02:40:00 PM EDT [facility] Name Value Range Interpretation Code Description Data Source(s) Weight (Calculated Kilograms) 100.47 100.47 [facility] Weight 3200 3200 [facility] Temperature 98.0 98.0 [facility] Respiratory Rate 20 20 [facility] Pulse Rate 91 91 [facility] Height (Calculated Centimeters) 180.34 180. 34 [facility] Height 71 71 [facility] Blood Pressure 146/57 146/57 [facility] Body Mass Index (BMI) 30.9 30.9 [facility] Weight (Calculated Kilograms) 100.47 100.47 [facility] Weight 3200 3200 [facility] Temperature 98.0 98.0 [facility] Respiratory Rate 20 20 [facility] Pulse Rate 91 91 [facility] Height (Calculated Centimeters) 180.34 180. 34 [facility] Height 71 71 [facility] Blood Pressure 146/57 146/57 [facility] Body Mass Index (BMI) 30.9 30.9 [facility] Weight (Calculated Kilograms) 100.47 100.47 [facility] Weight 3200 3200 [facility] Height (Calculated Centimeters) 180.34 180. 34 [facility] Height 71 71 [facility] Body Mass Index (BMI) 30.9 30.9 [facility] ID Date Data Source [id number] 01/04/2020 12:59:00 PM EDT [facility] Name Value Range Interpretation Code Description Data Source(s) Weight (Calculated Kilograms) 100.47 100.47 [facility] Height (Calculated Centimeters) 180.34 180. 34 [facility] Body Mass Index (BMI) 30.9 30.9 [facility] Weight (Calculated Kilograms) 100.47 100.47 [facility] Height (Calculated Centimeters) 180.34 180. 34 [facility] Body Mass Index (BMI) 30.9 30.9 [facility] Weight (Calculated Kilograms) 100.47 100.47 [facility] Height (Calculated Centimeters) 180.34 180. 34 [facility] Body Mass Index (BMI) 30.9 30.9 [facility] Weight (Calculated Kilograms) 100.47 100.47 [facility] Height (Calculated Centimeters) 180.34 180. 34 [facility] Body Mass Index (BMI) 30.9 30.9 [facility] Weight (Calculated Kilograms) 100.47 100.47 [facility] Height (Calculated Centimeters) 180.34 180. 34 [facility] Body Mass Index (BMI) 30.9 30.9 [facility] ID Date Data Source [id number] 02/03/2020 08:54:[address] [facility] Name Value Range Interpretation Code Description Data Source(s) Weight (Calculated Kilograms) 100.47 100.47 [facility] Height (Calculated Centimeters) 180.34 180. 34 [facility] Body Mass Index (BMI) 30.9 30.9 [facility] ID Date Data Source [id number] 10/14/2019 11:44:[address] [facility] Name Value Range Interpretation Code Description Data Source(s) Weight (Calculated Kilograms) 100.47 100.47 [facility] Height (Calculated Centimeters) 180.34 180. 34 [facility] Body Mass Index (BMI) 30.9 30.9 [facility] ID Date Data Source [id number] 12/10/2019 11:53:[address] [facility] Name Value Range Interpretation Code Description Data Source(s) Weight (Calculated Kilograms) 100.47 100.47 [facility] Height (Calculated Centimeters) 180.34 180. 34 [facility] Body Mass Index (BMI) 30.9 30.9 [facility] ID Date Data Source [id number] 11/05/2019 02:25:[address] [facility] Name Value Range Interpretation Code Description Data Source(s) Weight (Calculated Kilograms) 100.47 100.47 [facility] Height (Calculated Centimeters) 180.34 180. 34 [facility] Body Mass Index (BMI) 30.[address] [facility] ID Date Data Source [id number] 10/06/2019 10:54:00 AM EDT [facility] Name Value Range Interpretation Code Description Data Source(s) Weight (Calculated Kilograms) 100.47 100.47 [facility] Height (Calculated Centimeters) 180.34 180. 34 [facility] Body Mass Index (BMI) 30.9 30.9 [facility] Weight (Calculated Kilograms) 100.47 100.47 [facility] Weight 3280 3280 [facility] Temperature 97.7 97.7 [facility] Respiratory Rate 18 18 [facility] Pulse Rate 88 88 [facility] Height (Calculated Centimeters) 180.34 180. 34 [facility] Height 70 70 [facility] Blood Pressure 117/78 117/78 [facility] Body Mass Index (BMI) 30.9 30.9 [facility] Weight (Calculated Kilograms) 100.47 100.47 [facility] Weight 3280 3280 [facility] Temperature 97.7 97.7 [facility] Respiratory Rate 18 18 [facility] Pulse Rate 88 88 [facility] Height (Calculated Centimeters) 180.34 180. 34 [facility] Height 70 70 [facility] Blood Pressure 117/78 117/78 [facility] Body Mass Index (BMI) 30.9 30.9 [facility] Weight (Calculated Kilograms) 100.47 100.47 [facility] Height (Calculated Centimeters) 180.34 180. 34 [facility] Body Mass Index (BMI) 30.9 30.9 [facility] ID Date Data Source [id number] 09/16/2019 10:47:00 AM EST [facility] Name Value Range Interpretation Code Description Data Source(s) Weight (Calculated Kilograms) 100.47 100.47 [facility] Height (Calculated Centimeters) 180.34 180. 34 [facility] Body Mass Index (BMI) 30.9 30.9 [facility] ID Date Data Source [id number] 09/16/2019 10:50:00 AM EST [facility] Name Value Range Interpretation Code Description Data Source(s) Weight (Calculated Kilograms) 100.47 100.47 [facility] Height (Calculated Centimeters) 180.34 180. 34 [facility] Body Mass Index (BMI) 30.9 30.9 [facility] Weight (Calculated Kilograms) 100.47 100.47 [facility] Height (Calculated Centimeters) 180.34 180. 34 [facility] Body Mass Index (BMI) 30.9 30.9 [facility] ID Date Data Source [id number] 08/28/2019 01:29:00 PM EST [facility] Name Value Range Interpretation Code Description Data Source(s) Weight (Calculated Kilograms) 97.98 97.98 [facility] Height (Calculated Centimeters) 177.8 177. 8 [facility] Body Mass Index (BMI) 30.9 30.9 [facility] Weight (Calculated Kilograms) 97.98 97.98 [facility] Height (Calculated Centimeters) 177.8 177. 8 [facility] Body Mass Index (BMI) 30.9 30.9 [facility] ID Date Data Source [id number] 11/12/2019 10:30:00 AM EDT [facility] Name Value Range Interpretation Code Description Data Source(s) Weight Measurement Method 5 5 [facility] Weight (Calculated Kilograms) 97.98 97.98 [facility] Weight 3505.6 3505.6 [facility] Temperature Source 7 7 [facility] Temperature 98.6 98.6 [facility] Respiratory Effort 1 1 [facility] Respiratory Rate 18 18 [facility] Pulse Assessment Method 4 4 [facility] Pulse Rate 98 98 [facility] Height (Calculated Centimeters) 177.8 177. 8 [facility] Height 70 70 [facility] Blood Pressure 118/68 118/68 [facility] Body Mass Index (BMI) 30.9 30.9 [facility] Weight Measurement Method 5 5 [facility] Weight (Calculated Kilograms) 97.98 97.98 [facility] Weight 3505.6 3505.6 [facility] Temperature Source 7 7 [facility] Temperature 98.6 98.6 [facility] Respiratory Effort 1 1 [facility] Respiratory Rate 18 18 [facility] Pulse Assessment Method 4 4 C [facility] Pulse Rate 98 98 [facility] Height (Calculated Centimeters) 177.8 177. 8 [facility] Height 70 70 [facility] Blood Pressure 118/68 118/68 [facility] Body Mass Index (BMI) 30.9 30.9 [facility] Weight Measurement Method 1 1 [facility] Weight (Calculated Kilograms) 126.55 126.55 [facility] Weight 3456 3456 [facility] Temperature Source 7 7 [facility] Temperature 98.7 98.7 [facility] Respiratory Rate 18 18 [facility] Pulse Assessment Method 4 4 [facility] Pulse Rate 90 90 [facility] Height (Calculated Centimeters) 172.72 172. 72 [facility] Height 70 70 [facility] Blood Pressure 133/76 133/76 [facility] Body Mass Index (BMI) 42.4 42.4 [facility] Weight Measurement Method 1 1 [facility] Weight (Calculated Kilograms) 126.55 126.55 [facility] Weight 3456 3456 [facility] Temperature Source 7 7 [facility] Temperature 98.7 98.7 [facility] Respiratory Rate 18 18 [facility] Pulse Assessment Method 4 4 [facility] Pulse Rate 90 90 [facility] Height (Calculated Centimeters) 172.72 172. 72 [facility] Height 70 70 [facility] Blood Pressure 133/76 133/76 [facility] Body Mass Index (BMI) 42.4 42.4 [facility] Weight (Calculated Kilograms) 126.55 126.55 [facility] Height (Calculated Centimeters) 172.72 172. 72 [facility] Body Mass Index (BMI) 42.4 42.4 [facility] Weight (Calculated Kilograms) 126.55 126.55 [facility] Height (Calculated Centimeters) 172.72 172. 72 [facility] Body Mass Index (BMI) 42.4 42.4 [facility] ID Date Data Source [id number] 08/06/2019 01:07:00 PM EST [facility] Name Value Range Interpretation Code Description Data Source(s) Weight (Calculated Kilograms) 126.55 126.55 [facility] Height (Calculated Centimeters) 172.72 172. 72 [facility] Body Mass Index (BMI) 42.4 42.4 [facility] Patient Treatment Plan of Care Planned Activity Planned Date Details Description Data Source (s) gabapentin 600 MG Oral Tablet 04/19/2020 12:00:00 AM EDT [facility] Morphine Sulfate 15 MG Oral Tablet 04/19/2020 12:00:00 AM EDT [facility] Evzio 2MG/0.4ML Injection Solution 03/28/2020 12:00:00 AM EDT [facility] Acetaminophen 325 MG / Hydrocodone Bitartrate 5 MG Ora l Tablet 03/28/2020 12:00:00 AM EDT [facility] Allopurinol 300 MG Oral Tablet 03/21/2020 12:00:00 AM EDT [facility] Zolpidem tartrate 10 MG Oral Tablet [Ambien] 03/16/2020 12:00:00 AM EDT [facility] Magnesium Oxide 200MG Oral Tablet 01/11/2020 12:00:00 AM EDT [facility] pregabalin 50 MG Oral Capsule [Lyrica] 10/08/2019 12:00:00 AM EDT [facility] pregabalin 50 MG Oral Capsule [Lyrica] 10/08/2019 12:00:00 AM EDT [facility] Escitalopram 5 MG Oral Tablet [Lexapro] 10/08/2019 12:00:00 AM EDT [facility] Nitroglycerin 0.4 MG Sublingual Tablet 10/07/2019 12:00:00 AM EDT [facility] Lidocaine 5% Topical application Patch, Extended Relea se 10/07/2019 12:00:00 AM EDT [facility] Nitroglycerin 0.4 MG Sublingual Tablet 10/07/2019 12:00:00 AM EDT [facility] Lidocaine 5% Topical application Patch, Extended Relea se 10/07/2019 12:00:00 AM EDT [facility] Nitroglycerin 0.4 MG Sublingual Tablet 10/07/2019 12:00:00 AM EDT [facility] tramadol hydrochloride 50 MG Oral Tablet 10/07/2019 12:00:00 AM EDT [facility] Metamucil Oral Powder for Suspension 10/03/2019 12:00:00 AM [facility] Metamucil Oral Powder for Suspension 10/03/2019 12:00:00 AM [facility] gabapentin 400 MG Oral Capsule 09/03/2019 12:00:00 AM [facility] gabapentin 400 MG Oral Capsule 09/03/2019 12:00:00 AM [facility] gabapentin 400 MG Oral Capsule 09/03/2019 12:00:00 AM [facility] gabapentin 400 MG Oral Capsule 09/03/2019 12:00:00 AM [facility] Acetaminophen 300 MG / Codeine Phosphate 30 MG Oral Tablet [Tylenol with Codeine] 09/03/2019 12:00:00 AM [facility] Diclofenac Sodium 50 MG Delayed Release Oral Tablet 08/24/19 12:00:00 AM [facility] Zolpidem tartrate 10 MG Oral Tablet [Ambien] 08/19/2019 12:00:00 AM [facility] Zolpidem tartrate 10 MG Oral Tablet [Ambien] 08/19/2019 12:00:00 AM [facility] Zolpidem tartrate 10 MG Oral Tablet [Ambien] 08/19/2019 12:00:00 AM [facility] Zolpidem tartrate 10 MG Oral Tablet [Ambien] 08/19/2019 12:00:00 AM [facility] Ramipril 2.5 MG Oral Capsule 08/19/2019 12:00:00 AM [facility] Potassium Chloride 10 MEQ Extended Release Oral Capsul e 08/17/2019 12:00:00 [facility] at[facility] Oral Tablet 08/17/2019 12:00:00 AM [facility] Levothyroxine Sodium 0.1 MG Oral Tablet 08/17/2019 12:00:00 AM [facility] Furosemide 40 MG Oral Tablet 08/17/2019 12:00:00 AM [facility] atorvastatin 20 MG Oral Tablet 08/17/2019 12:00:00 AM [facility] Levothyroxine Sodium 0.1 MG Oral Tablet 08/17/2019 12:00:00 AM [facility] Furosemide 40 MG Oral Tablet 08/17/2019 12:00:00 AM [facility] Potassium Chloride 10 MEQ Extended Release Oral Capsul e 08/17/2019 12:00:00 AM [facility] Allopurinol 300 MG Oral Tablet 08/17/2019 12:00:00 AM [facility] atorvastatin 20 MG Oral Tablet [Lipitor] 08/17/2019 12:00:00 AM [facility] atorvastatin 20 MG Oral Tablet 08/17/2019 12:00:00 AM [facility] Potassium Chloride 10 MEQ Extended Release Oral Capsul e 08/17/2019 12:00:00 AM [facility] Furosemide 40 MG Oral Tablet 08/17/2019 12:00:00 AM [facility] atorvastatin 20 MG Oral Tablet [Lipitor] 08/17/2019 12:00:00 AM [facility] Allopurinol 300 MG Oral Tablet 08/17/2019 12:00:00 AM [facility] Levothyroxine Sodium 0.1 MG Oral Tablet 08/17/2019 12:00:00 AM [facility] Allopurinol 300 MG Oral Tablet 08/17/2019 12:00:00 AM [facility] atorvastatin 20 MG Oral Tablet 08/17/2019 12:00:00 AM [facility] Levothyroxine Sodium 0.1 MG Oral Tablet 08/17/2019 12:00:00 AM [facility] Furosemide 40 MG Oral Tablet 08/17/2019 12:00:00 AM [facility] Potassium Chloride 10 MEQ Extended Release Oral Capsul e 08/17/2019 12:00:00 AM [facility] atorvastatin 20 MG Oral Tablet [Lipitor] 08/17/2019 12:00:00 AM [facility] Potassium Chloride 10 MEQ Extended Release Oral Capsul e 08/17/2019 12:00:00 AM [facility] Furosemide 40 MG Oral Tablet 08/17/2019 12:00:00 AM [facility] atorvastatin 20 MG Oral Tablet [Lipitor] 08/17/2019 12:00:00 AM [facility] Allopurinol 300 MG Oral Tablet 08/17/2019 12:00:00 AM [facility] Levothyroxine Sodium 0.1 MG Oral Tablet 08/17/2019 12:00:00 AM [facility] Lidocaine Hydrochloride 0.05 MG/MG Transdermal Patch [ Lidoderm] 08/05/2019 12:00:00 AM [facility] ZTlido 1.8% Topical application Patch, Extended Releas e 08/05/2019 12:00:00 AM [facility] gabapentin 400 MG Oral Capsule 08/03/2019 12:00:00 AM [facility] ICa Areds Oral Capsule, Liquid Filled 07/09/2019 12:00:00 AM [facility] Terazosin 10 MG Oral Capsule 07/09/2019 12:00:00 AM [facility] ICa Areds Oral Capsule, Liquid Filled 07/09/2019 12:00:00 AM [facility] Terazosin 10 MG Oral Capsule 07/09/2019 12:00:00 AM [facility] ICaps Areds Oral Capsule, Liquid Filled 07/09/2019 12:00:00 AM [facility] Meclizine Hydrochloride 25 MG Oral Tablet 07/09/2019 12:00:00 AM [facility] Terazosin 10 MG Oral Capsule 07/09/2019 12:00:00 AM [facility] ICa Areds Oral Capsule, Liquid Filled 07/09/2019 12:00:00 AM [facility] Meclizine Hydrochloride 25 MG Oral Tablet 07/09/2019 12:00:00 AM [facility] Terazosin 10 MG Oral Capsule 07/09/2019 12:00:00 AM [facility] Fexofenadine hydrochloride 60 MG Oral Tablet 07/09/2019 12:00:00 AM [facility] sennosides, RETIREMENT 8.6 MG Oral Tablet 07/09/2019 12:00:00 AM [facility] Meclizine Hydrochloride 25 MG Oral Tablet 07/09/2019 12:00:00 AM [facility] Terazosin 10 MG Oral Capsule 07/09/2019 12:00:00 AM EST [facility] ICaps Areds Oral Capsule, Liquid Filled 07/09/2019 12:00:00 AM [facility] ICa Areds Oral Capsule, Liquid Filled 07/09/2019 12:00:00 AM [facility] Fexofenadine hydrochloride 60 MG Oral Tablet 07/09/2019 12:00:00 AM [facility] sennosides, RETIREMENT 8.6 MG Oral Tablet 07/09/2019 12:00:00 AM [facility] Meclizine Hydrochloride 25 MG Oral Tablet 07/09/2019 12:00:00 AM [facility] Terazosin 10 MG Oral Capsule 07/09/2019 12:00:00 AM [facility] Levothyroxine Sodium 0.075 MG Oral Tablet 07/09/2019 12:00:00 AM [facility] Ramipril 2.5 MG Oral Capsule 07/09/2019 12:00:00 AM [facility] Zolpidem tartrate 10 MG Oral Tablet [Ambien] 07/09/2019 12:00:00 AM [facility]
[2020-09-02 18:10] VITALS: BP 87/51
[2020-09-02] MEDS: LORazepam 2 MG/ML VIAL IV PRN ×2 (18:30→22:51)
--- NOTE | 2020-09-02 19:50 | ECGEPIP ---
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
[2020-09-02] MEDS ORDERED: LORazepam 2 MG/ML VIAL As Ordered ONE (22:47)
[2020-09-02] MEDS: MORPHINE 2 MG/ML 1ML VIAL (J2270) IV PRN (22:52)
[2020-09-03] MEDS ORDERED: LORazepam 2 MG/ML VIAL As Ordered ONE (01:11)
[2020-09-03] MEDS: LORazepam 2 MG/ML VIAL IV PRN (01:13)
[2020-09-03] MEDS: MORPHINE 2 MG/ML 1ML VIAL (J2270) IV PRN ×3 (09:10→16:51)
--- NOTE | 2020-09-03 10:20 | HPE ---
HISTORY AND PHYSICAL DATE OF ADMISSION: 09/02/2020 CHIEF COMPLAINT: Cardiogenic shock. 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 He was able to have some conversation with Dr. Hines, the emergency room physician, but since then has lapsed into unresponsive state. He has a history of congestive cardiomyopathy. An echocardiogram done 08/23/2020 showed ejection fraction of 35%-40%, severe aortic stenosis, moderate to severe mitral regurgitation. His only viable option was valve intervention, for which he declined participation. Dr. Hines had discussions with the patient's recycler forklift driver truck driver today, who feels his prognosis is dismal, and patient signed and consented to comfort measures. At this point, he is on dobutamine. He has congestive changes on his chest x-ray, he is hypotensive, and he has lapsed into unresponsiveness. MEDICAL HISTORY: 1. Shows a recent urinary tract infection. 2. Chronic kidney disease. Last creatinine was 2.5. 3. Congestive heart failure with reduced ejection fraction. Last BNP was 8500. 4. Had a negative SARS test 08/31/2020. 5. History of hypothyroidism. 6. Past history of hypertension. 7. History of B12 deficiency. 8. Back pain with sciatica. 9. Anxiety disorder with depressed mood. 10. He is on atrial fibrillation upon presentation here. 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 Currently lives in [place]. Discharge summary from [facility] gives further history. Ejection fraction (EF) 35%, severe mitral regurgitation, low-flow, low-grade aortic stenosis. Has stenting of a tight circumflex artery stenosis. Previously had circumflex and right coronary artery stented. MEDICATIONS: His medications have all been discontinued. The list of them came from [facility] and are available as part of this record. REVIEW OF SYSTEMS: Not obtainable. FAMILY HISTORY: Not obtainable. PHYSICAL EXAMINATION: Pressure is currently about 80/60, heart rate is 80. General appearance: He is pale and unresponsive. Skin is cool. He does have spontaneous respirations. He is unresponsive to verbal or physical stimulation. Jugular venous distention (JVD) is present. Lungs have rhonchi and rales bilaterally. Heart is barely audible. Has a loud 2-3 over 6 systolic ejection murmur, but heart sounds themselves are distant. Abdomen soft, nontender. No masses. Peripheral edema 1+. IMPRESSION: This patient has cardiogenic shock. He has now become unresponsive. I think his is imminent. He has a Medical Orders for Life-Sustaining Treatment (MOLST) form that he signed for comfort measures. He will be admitted to the medical floor, provided morphine for relief of dyspnea. DO NOT RESUSCITATE status will be honored. Pregnosis is grim.
--- NOTE | 2020-09-03 13:40 | IPN ---
PROGRESS NOTE DATE: 09/03/2020 Jae is on comfort measures only (CUSTOMER CONTACT REPRESENTATIVE) status, admitted with severe congestive cardiomyopathy. PHYSICAL EXAMINATION: He is resting comfortably. He was not arousable to verbal or physical stimulation. Lungs are rhonchorous. Heart regular rate and rhythm, distant heart sounds. A 2/6 systolic ejection murmur. IMPRESSION: Comfort measures only status. Congestive cardiomyopathy. Prognosis is grim. Might be a candidate for hospice care, which we will inquire on Saturday, when we have patient and family services (PFS) support.
[2020-09-04] MEDS: MORPHINE 2 MG/ML 1ML VIAL (J2270) IV PRN ×5 (01:03→16:09)
[2020-09-04] MEDS ORDERED: LORazepam 2 MG/ML VIAL As Ordered ONE (06:57)
[2020-09-04] MEDS: LORazepam 2 MG/ML VIAL IV PRN ×3 (07:01→15:21)
[2020-09-04] MEDS ORDERED: LORazepam 2 MG/ML VIAL IV PRN (16:00)
--- NOTE | 2020-09-04 19:19 | IPN ---
PROGRESS NOTE DATE: 09/04/2020 SUBJECTIVE: Jae is on GLAZIER STAINED GLASS status. He has a friend who is with him today who said that he did indicate that he was aware of her presence. She called his sister and he heard his sister's voice. He is not speaking, but he did seem to know that these efforts were being made. I also spoke to Balaji who is a nurse at [facility] and has his healthcare proxy. We discussed the patient's current clinical condition. He agrees with GLAZIER STAINED GLASS status and open to the possibility of Hospice for end-of-life care. OBJECTIVE: GENERAL APPEARANCE: He looks comfortable. Not following commands. HEENT: No opening his eyes. LUNGS: Have shallow breath sounds. HEART: Distant heart sounds. IMPRESSION: Cardiogenic shock on comfort measures only (GLAZIER STAINED GLASS) status. Prognosis is poor. PLAN: If he is still alive tomorrow, we will discuss the possibility of Hospice.
--- NOTE | 2020-09-05 12:06 | DSES ---
DISCHARGE SUMMARY DATE OF ADMISSION: 09/02/2020 DATE OF DISCHARGE/: 09/04/2020 PRINCIPAL DIAGNOSES: 1. Acute on chronic systolic congestive heart failure. 2. Acute myocardial infarction in the setting of cardiogenic shock (troponin 8.9 at transferring emergency room). 3. Acute kidney injury. 4. Acute hypoxic respiratory failure. 5. Severe aortic stenosis and mitral regurgitation. HISTORY: Jae John was transferred from [facility]. He actually was on his way to [place] for emergency evaluation by his security checker, when he deteriorated en route and was diverted to [facility]. He was admitted for comfort measures. HOSPITAL COURSE: The patient had severe congestive cardiomyopathy and his health care decision maker, Balaji, in [place] agreed with the patient's wish for comfort measures. Care was de-escalated. He on comfort measures on 09/04/2020. I was in frequent communication with Balaji including the morning of the patient's and then called him upon receiving word of the patient's expiration.
== END 2020-09-04 18:13 | disposition expired | DRG 951 ==
LOC: M ED 11:14 → EDBD 11:14 → M ED INP 17:07 → M MSPAV 18:56
PROVIDERS: ADMIT Family Medicine; ATTEND Family Medicine
DX: Z51.5 Encounter for palliative care (principal); I50.23 Acute on chronic systolic (congestive) heart failure; J96.01 Acute respiratory failure with hypoxia; I21.9 Acute myocardial infarction, unspecified; I42.0 Dilated cardiomyopathy; N17.9 Acute kidney failure, unspecified; R57.0 Cardiogenic shock; Z66 Do not resuscitate; I08.0 Rheumatic disorders of both mitral and aortic valves; N18.9 Chronic kidney disease, unspecified; E03.9 Hypothyroidism, unspecified; E53.8 Deficiency of other specified B group vitamins; F34.1 Dysthymic disorder; I48.91 Unspecified atrial fibrillation